=== PATIENT | male | born 1945 | race Caucasian/White ===

== ENCOUNTER 2018-05-30 08:08 | Inpatient (IN) ==
--- NOTE | 2018-05-30 08:46 | ED ---
HPI General Chief Complaint: Neck Pain/Injury Stated Complaint: Medical/Evac Time Seen by Provider: 05/30/18 08:33 Source: patient, RN notes reviewed and old records reviewed Mode of arrival: EMS Limitations: no limitations History of Present Illness HPI Narrative: 72-year-old male presents to the emergency department via EMS for evaluation of left low back pain that radiates down the left leg. Patient states the pain started on . He denies any traumatic injury. No fevers or chills. No loss of bowel or bladder control. No saddle anesthesias. Patient reports history of CVA, COPD, hypertension. He is currently on any anticoagulant. Patient states he has been ambulatory at home, but with pain. He does live alone. According to review of chart, he does have history of alcohol abuse. Patient denies any chest pain or shortness breath. No abdominal pain. No nausea, vomiting, diarrhea. He states that he has looked up his symptoms and he believes he has sciatica, but denies history of sciatica. Moderate severity. MD Complaint: back pain Onset (ago): day(s) (3) Duration: constant Similar Symptoms Previously: No Location: left lower back Severity: moderate Quality: sharp Radiation: left leg Severity scale (1-10): 10 Relieving factors: immobilization Exacerbating factors: walking Associated symptoms: denies other symptoms Treatments prior to arrival: acetaminophen Related Data Home Medications Medication Instructions Recorded Confirmed Unable to Obtain Home Meds 05/30/18 05/30/18 Allergies Allergy/AdvReac Type Severity Reaction Status Date / Time No Known Allergies Allergy Unknown Abdominal Uncoded 05/30/18 08:23 Pain Review of Systems Except as stated in HPI: all other systems reviewed are negative PMFSH Social History Social History Second Hand Smoke Exposure: No Smoking Status: Current every day smoker Tobacco Type: Cigarettes How Often Do You Have a Drink Containing Alcohol: 4 or more times a week Immunization History Tetanus Immunization: Unsure Hx Influenza Vaccine This Season: Unable to Assess Exam Narrative Exam Narrative: GENERAL: Well-nourished, well-developed elderly male patient, afebrile SKIN: Focused skin assessment warm/dry. HEAD: Normocephalic. Atraumatic EYES: No scleral icterus. No injection or drainage. NECK: Supple, trachea midline. No JVD or lymphadenopathy. CARDIOVASCULAR: Regular rate and rhythm without murmurs, gallops, or rubs. Bilateral pedal pulses are 2+ RESPIRATORY: Breath sounds equal bilaterally. No accessory muscle use. Lung sounds are clear to auscultation GASTROINTESTINAL: Abdomen soft, non-tender, nondistended. MUSCULOSKELETAL: No cyanosis, or edema. BACK: No obvious deformity. No CVA tenderness. No midline spinal tenderness. He has tenderness over the left posterior hip. No loss of range of motion of the left leg. No shortening or rotation. He moves all extremities fully. Bilateral lower extremity strength 5/5. Course Initial Documented Vital Signs Temperature 97.9 F 05/30/18 08:25 Pulse Rate 107 H 05/30/18 08:25 Respiratory Rate 18 05/30/18 08:25 Blood Pressure 148/76 H 05/30/18 08:25 Pulse Oximetry 98 05/30/18 08:25 Last Documented Vital Signs Temperature 97.9 F 05/30/18 08:25 Pulse Rate 107 H 05/30/18 08:25 Respiratory Rate 18 05/30/18 11:02 Blood Pressure 164/91 H 05/30/18 13:49 Pulse Oximetry 97 05/30/18 13:49 Medical Decision Making MDM Narrative Medical decision making narrative: 72-year-old male presents to the emergency department for evaluation of left hip pain that radiates down the left leg. Symptoms are consistent with sciatica. Patient is given [place] 5/325 mg p.o. for pain. He is given dexamethasone 8 mg IM. X-ray the lumbar spine and x-ray left hip with pelvis are ordered and pending. X-ray of the lumbar spine shows mild degenerative disc changes and facet degenerative changes as noted above, no evidence of acute injury. X-ray of the left hip with pelvis shows a normal left hip. Patient was attempted to ambulate, but he is unable to get out of the bed due to intense pain. IV access is established. CBC, CMP, PTT, PT/INR, UA are ordered and pending. CT of the lumbar spine and CT of the pelvis are ordered and pending. Patient is given Morphine 4 mg IV, Zofran 4 mg ODT. CBC shows leukocytosis 13.6. CMP shows no acute abnormal. PTT is 26.8. PT/ INR is 11.3/1.1. UA is pending. CT of the lumbar spine shows multilevel degenerative disc disease with mild stenosis L4-L5 and L5-S1, multilevel neural foraminal narrowing as above, maximal L5-S1 on the left. CT of the pelvis shows no evidence of acute pelvic process, no masses are identified. Patient is still unable to ambulate and states he does not feel comfortable going home. The patient does live alone. Hospitalist is paged for admission. Dr. Mayorga accepted admission. Differential Diagnosis Differential Diagnosis: Sciatica versus muscle strain versus muscle spasm versus herniated disc versus fracture Medical Records Medical records reviewed: Yes I reviewed the patient's medical records. Lab Data Result diagrams: 05/30/18 10:18 05/30/18 10:18 Lab Results 05/30/18 05/30/18 05/30/18 Range/Units 10:18 10:18 10:18 WBC 13.6 H (4.0-11.0) th/mm3 RBC 3.43 L (4.50-5.90) mil/mm3 Hgb 11.0 L (13.0-17.0) gm/dL Hct 33.0 L (39.0-51.0) % MCV 96.3 (80.0-100.0) fL MCH 32.1 (27.0-34.0) pg MCHC 33.3 (32.0-36.0) % RDW 15.3 (11.6-17.2) % Plt Count 334 (150-450) th/mm3 MPV 6.5 L (7.0-11.0) fL Neut % (Auto) 90.5 H (16.0-70.0) % Lymph % (Auto) 4.0 L (9.0-44.0) % [place] % (Auto) 4.3 (0.0-8.0) % Eos % (Auto) 0.5 (0.0-4.0) % Baso % (Auto) 0.7 (0.0-2.0) % Neut # (Auto) 12.3 H (1.8-7.7) th/mm3 Lymph # (Auto) 0.5 L (1.0-4.8) th/mm3 [place] # (Auto) 0.6 (0.0-0.9) th/mm3 Eos # (Auto) 0.1 (0.0-0.4) th/mm3 Baso # (Auto) 0.1 (0.0-0.2) th/mm3 WBC Differential . Differential Comment Auto diff final PT 11.3 (9.8-11.6) sec INR 1.1 Ratio APTT 26.8 (24.3-30.1) sec Sodium 136 (136-145) meq/L Potassium 3.9 (3.5-5.1) meq/L Chloride 102 (98-107) meq/L Carbon Dioxide 23.3 (21.0-32.0) meq/L Anion Gap 11 (5-15) meq/L BUN 7 (7-18) mg/dL Creatinine 0.63 (0.60-1.30) mg/dL Estimated GFR Greater than 89 (>89) mL/min Random Glucose 79 (74-106) mg/dL Calcium 8.2 L (8.5-10.1) mg/dL Total Bilirubin 0.5 (0.2-1.0) mg/dL AST 16 (15-37) U/L ALT 14 (12-78) U/L Alkaline Phosphatase 84 (45-117) U/L Total Protein 7.1 (6.4-8.2) g/dL Albumin 2.8 L (3.4-5.0) g/dL Imaging Data Radiologist's impression: Hip X-Ray 05/30/18 08:40 CONCLUSION: Normal left hip. Lumbar Spine X-Ray 05/30/18 08:40 CONCLUSION: Mild degenerative disc changes and facet degenerative changes as noted above. No evidence of acute injury. Lumbar Spine CT 05/30/18 10:03 CONCLUSION: Multilevel degenerative disc disease with mild stenosis at L4-L5 and L5-S1. Multilevel neural foraminal narrowing as above maximal at L5-S1 on the left Pelvis CT 05/30/18 10:06 CONCLUSION: No evidence of acute pelvic process. No masses are identified. Discharge Plan Discharge Disposition Patient Disposition: 30 Still Patient Discharge Details Diagnosis: Intractable low back pain Physicians Team ED Provider: Jey Cervantes ED Midlevel Provider: Erin Giron Primary Care Provider: [facility],Physician 's Rxs /Orders / Referrals /Forms Prescriptions: No Action Unable to Obtain Home Meds RF: 0 Status ED Status: With Doctor
--- NOTE | 2018-05-30 09:45 | XR ---
EXAM DATE: 05/30/2018 9:18 AM EDT AGE/SEX: 72 years / Male INDICATIONS: Low back pain, denies injury CLINICAL DATA: This is the patient's initial encounter. Patient reports that signs and symptoms have been present for 4 - 6 days and indicates a pain score of 6/10. MEDICAL/SURGICAL HISTORY: Arthritis. Stroke. Hypertension. Chronic obstructive pulmonary diseas e None. COMPARISON: No prior exams available for comparison. FINDINGS: The vertebral bodies are in normal alignment without evidence of compression deformity. Mild endplate degenerative changes are seen throughout the lumbar spine. Mild facet degenerative change seen withi n the lower lumbar spine. Bone density is normal for age. Soft tissues and straight significant athe rosclerosis. CONCLUSION: Mild degenerative disc changes and facet degenerative changes as noted above. No evidence of acute in jury. Electronically signed by: Gale Alex MD 05/30/2018 9:44 AM EDT
--- NOTE | 2018-05-30 09:46 | XR ---
EXAM DATE: 05/30/2018 9:16 AM EDT AGE/SEX: 72 years / Male INDICATIONS: Left hip pain, denies injury CLINICAL DATA: This is the patient's initial encounter. Patient reports that signs and symptoms have been present for 4 - 6 days and indicates a pain score of 9/10. MEDICAL/SURGICAL HISTORY: Arthritis. Stroke. Hypertension. Chronic obstructive pulmonary diseas e None. COMPARISON: No prior exams available for comparison. FINDINGS: Bony structures are intact and in normal alignment. Joints are intact without dislocation or signifi cant arthropathy. Osseous density is normal. Soft tissues demonstrate extensive atherosclerosis. No radiopaque foreign bodies seen. CONCLUSION: Normal left hip. Electronically signed by: Gale Alex MD 05/30/2018 9:45 AM EDT
[2018-05-30] MEDS ORDERED: Morphine Inj 4 MG/ML Vial IV.PUSH ONE ×2 (10:03→13:32)
[2018-05-30 10:47] LABS: Baso # (Auto) 0.1 th/mm3 (0.0-0.2); Baso % (Auto) 0.7 % (0.0-2.0); Eos # (Auto) 0.1 th/mm3 (0.0-0.4); Eos % (Auto) 0.5 % (0.0-4.0); Lymph # (Auto) 0.5 th/mm3 (1.0-4.8); Mean Corpuscular HGB Conc 33.3 % (32.0-36.0); Mean Corpuscular Hemoglobin 32.1 pg (27.0-34.0); Mean Corpuscular Volume 96.3 fL (80.0-100.0); Mean Platelet Volume 6.5 fL (7.0-11.0); Mono # (Auto) 0.6 th/mm3 (0.0-0.9); Mono % (Auto) 4.3 % (0.0-8.0); Neut # (Auto) 12.3 th/mm3 (1.8-7.7); Neut % (Auto) 90.5 % (16.0-70.0); Platelet Count 334 th/mm3 (150-450); Red Blood Count 3.43 mil/mm3 (4.50-5.90); Red Cell Distribution Width 15.3 % (11.6-17.2); White Blood Count 13.6 th/mm3 (4.0-11.0)
[2018-05-30 11:01] LABS: Activated Partial Thrombo Time 26.8 sec (24.3-30.1); INR 1.1 Ratio; Prothrombin Time 11.3 sec (9.8-11.6)
[2018-05-30 11:12] LABS: Alanine Aminotransferase 14 U/L (12-78); Albumin 2.8 g/dL (3.4-5.0); Anion Gap 11 meq/L (5-15); Aspartate Aminotransferase 16 U/L (15-37); Blood Urea Nitrogen 7 mg/dL (7-18); Calcium 8.2 mg/dL (8.5-10.1); Carbon Dioxide 23.3 meq/L (21.0-32.0); Chloride 102 meq/L (98-107); Glomerular Filtration Rate Greater Than 89 mL/min (>89); Glucose,Random 79 mg/dL (74-106); Potassium 3.9 meq/L (3.5-5.1); Sodium 136 meq/L (136-145)
[2018-05-30 11:14] LABS: Alkaline Phosphatase 84 U/L (45-117); Total Protein 7.1 g/dL (6.4-8.2)
--- NOTE | 2018-05-30 12:36 | CT ---
EXAM DATE: 05/30/2018 12:12 PM EDT AGE/SEX: 72 years / Male INDICATIONS: Left leg pain 4 days CLINICAL DATA: This is the patient's initial encounter. Patient reports that signs and symptoms have been present for 4 - 6 days and indicates a pain score of 10/10. MEDICAL/SURGICAL HISTORY: Hypertension. None. RADIATION DOSE: 30.48 CTDI (mGy) COMPARISON: No prior exams available for comparison. TECHNIQUE: Contiguous axial images were acquired with a multirow detector CT scanner without contras t. Multiplanar reconstructions in the sagittal and coronal plane were also performed. Using automate d exposure control and adjustment of the mA and/or kV according to patient size, radiation dose was k ept as low as reasonably achievable to obtain optimal diagnostic quality images. DICOM format image data is available electronically for review and comparison. FINDINGS: Sagittal images demonstrate normal vertebral body alignment and curvature. No fractures are identifie d. Axial images performed from T12-L1 through L5-S1. There is disc space narrowing and marginal osteo phyte formation at L4-L5. T12-L1: No significant abnormalities identified. L1-L2: There is mild diffuse annular bulge of the disc. The neural foramina are clear bilaterally. T here is no significant spinal canal stenosis. L2-L3: There is mild diffuse annular bulge of the disc. The neural foramina are clear bilaterally. T here is no significant spinal canal stenosis. L3-L4: There is broad-based annular bulge of disc asymmetric to the left. There is mild facet arthri tis bilaterally. There is no significant spinal canal stenosis. L4-L5: There is mild annular bulge of the disc. There is mild left sided neural foraminal narrowing. There is mild facet arthritis bilaterally. There is mild spinal canal stenosis. L5-S1: There is broad-based annular bulge of disc. There is moderate neural foraminal narrowing bila terally. There is no significant spinal canal stenosis. CONCLUSION: Multilevel degenerative disc disease with mild stenosis at L4-L5 and L5-S1. Multilevel neural foraminal narrowing as above maximal at L5-S1 on the left Electronically signed by: Radames Mojica MD 05/30/2018 12:34 PM EDT
--- NOTE | 2018-05-30 12:40 | CT ---
EXAM DATE: 05/30/2018 12:09 PM EDT AGE/SEX: 72 years / Male INDICATIONS: Left leg pain 4 days CLINICAL DATA: This is the patient's initial encounter. Patient reports that signs and symptoms have been present for 1 day and indicates a pain score of 10/10. MEDICAL/SURGICAL HISTORY: Hypertension. None. RADIATION DOSE: 9.84 CTDI (mGy) COMPARISON: No prior exams available for comparison. TECHNIQUE: Multiple contiguous axial images were obtained through the pelvis without contrast. Imag es were obtained using multiple row detector helical technique. . Using automated exposure control an d adjustment of the mA and/or kV according to patient size, radiation dose was kept as low as reasona keesha achievable to obtain optimal diagnostic quality images. DICOM format image data is available cristina ctronically for review and comparison. FINDINGS: Examination of the pelvis demonstrates no evidence of free fluid or pelvic mass. No abnormally enlarg ed inguinal or retroperitoneal lymph nodes are present. The bladder is unremarkable. Severe vascular calcification is present. The prostate gland is moderately enlarged impinging on the bladder base. Bi lateral fat-containing inguinal hernias are present There is diverticulosis without evidence of diver ticulitis. Bone windows demonstrate multilevel degenerative change. No focal areas of bone destructio n are identified. CONCLUSION: No evidence of acute pelvic process. No masses are identified. Electronically signed by: Radames Mojica MD 05/30/2018 12:38 PM EDT
[2018-05-30] MEDS ORDERED: Acetaminophen 325 MG Tablet PO PRN ×2 (13:49→13:52)
[2018-05-30] MEDS ORDERED: Bisacodyl 10 MG Supp RECTAL PRN (13:49)
[2018-05-30] MEDS ORDERED: Morphine Inj 4 MG/ML Vial IV.PUSH PRN ×3 (13:52→14:15)
[2018-05-30] MEDS ORDERED: Naloxone Inj 0.4 MG/ML Vial IV.PUSH PRN (13:52)
[2018-05-30] MEDS: Sod Chloride 0.9% Inj 1,000 ML IV.CONT SCH (13:59)
[2018-05-30] MEDS: Enoxaparin Inj 40 MG/0.4 ML Syringe SQ SCH (14:28)
--- NOTE | 2018-05-30 14:28 | P.HPIM ---
History of Present Illness Service: [facility] Primary Care Physician: [facility] Chief Complaint: DIFFICULTY AMBULATING History of Present Illness: Patient is a 72-year-old gentleman who normally goes Dr. Who presents to the emergency department with left lower back pain that radiates down his left leg. Patient states that this is been going on since last . He is today being Thursday. He denies any traumatic injury. Denies any fever chills denies any loss of bowel or bladder control. Denies any saddle anesthesias. Patient does have a history of CVAs, COPD, hypertension. Son Rebecca. States that at home he been ambulatory but with pain. He does live alone. Has a history of alcohol and tobacco abuse denies any chest pain or shortness of breath at this time denies any abdominal pain denies any nausea has moderate severity. Has suspect pain and some going on for at least 3 days in the left lower back to moderate 10 out of 10 for pain difficulty with walking worsened with walking only been trying acetaminophen at home - Diagnosis (1) History of CVA (cerebrovascular accident) (2) COPD (chronic obstructive pulmonary disease) (3) Hypertension Inpatient Certification: I certify that the inpatient services were ordered in accordance with Medicare regulations governing the order. This includes certification that hospital inpatient services are reasonable and necessary and in the case of services not specified as inpatient-only under 42 CFR 419.22(n), that they are appropriately provided as inpatient services in accordance to with the 2-midnight benchmark under 43 CFR 412.3(e) Estimated Total Length of Stay (Days): 3 Plans for Post Hospital Care: Not yet determined Review of Systems All other systems reviewed negative except as stated in HPI Constitutional: Reports weakness, Denies night sweats, Denies weight gain Eyes: Reports requires corrective lenses, Denies blind spots, Denies discharge, Denies pain Ears, Nose, Mouth, and Throat: Denies abnormal hearing, Denies nasal discharge, Denies nose pain Cardiovascular: Denies chest pain, Denies generalized swelling, Denies leg sores , Denies rapid, pounding, or irregular heartbeat, Denies shortness of breath with activity, Denies shortness of breath causing sudden awakening Respiratory: Denies change in phlegm color, Denies excessive phlegm production, Denies shortness of breath, Denies wheezing Gastrointestinal: Denies abdominal pain, Denies bright, red blood in stools, Denies constant urge to pass stool, Denies feeling full early, Denies pain with swallowing Genitourinary: Reports urinary frequency, Denies urinary urgency Skin/Breast: Reports change in skin color, Reports wounds Neurologic: Reports abnormal walking, Reports lack of coordination, Reports localized weakness, Reports radiating pain, Reports unsteadiness, Denies abnormal hearing Psychiatric: Denies abnormal sleep pattern, Denies seeing things others do not see, Denies tactile hallucinations, Denies thoughts of hurting/killing yourself Endocrine: Denies cold intolerance, Denies excessive sweating, Denies increased hunger, Denies increased thirst Hematologic/Lymphatic: Denies easy bleeding, Denies easy bruising Allergic/Immunologic: Denies GI upset with certain foods, Denies seasonal runny nose PMFSH - History History Provided By: Patient - Medical History Medical History: Medical History (Last Updated 05/30/18 @ 14:23 by Luc Mayorga DO) Alcohol abuse CVA (cerebral vascular accident) Hyperlipidemia Hypertension Tobacco abuse - Family History Family History: Family History (Last Updated 05/30/18 @ 14:23 by Luc Mayorga DO) Other Family history of hypertension - Tobacco History Second Hand Smoke Exposure: No Tobacco Use In Past 30 Days: Yes Smoking Status: Current every day smoker Tobacco Type: Cigarettes - Alcohol History How Often Do You Have a Drink Containing Alcohol: 4 or more times a week - Travel History History of Recent Travel: No Recent Travel in the [place] Within the Last 8 Weeks: No Recent Travel Out of the Country Within the Last 8 Weeks: No - Immunization History Tetanus Immunization: Unsure Hx Influenza Vaccine This Season: Unable to Assess Medications and Allergies Active Medications: Active Medications Acetaminophen (Tylenol) 650 mg PO Q4H PRN PRN Reason: Temp > 100.4 Acetaminophen (Tylenol) 650 mg PO Q6HR PRN PRN Reason: PAIN SCALE 1 TO 2 Al Hydroxide/Mg Hydroxide (Milk Of Magnesia Liq) 30 ml PO Q12H PRN PRN Reason: Mild Constipation Bisacodyl (Dulcolax Supp) 10 mg RECTAL DAILY PRN PRN Reason: SEVERE CONSITIPATION Enoxaparin Sodium (Lovenox Inj) 40 mg SQ Q24H MIGEL Sodium Chloride (Ns Inj) 1,000 mls @ 100 mls/hr IV.CONT .Q10H MIGEL Last Admin: 05/30/18 13:59 Dose: 100 mls/hr Lactulose (Lactulose Liq) 30 ml PO DAILY PRN PRN Reason: SEVERE CONSITIPATION Methocarbamol (Robaxin) 750 mg PO Q6HR MIGEL Morphine Sulfate (Morphine Inj) 4 mg IV.PUSH Q3H PRN PRN Reason: PAIN 6-10;IF UNABLE TO TAKE PO Morphine Sulfate (Morphine Inj) 4 mg IV.PUSH Q3H PRN PRN Reason: BREAKTHROUGH PAIN Morphine Sulfate (Morphine Inj) 2 mg IV.PUSH Q3H PRN PRN Reason: PAIN 3-5;IF UNABLE TO TAKE PO Naloxone HCl (Narcan Inj) 0.4 mg IV.PUSH UNSCH PRN PRN Reason: SEE LABEL COMMENTS Ondansetron HCl (Zofran Odt) 4 mg PO Q6H PRN PRN Reason: NAUSEA OR VOMITING Oxycodone/Acetaminophen (Percocet 10/325 Mg) 1 tab PO Q6H PRN PRN Reason: PAIN SCALE 6 TO 10 Oxycodone/Acetaminophen (Percocet 5/325 Mg) 1 tab PO Q6H PRN PRN Reason: PAIN SCALE 3 TO 5 Senna/Docusate Sodium (Angella-Colace) 1 tab PO BID MIGEL Sennosides (Senokot) 17.2 mg PO Q12H PRN PRN Reason: Moderate Constipation Temazepam (Restoril) 15 mg PO HS PRN PRN Reason: INSOMNIA Allergies Allergy/AdvReac Type Severity Reaction Status Date / Time No Known Allergies Allergy Unknown Abdominal Uncoded 05/30/18 08:23 Pain Home Medications Medication Instructions Recorded Confirmed Type Unable to Obtain Home Meds 05/30/18 05/30/18 History Exam Vital signs: Vital Signs 05/30/18 08:25 05/30/18 09:38 05/30/18 10:30 Temperature 97.9 F Pulse Rate 107 H Respiratory Rate 18 18 Blood Pressure 148/76 H 156/59 H Pulse Oximetry 98 05/30/18 11:02 05/30/18 12:53 05/30/18 13:49 Temperature Pulse Rate Respiratory Rate 18 Blood Pressure 132/58 L 164/91 H Pulse Oximetry 97 97 05/30/18 14:13 Temperature Pulse Rate Respiratory Rate 18 Blood Pressure Pulse Oximetry Intake & Output 05/29/18 05/30/18 05/30/18 18:59 06:59 18:59 Weight 63.503 kg Narrative: GENERAL: Awake alert and oriented 3 talkative and cooperative appears older than stated age SKIN: Warm and dry. HEAD: Atraumatic. Normocephalic. EYES: Pupils equal and round. No scleral icterus. No injection or drainage. ENT: No nasal bleeding or discharge. Mucous membranes pink and moist. NECK: Trachea midline. No JVD. Supple CARDIOVASCULAR: Regular rate and rhythm. S1-S2 no S3 or S4 RESPIRATORY: No accessory muscle use. Clear to auscultation. Breath sounds equal bilaterally. GASTROINTESTINAL: Abdomen soft, non-tender, nondistended. Hepatic and splenic margins not palpable. MUSCULOSKELETAL: Extremities without clubbing, cyanosis, or edema. No obvious deformities. Tenderness over left posterior hip and move the left leg no shortening or rotation -HAS some pain and gait UNsteadiness NEUROLOGICAL: Awake and alert. No obvious cranial nerve deficits. Motor grossly within normal limits. Five out of 5 muscle strength in the arms and legs. Normal speech. PSYCHIATRIC: Appropriate mood and affect; insight and judgment normal. Results - Labs CBC & Chem 7: 05/30/18 10:18 05/30/18 10:18 Labs: Short CBC 05/30/18 Range/Units 10:18 WBC 13.6 H (4.0-11.0) th/mm3 Hgb 11.0 L (13.0-17.0) gm/dL Hct 33.0 L (39.0-51.0) % Plt Count 334 (150-450) th/mm3 [facility] 05/30/18 10:18 Sodium 136 Potassium 3.9 Chloride 102 Carbon Dioxide 23.3 BUN 7 Creatinine 0.63 Calcium 8.2 L Liver Function 05/30/18 Range/Units 10:18 Total Bilirubin 0.5 (0.2-1.0) mg/dL AST 16 (15-37) U/L ALT 14 (12-78) U/L Alkaline Phosphatase 84 (45-117) U/L Albumin 2.8 L (3.4-5.0) g/dL - Imaging Impressions Hip X-Ray 05/30/18 08:40 CONCLUSION: Normal left hip. Lumbar Spine X-Ray 05/30/18 08:40 CONCLUSION: Mild degenerative disc changes and facet degenerative changes as noted above. No evidence of acute injury. Lumbar Spine CT 05/30/18 10:03 CONCLUSION: Multilevel degenerative disc disease with mild stenosis at L4-L5 and L5-S1. Multilevel neural foraminal narrowing as above maximal at L5-S1 on the left Pelvis CT 05/30/18 10:06 CONCLUSION: No evidence of acute pelvic process. No masses are identified. Caprini VTE Risk Assessment Caprini VTE Risk Assessment: Moderate/High Risk (score >= 2) Caprini Risk Assessment Model: Point Value = 1 Point Value = 2 Point Value = 3 Point Value = 5 Age 41-60 Minor surgery BMI > 25 kg/m2 Swollen legs Varicose veins or History of unexplained or recurrent spontaneous Oral contraceptives or hormone replacement Sepsis (< 1 month) Serious lung disease, including pneumonia (< 1 month) Abnormal pulmonary function Acute myocardial infarction Congestive heart failure (< 1 month) History of inflammatory bowel disease Medical patient at bed rest Age 61-74 Arthroscopic surgery Major open surgery (> 45 min) Laparoscopic surgery (> 45 min) Malignancy Confined to bed (> 72 hours) Immobilizing plaster cast Central venous access Age >= 75 History of VTE Family history of VTE Factor V Leiden Prothrombin [id number] Lupus anticoagulant Anticardiolipin antibodies Elevated serum homocysteine Heparin-induced thrombocytopenia Other congenital or acquired thrombophilia Stroke (< 1 month) Elective arthroplasty Hip, pelvis, or leg fracture Acute spinal cord injury (< 1 month) Prophylaxis Regimen: Total Risk Factor Score Risk Level Prophylaxis Regimen 0-1 Low Early ambulation 2 Moderate Order ONE of the following: *Sequential Compression Device (SCD) *Heparin 5000 units SQ BID 3-4 Higher Order ONE of the following medications: *Heparin 5000 units SQ TID *Enoxaparin/Lovenox 40 mg SQ daily (WT < 150 kg, CrCl > 30 mL/min) *Enoxaparin/Lovenox 30 mg SQ daily (WT < 150 kg, CrCl > 10-29 mL/min) *Enoxaparin/Lovenox 30 mg SQ BID (WT < 150 kg, CrCl > 30 mL/min) AND/OR *Sequential Compression Device (SCD) 5 or more Highest Order ONE of the following medications: *Heparin 5000 units SQ TID (Preferred with Epidurals) *Enoxaparin/Lovenox 40 mg SQ daily (WT < 150 kg, CrCl > 30 mL/min) *Enoxaparin/Lovenox 30 mg SQ daily (WT < 150 kg, CrCl > 10-29 mL/min) *Enoxaparin/Lovenox 30 mg SQ BID (WT < 150 kg, CrCl > 30 mL/min) AND *Sequential Compression Device (SCD) Assessment and Plan - Assessment (1) History of CVA (cerebrovascular accident) Code(s): Z86.73 - Personal history of transient ischemic attack (TIA), and cerebral infarction without residual deficits Status: Chronic (2) COPD (chronic obstructive pulmonary disease) Code(s): J44.9 - Chronic obstructive pulmonary disease, unspecified Status: Chronic (3) Hypertension Code(s): I10 - Essential (primary) hypertension Status: Chronic - Plan Acute left-sided back pain/sciatica -Continue on Robaxin -Continue on morphine and/or Percocet -Physical therapy and occupational therapy to eval and treat Hypertension resume home medications once we can get them CVA with some weakness generalized COPD resume home medications Glaucoma resume home medications BPH resume terazosin Consult case management Physical therapy and Occupational Therapy Robaxin Code Status: FULL CODE Discussed Condition With: RN AND PT AND ER PA Discharge Planning: PENDING IMPROVED MOBILITY OR WILL NEED SNF
[2018-05-30] MEDS: Folic Acid 1 MG Tablet PO SCH (15:27)
[2018-05-30] MEDS: predniSONE 20 MG Tablet PO SCH ×2 (15:27→21:25)
[2018-05-30] MEDS: Famotidine 20 MG Tablet PO SCH ×2 (15:28→21:25)
[2018-05-30] MEDS: Budesonide-Formoterol 160/4.5 MCG 6 GM Inhaler INH SCH ×2 (15:54→21:35)
[2018-05-30] MEDS: Primidone 50 MG Tablet PO SCH ×2 (15:54→21:26)
[2018-05-30] MEDS: oxyCODONE/Acetaminophen 10/325 Tablet PO PRN (17:38)
[2018-05-30] MEDS: Methocarbamol 500 MG Tablet PO SCH (17:38)
[2018-05-30 17:40] LABS: Bilirubin,Urine Negative (Negative); Clarity,Urine Clear (Clear); Color,Urine Yellow (Yellw/Straw); Glucose,Urine (UA) Negative (Negative); Leukocyte Esterase,Urine Negative (Negative); Mucus,Urine Few /lpf (Occasional); Nitrite,Urine Negative (Negative); Specific Gravity,Urine 1.011 (1.002-1.035)
[2018-05-30] MEDS ORDERED: Haloperidol Inj 5 MG/ML Ampul IV.PUSH PRN (20:19)
[2018-05-30] MEDS ORDERED: LORazepam 1 MG Tablet PO PRN (20:19)
[2018-05-30] MEDS: Senna/Docusate Sodium 8.6/50 MG Tablet PO SCH (21:25)
[2018-05-30] MEDS: Latanoprost 0.005% Opth Drops 2.5 ML Bottle EACH EYE SCH (21:26)
[2018-05-31] MEDS: Methocarbamol 500 MG Tablet PO SCH ×3 (01:49→11:43)
[2018-05-31] MEDS: Famotidine 20 MG Tablet PO SCH ×2 (08:34→21:18)
[2018-05-31] MEDS: Folic Acid 1 MG Tablet PO SCH (08:35)
[2018-05-31] MEDS: Senna/Docusate Sodium 8.6/50 MG Tablet PO SCH ×2 (08:35→21:18)
[2018-05-31] MEDS: predniSONE 20 MG Tablet PO SCH ×2 (08:35→21:18)
[2018-05-31] MEDS: Budesonide-Formoterol 160/4.5 MCG 6 GM Inhaler INH SCH ×2 (08:36→21:19)
[2018-05-31] MEDS: Primidone 50 MG Tablet PO SCH ×2 (08:41→21:18)
[2018-05-31] MEDS: oxyCODONE/Acetaminophen 10/325 Tablet PO PRN ×2 (10:44→21:18)
[2018-05-31 10:46] LABS: Baso % (Auto) 0.2 % (0.0-2.0); Hematocrit 32.3 % (39.0-51.0); Hemoglobin 10.9 gm/dL (13.0-17.0); Lymph # (Auto) 0.6 th/mm3 (1.0-4.8); Lymph % (Auto) 5.8 % (9.0-44.0); Mean Corpuscular HGB Conc 33.8 % (32.0-36.0); Mean Corpuscular Hemoglobin 32.6 pg (27.0-34.0); Mean Corpuscular Volume 96.5 fL (80.0-100.0); Mono # (Auto) 0.5 th/mm3 (0.0-0.9); Mono % (Auto) 5.4 % (0.0-8.0); Neut # (Auto) 8.5 th/mm3 (1.8-7.7); Neut % (Auto) 88.6 % (16.0-70.0); Platelet Count 317 th/mm3 (150-450); Red Blood Count 3.35 mil/mm3 (4.50-5.90); Red Cell Distribution Width 15.6 % (11.6-17.2); White Blood Count 9.6 th/mm3 (4.0-11.0)
[2018-05-31 10:53] LABS: Alanine Aminotransferase 15 U/L (12-78); Albumin 2.6 g/dL (3.4-5.0); Anion Gap 9 meq/L (5-15); Aspartate Aminotransferase 11 U/L (15-37); Blood Urea Nitrogen 13 mg/dL (7-18); Carbon Dioxide 25.7 meq/L (21.0-32.0); Chloride 98 meq/L (98-107); Glomerular Filtration Rate Greater Than 89 mL/min (>89); Glucose,Random 150 mg/dL (74-106); Magnesium 1.2 mg/dL (1.5-2.5); Phosphorus 2.8 mg/dL (2.5-4.9); Potassium 3.9 meq/L (3.5-5.1); Sodium 133 meq/L (136-145)
[2018-05-31 11:03] LABS: Alkaline Phosphatase 75 U/L (45-117); Total Protein 6.9 g/dL (6.4-8.2)
[2018-05-31] MEDS: Sod Chloride 0.9% Inj 1,000 ML IV.CONT SCH ×2 (11:08)
--- NOTE | 2018-05-31 12:25 | P.PNIM ---
Subjective Interval history: The patient said that his leg was feeling better today. He has better range of motion. He has not worked with physical therapy yet. He would rather go home than to rehab. Discussed with nursing. Physical Exam Vital signs: Vital Signs 05/30/18 12:53 05/30/18 13:49 05/30/18 14:13 Temperature Pulse Rate Respiratory Rate 18 Blood Pressure 132/58 L 164/91 H Pulse Oximetry 97 97 05/30/18 15:26 05/30/18 16:00 05/30/18 20:00 Temperature 97.2 F L 97.4 F L Pulse Rate 99 H 110 H 93 H Respiratory Rate 18 14 17 Blood Pressure 154/74 H 201/93 H 140/69 Pulse Oximetry 97 95 05/31/18 00:00 05/31/18 00:32 05/31/18 04:00 Temperature 98.5 F 97.5 F L Pulse Rate 83 83 Respiratory Rate 16 16 Blood Pressure 147/70 H 164/80 H Pulse Oximetry 95 95 95 05/31/18 08:00 Temperature 97.4 F L Pulse Rate 92 H Respiratory Rate 16 Blood Pressure 163/84 H Pulse Oximetry 98 Intake & Output 05/30/18 05/31/18 05/31/18 18:59 06:59 18:59 Intake Total 1750 / 1750 300 / 300 Output Total 500 / 500 650 / 650 Balance -500 / -500 1100 / 1100 300 / 300 Weight 63.503 kg 63.2 kg Intake: IV 1000 / 1000 NS Inj 1,000 ML @ 100 mls/hr IV 1000 / 1000 .CONT .Q10H [facility] [place] Rx#:[id number] Oral 750 / 750 300 / 300 Output: Urine 500 / 500 650 / 650 Other: Date of Last Bowel Movement 05/29/18 05/30/18 05/30/18 Narrative: GENERAL: No distress. SKIN: Warm and dry. HEAD: Atraumatic. Normocephalic. EYES: Pupils equal and round. No scleral icterus. No injection or drainage. ENT: No nasal bleeding or discharge. Mucous membranes pink and moist. NECK: Trachea midline. No JVD. Supple CARDIOVASCULAR: Regular rate and rhythm. S1-S2 no S3 or S4. RESPIRATORY: No accessory muscle use. Clear to auscultation. Breath sounds equal bilaterally. GASTROINTESTINAL: Abdomen soft, non-tender, nondistended. Hepatic and splenic margins not palpable. MUSCULOSKELETAL: Extremities without clubbing, cyanosis, or edema. No obvious deformities. Tenderness over left posterior hip. + SLR on left. NEUROLOGICAL: Awake and alert. No obvious cranial nerve deficits. Motor grossly within normal limits. Five out of 5 muscle strength in the arms and legs. Normal speech. PSYCHIATRIC: Appropriate mood and affect; insight and judgment normal. Results - Labs CBC & Chem 7: 05/31/18 09:07 05/31/18 09:07 Laboratory Results - last 24 hr 05/30/18 05/31/18 05/31/18 17:26 09:07 09:07 WBC 9.6 RBC 3.35 L Hgb 10.9 L Hct 32.3 L MCV 96.5 MCH 32.6 MCHC 33.8 RDW 15.6 Plt Count 317 MPV 7.0 Neut % (Auto) 88.6 H Lymph % (Auto) 5.8 L Nye % (Auto) 5.4 Eos % (Auto) 0.0 Baso % (Auto) 0.2 Neut # (Auto) 8.5 H Lymph # (Auto) 0.6 L Nye # (Auto) 0.5 Eos # (Auto) 0.0 Baso # (Auto) 0.0 WBC Differential . Differential Comment Auto diff final Sodium Potassium Chloride Carbon Dioxide Anion Gap BUN Creatinine Estimated GFR Random Glucose Calcium Phosphorus Magnesium Total Bilirubin AST ALT Alkaline Phosphatase Total Protein Albumin TSH Free T4 1.18 Urine Color Yellow Urine Clarity Clear Urine pH 6.0 Ur Specific [place] 1.011 Urine Protein Negative Urine Glucose (UA) Negative Urine Ketones 20 Urine Occult Blood Negative Urine Nitrate Negative Urine Bilirubin Negative Urine Urobilinogen Less than 2 Ur Leukocyte Esterase Negative Urine RBC Less than 1 Urine WBC 1 Urine Mucus Few H Micro UA Comment Culture not ind Urine Culture Comments Culture not ind 05/31/18 09:07 WBC RBC Hgb Hct MCV MCH MCHC RDW Plt Count MPV Neut % (Auto) Lymph % (Auto) Nye % (Auto) Eos % (Auto) Baso % (Auto) Neut # (Auto) Lymph # (Auto) Nye # (Auto) Eos # (Auto) Baso # (Auto) WBC Differential Differential Comment Sodium 133 L Potassium 3.9 Chloride 98 Carbon Dioxide 25.7 Anion Gap 9 BUN 13 Creatinine 0.81 Estimated GFR Greater than 89 Random Glucose 150 H Calcium 8.0 L Phosphorus 2.8 Magnesium 1.2 L Total Bilirubin 0.4 AST 11 L ALT 15 Alkaline Phosphatase 75 Total Protein 6.9 Albumin 2.6 L TSH 1.160 Free T4 Urine Color Urine Clarity Urine pH Ur Specific [place] Urine Protein Urine Glucose (UA) Urine Ketones Urine Occult Blood Urine Nitrate Urine Bilirubin Urine Urobilinogen Ur Leukocyte Esterase Urine RBC Urine WBC Urine Mucus Micro UA Comment Urine Culture Comments - Imaging Impressions Lumbar Spine CT 05/30/18 10:03 CONCLUSION: Multilevel degenerative disc disease with mild stenosis at L4-L5 and L5-S1. Multilevel neural foraminal narrowing as above maximal at L5-S1 on the left Pelvis CT 05/30/18 10:06 CONCLUSION: No evidence of acute pelvic process. No masses are identified. Assessment and Plan - Assessment (1) History of CVA (cerebrovascular accident) Code(s): Z86.73 - Personal history of transient ischemic attack (TIA), and cerebral infarction without residual deficits Status: Chronic (2) COPD (chronic obstructive pulmonary disease) Code(s): J44.9 - Chronic obstructive pulmonary disease, unspecified Status: Chronic (3) Hypertension Code(s): I10 - Essential (primary) hypertension Status: Chronic - Plan Acute left-sided back pain/sciatica Improving. -Continue on Robaxin. -continue prednisone. -Continue on morphine and/or Percocet with a bowel regimen. -Physical therapy and occupational therapy to eval and treat. -case management assistance appreciated. CVA With some weakness generalized. -continue medication regimen. -PT/OT. COPD Stable. -resume home medications. -smoking cessation. PPx: Lovenox
[2018-05-31] MEDS: Mag Sulf 1 gm/100 ml Premix 100 ML IV.SIG SCH ×2 (12:48→14:17)
[2018-05-31] MEDS: Enoxaparin Inj 40 MG/0.4 ML Syringe SQ SCH (14:17)
[2018-05-31 16:05] LABS: Hemoglobin A1c 4.6 % (4.3-6.0)
[2018-05-31] MEDS: Temazepam 15 MG Capsule PO PRN (21:18)
[2018-05-31] MEDS: Latanoprost 0.005% Opth Drops 2.5 ML Bottle EACH EYE SCH (21:19)
[2018-06-01] MEDS: Sod Chloride 0.9% Inj 1,000 ML IV.CONT SCH ×3 (06:10→17:13)
[2018-06-01 06:19] LABS: Hematocrit 30.1 % (39.0-51.0); Hemoglobin 10.1 gm/dL (13.0-17.0); Mean Corpuscular HGB Conc 33.6 % (32.0-36.0); Mean Corpuscular Hemoglobin 31.9 pg (27.0-34.0); Mean Corpuscular Volume 94.9 fL (80.0-100.0); Mean Platelet Volume 6.9 fL (7.0-11.0); Platelet Count 291 th/mm3 (150-450); Red Blood Count 3.17 mil/mm3 (4.50-5.90); Red Cell Distribution Width 15.6 % (11.6-17.2); White Blood Count 15.6 th/mm3 (4.0-11.0)
[2018-06-01 06:43] LABS: Anion Gap 8 meq/L (5-15); Blood Urea Nitrogen 14 mg/dL (7-18); Calcium 7.8 mg/dL (8.5-10.1); Carbon Dioxide 26.5 meq/L (21.0-32.0); Chloride 103 meq/L (98-107); Glomerular Filtration Rate Greater Than 89 mL/min (>89); Glucose,Random 115 mg/dL (74-106); Magnesium 1.7 mg/dL (1.5-2.5); Potassium 3.9 meq/L (3.5-5.1); Sodium 137 meq/L (136-145)
[2018-06-01] MEDS: Senna/Docusate Sodium 8.6/50 MG Tablet PO SCH (07:59)
[2018-06-01] MEDS: Folic Acid 1 MG Tablet PO SCH (07:59)
[2018-06-01] MEDS: Famotidine 20 MG Tablet PO SCH ×2 (07:59→20:07)
[2018-06-01] MEDS: predniSONE 20 MG Tablet PO SCH ×2 (07:59→20:07)
[2018-06-01] MEDS: Primidone 50 MG Tablet PO SCH ×2 (07:59→20:07)
[2018-06-01] MEDS: Budesonide-Formoterol 160/4.5 MCG 6 GM Inhaler INH SCH (08:00)
[2018-06-01] MEDS: oxyCODONE/Acetaminophen 10/325 Tablet PO PRN ×2 (15:09→21:17)
[2018-06-01] MEDS: Enoxaparin Inj 40 MG/0.4 ML Syringe SQ SCH (15:09)
--- NOTE | 2018-06-01 15:29 | P.PNIM ---
Subjective Interval history: The patient said he felt better but still weak. He would rather go home than to rehab. He said his pain was controlled. Physical Exam Vital signs: Vital Signs 05/31/18 16:00 05/31/18 20:50 06/01/18 00:00 Temperature 97.4 F L 97.2 F L 97.3 F L Pulse Rate 86 106 H 90 Respiratory Rate 16 19 18 Blood Pressure 178/82 H 174/81 H 164/82 H Pulse Oximetry 97 97 93 L 06/01/18 04:00 06/01/18 08:00 06/01/18 12:00 Temperature 98.0 F 97.4 F L 97.7 F Pulse Rate 81 81 93 H Respiratory Rate 18 18 22 Blood Pressure 169/83 H 181/88 H 187/79 H Pulse Oximetry 97 98 Intake & Output 05/31/18 06/01/18 06/01/18 18:59 06:59 18:59 Intake Total 1300 / 1300 1280 / 1280 Output Total 600 / 600 1375 / 1375 600 / 600 Balance 700 / 700 -95 / -95 -600 / -600 Weight 64.4 kg Intake: IV 100 / 100 560 / 560 NS Inj 1,000 ML @ 100 mls/hr IV 560 / 560 .CONT .Q10H [facility] Rx#:[id number] Magnesium Sulfate 1 gm/D5W 100 100 / 100 ml Premix 100 ML @ 100 mls/hr IV.SIG Q1H [facility] Rx#:[id number] Oral 1200 / 1200 720 / 720 Output: Urine 600 / 600 1375 / 1375 600 / 600 Other: # Voids 3 Date of Last Bowel Movement 05/30/18 05/28/18 05/28/18 # Bowel Movements 0 Narrative: GENERAL: No distress. SKIN: Warm and dry. HEAD: Atraumatic. Normocephalic. EYES: Pupils equal and round. No scleral icterus. No injection or drainage. ENT: No nasal bleeding or discharge. Mucous membranes pink and moist. NECK: Trachea midline. No JVD. Supple CARDIOVASCULAR: Regular rate and rhythm. S1-S2 no S3 or S4. RESPIRATORY: No accessory muscle use. Clear to auscultation. Breath sounds equal bilaterally. GASTROINTESTINAL: Abdomen soft, non-tender, nondistended. Hepatic and splenic margins not palpable. MUSCULOSKELETAL: Extremities without clubbing, cyanosis, or edema. No obvious deformities. Tenderness over left posterior hip. + SLR on left. NEUROLOGICAL: Awake and alert. No obvious cranial nerve deficits. Motor grossly within normal limits. Five out of 5 muscle strength in the arms and legs. Normal speech. PSYCHIATRIC: Appropriate mood and affect; insight and judgment normal. Results - Labs CBC & Chem 7: 06/01/18 05:17 06/01/18 05:15 Laboratory Results - last 24 hr 05/31/18 06/01/18 06/01/18 09:07 05:15 05:17 WBC 15.6 H D RBC 3.17 L Hgb 10.1 L Hct 30.1 L MCV 94.9 MCH 31.9 MCHC 33.6 RDW 15.6 Plt Count 291 MPV 6.9 L Sodium 137 Potassium 3.9 Chloride 103 Carbon Dioxide 26.5 Anion Gap 8 BUN 14 Creatinine 0.75 Estimated GFR Greater than 89 Random Glucose 115 H Hemoglobin A1c 4.6 Calcium 7.8 L Magnesium 1.7 Assessment and Plan - Assessment (1) History of CVA (cerebrovascular accident) Code(s): Z86.73 - Personal history of transient ischemic attack (TIA), and cerebral infarction without residual deficits Status: Chronic (2) COPD (chronic obstructive pulmonary disease) Code(s): J44.9 - Chronic obstructive pulmonary disease, unspecified Status: Chronic (3) Hypertension Code(s): I10 - Essential (primary) hypertension Status: Chronic - Plan Acute left-sided back pain/sciatica Improving. -Flexeril as needed. -continue prednisone. -Continue on morphine and/or Percocet with a bowel regimen. -Physical therapy and occupational therapy to eval and treat. Rehab recommended but pt opts for home when ready. -case management assistance appreciated. CVA With some weakness generalized. -continue medication regimen. -PT/OT. COPD Stable. -resume home medications. -smoking cessation. PPx: Lovenox
[2018-06-01] MEDS ORDERED: Mag Sulf 1 gm/100 ml Premix 100 ML IV.SIG ONE (15:30)
[2018-06-01] MEDS: Temazepam 15 MG Capsule PO PRN (20:07)
[2018-06-02] MEDS: Latanoprost 0.005% Opth Drops 2.5 ML Bottle EACH EYE SCH ×2 (02:47→21:14)
[2018-06-02] MEDS: Senna/Docusate Sodium 8.6/50 MG Tablet PO SCH ×3 (02:47→21:13)
[2018-06-02] MEDS: Budesonide-Formoterol 160/4.5 MCG 6 GM Inhaler INH SCH ×3 (02:47→21:14)
[2018-06-02] MEDS: oxyCODONE/Acetaminophen 10/325 Tablet PO PRN ×2 (11:37→21:19)
[2018-06-02] MEDS: predniSONE 20 MG Tablet PO SCH (11:43)
[2018-06-02] MEDS: Primidone 50 MG Tablet PO SCH ×2 (11:44→21:13)
[2018-06-02] MEDS: Famotidine 20 MG Tablet PO SCH ×2 (11:44→21:13)
[2018-06-02] MEDS: Folic Acid 1 MG Tablet PO SCH (11:44)
--- NOTE | 2018-06-02 14:42 | P.PNIM ---
Subjective Interval history: The patient said he had a lot of pain last night. He said his pain is better now. He still feels generally weak. He would like to go home but he thinks that he may need rehab. Discussed with nursing. Physical Exam Vital signs: Vital Signs 06/01/18 16:00 06/01/18 20:40 06/02/18 00:00 Temperature 97.1 F L 97.8 F Pulse Rate 85 102 H Respiratory Rate 20 18 16 Blood Pressure 155/80 H 183/85 H Pulse Oximetry 97 98 06/02/18 00:40 06/02/18 04:45 06/02/18 08:00 Temperature 97.5 F L 97.2 F L Pulse Rate 84 110 H Respiratory Rate 18 24 Blood Pressure 171/86 H 143/72 H 180/76 H Pulse Oximetry 95 97 06/02/18 12:00 Temperature 97.3 F L Pulse Rate 90 Respiratory Rate 20 Blood Pressure 155/70 H Pulse Oximetry 97 Intake & Output 06/01/18 06/02/18 06/02/18 18:59 06:59 18:59 Intake Total 720 / 720 Output Total 1480 / 1480 900 / 900 Balance -1480 / -1480 -180 / -180 Weight 64.5 kg Intake: Oral 720 / 720 Output: Urine 1480 / 1480 900 / 900 Other: # Voids 2 Date of Last Bowel Movement 05/28/18 06/01/18 06/01/18 # Bowel Movements 0 Narrative: GENERAL: No distress. SKIN: Warm and dry. HEAD: Atraumatic. Normocephalic. EYES: Pupils equal and round. No scleral icterus. No injection or drainage. ENT: No nasal bleeding or discharge. Mucous membranes pink and moist. NECK: Trachea midline. No JVD. Supple CARDIOVASCULAR: Regular rate and rhythm. S1-S2 no S3 or S4. RESPIRATORY: No accessory muscle use. Clear to auscultation. Breath sounds equal bilaterally. GASTROINTESTINAL: Abdomen soft, non-tender, nondistended. Hepatic and splenic margins not palpable. MUSCULOSKELETAL: Extremities without clubbing, cyanosis, or edema. No obvious deformities. Tenderness over left posterior hip. + SLR on left. NEUROLOGICAL: Awake and alert. No obvious cranial nerve deficits. Motor grossly within normal limits. Five out of 5 muscle strength in the arms and legs. Normal speech. PSYCHIATRIC: Appropriate mood and affect; insight and judgment normal. Results - Labs CBC & Chem 7: 06/01/18 05:17 06/01/18 05:15 Assessment and Plan - Assessment (1) History of CVA (cerebrovascular accident) Code(s): Z86.73 - Personal history of transient ischemic attack (TIA), and cerebral infarction without residual deficits Status: Chronic (2) COPD (chronic obstructive pulmonary disease) Code(s): J44.9 - Chronic obstructive pulmonary disease, unspecified Status: Chronic (3) Hypertension Code(s): I10 - Essential (primary) hypertension Status: Chronic - Plan Acute left-sided back pain/sciatica Improving. -Flexeril as needed. -wean prednisone. -Continue on morphine and/or Percocet with a bowel regimen. -Physical therapy and occupational therapy to eval and treat. Rehab recommended. Pt may be agreeable to SNF. -case management assistance appreciated. CVA With some weakness generalized. -continue medication regimen. -PT/OT. HTN The pt has not been on his home regimen. -resume diltiazem. Continue terazosin. -add amlodipine if needed. -wean off prednisone. COPD Stable. -resume home medications. -smoking cessation. PPx: Lovenox
[2018-06-02] MEDS: dilTIAZem CD 120 MG Capsule PO SCH (15:43)
[2018-06-02] MEDS: Enoxaparin Inj 40 MG/0.4 ML Syringe SQ SCH (15:43)
[2018-06-02] MEDS ORDERED: Aluminum/Magnesium/Simethacone Susp 30 ML UDC PO PRN (18:47)
[2018-06-02] MEDS: Temazepam 15 MG Capsule PO PRN (21:21)
[2018-06-02] MEDS: Sod Chloride 0.9% Inj 1,000 ML IV.CONT SCH (22:13)
[2018-06-03] MEDS: Sod Chloride 0.9% Inj 1,000 ML IV.CONT SCH (03:32)
[2018-06-03 05:52] LABS: Anion Gap 5 meq/L (5-15); Blood Urea Nitrogen 14 mg/dL (7-18); Calcium 8.2 mg/dL (8.5-10.1); Carbon Dioxide 31.1 meq/L (21.0-32.0); Chloride 99 meq/L (98-107); Glomerular Filtration Rate Greater Than 89 mL/min (>89); Glucose,Random 80 mg/dL (74-106); Magnesium 1.5 mg/dL (1.5-2.5); Potassium 3.9 meq/L (3.5-5.1); Sodium 135 meq/L (136-145)
[2018-06-03 05:54] LABS: Hematocrit 32.4 % (39.0-51.0); Hemoglobin 10.9 gm/dL (13.0-17.0); Mean Corpuscular HGB Conc 33.7 % (32.0-36.0); Mean Corpuscular Hemoglobin 32.3 pg (27.0-34.0); Mean Corpuscular Volume 95.8 fL (80.0-100.0); Mean Platelet Volume 6.9 fL (7.0-11.0); Platelet Count 317 th/mm3 (150-450); Red Blood Count 3.38 mil/mm3 (4.50-5.90); Red Cell Distribution Width 15.5 % (11.6-17.2); White Blood Count 12.1 th/mm3 (4.0-11.0)
[2018-06-03 06:17] LABS: Vitamin B12 419 pg/mL (193-986)
[2018-06-03] MEDS ORDERED: Simethicone 80 MG Chew Tablet PO PRN (08:17)
[2018-06-03] MEDS: Budesonide-Formoterol 160/4.5 MCG 6 GM Inhaler INH SCH ×2 (09:30→21:21)
[2018-06-03] MEDS ORDERED: Morphine Inj 4 MG/ML Vial IV.PUSH PRN (10:29)
[2018-06-03] MEDS ORDERED: Morphine Inj 4 MG/ML Vial IV.PUSH ONE (10:45)
[2018-06-03] MEDS: dilTIAZem CD 120 MG Capsule PO SCH (11:02)
[2018-06-03] MEDS: Famotidine 20 MG Tablet PO SCH ×2 (11:02→21:21)
[2018-06-03] MEDS: Primidone 50 MG Tablet PO SCH ×2 (11:02→21:21)
[2018-06-03] MEDS: Folic Acid 1 MG Tablet PO SCH (11:02)
[2018-06-03] MEDS: Senna/Docusate Sodium 8.6/50 MG Tablet PO SCH ×2 (11:02→21:21)
[2018-06-03] MEDS: predniSONE 20 MG Tablet PO SCH (11:03)
[2018-06-03] MEDS: Mag Sulf 1 gm/100 ml Premix 100 ML IV.SIG SCH ×2 (11:16→12:34)
[2018-06-03 15:03] LABS: Albumin 2.5 g/dL (3.4-5.0); Total Protein 7.1 g/dL (6.4-8.2)
[2018-06-03] MEDS: Enoxaparin Inj 40 MG/0.4 ML Syringe SQ SCH (15:19)
--- NOTE | 2018-06-03 16:02 | P.PNIM ---
Subjective Interval history: The patient was complaining of considerable abdominal pain. He said he was not passing any gas. He was concerned that his pancreatitis came back. He was tolerating a diet. He says the pain did get better with medication. Discussed with nursing. Physical Exam Vital signs: Vital Signs 06/02/18 16:00 06/02/18 20:00 06/03/18 00:00 Temperature 97.1 F L 98.3 F 97.5 F L Pulse Rate 98 H 95 H 83 Respiratory Rate 20 18 18 Blood Pressure 176/81 H 149/83 H 165/81 H Pulse Oximetry 96 97 96 06/03/18 04:00 06/03/18 04:33 06/03/18 08:00 Temperature 97.9 F 97.7 F Pulse Rate 97 H 90 69 Respiratory Rate 18 17 18 Blood Pressure 168/77 H 168/80 H Pulse Oximetry 95 97 96 06/03/18 11:47 06/03/18 12:00 Temperature 98.1 F Pulse Rate 80 Respiratory Rate 18 17 Blood Pressure 176/79 H Pulse Oximetry 98 Intake & Output 06/02/18 06/03/18 06/03/18 18:59 06:59 18:59 Intake Total 100 / 100 Output Total 700 / 700 1100 / 1100 250 / 250 Balance -700 / -700 -1100 / -1100 -150 / -150 Weight 64.5 kg Intake: IV 100 / 100 Magnesium Sulfate 1 gm/D5W 100 100 / 100 ml Premix 100 ML @ 100 mls/hr IV.SIG Q1H MIGEL Rx#:[id number] Output: Urine 700 / 700 1100 / 1100 250 / 250 Other: Date of Last Bowel Movement 06/01/18 06/01/18 06/01/18 Narrative: GENERAL: No distress. SKIN: Warm and dry. HEAD: Atraumatic. Normocephalic. EYES: Pupils equal and round. No scleral icterus. No injection or drainage. ENT: No nasal bleeding or discharge. Mucous membranes pink and moist. NECK: Trachea midline. No JVD. Supple CARDIOVASCULAR: Regular rate and rhythm. S1-S2 no S3 or S4. RESPIRATORY: No accessory muscle use. Clear to auscultation. Breath sounds equal bilaterally. GASTROINTESTINAL: Abdomen soft, mildly tender in the epigastric area, nondistended. Hepatic and splenic margins not palpable. MUSCULOSKELETAL: Extremities without clubbing, cyanosis, or edema. No obvious deformities. Tenderness over left posterior hip. + SLR on left. NEUROLOGICAL: Awake and alert. No obvious cranial nerve deficits. Motor grossly within normal limits. Five out of 5 muscle strength in the arms and legs. Normal speech. Results - Labs CBC & Chem 7: 06/03/18 04:50 06/03/18 04:50 Laboratory Results - last 24 hr 06/03/18 06/03/18 06/03/18 04:50 04:50 13:18 WBC 12.1 H RBC 3.38 L Hgb 10.9 L Hct 32.4 L MCV 95.8 MCH 32.3 MCHC 33.7 RDW 15.5 Plt Count 317 MPV 6.9 L Sodium 135 L Potassium 3.9 Chloride 99 Carbon Dioxide 31.1 Anion Gap 5 BUN 14 Creatinine 0.71 Estimated GFR Greater than 89 Random Glucose 80 Calcium 8.2 L Magnesium 1.5 Total Bilirubin 0.4 Direct Bilirubin 0.2 Indirect Bilirubin 0.2 AST 53 H ALT 53 Alkaline Phosphatase 76 Total Protein 7.1 Albumin 2.5 L Lipase 120 Vitamin B12 419 Assessment and Plan - Assessment (1) History of CVA (cerebrovascular accident) Code(s): Z86.73 - Personal history of transient ischemic attack (TIA), and cerebral infarction without residual deficits Status: Chronic (2) COPD (chronic obstructive pulmonary disease) Code(s): J44.9 - Chronic obstructive pulmonary disease, unspecified Status: Chronic (3) Hypertension Code(s): I10 - Essential (primary) hypertension Status: Chronic - Plan Acute left-sided back pain/sciatica Improving. -Flexeril as needed. -wean prednisone. -Continue on morphine and/or Percocet with a bowel regimen. -Physical therapy and occupational therapy. -case management assistance appreciated. Will need [facility] at discharge. Abdominal pain LFTs and lipase unremarkable. Improved with morphine. - check a KUB. - add Miralax. - continue Pepcid. - standing Maalox. - ADAT. CVA With some weakness generalized. -continue medication regimen. -PT/OT. HTN The pt has not been on his home regimen. -resume diltiazem. Continue terazosin. -add lisinopril 10 mg daily. -wean off prednisone. COPD Stable. -resume home medications. -smoking cessation. PPx: Lovenox Discharge Planning: D/c with [facility] when abdominal pain is improved
--- NOTE | 2018-06-03 16:22 | XR ---
EXAM DATE: 06/03/2018 4:05 PM EDT AGE/SEX: 72 years / Male INDICATIONS: Obstruction. CLINICAL DATA: This is the patient's initial encounter. Patient reports that signs and symptoms have been present for 3 days and indicates a pain score of 10/10. MEDICAL/SURGICAL HISTORY: None. None. COMPARISON: No prior exams available for comparison. FINDINGS: The abdominal bowel gas pattern is normal. Gas and stool seen throughout a normal caliber colon reac gilda the level of the rectal vault. No dilated loops of bowel. No abnormal masses, calcifications, or organomegaly is seen. The osseous structures are unremarkable. Masslike consolidation within the ri ght lung base. CONCLUSION: Unremarkable bowel gas pattern. Masslike consolidation involving the right lung base. Consider CT of the thorax. Electronically signed by: Oleksandr Delgadillo MD 06/03/2018 4:20 PM EDT
[2018-06-03] MEDS: Polyethylene Glycol 3350 17 GM Packet PO SCH (18:30)
[2018-06-03] MEDS: Lisinopril 10 MG Tablet PO SCH (18:30)
[2018-06-03] MEDS: Temazepam 15 MG Capsule PO PRN (21:22)
[2018-06-03] MEDS: Latanoprost 0.005% Opth Drops 2.5 ML Bottle EACH EYE SCH (21:22)
[2018-06-03] MEDS: oxyCODONE/Acetaminophen 10/325 Tablet PO PRN (21:25)
--- NOTE | 2018-06-04 08:42 | P.PNIM ---
Subjective Interval history: The pt said he still hasn't passed any gas in two days. He still had abdominal pain. He knows he has a lung mass and has plans on getting a biopsy as an outpatient. He says he would like to go to a rehab facility instead of home. Physical Exam Vital signs: Vital Signs 06/03/18 11:47 06/03/18 12:00 06/03/18 16:00 Temperature 98.1 F 97.2 F L Pulse Rate 80 109 H Respiratory Rate 18 17 18 Blood Pressure 176/79 H 123/63 Pulse Oximetry 98 98 06/03/18 19:31 06/03/18 20:00 06/04/18 00:02 Temperature 98.3 F 98.2 F Pulse Rate 92 H 80 Respiratory Rate 17 18 17 Blood Pressure 103/70 137/65 Pulse Oximetry 95 94 L 06/04/18 04:15 Temperature 98.6 F Pulse Rate 77 Respiratory Rate 18 Blood Pressure 139/69 Pulse Oximetry 97 Intake & Output 06/03/18 06/04/18 06/04/18 18:59 06:59 18:59 Intake Total 720 / 720 760 / 760 Output Total 250 / 250 1275 / 1275 Balance 470 / 470 -515 / -515 Weight 64.5 kg Intake: IV 100 / 100 Magnesium Sulfate 1 gm/D5W 100 100 / 100 ml Premix 100 ML @ 100 mls/hr IV.SIG Q1H MIGEL Rx#:[id number] Oral 620 / 620 760 / 760 Output: Urine 250 / 250 1275 / 1275 Other: # Voids 3 Date of Last Bowel Movement 06/01/18 06/01/18 # Bowel Movements 0 0 Narrative: GENERAL: No distress. SKIN: Warm and dry. HEAD: Atraumatic. Normocephalic. EYES: Pupils equal and round. No scleral icterus. No injection or drainage. ENT: No nasal bleeding or discharge. Mucous membranes pink and moist. NECK: Trachea midline. No JVD. Supple CARDIOVASCULAR: Regular rate and rhythm. S1-S2 no S3 or S4. RESPIRATORY: No accessory muscle use. Clear to auscultation. Breath sounds equal bilaterally. GASTROINTESTINAL: Abdomen soft, mildly tender in the epigastric area, nondistended. Hepatic and splenic margins not palpable. Decreased bowel sounds. MUSCULOSKELETAL: Extremities without clubbing, cyanosis, or edema. No obvious deformities. Tenderness over left posterior hip. + SLR on left. NEUROLOGICAL: Awake and alert. No obvious cranial nerve deficits. Motor grossly within normal limits. Five out of 5 muscle strength in the arms and legs. Normal speech. Results - Labs CBC & Chem 7: 06/03/18 04:50 06/03/18 04:50 Laboratory Results - last 24 hr 06/03/18 13:18 Total Bilirubin 0.4 Direct Bilirubin 0.2 Indirect Bilirubin 0.2 AST 53 H ALT 53 Alkaline Phosphatase 76 Total Protein 7.1 Albumin 2.5 L Lipase 120 - Imaging Impressions Abdomen X-Ray 06/03/18 00:00 CONCLUSION: Unremarkable bowel gas pattern. Masslike consolidation involving the right lung base. Consider CT of the thorax. Assessment and Plan - Assessment (1) History of CVA (cerebrovascular accident) Code(s): Z86.73 - Personal history of transient ischemic attack (TIA), and cerebral infarction without residual deficits Status: Chronic (2) COPD (chronic obstructive pulmonary disease) Code(s): J44.9 - Chronic obstructive pulmonary disease, unspecified Status: Chronic (3) Hypertension Code(s): I10 - Essential (primary) hypertension Status: Chronic - Plan Acute left-sided back pain/sciatica Improving. -Flexeril as needed. -wean prednisone. -Continue on morphine and/or Percocet with a bowel regimen. -Physical therapy and occupational therapy. -case management assistance appreciated. Will need [facility] at discharge. Pt prefers SNF. Abdominal pain Pt claims he is not passing gas. LFTs and lipase unremarkable. Improved with morphine. KUB without acute abnormality. - check a CT abdomen. - added Miralax. - continue Pepcid. - standing Maalox. - ADAT. Lung mass Noted on KUB. Pt states he is aware of it and is working it up as an outpt. - outpt follow-up. CVA With some weakness generalized. -continue medication regimen. -PT/OT. May need SNF. HTN The pt has not been on his home regimen. -resume diltiazem. Continue terazosin. -add lisinopril 10 mg daily. Improved. -wean off prednisone. COPD Stable. -resume home medications. -smoking cessation. PPx: Lovenox Discharge Planning: D/c when abdominal pain is improved. CT pending. HHC vs SNF
[2018-06-04] MEDS ORDERED: Diatrizoate Meglum/Diatrizoate Sod Liq 9 ML UDC PO ONE (08:46)
[2018-06-04] MEDS: Senna/Docusate Sodium 8.6/50 MG Tablet PO SCH ×2 (10:14→20:55)
[2018-06-04] MEDS: dilTIAZem CD 120 MG Capsule PO SCH (10:14)
[2018-06-04] MEDS: Primidone 50 MG Tablet PO SCH ×2 (10:15→20:52)
[2018-06-04] MEDS: Folic Acid 1 MG Tablet PO SCH (10:15)
[2018-06-04] MEDS: Famotidine 20 MG Tablet PO SCH ×2 (10:15→20:52)
[2018-06-04] MEDS: Lisinopril 10 MG Tablet PO SCH (10:15)
[2018-06-04] MEDS: predniSONE 20 MG Tablet PO SCH (10:15)
[2018-06-04] MEDS: Budesonide-Formoterol 160/4.5 MCG 6 GM Inhaler INH SCH ×2 (10:17→20:54)
[2018-06-04] MEDS: Latanoprost 0.005% Opth Drops 2.5 ML Bottle EACH EYE SCH ×2 (10:17→20:54)
[2018-06-04] MEDS ORDERED: Metoprolol Tartrate 25 MG Tablet PO SCH (10:30)
[2018-06-04] MEDS ORDERED: Chlorhexidine Gluconate 2% 1 Pack (2 Cloths) TOPICAL SCH (10:30)
[2018-06-04] MEDS: oxyCODONE/Acetaminophen 10/325 Tablet PO PRN ×2 (10:37→20:52)
[2018-06-04] MEDS ORDERED: Sodium Chlor 0.9% Inj 500 ML IV.SIG SCH (11:00)
[2018-06-04] MEDS: Polyethylene Glycol 3350 17 GM Packet PO SCH (11:59)
[2018-06-04] MEDS: Enoxaparin Inj 40 MG/0.4 ML Syringe SQ SCH (14:19)
--- NOTE | 2018-06-04 17:11 | CT ---
EXAM DATE: 06/04/2018 4:27 PM EDT AGE/SEX: 72 years / Male INDICATIONS: Abdominal pain, unable to pass gas. CLINICAL DATA: This is the patient's initial encounter. Patient reports that signs and symptoms have been present for 2 days and indicates a pain score of 5/10. MEDICAL/SURGICAL HISTORY: Cerebrovascular disease. Hypertension. Chronic obstructive pulmonar y disease. None. RADIATION DOSE: 13.06 CTDI (mGy) COMPARISON: [facility] [place], CT ABDOMEN & PELVIS W CONTRAST, 03/30/2016. . TECHNIQUE: Multiple contiguous axial images were obtained through the abdomen. Images were obtained using multiple row detector helical technique. Using automated exposure control and adjustment of the mA and/or kV according to patient size, radiation dose was kept as low as reasonably achievable to o btain optimal diagnostic quality images. DICOM format image data is available electronically for rev iew and comparison. FINDINGS: Abdomen CT: The liver, spleen, pancreas, kidneys, adrenals are unremarkable. There is no evidence for any appreci able pathological adenopathy, free fluid, or bowel obstruction. Approximate 4 cm right lower lobe ma ss is present highly suspicious for malignancy. This was not present on the prior study from 2015. Ch ronic vascular calcifications are seen involving the aorta and multiple visceral arteries to a signif icant degree. Pelvic CT: There is no evidence for mass, abscess formation, or any significant adenopathy within the pelvis. T here are scattered diverticuli within the colon mainly the sigmoid colon without signs of diverticuli tis for technique. The prostate gland measures2.7 x 4.5 cm in AP and transverse diameters inhomogeneo us in appearance and nonspecific. 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 Electronically signed by: Sendy Lam MD 06/04/2018 5:10 PM EDT
[2018-06-04] MEDS: Temazepam 15 MG Capsule PO PRN (20:52)
[2018-06-05] MEDS: Folic Acid 1 MG Tablet PO SCH (10:25)
[2018-06-05] MEDS: predniSONE 20 MG Tablet PO SCH (10:25)
[2018-06-05] MEDS: dilTIAZem CD 120 MG Capsule PO SCH (10:25)
[2018-06-05] MEDS: Senna/Docusate Sodium 8.6/50 MG Tablet PO SCH ×2 (10:25→20:15)
[2018-06-05] MEDS: Famotidine 20 MG Tablet PO SCH ×2 (10:25→20:16)
[2018-06-05] MEDS: Primidone 50 MG Tablet PO SCH ×2 (10:25→20:16)
[2018-06-05] MEDS: oxyCODONE/Acetaminophen 10/325 Tablet PO PRN ×2 (10:26→17:26)
[2018-06-05] MEDS: Lisinopril 10 MG Tablet PO SCH (10:26)
--- NOTE | 2018-06-05 12:48 | P.PNIM ---
Subjective Interval history: Patient is a 72-year-old gentleman who normally goes Dr. Who presents to the emergency department with left lower back pain that radiates down his left leg. Patient states that this is been going on since last . He is today being Thursday. He denies any traumatic injury. Denies any fever chills denies any loss of bowel or bladder control. Denies any saddle anesthesias. Patient does have a history of CVAs, COPD, hypertension. Son Rebecca. States that at home he been ambulatory but with pain. He does live alone. Has a history of alcohol and tobacco abuse denies any chest pain or shortness of breath at this time denies any abdominal pain denies any nausea has moderate severity. Has suspect pain and some going on for at least 3 days in the left lower back to moderate 10 out of 10 for pain difficulty with walking worsened with walking only been trying acetaminophen at home 7-16 The patient said that his leg was feeling better today. He has better range of motion. He has not worked with physical therapy yet. He would rather go home than to rehab. Discussed with nursing. 7-17 The patient said he felt better but still weak. He would rather go home than to rehab. He said his pain was controlled. 7-18 The patient said he had a lot of pain last night. He said his pain is better now. He still feels generally weak. He would like to go home but he thinks that he may need rehab. Discussed with nursing. 7-19 The patient was complaining of considerable abdominal pain. He said he was not passing any gas. He was concerned that his pancreatitis came back. He was tolerating a diet. He says the pain did get better with medication. Discussed with nursing. 7-20 The pt said he still hasn't passed any gas in two days. He still had abdominal pain. He knows he has a lung mass and has plans on getting a biopsy as an outpatient. He says he would like to go to a rehab facility instead of home. 7-21 STILL HAS NOT HAD A GOOD BM YET WANTS TO GO TO SNF- [facility] PROBABLY NOT ABLE TO GO ANYWHERE UNTIL THURSDAY [facility] RN AND PT AND CM Physical Exam Vital signs: Vital Signs 06/04/18 16:00 06/04/18 20:00 06/05/18 00:00 Temperature 97.1 F L 97.8 F 97.7 F Pulse Rate 98 H 95 H 85 Respiratory Rate 18 Blood Pressure 142/65 H 143/70 H 134/60 Pulse Oximetry 98 95 97 06/05/18 03:00 06/05/18 08:00 Temperature 97.3 F L 98.8 F Pulse Rate 78 114 H Respiratory Rate 18 18 Blood Pressure 165/69 H 133/73 Pulse Oximetry 97 97 Intake & Output 06/04/18 06/05/18 06/05/18 18:59 06:59 18:59 Intake Total 480 / 480 Output Total 1250 / 1250 Balance -770 / -770 Weight 64.5 kg Intake: Oral 480 / 480 Output: Urine 1250 / 1250 Other: # Voids 3 Date of Last Bowel Movement 06/01/18 06/04/18 # Bowel Movements 0 Narrative: GENERAL: No distress. SKIN: Warm and dry. HEAD: Atraumatic. Normocephalic. EYES: Pupils equal and round. No scleral icterus. No injection or drainage. ENT: No nasal bleeding or discharge. Mucous membranes pink and moist. NECK: Trachea midline. No JVD. Supple CARDIOVASCULAR: Regular rate and rhythm. S1-S2 no S3 or S4. RESPIRATORY: No accessory muscle use. Clear to auscultation. Breath sounds equal bilaterally. GASTROINTESTINAL: Abdomen soft, mildly tender in the epigastric area, nondistended. Hepatic and splenic margins not palpable. Decreased bowel sounds. MUSCULOSKELETAL: Extremities without clubbing, cyanosis, or edema. No obvious deformities. Tenderness over left posterior hip. + SLR on left. NEUROLOGICAL: Awake and alert. No obvious cranial nerve deficits. Motor grossly within normal limits. Five out of 5 muscle strength in the arms and legs. Normal speech. Results - Labs CBC & Chem 7: 06/03/18 04:50 06/03/18 04:50 - Imaging Impressions Abdomen/Pelvis CT 06/04/18 00:00 CONCLUSION: Right lower lobe mass almost certainly malignant not present on the study from 2015. Assessment and Plan - Assessment (1) History of CVA (cerebrovascular accident) Code(s): Z86.73 - Personal history of transient ischemic attack (TIA), and cerebral infarction without residual deficits Status: Chronic (2) COPD (chronic obstructive pulmonary disease) Code(s): J44.9 - Chronic obstructive pulmonary disease, unspecified Status: Chronic (3) Hypertension Code(s): I10 - Essential (primary) hypertension Status: Chronic - Plan Acute left-sided back pain/sciatica Improving. -Flexeril as needed. -wean prednisone. -Continue on morphine and/or Percocet with a bowel regimen. -Physical therapy and occupational therapy. -case management assistance appreciated. Will need [facility] at discharge. Pt prefers SNF. Abdominal pain Pt claims he is not passing gas. LFTs and lipase unremarkable. Improved with morphine. KUB without acute abnormality. - check a CT abdomen. - added Miralax. - continue Pepcid. - standing Maalox. - ADAT. ADD LACTULOSE Lung mass Noted on KUB. Pt states he is aware of it and is working it up as an outpt. - outpt follow-up. CVA With some weakness generalized. -continue medication regimen. -PT/OT. May need SNF. HTN The pt has not been on his home regimen. -resume diltiazem. Continue terazosin. -add lisinopril 10 mg daily. Improved. -wean off prednisone. COPD Stable. -resume home medications. -smoking cessation. PPx: Lovenox Code Status: FULL CODE Discussed Condition With: RN AND PT AND CM Discharge Planning: PENDING IMPROVED MOBILITY OR WILL NEED SNF
[2018-06-05] MEDS ORDERED: Magnesium Citrate Liq 300 ML Bottle PO ONE (12:49)
[2018-06-05] MEDS ORDERED: Methocarbamol 500 MG Tablet PO SCH (14:00)
[2018-06-05] MEDS: Budesonide-Formoterol 160/4.5 MCG 6 GM Inhaler INH SCH ×2 (15:04→20:15)
[2018-06-05] MEDS: Polyethylene Glycol 3350 17 GM Packet PO SCH (15:06)
[2018-06-05] MEDS: Enoxaparin Inj 40 MG/0.4 ML Syringe SQ SCH (15:15)
[2018-06-05] MEDS: Baclofen 10 MG Tablet PO SCH ×2 (17:27→22:35)
[2018-06-05] MEDS: Latanoprost 0.005% Opth Drops 2.5 ML Bottle EACH EYE SCH (20:20)
[2018-06-05] MEDS: Temazepam 15 MG Capsule PO PRN (21:43)
[2018-06-06] MEDS: predniSONE 20 MG Tablet PO SCH (09:07)
[2018-06-06] MEDS: Famotidine 20 MG Tablet PO SCH ×2 (09:07→20:47)
[2018-06-06] MEDS: Senna/Docusate Sodium 8.6/50 MG Tablet PO SCH ×2 (09:07→20:48)
[2018-06-06] MEDS: Primidone 50 MG Tablet PO SCH ×2 (09:08→20:47)
[2018-06-06] MEDS: dilTIAZem CD 120 MG Capsule PO SCH (09:08)
[2018-06-06] MEDS: oxyCODONE/Acetaminophen 10/325 Tablet PO PRN ×2 (09:08→20:47)
[2018-06-06] MEDS: Lisinopril 10 MG Tablet PO SCH (09:09)
[2018-06-06] MEDS: Folic Acid 1 MG Tablet PO SCH (09:09)
[2018-06-06] MEDS: Baclofen 10 MG Tablet PO SCH ×2 (09:10→15:59)
[2018-06-06] MEDS: Polyethylene Glycol 3350 17 GM Packet PO SCH (09:10)
[2018-06-06] MEDS: Budesonide-Formoterol 160/4.5 MCG 6 GM Inhaler INH SCH ×2 (09:10→20:48)
--- NOTE | 2018-06-06 12:07 | P.PNIM ---
Subjective Interval history: Patient is a 72-year-old gentleman who normally goes Dr. Who presents to the emergency department with left lower back pain that radiates down his left leg. Patient states that this is been going on since last . He is today being Thursday. He denies any traumatic injury. Denies any fever chills denies any loss of bowel or bladder control. Denies any saddle anesthesias. Patient does have a history of CVAs, COPD, hypertension. Son Rebecca. States that at home he been ambulatory but with pain. He does live alone. Has a history of alcohol and tobacco abuse denies any chest pain or shortness of breath at this time denies any abdominal pain denies any nausea has moderate severity. Has suspect pain and some going on for at least 3 days in the left lower back to moderate 10 out of 10 for pain difficulty with walking worsened with walking only been trying acetaminophen at home 7-16 The patient said that his leg was feeling better today. He has better range of motion. He has not worked with physical therapy yet. He would rather go home than to rehab. Discussed with nursing. 7-17 The patient said he felt better but still weak. He would rather go home than to rehab. He said his pain was controlled. 7-18 The patient said he had a lot of pain last night. He said his pain is better now. He still feels generally weak. He would like to go home but he thinks that he may need rehab. Discussed with nursing. 7-19 The patient was complaining of considerable abdominal pain. He said he was not passing any gas. He was concerned that his pancreatitis came back. He was tolerating a diet. He says the pain did get better with medication. Discussed with nursing. 7-20 The pt said he still hasn't passed any gas in two days. He still had abdominal pain. He knows he has a lung mass and has plans on getting a biopsy as an outpatient. He says he would like to go to a rehab facility instead of home. 7-21 STILL HAS NOT HAD A GOOD BM YET WANTS TO GO TO SNF- [facility] PROBABLY NOT ABLE TO GO ANYWHERE UNTIL THURSDAY [facility] RN AND PT AND CM 7 FINALLY HAD BMS YESTERDAY [facility] RN AND PT AWAIT SNF APPROVAL FROM [facility]- NOT FROM [facility] AM LABS CONTINUE PT AND OT Physical Exam Vital signs: Vital Signs 06/05/18 16:00 06/05/18 20:00 06/06/18 00:00 Temperature 98.4 F 97.7 F 97.7 F Pulse Rate 109 H 94 H 91 H Respiratory Rate 16 20 18 Blood Pressure 145/67 H 176/80 H 144/71 H Pulse Oximetry 98 94 L 06/06/18 04:00 06/06/18 08:00 Temperature 97.8 F 98.2 F Pulse Rate 94 H 90 Respiratory Rate 20 21 Blood Pressure 141/65 H 164/121 H Pulse Oximetry 95 96 Intake & Output 06/05/18 06/06/18 06/06/18 18:59 06:59 18:59 Intake Total 960 / 960 240 / 240 Output Total 350 / 350 200 / 200 Balance 960 / 960 -350 / -350 40 / 40 Weight 64 kg Intake: Oral 960 / 960 240 / 240 Output: Urine 350 / 350 200 / 200 Other: # Voids 5 Date of Last Bowel Movement 06/05/18 06/05/18 06/06/18 # Bowel Movements 2 Narrative: GENERAL: No distress. SKIN: Warm and dry. HEAD: Atraumatic. Normocephalic. EYES: Pupils equal and round. No scleral icterus. No injection or drainage. ENT: No nasal bleeding or discharge. Mucous membranes pink and moist. NECK: Trachea midline. No JVD. Supple CARDIOVASCULAR: Regular rate and rhythm. S1-S2 no S3 or S4. RESPIRATORY: No accessory muscle use. Clear to auscultation. Breath sounds equal bilaterally. GASTROINTESTINAL: Abdomen soft, mildly tender in the epigastric area, nondistended. Hepatic and splenic margins not palpable. Decreased bowel sounds. MUSCULOSKELETAL: Extremities without clubbing, cyanosis, or edema. No obvious deformities. Tenderness over left posterior hip. + SLR on left. NEUROLOGICAL: Awake and alert. No obvious cranial nerve deficits. Motor grossly within normal limits. 4 out of 5 muscle strength in the arms and legs. Normal speech. Results - Labs CBC & Chem 7: 06/03/18 04:50 06/03/18 04:50 Assessment and Plan - Assessment (1) History of CVA (cerebrovascular accident) Code(s): Z86.73 - Personal history of transient ischemic attack (TIA), and cerebral infarction without residual deficits Status: Chronic (2) COPD (chronic obstructive pulmonary disease) Code(s): J44.9 - Chronic obstructive pulmonary disease, unspecified Status: Chronic (3) Hypertension Code(s): I10 - Essential (primary) hypertension Status: Chronic - Plan Acute left-sided back pain/sciatica Improving. -Flexeril as needed. -wean prednisone. -Continue on morphine and/or Percocet with a bowel regimen. -Physical therapy and occupational therapy. -case management assistance appreciated. Will need [facility]HC at discharge. Pt prefers SNF. Abdominal pain Pt claims he is not passing gas. LFTs and lipase unremarkable. Improved with morphine. KUB without acute abnormality. - check a CT abdomen. - added Miralax. - continue Pepcid. - standing Maalox. - ADAT. ADD LACTULOSE HAD BMS Lung mass Noted on KUB. Pt states he is aware of it and is working it up as an outpt. - outpt follow-up. CVA With some weakness generalized. -continue medication regimen. -PT/OT. May need SNF. HTN The pt has not been on his home regimen. -resume diltiazem. Continue terazosin. -add lisinopril 10 mg daily. Improved. -wean off prednisone. COPD Stable. -resume home medications. -smoking cessation. PPx: Lovenox Code Status: FULL CODE Discussed Condition With: RN AND CM AND PT Discharge Planning: PENDING IMPROVED MOBILITY OR WILL NEED SNF
[2018-06-06] MEDS: Enoxaparin Inj 40 MG/0.4 ML Syringe SQ SCH (15:58)
[2018-06-06] MEDS: Temazepam 15 MG Capsule PO PRN (20:48)
[2018-06-06] MEDS: Latanoprost 0.005% Opth Drops 2.5 ML Bottle EACH EYE SCH (20:49)
[2018-06-07] MEDS: Baclofen 10 MG Tablet PO SCH ×3 (01:15→17:03)
[2018-06-07 05:47] LABS: Baso % (Auto) 0.3 % (0.0-2.0); Eos # (Auto) 0.1 th/mm3 (0.0-0.4); Eos % (Auto) 0.6 % (0.0-4.0); Hematocrit 32.4 % (39.0-51.0); Hemoglobin 10.9 gm/dL (13.0-17.0); Lymph # (Auto) 0.8 th/mm3 (1.0-4.8); Lymph % (Auto) 8.4 % (9.0-44.0); Mean Corpuscular HGB Conc 33.5 % (32.0-36.0); Mean Corpuscular Hemoglobin 31.7 pg (27.0-34.0); Mean Corpuscular Volume 94.6 fL (80.0-100.0); Mean Platelet Volume 6.8 fL (7.0-11.0); Mono # (Auto) 0.9 th/mm3 (0.0-0.9); Mono % (Auto) 9.5 % (0.0-8.0); Neut # (Auto) 7.7 th/mm3 (1.8-7.7); Neut % (Auto) 81.2 % (16.0-70.0); Platelet Count 355 th/mm3 (150-450); Red Blood Count 3.43 mil/mm3 (4.50-5.90); Red Cell Distribution Width 15.2 % (11.6-17.2); White Blood Count 9.4 th/mm3 (4.0-11.0)
[2018-06-07 06:11] LABS: Albumin 2.3 g/dL (3.4-5.0); Anion Gap 6 meq/L (5-15); Aspartate Aminotransferase 20 U/L (15-37); Blood Urea Nitrogen 15 mg/dL (7-18); Calcium 8.3 mg/dL (8.5-10.1); Carbon Dioxide 30.3 meq/L (21.0-32.0); Chloride 97 meq/L (98-107); Glomerular Filtration Rate Greater Than 89 mL/min (>89); Glucose,Random 72 mg/dL (74-106); Magnesium 1.4 mg/dL (1.5-2.5); Potassium 3.1 meq/L (3.5-5.1); Sodium 133 meq/L (136-145)
[2018-06-07 06:15] LABS: Alanine Aminotransferase 54 U/L (12-78); Alkaline Phosphatase 71 U/L (45-117); Phosphorus 2.5 mg/dL (2.5-4.9); Total Protein 6.2 g/dL (6.4-8.2)
[2018-06-07] MEDS: Lisinopril 10 MG Tablet PO SCH (09:33)
[2018-06-07] MEDS: dilTIAZem CD 120 MG Capsule PO SCH (09:33)
[2018-06-07] MEDS: Folic Acid 1 MG Tablet PO SCH (09:33)
[2018-06-07] MEDS: Primidone 50 MG Tablet PO SCH ×2 (09:33→21:00)
[2018-06-07] MEDS: Famotidine 20 MG Tablet PO SCH ×2 (09:33→20:56)
[2018-06-07] MEDS: predniSONE 20 MG Tablet PO SCH (09:34)
[2018-06-07] MEDS: Polyethylene Glycol 3350 17 GM Packet PO SCH (11:41)
[2018-06-07] MEDS: Senna/Docusate Sodium 8.6/50 MG Tablet PO SCH ×2 (11:41→21:02)
[2018-06-07] MEDS: Budesonide-Formoterol 160/4.5 MCG 6 GM Inhaler INH SCH ×2 (11:41→21:01)
--- NOTE | 2018-06-07 12:52 | P.PNIM ---
Subjective Interval history: Patient is a 72-year-old gentleman who normally goes Dr. Who presents to the emergency department with left lower back pain that radiates down his left leg. Patient states that this is been going on since last . He is today being Thursday. He denies any traumatic injury. Denies any fever chills denies any loss of bowel or bladder control. Denies any saddle anesthesias. Patient does have a history of CVAs, COPD, hypertension. Son Rebecca. States that at home he been ambulatory but with pain. He does live alone. Has a history of alcohol and tobacco abuse denies any chest pain or shortness of breath at this time denies any abdominal pain denies any nausea has moderate severity. Has suspect pain and some going on for at least 3 days in the left lower back to moderate 10 out of 10 for pain difficulty with walking worsened with walking only been trying acetaminophen at home 7-16 The patient said that his leg was feeling better today. He has better range of motion. He has not worked with physical therapy yet. He would rather go home than to rehab. Discussed with nursing. 7-17 The patient said he felt better but still weak. He would rather go home than to rehab. He said his pain was controlled. 7-18 The patient said he had a lot of pain last night. He said his pain is better now. He still feels generally weak. He would like to go home but he thinks that he may need rehab. Discussed with nursing. 7-19 The patient was complaining of considerable abdominal pain. He said he was not passing any gas. He was concerned that his pancreatitis came back. He was tolerating a diet. He says the pain did get better with medication. Discussed with nursing. 7-20 The pt said he still hasn't passed any gas in two days. He still had abdominal pain. He knows he has a lung mass and has plans on getting a biopsy as an outpatient. He says he would like to go to a rehab facility instead of home. 7-21 STILL HAS NOT HAD A GOOD BM YET WANTS TO GO TO SNF- [facility] AP[facility] PROBABLY NOT ABLE TO GO ANYWHERE UNTIL THURSDAY [facility] PT AND CM 7 FINALLY HAD BMS YESTERDAY [facility] AWAIT SNF APPROVAL FROM [facility]- NOT FROM [facility] AM LABS CONTINUE PT AND OT 7 wants to go to [facility]WAIT [employer] APPROV[facility] RN [facility] PT AND CM CONTINUE PT AND OT Physical Exam Vital signs: Vital Signs 06/06/18 16:00 06/06/18 20:00 06/07/18 00:00 Temperature 98.5 F 97.5 F L 97.0 F L Pulse Rate 98 H 92 H 95 H Respiratory Rate 22 20 20 Blood Pressure 156/74 H 161/67 H 154/72 H Pulse Oximetry 96 96 97 06/07/18 04:00 Temperature 97.8 F Pulse Rate 91 H Respiratory Rate 18 Blood Pressure 164/72 H Pulse Oximetry 97 Intake & Output 06/06/18 06/07/18 06/07/18 18:59 06:59 18:59 Intake Total 240 / 240 240 / 240 Output Total 200 / 200 800 / 800 200 / 200 Balance 40 / 40 -800 / -800 40 / 40 Intake: Oral 240 / 240 240 / 240 Output: Urine 200 / 200 800 / 800 200 / 200 Other: Date of Last Bowel Movement 06/06/18 06/06/18 06/06/18 Narrative: GENERAL: No distress. SKIN: Warm and dry. HEAD: Atraumatic. Normocephalic. EYES: Pupils equal and round. No scleral icterus. No injection or drainage. ENT: No nasal bleeding or discharge. Mucous membranes pink and moist. NECK: Trachea midline. No JVD. Supple CARDIOVASCULAR: Regular rate and rhythm. S1-S2 no S3 or S4. RESPIRATORY: No accessory muscle use. Clear to auscultation. Breath sounds equal bilaterally. GASTROINTESTINAL: Abdomen soft, mildly tender in the epigastric area, nondistended. Hepatic and splenic margins not palpable. Decreased bowel sounds. MUSCULOSKELETAL: Extremities without clubbing, cyanosis, or edema. No obvious deformities. Tenderness over left posterior hip. + SLR on left. NEUROLOGICAL: Awake and alert. No obvious cranial nerve deficits. Motor grossly within normal limits. 4 out of 5 muscle strength in the arms and legs. Normal speech. Results - Labs CBC & Chem 7: 06/07/18 04:44 06/07/18 04:44 Laboratory Results - last 24 hr 06/07/18 06/07/18 04:44 04:44 WBC 9.4 RBC 3.43 L Hgb 10.9 L Hct 32.4 L MCV 94.6 MCH 31.7 MCHC 33.5 RDW 15.2 Plt Count 355 MPV 6.8 L Neut % (Auto) 81.2 H Lymph % (Auto) 8.4 L [place] % (Auto) 9.5 H Eos % (Auto) 0.6 Baso % (Auto) 0.3 Neut # (Auto) 7.7 Lymph # (Auto) 0.8 L [place] # (Auto) 0.9 Eos # (Auto) 0.1 Baso # (Auto) 0.0 WBC Differential . Differential Comment Auto diff final Sodium 133 L Potassium 3.1 L Chloride 97 L Carbon Dioxide 30.3 Anion Gap 6 BUN 15 Creatinine 0.61 Estimated GFR Greater than 89 Random Glucose 72 L Calcium 8.3 L Phosphorus 2.5 Magnesium 1.4 L Total Bilirubin 0.3 AST 20 ALT 54 Alkaline Phosphatase 71 Total Protein 6.2 L D Albumin 2.3 L Assessment and Plan - Assessment (1) History of CVA (cerebrovascular accident) Code(s): Z86.73 - Personal history of transient ischemic attack (TIA), and cerebral infarction without residual deficits Status: Chronic (2) COPD (chronic obstructive pulmonary disease) Code(s): J44.9 - Chronic obstructive pulmonary disease, unspecified Status: Chronic (3) Hypertension Code(s): I10 - Essential (primary) hypertension Status: Chronic - Plan Acute left-sided back pain/sciatica Improving. -Flexeril as needed. -wean prednisone. -Continue on morphine and/or Percocet with a bowel regimen. -Physical therapy and occupational therapy. -case management assistance appreciated. Will need HHC at discharge. Pt prefers SNF. Abdominal pain Pt claims he is not passing gas. LFTs and lipase unremarkable. Improved with morphine. KUB without acute abnormality. - check a CT abdomen. - added Miralax. - continue Pepcid. - standing Maalox. - ADAT. ADD LACTULOSE HAD BMS Lung mass Noted on KUB. Pt states he is aware of it and is working it up as an outpt. - outpt follow-up. CVA With some weakness generalized. -continue medication regimen. -PT/OT. May need SNF. HTN The pt has not been on his home regimen. -resume diltiazem. Continue terazosin. -add lisinopril 10 mg daily. Improved. -wean off prednisone. COPD Stable. -resume home medications. -smoking cessation. HYPOKALEMIA WILL REPLACE HYPOMAGNESIA WILL REPLACE AM LABS PPx: Lovenox Code Status: FULL CODE Discussed Condition With: RN AND PT AND CM Discharge Planning: PENDING IMPROVED MOBILITY OR WILL NEED SNF
[2018-06-07] MEDS: Mag Sulf 1 gm/100 ml Premix 100 ML IV.SIG SCH ×2 (14:33→16:34)
[2018-06-07] MEDS: Enoxaparin Inj 40 MG/0.4 ML Syringe SQ SCH (14:36)
[2018-06-07] MEDS ORDERED: Potassium Chloride 25 MEQ Effervescent Tablet PO ONE (15:00)
--- NOTE | 2018-06-07 16:34 | P.DS ---
Date of admission: 05/30/18 14:40 Primary care physician: [facility] Attending physician on discharge: Luc Mayorga Anticipated date of discharge: 06/07/18 Brief History from admission: Patient is a 72-year-old gentleman who normally goes Who presents to the emergency department with left lower back pain that radiates down his left leg. Patient states that this is been going on since last . He is today being Thursday. He denies any traumatic injury. Denies any fever chills denies any loss of bowel or bladder control. Denies any saddle anesthesias. Patient does have a history of CVAs, COPD, hypertension. Son Plavix. States that at home he been ambulatory but with pain. He does live alone. Has a history of alcohol and tobacco abuse denies any chest pain or shortness of breath at this time denies any abdominal pain denies any nausea has moderate severity. Has suspect pain and some going on for at least 3 days in the left lower back to moderate 10 out of 10 for pain difficulty with walking worsened with walking only been trying acetaminophen at home DS: Diagnosis - Discharge Diagnosis (1) History of CVA (cerebrovascular accident) Status: Chronic (2) COPD (chronic obstructive pulmonary disease) Status: Chronic (3) Hypertension Status: Chronic DS: Medications - Discharge Medications Prescriptions: baclofen 10 mg PO Q8H #9 tab lorazepam 1 mg PO Q4H PRN #18 tab PRN Reason: ANXIETY oxycodone-acetaminophen 1 tab PO Q6H PRN #12 tab PRN Reason: Pain Scale 6 To 10 temazepam 15 mg PO HS PRN #30 cap PRN Reason: Insomnia DS: Summary Hospital Course: Patient is a 72-year-old gentleman who normally goes Who presents to the emergency department with left lower back pain that radiates down his left leg. Patient states that this is been going on since last . He is today being Thursday. He denies any traumatic injury. Denies any fever chills denies any loss of bowel or bladder control. Denies any saddle anesthesias. Patient does have a history of CVAs, COPD, hypertension. Son Plavix. States that at home he been ambulatory but with pain. He does live alone. Has a history of alcohol and tobacco abuse denies any chest pain or shortness of breath at this time denies any abdominal pain denies any nausea has moderate severity. Has suspect pain and some going on for at least 3 days in the left lower back to moderate 10 out of 10 for pain difficulty with walking worsened with walking only been trying acetaminophen at home 7-16 The patient said that his leg was feeling better today. He has better range of motion. He has not worked with physical therapy yet. He would rather go home than to rehab. Discussed with nursing. 7-17 The patient said he felt better but still weak. He would rather go home than to rehab. He said his pain was controlled. 718 The patient said he had a lot of pain last night. He said his pain is better now. He still feels generally weak. He would like to go home but he thinks that he may need rehab. Discussed with nursing. 7 The patient was complaining of considerable abdominal pain. He said he was not passing any gas. He was concerned that his pancreatitis came back. He was tolerating a diet. He says the pain did get better with medication. Discussed with nursing. 7 The pt said he still hasn't passed any gas in two days. He still had abdominal pain. He knows he has a lung mass and has plans on getting a biopsy as an outpatient. He says he would like to go to a rehab facility instead of home. 06-05 STILL HAS NOT HAD A GOOD BM YET WANTS TO GO TO SNF- [facility] PROBABLY NOT ABLE TO GO ANYWHERE UNTIL THURSDAY [facility] PT AND CM 06-06 FINALLY HAD BMS YESTERDAY [facility] RN [facility] PT AWAIT SNF APPROVAL FROM [facility]- NOT FROM [facility] AM LABS CONTINUE PT AND OT 06-07 wants to go to SNF AWAIT [employer] AP[facility] RN AND PT AND CM CONTINUE PT AND OT PATIENT HAS BEEN ACCEPTED BY [facility] FOR SNF- WILL GO TO SNF TODAY checked in [facility] HAS HAD NO RX IN THE SYSTEM BUT [facility] TO SNF SEE DC [facility] RX FOR TEMAZEPAM 15MG PO QHS #30 OXYCODONE-ACETAMINOPHEN 10-325 1 PO Q6H PRN PAIN #12 LORAZEPAM 1MG PO Q4HR PRN ANXIETY#18 BACLOFEN 10MG PO Q8H #9 - Time Spent with Patient Total time spent providing and/or coordinating discharge services: Greater than 30 minutes - Quality: VTE Deep Vein Thrombosis/Pulmonary Embolism Present on Admission: No Exam Vital signs: Vital Signs 06/06/18 20:00 06/07/18 00:00 06/07/18 04:00 Temperature 97.5 F L 97.0 F L 97.8 F Pulse Rate 92 H 95 H 91 H Respiratory Rate 20 20 18 Blood Pressure 161/67 H 154/72 H 164/72 H Pulse Oximetry 96 97 97 06/07/18 08:00 06/07/18 12:00 Temperature 98.5 F 98.1 F Pulse Rate 104 H 67 Respiratory Rate 16 16 Blood Pressure 161/81 H 156/71 H Pulse Oximetry 97 97 Intake & Output 06/06/18 06/07/18 06/07/18 18:59 06:59 18:59 Intake Total 240 / 240 240 / 240 Output Total 200 / 200 800 / 800 200 / 200 Balance 40 / 40 -800 / -800 40 / 40 Intake: Oral 240 / 240 240 / 240 Output: Urine 200 / 200 800 / 800 200 / 200 Other: Date of Last Bowel Movement 06/06/18 06/06/18 06/06/18 Narrative: GENERAL: No distress. SKIN: Warm and dry. HEAD: Atraumatic. Normocephalic. EYES: Pupils equal and round. No scleral icterus. No injection or drainage. ENT: No nasal bleeding or discharge. Mucous membranes pink and moist. NECK: Trachea midline. No JVD. Supple CARDIOVASCULAR: Regular rate and rhythm. S1-S2 no S3 or S4. RESPIRATORY: No accessory muscle use. Clear to auscultation. Breath sounds equal bilaterally. GASTROINTESTINAL: Abdomen soft, mildly tender in the epigastric area, nondistended. Hepatic and splenic margins not palpable. Decreased bowel sounds. MUSCULOSKELETAL: Extremities without clubbing, cyanosis, or edema. No obvious deformities. Tenderness over left posterior hip. + SLR on left. NEUROLOGICAL: Awake and alert. No obvious cranial nerve deficits. Motor grossly within normal limits. 4 out of 5 muscle strength in the arms and legs. Normal speech. Results Procedures completed during hospitalization: NONE Completed studies during hospitalization: Laboratory Results WBC 9.4 th/mm3 (4.0-11.0) 06/07/18 04:44 RBC 3.43 mil/mm3 (4.50-5.90) L 06/07/18 04:44 Hgb 10.9 gm/dL (13.0-17.0) L 06/07/18 04:44 Hct 32.4 % (39.0-51.0) L 06/07/18 04:44 MCV 94.6 fL (80.0-100.0) 06/07/18 04:44 MCH 31.7 pg (27.0-34.0) 06/07/18 04:44 MCHC 33.5 % (32.0-36.0) 06/07/18 04:44 RDW 15.2 % (11.6-17.2) 06/07/18 04:44 Plt Count 355 th/mm3 (150-450) 06/07/18 04:44 MPV 6.8 fL (7.0-11.0) L 06/07/18 04:44 Neut % (Auto) 81.2 % (16.0-70.0) H 06/07/18 04:44 Lymph % (Auto) 8.4 % (9.0-44.0) L 06/07/18 04:44 [place] % (Auto) 9.5 % (0.0-8.0) H 06/07/18 04:44 Eos % (Auto) 0.6 % (0.0-4.0) 06/07/18 04:44 Baso % (Auto) 0.3 % (0.0-2.0) 06/07/18 04:44 Neut # (Auto) 7.7 th/mm3 (1.8-7.7) 06/07/18 04:44 Lymph # (Auto) 0.8 th/mm3 (1.0-4.8) L 06/07/18 04:44 [place] # (Auto) 0.9 th/mm3 (0.0-0.9) 06/07/18 04:44 Eos # (Auto) 0.1 th/mm3 (0.0-0.4) 06/07/18 04:44 Baso # (Auto) 0.0 th/mm3 (0.0-0.2) 06/07/18 04:44 WBC Differential . 06/07/18 04:44 Differential Comment Auto diff final 06/07/18 04:44 PT 11.3 sec (9.8-11.6) 05/30/18 10:18 INR 1.1 Ratio 05/30/18 10:18 APTT 26.8 sec (24.3-30.1) 05/30/18 10:18 Sodium 133 meq/L (136-145) L 06/07/18 04:44 Potassium 3.1 meq/L (3.5-5.1) L 06/07/18 04:44 Chloride 97 meq/L (98-107) L 06/07/18 04:44 Carbon Dioxide 30.3 meq/L (21.0-32.0) 06/07/18 04:44 Anion Gap 6 meq/L (5-15) 06/07/18 04:44 BUN 15 mg/dL (7-18) 06/07/18 04:44 Creatinine 0.61 mg/dL (0.60-1.30) 06/07/18 04:44 Estimated GFR Greater than 89 mL/min (>89) 06/07/18 04:44 Random Glucose 72 mg/dL (74-106) L 06/07/18 04:44 Hemoglobin A1c 4.6 % (4.3-6.0) 05/31/18 09:07 Calcium 8.3 mg/dL (8.5-10.1) L 06/07/18 04:44 Phosphorus 2.5 mg/dL (2.5-4.9) 06/07/18 04:44 Magnesium 1.4 mg/dL (1.5-2.5) L 06/07/18 04:44 Total Bilirubin 0.3 mg/dL (0.2-1.0) 06/07/18 04:44 Direct Bilirubin 0.2 mg/dL (0.0-0.2) 06/03/18 13:18 Indirect Bilirubin 0.2 mg/dL (0.0-0.8) 06/03/18 13:18 AST 20 U/L (15-37) 06/07/18 04:44 ALT 54 U/L (12-78) 06/07/18 04:44 Alkaline Phosphatase 71 U/L (45-117) 06/07/18 04:44 Total Protein 6.2 g/dL (6.4-8.2) L D 06/07/18 04:44 Albumin 2.3 g/dL (3.4-5.0) L 06/07/18 04:44 Lipase 120 U/L (73-393) 06/03/18 13:18 Vitamin B12 419 pg/mL (193-986) 06/03/18 04:50 TSH 1.160 uIU/mL (0.358-3.740) 05/31/18 09:07 Free T4 1.18 ng/dL (0.76-1.46) 05/31/18 09:07 Urine Color Yellow (Yellw/Straw) 05/30/18 17:26 Urine Clarity Clear (Clear) 05/30/18 17:26 Urine pH 6.0 (5.0-8.5) 05/30/18 17:26 Ur Specific [place] 1.011 (1.002-1.035) 05/30/18 17:26 Urine Protein Negative mg/dL (Neg-Trace) 05/30/18 17:26 Urine Glucose (UA) Negative mg/dL (Negative) 05/30/18 17:26 Urine Ketones 20 mg/dL (Negative) 05/30/18 17:26 Urine Occult Blood Negative (Negative) 05/30/18 17:26 Urine Nitrate Negative (Negative) 05/30/18 17:26 Urine Bilirubin Negative (Negative) 05/30/18 17:26 Urine Urobilinogen Less than 2 mg/dL (Less than 2) 05/30/18 17:26 Ur Leukocyte Esterase Negative (Negative) 05/30/18 17:26 Urine RBC Less than 1 /hpf (0-3) 05/30/18 17:26 Urine WBC 1 /hpf (0-5) 05/30/18 17:26 Urine Mucus Few /lpf (Occasional) H 05/30/18 17:26 Micro UA Comment Culture not ind 05/30/18 17:26 Urine Culture Comments Culture not ind 05/30/18 17:26 Impressions Hip X-Ray 05/30/18 08:40 CONCLUSION: Normal left hip. Lumbar Spine X-Ray 05/30/18 08:40 CONCLUSION: Mild degenerative disc changes and facet degenerative changes as noted above. No evidence of acute injury. Lumbar Spine CT 05/30/18 10:03 CONCLUSION: Multilevel degenerative disc disease with mild stenosis at L4-L5 and L5-S1. Multilevel neural foraminal narrowing as above maximal at L5-S1 on the left Pelvis CT 05/30/18 10:06 CONCLUSION: No evidence of acute pelvic process. No masses are identified. Abdomen X-Ray 06/03/18 00:00 CONCLUSION: Unremarkable bowel gas pattern. Masslike consolidation involving the right lung base. Consider CT of the thorax. Abdomen/Pelvis CT 06/04/18 00:00 CONCLUSION: Right lower lobe mass almost certainly malignant not present on the study from 2015. Labs on day of discharge: Labs from last 24 hours 06/07/18 06/07/18 04:44 04:44 WBC 9.4 RBC 3.43 L Hgb 10.9 L Hct 32.4 L MCV 94.6 MCH 31.7 MCHC 33.5 RDW 15.2 Plt Count 355 MPV 6.8 L Neut % (Auto) 81.2 H Lymph % (Auto) 8.4 L [place] % (Auto) 9.5 H Eos % (Auto) 0.6 Baso % (Auto) 0.3 Neut # (Auto) 7.7 Lymph # (Auto) 0.8 L [place] # (Auto) 0.9 Eos # (Auto) 0.1 Baso # (Auto) 0.0 WBC Differential . Differential Comment Auto diff final Sodium 133 L Potassium 3.1 L Chloride 97 L Carbon Dioxide 30.3 Anion Gap 6 BUN 15 Creatinine 0.61 Estimated GFR Greater than 89 Random Glucose 72 L Calcium 8.3 L Phosphorus 2.5 Magnesium 1.4 L Total Bilirubin 0.3 AST 20 ALT 54 Alkaline Phosphatase 71 Total Protein 6.2 L D Albumin 2.3 L - Impressions ITS Impressions Hip X-Ray 05/30/18 08:40 CONCLUSION: Normal left hip. Lumbar Spine X-Ray 05/30/18 08:40 CONCLUSION: Mild degenerative disc changes and facet degenerative changes as noted above. No evidence of acute injury. Lumbar Spine CT 05/30/18 10:03 CONCLUSION: Multilevel degenerative disc disease with mild stenosis at L4-L5 and L5-S1. Multilevel neural foraminal narrowing as above maximal at L5-S1 on the left Pelvis CT 05/30/18 10:06 CONCLUSION: No evidence of acute pelvic process. No masses are identified. Abdomen X-Ray 06/03/18 00:00 CONCLUSION: Unremarkable bowel gas pattern. Masslike consolidation involving the right lung base. Consider CT of the thorax. Abdomen/Pelvis CT 06/04/18 00:00 CONCLUSION: Right lower lobe mass almost certainly malignant not present on the study from 2016. Discharge Plan - Discharge Disposition Patient Disposition: 03 Discharge to SNF - Discharge Condition Condition: Good - Discharge Order Discharge Orders: Discharge Order (Routine); Ordered 06/07/18 Ordered By: Luc Mayorga - Discharge Details Anticipated Discharge Date: 06/07/18 Discharge Comment: DC TO SNF - Physicians Team Primary Care Provider: [facility]ician 's Attending Provider: Luc Mayorga
[2018-06-07] MEDS: Temazepam 15 MG Capsule PO PRN (20:56)
[2018-06-07] MEDS: oxyCODONE/Acetaminophen 10/325 Tablet PO PRN (20:57)
[2018-06-07] MEDS: Latanoprost 0.005% Opth Drops 2.5 ML Bottle EACH EYE SCH (21:01)
[2018-06-08] MEDS: Baclofen 10 MG Tablet PO SCH ×2 (01:51→09:12)
[2018-06-08] MEDS: Temazepam 15 MG Capsule PO PRN (01:54)
[2018-06-08 06:21] LABS: Albumin 2.2 g/dL (3.4-5.0); Anion Gap 9 meq/L (5-15); Aspartate Aminotransferase 33 U/L (15-37); Blood Urea Nitrogen 14 mg/dL (7-18); Calcium 8.3 mg/dL (8.5-10.1); Chloride 99 meq/L (98-107); Glomerular Filtration Rate Greater Than 89 mL/min (>89); Glucose,Random 77 mg/dL (74-106); Magnesium 1.8 mg/dL (1.5-2.5); Potassium 3.6 meq/L (3.5-5.1); Sodium 135 meq/L (136-145)
[2018-06-08 06:22] LABS: Alanine Aminotransferase 74 U/L (12-78); Phosphorus 2.6 mg/dL (2.5-4.9)
[2018-06-08 06:24] LABS: Alkaline Phosphatase 77 U/L (45-117); Total Protein 6.4 g/dL (6.4-8.2)
[2018-06-08] MEDS: Folic Acid 1 MG Tablet PO SCH (09:11)
[2018-06-08] MEDS: predniSONE 20 MG Tablet PO SCH (09:12)
[2018-06-08] MEDS: Lisinopril 10 MG Tablet PO SCH (09:12)
[2018-06-08] MEDS: Famotidine 20 MG Tablet PO SCH (09:12)
[2018-06-08] MEDS: Primidone 50 MG Tablet PO SCH (09:13)
[2018-06-08] MEDS: dilTIAZem CD 120 MG Capsule PO SCH (09:13)
[2018-06-08] MEDS: Polyethylene Glycol 3350 17 GM Packet PO SCH (09:13)
[2018-06-08] MEDS: Senna/Docusate Sodium 8.6/50 MG Tablet PO SCH (09:16)
[2018-06-08] MEDS: Budesonide-Formoterol 160/4.5 MCG 6 GM Inhaler INH SCH (09:21)
--- NOTE | 2018-06-08 10:17 | P.PNIM ---
Subjective Interval history: Patient is a 72-year-old gentleman who normally goes Dr. Who presents to the emergency department with left lower back pain that radiates down his left leg. Patient states that this is been going on since last . He is today being Thursday. He denies any traumatic injury. Denies any fever chills denies any loss of bowel or bladder control. Denies any saddle anesthesias. Patient does have a history of CVAs, COPD, hypertension. Son Rebecca. States that at home he been ambulatory but with pain. He does live alone. Has a history of alcohol and tobacco abuse denies any chest pain or shortness of breath at this time denies any abdominal pain denies any nausea has moderate severity. Has suspect pain and some going on for at least 3 days in the left lower back to moderate 10 out of 10 for pain difficulty with walking worsened with walking only been trying acetaminophen at home 7-16 The patient said that his leg was feeling better today. He has better range of motion. He has not worked with physical therapy yet. He would rather go home than to rehab. Discussed with nursing. 7-17 The patient said he felt better but still weak. He would rather go home than to rehab. He said his pain was controlled. 7-18 The patient said he had a lot of pain last night. He said his pain is better now. He still feels generally weak. He would like to go home but he thinks that he may need rehab. Discussed with nursing. 7-19 The patient was complaining of considerable abdominal pain. He said he was not passing any gas. He was concerned that his pancreatitis came back. He was tolerating a diet. He says the pain did get better with medication. Discussed with nursing. 7-20 The pt said he still hasn't passed any gas in two days. He still had abdominal pain. He knows he has a lung mass and has plans on getting a biopsy as an outpatient. He says he would like to go to a rehab facility instead of home. 7-21 STILL HAS NOT HAD A GOOD BM YET WANTS TO GO TO SNF- AWAIT OR AND [employer] APPROVAL PROBABLY NOT ABLE TO GO ANYWHERE UNTIL THURSDAY [facility] RN AND PT AND CM 7 FINALLY HAD BMS YESTERDAY [facility] PT AWAIT SNF APPROVAL FROM [employer]- NOT FROM OR AM LABS CONTINUE PT AND OT 7 wants to go to SNF AWAIT [employer] APPROVAL [facility] RN AND PT AND CM CONTINUE PT AND OT PATIENT HAS NOT BEEN ACCEPTED BY [employer] FOR SNF- WILL GO TO SNF TODAY HOPEFULLY checked in [facility] HAS HAD NO RX IN THE SYSTEM BUT [facility] TO SNF SEE DC PAPERWORK 06-08 WANTS TO GO TO SNF TODAY DC TO SNF PAPERWORK DONE AWAIT [employer] APPROVAL SHOULD HAVE GONE YESTERDAY BUT [employer] DID NOT APPROVE DC TO SNF TODAY Physical Exam Vital signs: Vital Signs 06/07/18 12:00 06/07/18 16:15 06/07/18 20:35 Temperature 98.1 F 98.2 F 97.5 F L Pulse Rate 67 97 H 73 Respiratory Rate 16 18 Blood Pressure 156/71 H 144/73 H 155/73 H Pulse Oximetry 97 97 96 06/07/18 23:51 06/08/18 03:55 06/08/18 08:00 Temperature 97.9 F 97.7 F 97.6 F Pulse Rate 67 81 90 Respiratory Rate 18 Blood Pressure 175/79 H 160/74 H 150/71 H Pulse Oximetry 93 L 92 L 92 L Intake & Output 06/07/18 06/08/18 06/08/18 18:59 06:59 18:59 Intake Total 240 / 240 360 / 360 Output Total 700 / 700 450 / 450 150 / 150 Balance -460 / -460 -90 / -90 -150 / -150 Weight 64 kg Intake: Oral 240 / 240 360 / 360 Output: Urine 700 / 700 450 / 450 150 / 150 Other: Date of Last Bowel Movement 06/06/18 06/07/18 # Bowel Movements 0 Narrative: GENERAL: No distress. SKIN: Warm and dry. HEAD: Atraumatic. Normocephalic. EYES: Pupils equal and round. No scleral icterus. No injection or drainage. ENT: No nasal bleeding or discharge. Mucous membranes pink and moist. NECK: Trachea midline. No JVD. Supple CARDIOVASCULAR: Regular rate and rhythm. S1-S2 no S3 or S4. RESPIRATORY: No accessory muscle use. Clear to auscultation. Breath sounds equal bilaterally. GASTROINTESTINAL: Abdomen soft, mildly tender in the epigastric area, nondistended. Hepatic and splenic margins not palpable. Decreased bowel sounds. MUSCULOSKELETAL: Extremities without clubbing, cyanosis, or edema. No obvious deformities. Tenderness over left posterior hip. + SLR on left. NEUROLOGICAL: Awake and alert. No obvious cranial nerve deficits. Motor grossly within normal limits. 4 out of 5 muscle strength in the arms and legs. Normal speech. Results - Labs CBC & Chem 7: 06/07/18 04:44 06/08/18 04:42 Laboratory Results - last 24 hr 06/08/18 04:42 Sodium 135 L Potassium 3.6 Chloride 99 Carbon Dioxide 27.0 Anion Gap 9 BUN 14 Creatinine 0.60 Estimated GFR Greater than 89 Random Glucose 77 Calcium 8.3 L Phosphorus 2.6 Magnesium 1.8 Total Bilirubin 0.2 AST 33 ALT 74 Alkaline Phosphatase 77 Total Protein 6.4 Albumin 2.2 L - Procedures NONE Assessment and Plan - Assessment (1) History of CVA (cerebrovascular accident) Code(s): Z86.73 - Personal history of transient ischemic attack (TIA), and cerebral infarction without residual deficits Status: Chronic (2) COPD (chronic obstructive pulmonary disease) Code(s): J44.9 - Chronic obstructive pulmonary disease, unspecified Status: Chronic (3) Hypertension Code(s): I10 - Essential (primary) hypertension Status: Chronic - Plan Acute left-sided back pain/sciatica Improving. -Flexeril as needed. -wean prednisone. -Continue on morphine and/or Percocet with a bowel regimen. -Physical therapy and occupational therapy. -case management assistance appreciated. Will need HHC at discharge. Pt prefers SNF. Abdominal pain Pt claims he is not passing gas. LFTs and lipase unremarkable. Improved with morphine. KUB without acute abnormality. - check a CT abdomen. - added Miralax. - continue Pepcid. - standing Maalox. - ADAT. ADD LACTULOSE HAD BMS Lung mass Noted on KUB. Pt states he is aware of it and is working it up as an outpt. - outpt follow-up. CVA With some weakness generalized. -continue medication regimen. -PT/OT. May need SNF. HTN The pt has not been on his home regimen. -resume diltiazem. Continue terazosin. -add lisinopril 10 mg daily. Improved. -wean off prednisone. COPD Stable. -resume home medications. -smoking cessation. HYPOKALEMIA WILL REPLACE HYPOMAGNESIA WILL REPLACE PPx: Lovenox DC TO SNF TODAY ONCE [employer] APPROVES Code Status: FULL CODE Discussed Condition With: RN AND PT AND CM Discharge Planning: DECREASED MOBILITY WILL NEED SNF
--- NOTE | 2018-06-08 10:38 | P.DCO ---
- Physical Therapy Order: Evaluate and treat, Improve ambulation, Strength and gait training - Occupational Therapy Order: Evaluate and treat, Improve ADL, Gross motor coordination, Fine motor coordination - Home Health Nursing Order: Medical education, Signs/symptoms of disease process, Medication education-adverse effect, Nursing assessment with vital signs - Home Health Aide Order: To assist in: Bathing and personal care, journeyman pipe fitter and meal prep - Paramedic Rn Order: To evaluate: Living conditions/environment, Support services Order: To provide: Community services - Case Management Consult Yes - Certification I have seen patient Jey Hough on 06/08/18. My clinical findings support the need for the requested home health care services because: Limited mobility due to disease progression, Patient has SOB, Deconditioned with increased weakness, Medication compliance is questionable, Limited ability to care for self, High risk of falls I certify that my clinical findings support that this patient is homebound because: Impaired cognitive ability/safety, Hx COPD - exertion dyspnea/weakness, Unsteady gait/balance, Unsafe to leave home unassisted
--- NOTE | 2018-06-22 14:11 | P.DS ---
Date of admission: 05/30/18 14:40 Primary care physician: [facility] Attending physician on discharge: Luc Mayorga Anticipated date of discharge: 06/07/18 Brief History from admission: Patient is a 72-year-old gentleman who normally goes Dr. Who presents to the emergency department with left lower back pain that radiates down his left leg. Patient states that this is been going on since last . He is today being Thursday. He denies any traumatic injury. Denies any fever chills denies any loss of bowel or bladder control. Denies any saddle anesthesias. Patient does have a history of CVAs, COPD, hypertension. Son Rebecca. States that at home he been ambulatory but with pain. He does live alone. Has a history of alcohol and tobacco abuse denies any chest pain or shortness of breath at this time denies any abdominal pain denies any nausea has moderate severity. Has suspect pain and some going on for at least 3 days in the left lower back to moderate 10 out of 10 for pain difficulty with walking worsened with walking only been trying acetaminophen at home DS: Diagnosis - Discharge Diagnosis (1) Intractable low back pain Status: Acute (2) History of CVA (cerebrovascular accident) Status: Chronic (3) COPD (chronic obstructive pulmonary disease) Status: Chronic (4) Hypertension Status: Chronic DS: Medications - Discharge Medications Prescriptions: aspirin 81 mg PO DAILY #30 tab baclofen 10 mg PO BID #90 tab bisacodyl [Bisac-Evac] 10 mg MN DAILY PRN #15 ea PRN Reason: Severe Consitipation budesonide-formoterol [Symbicort] 2 puff INHALATION BID #1 ea clopidogrel [Plavix] 75 mg PO DAILY #30 tab diltiazem HCl [Cardizem] 120 mg PO DAILY #30 tab diphenhydramine HCl 25 mg PO Q4H PRN #100 cap PRN Reason: Itching famotidine 20 mg PO BID #60 tab folic acid 1 mg PO DAILY #30 tab ipratropium-albuterol 1 amp NEB Q4HR NEB PRN #120 amp PRN Reason: Shortness Of Breath/Wheezing lactulose 30 ml PO DAILY PRN #900 ml PRN Reason: Severe Consitipation latanoprost [Xalatan] 1 drop EACH EYE HS #10 ml lisinopril 10 mg PO DAILY #30 tab lorazepam 1 mg PO Q4H PRN #18 tab PRN Reason: ANXIETY multivitamin with folic acid [Thera] 1 tab PO DAILY #30 tab nicotine 1 patch TRANSDERMAL DAILY #30 ea oxycodone-acetaminophen 1 tab PO Q6H PRN #12 tab PRN Reason: Pain Scale 6 To 10 polyethylene glycol 3350 17 gm PO DAILY #1 bottle prednisone 20 mg PO DAILY #30 tab primidone [Mysoline] 50 mg PO BID #60 tab sennosides-docusate sodium [Senna Plus] 2 tab PO BID #120 tab simethicone 80 mg PO Q8H PRN #30 tab PRN Reason: Dyspepsia temazepam 15 mg PO HS PRN #30 cap PRN Reason: Insomnia terazosin 1 mg PO HS #30 cap DS: Summary Hospital Course: Patient is a 72-year-old gentleman who normally goes Dr. Who presents to the emergency department with left lower back pain that radiates down his left leg. Patient states that this is been going on since last . He is today being Thursday. He denies any traumatic injury. Denies any fever chills denies any loss of bowel or bladder control. Denies any saddle anesthesias. Patient does have a history of CVAs, COPD, hypertension. Son Rebecca. States that at home he been ambulatory but with pain. He does live alone. Has a history of alcohol and tobacco abuse denies any chest pain or shortness of breath at this time denies any abdominal pain denies any nausea has moderate severity. Has suspect pain and some going on for at least 3 days in the left lower back to moderate 10 out of 10 for pain difficulty with walking worsened with walking only been trying acetaminophen at home 7-16 The patient said that his leg was feeling better today. He has better range of motion. He has not worked with physical therapy yet. He would rather go home than to rehab. Discussed with nursing. 7-17 The patient said he felt better but still weak. He would rather go home than to rehab. He said his pain was controlled. 7-18 The patient said he had a lot of pain last night. He said his pain is better now. He still feels generally weak. He would like to go home but he thinks that he may need rehab. Discussed with nursing. 7-19 The patient was complaining of considerable abdominal pain. He said he was not passing any gas. He was concerned that his pancreatitis came back. He was tolerating a diet. He says the pain did get better with medication. Discussed with nursing. 06-04 The pt said he still hasn't passed any gas in two days. He still had abdominal pain. He knows he has a lung mass and has plans on getting a biopsy as an outpatient. He says he would like to go to a rehab facility instead of home. 06-05 STILL HAS NOT HAD A GOOD BM YET WANTS TO GO TO SNF- [facility] PROBABLY NOT ABLE TO GO ANYWHERE UNTIL THURSDAY DW RN AND PT AND CM 06-06 FINALLY HAD BMS YESTERDAY DW RN AND PT AWAIT SNF APPROVAL FROM [facility]- NOT FROM [facility] AM LABS CONTINUE PT AND OT 06-07 wants to go to SNF AWAIT [employer] [facility] DW RN AND PT AND CM CONTINUE PT AND OT PATIENT HAS BEEN ACCEPTED BY [facility] FOR SNF- WILL GO TO SNF TODAY checked in [facility] HAS HAD NO RX IN THE SYSTEM BUT PATIENT MAINLY GOES TO THE [facility] WILL GIVE RX FOR PAIN AT DC TO SNF SEE DC [facility] RX FOR TEMAZEPAM 15MG PO QHS #30 OXYCODONE-ACETAMINOPHEN 10-325 1 PO Q6H PRN PAIN #12 LORAZEPAM 1MG PO Q4HR PRN ANXIETY#18 BACLOFEN 10MG PO Q8H #9 - Time Spent with Patient Total time spent providing and/or coordinating discharge services: Greater than 30 minutes - Quality: VTE Deep Vein Thrombosis/Pulmonary Embolism Present on Admission: No Exam Narrative: see progress note from this day Results Procedures completed during hospitalization: NONE - Impressions ITS Impressions Hip X-Ray 05/30/18 08:40 CONCLUSION: Normal left hip. Lumbar Spine X-Ray 05/30/18 08:40 CONCLUSION: Mild degenerative disc changes and facet degenerative changes as noted above. No evidence of acute injury. Lumbar Spine CT 05/30/18 10:03 CONCLUSION: Multilevel degenerative disc disease with mild stenosis at L4-L5 and L5-S1. Multilevel neural foraminal narrowing as above maximal at L5-S1 on the left Pelvis CT 05/30/18 10:06 CONCLUSION: No evidence of acute pelvic process. No masses are identified. Abdomen X-Ray 06/03/18 00:00 CONCLUSION: Unremarkable bowel gas pattern. Masslike consolidation involving the right lung base. Consider CT of the thorax. Abdomen/Pelvis CT 06/04/18 00:00 CONCLUSION: Right lower lobe mass almost certainly malignant not present on the study from 2015. Discharge Plan - Discharge Disposition Patient Disposition: W/Home Health Service - Discharge Condition Condition: Fair - Discharge Order Discharge Orders: Discharge Order (Routine); Ordered 06/07/18 Ordered By: Luc Mayorga - Discharge Details Anticipated Discharge Date: 06/07/18 Discharge Comment: DC TO HOME WITH [facility] TODAY - Physicians Team Primary Care Provider: [facility] Attending Provider: Luc Mayorga
== END 2018-06-08 13:00 | disposition home health service (06) ==
LOC: NEDA 08:08 → NEPD 08:08 → NEDA 17:31 → N06 17:33
PROVIDERS: ADMIT Hospitalist; ATTEND Hospitalist

== ENCOUNTER 2018-06-12 11:39 | Inpatient (IN) ==
[2018-06-12] MEDS ORDERED: HYDROmorphone PF Inj 2 MG/ML Vial IV.PUSH ONE (12:19)
[2018-06-12] MEDS ORDERED: Naloxone Inj 0.4 MG/ML Vial IV.PUSH PRN (12:19)
[2018-06-12] MEDS ORDERED: Sod Chloride 0.9% Inj 1,000 ML IV.CONT SCH (12:30)
--- NOTE | 2018-06-12 12:39 | ED ---
HPI General Chief complaint: Extremity Problem,Nontraumatic Stated complaint: Left Leg/Bp Time Seen by Provider: 06/12/18 12:01 History of Present Illness HPI narrative: This is a 72-year-old male with a history of CVA, COPD, chronic back pain, hypertension, presents today with complaints of severe left leg pain and hypotension. Patient states she has been checking his blood pressure since he has been discharged on Thursday of this week. He states that it has been fluctuating. He reports that today he had an episode where he passed out and fell back into his chair. He states that when he checked the blood pressure his systolic blood pressure was 80. He also reports his heart rate is been fluctuating between 90 and 130. He denies any chest pain, chest pressure. He does report palpitations. The patient states he is too weak having too much pain to ambulate. The patient stated they are trying to get him to rehab however he reports his insurance company denied. There are no other complaints at time of examination. Related Data Home Medications Medication Instructions Recorded Confirmed albuterol sulfate 06/01/18 06/01/18 cholecalciferol (vitamin D3) 1,000 unit PO DAILY 06/01/18 06/12/18 [Vitamin D3] phytosterol-vit D3-fish oil 400 mg PO DAILY 06/01/18 06/12/18 [Cholesterol Relief] phytosterol-vit D3-fish oil 400 mg PO DAILY 06/01/18 06/12/18 [Cholesterol Relief] saw-vit E-sod [id number] 06/01/18 [Prostate Health] thiamine HCl (vitamin B1) [Vitamin 100 mg PO BID 06/12/18 06/12/18 B-1] Previous Rx's Medication Instructions Recorded aspirin 81 mg PO DAILY #30 tab 06/07/18 bisacodyl [Bisac-Evac] 10 mg [place] DAILY PRN #15 ea 06/07/18 clopidogrel [Plavix] 75 mg PO DAILY #30 tab 06/07/18 diphenhydramine HCl 25 mg PO Q4H PRN #100 cap 06/07/18 famotidine 20 mg PO BID #60 tab 06/07/18 folic acid 1 mg PO DAILY #30 tab 06/07/18 ipratropium-albuterol 1 amp NEB Q4HR NEB PRN #120 amp 06/07/18 lactulose 30 ml PO DAILY PRN #900 ml 06/07/18 latanoprost [Xalatan] 1 drop EACH EYE HS #10 ml 06/07/18 lisinopril 10 mg PO DAILY #30 tab 06/07/18 lorazepam 1 mg PO Q4H PRN #18 tab 06/07/18 multivitamin with folic acid 1 tab PO DAILY #30 tab 06/07/18 [Thera] nicotine 1 patch TRANSDERMAL DAILY #30 ea 06/07/18 oxycodone-acetaminophen 1 tab PO Q6H PRN #12 tab 06/07/18 polyethylene glycol 3350 17 gm PO DAILY #1 bottle 06/07/18 prednisone 20 mg PO DAILY #30 tab 06/07/18 primidone [Mysoline] 50 mg PO BID #60 tab 06/07/18 sennosides-docusate sodium [Senna 2 tab PO BID #120 tab 06/07/18 Plus] simethicone 80 mg PO Q8H PRN #30 tab 06/07/18 temazepam 15 mg PO HS PRN #30 cap 06/07/18 terazosin 1 mg PO HS #30 cap 06/07/18 baclofen 10 mg PO BID #90 tab 06/08/18 budesonide-formoterol [Symbicort] 2 puff INHALATION BID #1 ea 06/08/18 diltiazem HCl [Cardizem] 120 mg PO DAILY #30 tab 06/08/18 Allergies Allergy/AdvReac Type Severity Reaction Status Date / Time No Known Allergies Allergy Verified 06/12/18 12:18 Review of Systems Constitutional Denies chills and Denies fever(s) Eyes Denies blurry vision and Denies diplopia ENT Denies vertigo, Reports dizziness and Denies headache(s) Cardiovascular Denies chest pain, Denies diaphoresis, Reports rapid heart rate, Reports lightheadedness and Reports palpitations Respiratory Denies chest congestion and Reports cough (Chronic) Gastrointestinal Denies nausea and Denies vomiting Genitourinary Reports system reviewed and no additional complaints, except as docu Musculoskeletal Reports limited range of motion, Reports muscle weakness (Generalized), Denies neck pain and Reports other (Left leg pain. Patient reports from the upper posterior down towards his knee. Not reproducible.) Integumentary/Breasts Reports system reviewed and no additional complaints, except as docu Neurologic Reports dizziness, Reports syncope, Denies headache(s) and Reports other (Pain down the back of his left leg. Patient also has a history of CVA.) [facility] Social History Social History Substance History: No History of Abuse Second Hand Smoke Exposure: Yes Smoking Status: Heavy tobacco smoker Tobacco Type: Cigarettes How Often Do You Have a Drink Containing Alcohol: 4 or more times a week Hx Recent Travel: No Recent Travel in [facility] within the Last 8 Weeks: No Recent Out of Country Travel within the Last 8 Weeks: No Immunization History Tetanus Immunization: Unsure Hx Influenza Vaccine This Season: Yes Exam Narrative Exam Narrative: GENERAL: Well-developed well-nourished male in no acute respiratory distress. SKIN: Focused skin assessment warm/dry. No tenting appreciated. HEAD: Atraumatic. Normocephalic. EYES: No scleral icterus. No injection or drainage. ENT: No nasal bleeding or discharge. Mucous membranes pink and and slightly dry. NECK: Trachea midline. No JVD. CARDIOVASCULAR: Tachycardic with a rate in the 110s to 130s. It appears irregular. No obvious murmurs appreciated. RESPIRATORY: No accessory muscle use. Clear to auscultation. Breath sounds equal bilaterally. GASTROINTESTINAL: Abdomen soft, non-tender, nondistended. Hepatic and splenic margins not palpable. MUSCULOSKELETAL: No obvious deformities. No clubbing. No cyanosis. No edema. No calf tenderness bilaterally. The patient had subjective pain down the back of his left leg. There is no reproducibility. Patient states it feels deep and towards the bone. NEUROLOGICAL: Awake and alert. No obvious cranial nerve deficits. Motor grossly within normal limits. Patient does appear to be frail and weak. Normal speech. Course Initial Documented Vital Signs Temperature 98.5 F 06/12/18 11:42 Pulse Rate 105 H 06/12/18 11:42 Respiratory Rate 16 06/12/18 11:42 Blood Pressure 150/67 H 06/12/18 11:42 Pulse Oximetry 98 06/12/18 11:42 Last Documented Vital Signs Temperature 97.8 F 06/14/18 04:00 Pulse Rate 87 06/14/18 04:00 Respiratory Rate 19 06/14/18 04:00 Blood Pressure 152/70 H 06/14/18 04:00 Pulse Oximetry 99 06/14/18 04:00 Medical Decision Making MDM Narrative Medical decision making narrative: This is a 72-year-old male with a history of chronic back pain, previous CVA, COPD, resents today with complaints of severe left-sided lower extremity pain. Patient also reports a syncopal episode this morning. He states his blood pressure was in the 80s systolic. The patient was noted to be in A. fib with RVR when he arrived here. We have started him on IV fluids. He is also been given pain medication. We have started him also on Lopressor. The patient's cardiac enzymes are pending at this time. The patient was signed out to Dr. Merry Akhtar, physician replaced me at change of shift. Disposition was per her. Differential Diagnosis Differential Diagnosis: Cardiac syncope versus dehydration versus metabolic derangement versus sciatica Lab Data Result diagrams: 06/13/18 15:48 06/13/18 06:30 Lab Results 06/12/18 06/12/18 06/12/18 Range/Units 12:38 12:38 12:38 WBC 19.1 H (4.0-11.0) th/mm3 RBC 3.47 L (4.50-5.90) mil/mm3 Hgb 11.1 L (13.0-17.0) gm/dL Hct 33.0 L (39.0-51.0) % MCV 95.0 (80.0-100.0) fL MCH 31.9 (27.0-34.0) pg MCHC 33.6 (32.0-36.0) % RDW 15.1 (11.6-17.2) % Plt Count 478 H D (150-450) th/mm3 MPV 7.3 (7.0-11.0) fL Neut % (Auto) 86.4 H (16.0-70.0) % Lymph % (Auto) 6.7 L (9.0-44.0) % [place] % (Auto) 5.8 (0.0-8.0) % Eos % (Auto) 0.7 (0.0-4.0) % Baso % (Auto) 0.4 (0.0-2.0) % Neut # (Auto) 16.5 H (1.8-7.7) th/mm3 Lymph # (Auto) 1.3 (1.0-4.8) th/mm3 [place] # (Auto) 1.1 H (0.0-0.9) th/mm3 Eos # (Auto) 0.1 (0.0-0.4) th/mm3 Baso # (Auto) 0.1 (0.0-0.2) th/mm3 WBC Differential . Differential Comment Auto diff final Sodium 131 L (136-145) meq/L Potassium 4.8 (3.5-5.1) meq/L Chloride 97 L (98-107) meq/L Carbon Dioxide 26.9 (21.0-32.0) meq/L Anion Gap 7 (5-15) meq/L BUN 14 (7-18) mg/dL Creatinine 0.89 (0.60-1.30) mg/dL Estimated GFR 85 L (>89) mL/min Random Glucose 76 (74-106) mg/dL Lactic Acid (0.4-2.0) mmol/L Calcium 8.4 L (8.5-10.1) mg/dL Magnesium 1.5 (1.5-2.5) mg/dL Total Bilirubin 0.5 (0.2-1.0) mg/dL AST 37 (15-37) U/L ALT 67 (12-78) U/L Alkaline Phosphatase 96 (45-117) U/L Total Creatine Kinase 92 (39-308) U/L Troponin I Less than 0.02 L (0.02-0.05) ng/mL B-Natriuretic Peptide (0-100) pg/mL Total Protein 7.3 D (6.4-8.2) g/dL Albumin 2.6 L (3.4-5.0) g/dL Procalcitonin (0.00-0.08) ng/mL Urine Color (Yellw/Straw) Urine Clarity (Clear) Urine pH (5.0-8.5) Ur Specific [place] (1.002-1.035) Urine Protein (Neg-Trace) mg/dL Urine Glucose (UA) (Negative) mg/dL Urine Ketones (Negative) mg/dL Urine Occult Blood (Negative) Urine Nitrate (Negative) Urine Bilirubin (Negative) Urine Urobilinogen (Less than 2) mg/dL Ur Leukocyte Esterase (Negative) Urine RBC (0-3) /hpf Urine WBC (0-5) /hpf Hyaline Casts (0-3) /lpf Urine Mucus (Occasional) /lpf Micro UA Comment Urine Culture Comments 06/12/18 06/12/18 06/13/18 Range/Units 14:24 16:45 06:30 WBC 14.8 H (4.0-11.0) th/mm3 RBC 2.56 L (4.50-5.90) mil/mm3 Hgb 8.1 L D (13.0-17.0) gm/dL Hct 24.2 L (39.0-51.0) % MCV 94.4 (80.0-100.0) fL MCH 31.5 (27.0-34.0) pg MCHC 33.3 (32.0-36.0) % RDW 14.8 (11.6-17.2) % Plt Count 374 (150-450) th/mm3 MPV 7.0 (7.0-11.0) fL Neut % (Auto) 83.8 H (16.0-70.0) % Lymph % (Auto) 7.8 L (9.0-44.0) % [place] % (Auto) 6.5 (0.0-8.0) % Eos % (Auto) 1.3 (0.0-4.0) % Baso % (Auto) 0.6 (0.0-2.0) % Neut # (Auto) 12.4 H (1.8-7.7) th/mm3 Lymph # (Auto) 1.1 (1.0-4.8) th/mm3 [place] # (Auto) 1.0 H (0.0-0.9) th/mm3 Eos # (Auto) 0.2 (0.0-0.4) th/mm3 Baso # (Auto) 0.1 (0.0-0.2) th/mm3 WBC Differential . Differential Comment Auto diff final Sodium (136-145) meq/L Potassium (3.5-5.1) meq/L Chloride (98-107) meq/L Carbon Dioxide (21.0-32.0) meq/L Anion Gap (5-15) meq/L BUN (7-18) mg/dL Creatinine (0.60-1.30) mg/dL Estimated GFR (>89) mL/min Random Glucose (74-106) mg/dL Lactic Acid 0.9 (0.4-2.0) mmol/L Calcium (8.5-10.1) mg/dL Magnesium (1.5-2.5) mg/dL Total Bilirubin (0.2-1.0) mg/dL AST (15-37) U/L ALT (12-78) U/L Alkaline Phosphatase (45-117) U/L Total Creatine Kinase (39-308) U/L Troponin I (0.02-0.05) ng/mL B-Natriuretic Peptide (0-100) pg/mL Total Protein (6.4-8.2) g/dL Albumin (3.4-5.0) g/dL Procalcitonin (0.00-0.08) ng/mL Urine Color Yellow (Yellw/Straw) Urine Clarity Clear (Clear) Urine pH 6.0 (5.0-8.5) Ur Specific [place] 1.014 (1.002-1.035) Urine Protein Negative (Neg-Trace) mg/dL Urine Glucose (UA) Negative (Negative) mg/dL Urine Ketones Negative (Negative) mg/dL Urine Occult Blood Negative (Negative) Urine Nitrate Negative (Negative) Urine Bilirubin Negative (Negative) Urine Urobilinogen Less than 2 (Less than 2) mg/dL Ur Leukocyte Esterase Negative (Negative) Urine RBC Less than 1 (0-3) /hpf Urine WBC Less than 1 (0-5) /hpf Hyaline Casts 1 (0-3) /lpf Urine Mucus Few H (Occasional) /lpf Micro UA Comment Culture not ind Urine Culture Comments Culture not ind 06/13/18 06/13/18 06/13/18 Range/Units 06:30 06:30 06:30 WBC (4.0-11.0) th/mm3 RBC (4.50-5.90) mil/mm3 Hgb (13.0-17.0) gm/dL Hct (39.0-51.0) % MCV (80.0-100.0) fL MCH (27.0-34.0) pg MCHC (32.0-36.0) % RDW (11.6-17.2) % Plt Count (150-450) th/mm3 MPV (7.0-11.0) fL Neut % (Auto) (16.0-70.0) % Lymph % (Auto) (9.0-44.0) % [place] % (Auto) (0.0-8.0) % Eos % (Auto) (0.0-4.0) % Baso % (Auto) (0.0-2.0) % Neut # (Auto) (1.8-7.7) th/mm3 Lymph # (Auto) (1.0-4.8) th/mm3 [place] # (Auto) (0.0-0.9) th/mm3 Eos # (Auto) (0.0-0.4) th/mm3 Baso # (Auto) (0.0-0.2) th/mm3 WBC Differential Differential Comment Sodium 136 (136-145) meq/L Potassium 3.5 D (3.5-5.1) meq/L Chloride 103 (98-107) meq/L Carbon Dioxide 23.7 (21.0-32.0) meq/L Anion Gap 9 (5-15) meq/L BUN 28 H (7-18) mg/dL Creatinine 0.66 (0.60-1.30) mg/dL Estimated GFR Greater than 89 (>89) mL/min Random Glucose 78 (74-106) mg/dL Lactic Acid (0.4-2.0) mmol/L Calcium 7.8 L (8.5-10.1) mg/dL Magnesium (1.5-2.5) mg/dL Total Bilirubin (0.2-1.0) mg/dL AST (15-37) U/L ALT (12-78) U/L Alkaline Phosphatase (45-117) U/L Total Creatine Kinase (39-308) U/L Troponin I (0.02-0.05) ng/mL B-Natriuretic Peptide 138 H (0-100) pg/mL Total Protein (6.4-8.2) g/dL Albumin (3.4-5.0) g/dL Procalcitonin 0.47 H (0.00-0.08) ng/mL Urine Color (Yellw/Straw) Urine Clarity (Clear) Urine pH (5.0-8.5) Ur Specific [place] (1.002-1.035) Urine Protein (Neg-Trace) mg/dL Urine Glucose (UA) (Negative) mg/dL Urine Ketones (Negative) mg/dL Urine Occult Blood (Negative) Urine Nitrate (Negative) Urine Bilirubin (Negative) Urine Urobilinogen (Less than 2) mg/dL Ur Leukocyte Esterase (Negative) Urine RBC (0-3) /hpf Urine WBC (0-5) /hpf Hyaline Casts (0-3) /lpf Urine Mucus (Occasional) /lpf Micro UA Comment Urine Culture Comments 06/13/18 Range/Units 15:48 WBC 14.4 H (4.0-11.0) th/mm3 RBC 2.31 L (4.50-5.90) mil/mm3 Hgb 7.5 L (13.0-17.0) gm/dL Hct 22.1 L (39.0-51.0) % MCV 95.5 (80.0-100.0) fL MCH 32.3 (27.0-34.0) pg MCHC 33.8 (32.0-36.0) % RDW 14.6 (11.6-17.2) % Plt Count 361 (150-450) th/mm3 MPV 7.0 (7.0-11.0) fL Neut % (Auto) (16.0-70.0) % Lymph % (Auto) (9.0-44.0) % [place] % (Auto) (0.0-8.0) % Eos % (Auto) (0.0-4.0) % Baso % (Auto) (0.0-2.0) % Neut # (Auto) (1.8-7.7) th/mm3 Lymph # (Auto) (1.0-4.8) th/mm3 [place] # (Auto) (0.0-0.9) th/mm3 Eos # (Auto) (0.0-0.4) th/mm3 Baso # (Auto) (0.0-0.2) th/mm3 WBC Differential Differential Comment Sodium (136-145) meq/L Potassium (3.5-5.1) meq/L Chloride (98-107) meq/L Carbon Dioxide (21.0-32.0) meq/L Anion Gap (5-15) meq/L BUN (7-18) mg/dL Creatinine (0.60-1.30) mg/dL Estimated GFR (>89) mL/min Random Glucose (74-106) mg/dL Lactic Acid (0.4-2.0) mmol/L Calcium (8.5-10.1) mg/dL Magnesium (1.5-2.5) mg/dL Total Bilirubin (0.2-1.0) mg/dL AST (15-37) U/L ALT (12-78) U/L Alkaline Phosphatase (45-117) U/L Total Creatine Kinase (39-308) U/L Troponin I (0.02-0.05) ng/mL B-Natriuretic Peptide (0-100) pg/mL Total Protein (6.4-8.2) g/dL Albumin (3.4-5.0) g/dL Procalcitonin (0.00-0.08) ng/mL Urine Color (Yellw/Straw) Urine Clarity (Clear) Urine pH (5.0-8.5) Ur Specific [place] (1.002-1.035) Urine Protein (Neg-Trace) mg/dL Urine Glucose (UA) (Negative) mg/dL Urine Ketones (Negative) mg/dL Urine Occult Blood (Negative) Urine Nitrate (Negative) Urine Bilirubin (Negative) Urine Urobilinogen (Less than 2) mg/dL Ur Leukocyte Esterase (Negative) Urine RBC (0-3) /hpf Urine WBC (0-5) /hpf Hyaline Casts (0-3) /lpf Urine Mucus (Occasional) /lpf Micro UA Comment Urine Culture Comments Imaging Data Radiologist's impression: Chest CTA 06/12/18 00:00 CONCLUSION: Right lower lobe mass almost certainly malignant. There is no evidence of PE for technique. Chest X-Ray 06/12/18 12:59 CONCLUSION: Right lung base opacity possibly pneumonia versus mass and a follow-up is suggested with repeat chest x-ray after appropriate clinical therapy. Head CT 06/13/18 00:00 CONCLUSION: Atrophy, otherwise negative for an acute process. Luc Lundberg MD FACR . Venous Doppler Study 06/13/18 00:00 CONCLUSION: 1. The study is negative for bilateral lower extremity deep venous thrombosis. Discharge Plan Discharge Disposition Patient Disposition: 30 Still Patient Discharge Details Diagnosis: Atrial fibrillation with rapid ventricular response, Intractable low back pain , Syncope, History of CVA (cerebrovascular accident), COPD (chronic obstructive pulmonary disease) Physicians Team ED Provider: Merry Akhtar Primary Care Provider: [facility],Physician 's Attending Provider: Nithya Silva Other Providers: Samantha Mckeon Discharge Interventions Interventions: ED Discharge Assessment Last Done: 06/12/18 16:13 Vital Signs Last Done: 06/12/18 16:13 Status ED Status: Left Department Discharge Information Discharge Date/Time: 06/12/18 16:15
[2018-06-12] MEDS ORDERED: Metoprolol Inj 5 MG/5 ML Vial IV.PUSH ONE (12:42)
[2018-06-12 12:53] LABS: Baso # (Auto) 0.1 th/mm3 (0.0-0.2); Baso % (Auto) 0.4 % (0.0-2.0); Eos # (Auto) 0.1 th/mm3 (0.0-0.4); Eos % (Auto) 0.7 % (0.0-4.0); Hemoglobin 11.1 gm/dL (13.0-17.0); Lymph # (Auto) 1.3 th/mm3 (1.0-4.8); Lymph % (Auto) 6.7 % (9.0-44.0); Mean Corpuscular HGB Conc 33.6 % (32.0-36.0); Mean Corpuscular Hemoglobin 31.9 pg (27.0-34.0); Mean Platelet Volume 7.3 fL (7.0-11.0); Mono # (Auto) 1.1 th/mm3 (0.0-0.9); Mono % (Auto) 5.8 % (0.0-8.0); Neut # (Auto) 16.5 th/mm3 (1.8-7.7); Neut % (Auto) 86.4 % (16.0-70.0); Platelet Count 478 th/mm3 (150-450); Red Blood Count 3.47 mil/mm3 (4.50-5.90); Red Cell Distribution Width 15.1 % (11.6-17.2); White Blood Count 19.1 th/mm3 (4.0-11.0)
[2018-06-12 13:24] LABS: Alanine Aminotransferase 67 U/L (12-78); Albumin 2.6 g/dL (3.4-5.0); Anion Gap 7 meq/L (5-15); Aspartate Aminotransferase 37 U/L (15-37); Blood Urea Nitrogen 14 mg/dL (7-18); Calcium 8.4 mg/dL (8.5-10.1); Carbon Dioxide 26.9 meq/L (21.0-32.0); Chloride 97 meq/L (98-107); Glomerular Filtration Rate 85 mL/min (>89); Glucose,Random 76 mg/dL (74-106); Sodium 131 meq/L (136-145)
[2018-06-12 13:25] LABS: Potassium 4.8 meq/L (3.5-5.1)
--- NOTE | 2018-06-12 13:30 | XR ---
EXAM DATE: 06/12/2018 1:24 PM EDT AGE/SEX: 72 years / Male INDICATIONS: Cough. CLINICAL DATA: This is the patient's initial encounter. Patient reports that signs and symptoms have been present for 3 days and indicates a pain score of 0/10. MEDICAL/SURGICAL HISTORY: . Cerebrovascular disease. Hypertension. Chronic obstructive pulmonar y disease. None. COMPARISON: No prior exams available for comparison. FINDINGS: Approximate 6 cm right lung base opacity is present may represent consolidation and/or mass. Heart an d mediastinum are unremarkable for technique. CONCLUSION: Right lung base opacity possibly pneumonia versus mass and a follow-up is suggested with repeat chest x-ray after appropriate clinical therapy. Electronically signed by: Sendy Lam MD 06/12/2018 1:29 PM EDT
[2018-06-12 13:45] LABS: Alkaline Phosphatase 96 U/L (45-117); Total Protein 7.3 g/dL (6.4-8.2)
[2018-06-12] MEDS ORDERED: Piperacil/Tazo 4.5 GM Premix 4.5 GM/100 ML BAG IV.SIG STA (13:49)
[2018-06-12] MEDS ORDERED: Sod Chloride 0.9% Inj 1,000 ML IV.SIG ONE (13:49)
[2018-06-12 13:52] LABS: Creatine Kinase 92 U/L (39-308)
--- NOTE | 2018-06-12 16:23 | P.HP ---
History of Present Illness Primary Care Physician: Physician 's [facility] History of Present Illness: 72-year-old W male being admitted for syncope. Patient was in his usual state of health until sometime yesterday when he began experiencing lightheadedness. Says he was ambulating in his home and was only a few steps away from a chair but felt himself pass out and he landed forward into his chair, not striking any hard surfaces. Says he only passed out for a few seconds. This morning the patient felt lightheaded even upon resting, says he took a blood pressure measurement and says the systolic number was in the 80s , says he had a home care nurse accessible to him at the time and she advised him to refrain from taking his blood pressure medications. Denies having any nausea or chest pain. Says he is feeling more short of breath than usual and is unable to ascertain if his cough is any worse than usual. Denies any fevers or chills. Reports feeling substantially weaker than he did the last time he was discharged may be a week ago. Still has right leg pain periodically. Patient denies having any cardiac disease. Most recently the patient was discharged from the hospital about 1 wk ago for substantial right lower leg pain that impaired his ability to walk. He eventually regained enough strength to go home with home care. He had chest x- ray done at that time which showed a suspicious findings suggestive of a mass versus pneumonia. A CT abdomen pelvis that was done shows at least a 4 cm mass highly suspicious for malignancy. In the emergency department the patient had an EKG done which on my independent review looks like it is sinus rhythm with very diminished P waves at best. Blood pressure seems to be very stable. Patient undergone another chest x-ray which I eventually reviewed which shows the same masslike appearing lesion on the right lung field, per radiology seems to be unchanged since his last CXR. Pt states he has knowledge of a mass on his left lung from 2 months ago and has not gotten into see pulmonology yet. Inpatient Certification: I certify that the inpatient services were ordered in accordance with Medicare regulations governing the order. This includes certification that hospital inpatient services are reasonable and necessary and in the case of services not specified as inpatient-only under 42 CFR 419.22(n), that they are appropriately provided as inpatient services in accordance to with the 2-midnight benchmark under 43 CFR 412.3(e) Estimated Total Length of Stay (Days): 2 Plans for Post Hospital Care: Home Review of Systems All other systems reviewed negative except as stated in HPI PMFSH - History History Provided By: Patient - Medical History Medical History: Medical History (Last Reviewed 06/12/18 @ 12:18 by Kerri Mike RN) Alcohol abuse COPD (chronic obstructive pulmonary disease) CVA (cerebral vascular accident) Hyperlipidemia Hypertension Knee arthropathy Tachycardia Tobacco abuse - Family History Family History: Family History (Last Updated 06/12/18 @ 16:18 by Hoem Betts MD) Father Esophageal cancer Other Family history of hypertension - Tobacco History Second Hand Smoke Exposure: Yes Tobacco Use In Past 30 Days: Yes Smoking Status: Heavy tobacco smoker Tobacco Type: Cigarettes - Alcohol History How Often Do You Have a Drink Containing Alcohol: 4 or more times a week - Substance Use History Substance History: No History of Abuse - Travel History History of Recent Travel: No Recent Travel in the [place] Within the Last 8 Weeks: No Recent Travel Out of the Country Within the Last 8 Weeks: No - Immunization History Tetanus Immunization: Unsure Hx Influenza Vaccine This Season: Yes Medications and Allergies Active Medications: Active Medications Sodium Chloride (Ns Inj) 1,000 mls @ 125 mls/hr IV.CONT .Q8H MIGEL Stop: 06/12/18 20:29 Last Admin: 06/12/18 12:48 Dose: 125 mls/hr Naloxone HCl (Narcan Inj) 0.4 mg IV.PUSH PRN PRN PRN Reason: SEE LABEL COMMENTS Allergies Allergy/AdvReac Type Severity Reaction Status Date / Time No Known Allergies Allergy Verified 06/12/18 12:18 Home Medications Medication Instructions Recorded Confirmed Type albuterol sulfate 06/01/18 06/01/18 History cholecalciferol (vitamin D3) 1,000 unit PO DAILY 06/01/18 06/12/18 History [Vitamin D3] phytosterol-vit D3-fish oil 400 mg PO DAILY 06/01/18 06/12/18 History [Cholesterol Relief] phytosterol-vit D3-fish oil 400 mg PO DAILY 06/01/18 06/12/18 History [Cholesterol Relief] saw-vit E-sod [id number] 06/01/18 History [Prostate Health] thiamine HCl (vitamin B1) [Vitamin 100 mg PO BID 06/12/18 06/12/18 History B-1] Exam Vital signs: Vital Signs 06/12/18 11:42 06/12/18 11:53 06/12/18 13:10 Temperature 98.5 F Pulse Rate 105 H 114 H Respiratory Rate 16 18 Blood Pressure 150/67 H 164/92 H Pulse Oximetry 98 94 L 95 06/12/18 13:19 06/12/18 14:26 Temperature Pulse Rate 101 H Respiratory Rate 18 20 Blood Pressure 164/73 H Pulse Oximetry 98 Intake & Output 06/11/18 06/12/18 06/12/18 18:59 06:59 18:59 Weight 62.142 kg Narrative: VS: afebrile GENERAL: Lying in bed, awake, alert, no acute distress SKIN: Warm and dry. EYES: Pupils equal and round. No scleral icterus. No injection or drainage. ENT: No nasal bleeding or discharge. Mucous membranes pink and moist. CARDIOVASCULAR: Regular rate and rhythm. no murmurs RESPIRATORY: No accessory muscle use. Clear to auscultation. Breath sounds equal bilaterally. GASTROINTESTINAL: Abdomen soft, non-tender, nondistended. Extremities: No clubbing, cyanosis, or edema. No obvious deformities. MUSCULOSKELETAL: grossly intact ROM with 5/5 strength in upper and lower extremities proximally; adequate muscle bulk and tone for age and habitus NEUROLOGICAL: Awake and alert. No obvious cranial nerve deficits. No facial droop nor slurred speech noted. Intact patellar +2 reflexes bilaterally, negative straight leg active raising bilaterally PSYCHIATRIC: Appropriate mood and affect; insight and judgment normal. Results - Labs CBC & Chem 7: 06/12/18 12:38 06/12/18 12:38 Labs: Laboratory Results - last 24 hr 06/12/18 06/12/18 06/12/18 12:38 12:38 14:24 WBC 19.1 H RBC 3.47 L Hgb 11.1 L Hct 33.0 L MCV 95.0 MCH 31.9 MCHC 33.6 RDW 15.1 Plt Count 478 H D MPV 7.3 Neut % (Auto) 86.4 H Lymph % (Auto) 6.7 L [place] % (Auto) 5.8 Eos % (Auto) 0.7 Baso % (Auto) 0.4 Neut # (Auto) 16.5 H Lymph # (Auto) 1.3 [place] # (Auto) 1.1 H Eos # (Auto) 0.1 Baso # (Auto) 0.1 WBC Differential . Differential Comment Auto diff final Sodium 131 L Potassium 4.8 Chloride 97 L Carbon Dioxide 26.9 Anion Gap 7 BUN 14 Creatinine 0.89 Estimated GFR 85 L Random Glucose 76 Lactic Acid 0.9 Calcium 8.4 L Total Bilirubin 0.5 AST 37 ALT 67 Alkaline Phosphatase 96 Total Creatine Kinase 92 Troponin I Less than 0.02 L Total Protein 7.3 D Albumin 2.6 L - Imaging Impressions Chest X-Ray 06/12/18 12:59 CONCLUSION: Right lung base opacity possibly pneumonia versus mass and a follow-up is suggested with repeat chest x-ray after appropriate clinical therapy. Caprini VTE Risk Assessment Caprini VTE Risk Assessment: Moderate/High Risk (score >= 2) Caprini Risk Assessment Model: Point Value = 1 Point Value = 2 Point Value = 3 Point Value = 5 Age 41-60 Minor surgery BMI > 25 kg/m2 Swollen legs Varicose veins or History of unexplained or recurrent spontaneous Oral contraceptives or hormone replacement Sepsis (< 1 month) Serious lung disease, including pneumonia (< 1 month) Abnormal pulmonary function Acute myocardial infarction Congestive heart failure (< 1 month) History of inflammatory bowel disease Medical patient at bed rest Age 61-74 Arthroscopic surgery Major open surgery (> 45 min) Laparoscopic surgery (> 45 min) Malignancy Confined to bed (> 72 hours) Immobilizing plaster cast Central venous access Age >= 75 History of VTE Family history of VTE Factor V Leiden Prothrombin [id number] Lupus anticoagulant Anticardiolipin antibodies Elevated serum homocysteine Heparin-induced thrombocytopenia Other congenital or acquired thrombophilia Stroke (< 1 month) Elective arthroplasty Hip, pelvis, or leg fracture Acute spinal cord injury (< 1 month) Prophylaxis Regimen: Total Risk Factor Score Risk Level Prophylaxis Regimen 0-1 Low Early ambulation 2 Moderate Order ONE of the following: *Sequential Compression Device (SCD) *Heparin 5000 units SQ BID 3-4 Higher Order ONE of the following medications: *Heparin 5000 units SQ TID *Enoxaparin/Lovenox 40 mg SQ daily (WT < 150 kg, CrCl > 30 mL/min) *Enoxaparin/Lovenox 30 mg SQ daily (WT < 150 kg, CrCl > 10-29 mL/min) *Enoxaparin/Lovenox 30 mg SQ BID (WT < 150 kg, CrCl > 30 mL/min) AND/OR *Sequential Compression Device (SCD) 5 or more Highest Order ONE of the following medications: *Heparin 5000 units SQ TID (Preferred with Epidurals) *Enoxaparin/Lovenox 40 mg SQ daily (WT < 150 kg, CrCl > 30 mL/min) *Enoxaparin/Lovenox 30 mg SQ daily (WT < 150 kg, CrCl > 10-29 mL/min) *Enoxaparin/Lovenox 30 mg SQ BID (WT < 150 kg, CrCl > 30 mL/min) AND *Sequential Compression Device (SCD) Assessment and Plan - Plan 72-year-old white male being admitted for syncope. Syncope -No clear etiology at this time, lab work does not demonstrate dehydration or his physical exam. Possible intermittent tachyarrhythmia -EKG unremarkable, remain on telemetry at this time. May need a Holter monitor or loop recorder upon discharge SOB -mass vs possible PE? -mod wells score of 2.5, ordering CTA which will also help elucidate possible mass Right lung mass (per pt hx and imaging) -Suspicious for malignancy based on upon abdomen pelvis CT done during last hospitalization, obtaining chest CT with contrast, will consult pulmonology. -Clinically the patient does not have pneumonia (neg exam, no fever) but rather just chronic bronchitis. LA wnl. -Will consult pulmonology for lung mass. I will discontinue antibiotics for now and resume home inhalers. hx of CVA - hold home Plavix (last taken on 06/10 per pt) - start Lipitor - ASA once no procedures are warranted per pulmonology leukocytosis - possibly stress induced, monitor, if worsens or fever spikes then start abx. BCs drawn in ER. copd (stable) - continue home inhalers Right leg pain -Suspect sciatica - PT lovenox
[2018-06-12] MEDS ORDERED: Enoxaparin Inj 40 MG/0.4 ML Syringe SQ ONE (17:00)
[2018-06-12 17:40] LABS: Bilirubin,Urine Negative (Negative); Clarity,Urine Clear (Clear); Color,Urine Yellow (Yellw/Straw); Glucose,Urine (UA) Negative (Negative); Hyaline Casts,Urine 1 /lpf (0-3); Leukocyte Esterase,Urine Negative (Negative); Mucus,Urine Few /lpf (Occasional); Nitrite,Urine Negative (Negative); Specific Gravity,Urine 1.014 (1.002-1.035)
--- NOTE | 2018-06-12 18:32 | CT ---
EXAM DATE: 06/12/2018 6:21 PM EDT AGE/SEX: 72 years / Male INDICATIONS: Shortness of breath; possible pulmonary embolus. CLINICAL DATA: This is the patient's initial encounter. Patient reports that signs and symptoms have been present for 1 day and indicates a pain score of 0/10. MEDICAL/SURGICAL HISTORY: Chronic obstructive pulmonary disease. Hypertension. Cerebrovascular di sease. ETOH abuse, tachycardia None. RADIATION DOSE: 10.20 CTDI (mGy) COMPARISON: [facility], CHEST 1V SINGLE AP, 06/12/2018. . TECHNIQUE: Volumetric scanning was performed using a multi-row detector CT scanner during bolus infu lenard of 71 ml Omnipaque 350 (iohexol) nonionic water-soluble contrast as a single exam dose. The giancarlo a was post processed with a variety of visualization algorithms including full volume maximum intensi ty projection and sliding thin slab reformation. Using automated exposure control and adjustment of the mA and/or kV according to patient size, radiation dose was kept as low as reasonably achievable t o obtain optimal diagnostic quality images. DICOM format image data is available electronically for review and comparison. FINDINGS: Approximate 4.5 cm mass is present in right lower lobe laterally in a background of significant COPD almost certainly malignant. Scattered areas of parenchymal scarring are seen in the lungs bilaterally . Hiatal hernia is seen. There is no evidence of PE for technique. Chronic vascular atherosclerotic calcifications are seen involving the aorta. Coronary artery calcifications are seen typically seen w ith coronary artery disease and clinical correlation and evaluation is suggested. There is no pleural effusion or any significant pathological adenopathy. CONCLUSION: Right lower lobe mass almost certainly malignant. There is no evidence of PE for technique. Electronically signed by: Sendy Lam MD 06/12/2018 6:30 PM EDT
[2018-06-12] MEDS: Budesonide-Formoterol 160/4.5 MCG 6 GM Inhaler INH SCH (20:01)
[2018-06-12] MEDS: Famotidine 20 MG Tablet PO SCH (20:01)
[2018-06-12] MEDS: Latanoprost 0.005% Opth Drops 2.5 ML Bottle EACH EYE SCH (20:01)
[2018-06-12] MEDS: Primidone 50 MG Tablet PO SCH (20:02)
[2018-06-12] MEDS ORDERED: Haloperidol Inj 5 MG/ML Ampul IV.PUSH PRN (20:59)
[2018-06-12] MEDS: oxyCODONE/Acetaminophen 10/325 Tablet PO PRN (21:28)
[2018-06-13] MEDS: LORazepam 1 MG Tablet PO PRN (00:19)
[2018-06-13] MEDS: oxyCODONE/Acetaminophen 10/325 Tablet PO PRN (04:58)
[2018-06-13 07:11] LABS: Baso # (Auto) 0.1 th/mm3 (0.0-0.2); Baso % (Auto) 0.6 % (0.0-2.0); Eos # (Auto) 0.2 th/mm3 (0.0-0.4); Eos % (Auto) 1.3 % (0.0-4.0); Hematocrit 24.2 % (39.0-51.0); Hemoglobin 8.1 gm/dL (13.0-17.0); Lymph # (Auto) 1.1 th/mm3 (1.0-4.8); Lymph % (Auto) 7.8 % (9.0-44.0); Mean Corpuscular HGB Conc 33.3 % (32.0-36.0); Mean Corpuscular Hemoglobin 31.5 pg (27.0-34.0); Mean Corpuscular Volume 94.4 fL (80.0-100.0); Mono % (Auto) 6.5 % (0.0-8.0); Neut # (Auto) 12.4 th/mm3 (1.8-7.7); Neut % (Auto) 83.8 % (16.0-70.0); Platelet Count 374 th/mm3 (150-450); Red Blood Count 2.56 mil/mm3 (4.50-5.90); Red Cell Distribution Width 14.8 % (11.6-17.2); White Blood Count 14.8 th/mm3 (4.0-11.0)
[2018-06-13 07:48] LABS: Anion Gap 9 meq/L (5-15); Blood Urea Nitrogen 28 mg/dL (7-18); Calcium 7.8 mg/dL (8.5-10.1); Carbon Dioxide 23.7 meq/L (21.0-32.0); Chloride 103 meq/L (98-107); Glomerular Filtration Rate Greater Than 89 mL/min (>89); Glucose,Random 78 mg/dL (74-106); Potassium 3.5 meq/L (3.5-5.1); Sodium 136 meq/L (136-145)
[2018-06-13] MEDS: predniSONE 20 MG Tablet PO SCH (08:55)
[2018-06-13] MEDS: Primidone 50 MG Tablet PO SCH ×2 (08:55→20:49)
[2018-06-13] MEDS: Famotidine 20 MG Tablet PO SCH ×2 (08:55→20:49)
[2018-06-13] MEDS: Folic Acid 1 MG Tablet PO SCH (08:56)
[2018-06-13] MEDS: Budesonide-Formoterol 160/4.5 MCG 6 GM Inhaler INH SCH ×2 (08:56→21:41)
[2018-06-13] MEDS ORDERED: Enoxaparin Inj 40 MG/0.4 ML Syringe SQ SCH (09:00)
--- NOTE | 2018-06-13 09:28 | P.PNIM ---
Subjective Interval history: Pt seen and examined for f/u syncope and lung mass. He reports he is feeling "awful." Complains of pain down entire left leg especially his knee. Reports it goes from his foot to his buttock. He has been treated for sciatica recently. Pain is constant, even at rest. The patient denies any CP, SOB, abdominal pain, or paresthesias. He is aware of large hilar mass and understands the need for biopsy. However, he has questions regarding cost of biopsy as inpatient vs. outpatient and would like to speak to someone about this. Physical Exam Vital signs: Vital Signs 06/12/18 11:42 06/12/18 11:53 06/12/18 13:10 Temperature 98.5 F Pulse Rate 105 H 114 H Respiratory Rate 16 18 Blood Pressure 150/67 H 164/92 H Pulse Oximetry 98 94 L 95 06/12/18 13:19 06/12/18 14:26 06/12/18 16:00 Temperature 98.3 F Pulse Rate 101 H 94 H Respiratory Rate 18 20 20 Blood Pressure 164/73 H 122/69 Pulse Oximetry 98 99 06/12/18 16:13 06/12/18 20:00 06/13/18 00:00 Temperature 97.9 F 98.3 F Pulse Rate 96 H 106 H 93 H Respiratory Rate 20 20 20 Blood Pressure 124/76 128/72 131/70 Pulse Oximetry 95 98 96 06/13/18 04:00 Temperature 98.6 F Pulse Rate 99 H Respiratory Rate 20 Blood Pressure 150/69 H Pulse Oximetry 98 Intake & Output 06/12/18 06/13/18 06/13/18 18:59 06:59 18:59 Intake Total 120 / 120 Output Total 800 / 800 Balance -680 / -680 Weight 62.142 kg 61.2 kg Intake: Oral 120 / 120 Output: Urine 800 / 800 Other: # Bowel Movements 0 Narrative: GENERAL: WN, WD male resting in bed in NAD. SKIN: Warm and dry. HEENT: AT/NC. Pupils equal and round. MMM. NECK: Supple no tender LAD or JVD. HEART: RRR no m/r/g. LUNGS: CTAB without wheezes or crackles. ABDOMEN: +BS, soft, NT, ND. EXTREMITIES: No LE edema. 2+ pedal pulses. Calves supple; no posterior calf tenderness, erythema, or edema. There are no obvious bony irregularities of either knee. He is mildly TTP in L popliteal fossa. BACK: Negative straight leg testing. NEURO: Awake and alert. PSYCH: Unusual affect. Results - Labs CBC & Chem 7: 06/13/18 15:48 06/13/18 06:30 Laboratory Results - last 24 hr 06/12/18 06/12/18 06/12/18 12:38 12:38 12:38 WBC 19.1 H RBC 3.47 L Hgb 11.1 L Hct 33.0 L MCV 95.0 MCH 31.9 MCHC 33.6 RDW 15.1 Plt Count 478 H D MPV 7.3 Neut % (Auto) 86.4 H Lymph % (Auto) 6.7 L [place] % (Auto) 5.8 Eos % (Auto) 0.7 Baso % (Auto) 0.4 Neut # (Auto) 16.5 H Lymph # (Auto) 1.3 [place] # (Auto) 1.1 H Eos # (Auto) 0.1 Baso # (Auto) 0.1 WBC Differential . Differential Comment Auto diff final Sodium 131 L Potassium 4.8 Chloride 97 L Carbon Dioxide 26.9 Anion Gap 7 BUN 14 Creatinine 0.89 Estimated GFR 85 L Random Glucose 76 Lactic Acid Calcium 8.4 L Magnesium 1.5 Total Bilirubin 0.5 AST 37 ALT 67 Alkaline Phosphatase 96 Total Creatine Kinase 92 Troponin I Less than 0.02 L Total Protein 7.3 D Albumin 2.6 L Urine Color Urine Clarity Urine pH Ur Specific [place] Urine Protein Urine Glucose (UA) Urine Ketones Urine Occult Blood Urine Nitrate Urine Bilirubin Urine Urobilinogen Ur Leukocyte Esterase Urine RBC Urine WBC Hyaline Casts Urine Mucus Micro UA Comment Urine Culture Comments 06/12/18 06/12/18 06/13/18 14:24 16:45 06:30 WBC 14.8 H RBC 2.56 L Hgb 8.1 L D Hct 24.2 L MCV 94.4 MCH 31.5 MCHC 33.3 RDW 14.8 Plt Count 374 MPV 7.0 Neut % (Auto) 83.8 H Lymph % (Auto) 7.8 L [place] % (Auto) 6.5 Eos % (Auto) 1.3 Baso % (Auto) 0.6 Neut # (Auto) 12.4 H Lymph # (Auto) 1.1 [place] # (Auto) 1.0 H Eos # (Auto) 0.2 Baso # (Auto) 0.1 WBC Differential . Differential Comment Auto diff final Sodium Potassium Chloride Carbon Dioxide Anion Gap BUN Creatinine Estimated GFR Random Glucose Lactic Acid 0.9 Calcium Magnesium Total Bilirubin AST ALT Alkaline Phosphatase Total Creatine Kinase Troponin I Total Protein Albumin Urine Color Yellow Urine Clarity Clear Urine pH 6.0 Ur Specific [place] 1.014 Urine Protein Negative Urine Glucose (UA) Negative Urine Ketones Negative Urine Occult Blood Negative Urine Nitrate Negative Urine Bilirubin Negative Urine Urobilinogen Less than 2 Ur Leukocyte Esterase Negative Urine RBC Less than 1 Urine WBC Less than 1 Hyaline Casts 1 Urine Mucus Few H Micro UA Comment Culture not ind Urine Culture Comments Culture not ind 06/13/18 06:30 WBC RBC Hgb Hct MCV MCH MCHC RDW Plt Count MPV Neut % (Auto) Lymph % (Auto) [place] % (Auto) Eos % (Auto) Baso % (Auto) Neut # (Auto) Lymph # (Auto) [place] # (Auto) Eos # (Auto) Baso # (Auto) WBC Differential Differential Comment Sodium 136 Potassium 3.5 D Chloride 103 Carbon Dioxide 23.7 Anion Gap 9 BUN 28 H Creatinine 0.66 Estimated GFR Greater than 89 Random Glucose 78 Lactic Acid Calcium 7.8 L Magnesium Total Bilirubin AST ALT Alkaline Phosphatase Total Creatine Kinase Troponin I Total Protein Albumin Urine Color Urine Clarity Urine pH Ur Specific [place] Urine Protein Urine Glucose (UA) Urine Ketones Urine Occult Blood Urine Nitrate Urine Bilirubin Urine Urobilinogen Ur Leukocyte Esterase Urine RBC Urine WBC Hyaline Casts Urine Mucus Micro UA Comment Urine Culture Comments - Imaging Impressions Chest CTA 06/12/18 00:00 CONCLUSION: Right lower lobe mass almost certainly malignant. There is no evidence of PE for technique. Chest X-Ray 06/12/18 12:59 CONCLUSION: Right lung base opacity possibly pneumonia versus mass and a follow-up is suggested with repeat chest x-ray after appropriate clinical therapy. Assessment and Plan - Assessment (1) Syncope Code(s): R55 - Syncope and collapse Status: Acute (2) Mass of lower lobe of right lung Code(s): R91.8 - Other nonspecific abnormal finding of lung field Status: Acute (3) Bronchitis Code(s): J40 - Bronchitis, not specified as acute or chronic Status: Acute - Plan 72 YOWM with history of COPD, CVA, HLD, HTN, and tobacco abuse admitted 06/12 for syncope and shortness of breath. 1. RLL lung mass - Known prior to admission but hasn't been further worked up - CTA demonstrates a 4.5 cm mass in R lower lobe laterally, almost certainly malignancy - Pulm consulted for further eval - CT-guided biopsy ordered, hold Lovenox 2. Shortness of breath - Likely secondary to a combination of mass and mild COPD exacerbation - Supplemental O2 - Bronchodilators 3. COPD exacerbation - Pt with increased shortness of breath - CTA with mass as described above as well as significant COPD findings and scattered areas of parenchymal scarring - White count elevated to 18 on admission - Prednisone - Bronchodilators - Supplemental O2 - Continue home Symbicort 4. Syncope - Pt with syncopal episode while ambulating - Preceded by some prodromal symptoms - CTA negative for PE - Check 2D echo - Check orthostatics - Telemetry - Will also check CT brain given large lung mass and patient's unusual affect on exam and recent syncope to rule-out a brain mass 5. HTN - Continue Lisinopril and Terazosin 6. HLD - Continue home statin 7. Sciatica - Pt complaining of LLE pain from foot to buttock - Imaging done last hospitalization - PT - Ofirmev PRN - Doppler U/S negative for DVT Consult director of casework services to discuss insurance questions DVT prophylaxis: hold Lovenox for possible procedure tomorrow
[2018-06-13] MEDS: Lisinopril 10 MG Tablet PO SCH (11:36)
--- NOTE | 2018-06-13 12:11 | MB ---
cc: Samantha Mckeon MD DATE: 06/13/2018 HISTORY OF PRESENT ILLNESS: The patient is a 72-year-old male with a past medical history of COPD, hypertension, hyperlipidemia, tobacco abuse, who was admitted under hospitalist service yesterday for syncope. He had a chest x-ray on arrival, which showed a right lung base opacity, possibly pneumonia versus mass. Subsequently, he underwent CT angiogram of the chest which showed no evidence of pulmonary embolism; however, it showed a 4.5 cm right lower lobe lung mass, in addition to chronic obstructive pulmonary disease changes. His laboratory data is significant for a leukocytosis with a WBC of 19.1, which trended down to 14.8 today and hyponatremia with sodium level of 131 on arrival. Pulmonary Medicine was consulted regarding abnormal CT findings. The patient reports shortness of breath. However, when seen, he was on room air oxygen. He denies any constitutional symptoms. In addition, he denies any GI symptoms. He was recently discharged from the hospital after he was admitted for right lower extremity pain and inability to walk. During previous admission, he had a CT abdomen and pelvis, which also showed a 4 cm mass suspicious for malignancy. He remains active smoker where he smokes half a pack of cigarettes per day and has been a smoker for 55 years. In addition, he reports decreased p.o. intake; however, he denies any hemoptysis or significant weight loss. The patient denies any use of home oxygen; however, he uses Symbicort nebulizers and albuterol. PAST MEDICAL HISTORY: Significant for COPD, CVA, hyperlipidemia, hypertension. FAMILY HISTORY: Father had esophageal cancer. Brother with nephritis. Hypertension runs in the family. SOCIAL HISTORY: Active smoker where he smokes half a pack of cigarettes per day for about 55 years. Active drinker as well. ALLERGIES: NO KNOWN DRUG ALLERGIES. CURRENT MEDICATIONS: Include: 1. DuoNeb. 2. Symbicort. 3. Lipitor. 4. Pepcid. 5. Lovenox. 6. Folic acid. 7. Lisinopril. 8. Ativan p.r.n. 9. Prednisone. 10. Thiamine. REVIEW OF SYSTEMS: As per HPI. Rest of review of systems is unremarkable. PHYSICAL EXAMINATION: GENERAL: A 72-year-old male lying in bed in no acute respiratory distress. VITAL SIGNS: Temperature 98.8, pulse of 99, respiratory rate of 18, blood pressure 140/57, saturation 98% on room air. HEENT: Atraumatic, normocephalic. Pupils are equal, round, reactive to light and accommodation. Extraocular muscles intact. Conjunctivae pink. Nonicteric sclerae. Oral mucosa within normal. NECK: Supple. No JVD, adenopathy or thyromegaly. Trachea in the midline. CARDIOVASCULAR: Regular rate and rhythm. Normal S1, S2. No murmurs, rubs or gallops noted. PULMONARY: Bilateral equal air entry. No rales or wheezing. ABDOMEN: Soft, nontender. No distention. Positive bowel sounds. EXTREMITIES: No cyanosis, clubbing or edema. NEUROLOGIC: No focal sensory deficit. LABORATORY DATA: Sodium 136, potassium 3.5, chloride 103, CO2 23, BUN 28, creatinine 0.66, glucose 78. Lactic acid 0.9. Troponin less than 0.02. WBC 14.8, hemoglobin 8.1, hematocrit 24, platelet count 374. IMPRESSION: 1. Right lower lobe lung mass, 4.5 cm, highly suspicious for malignancy. Need to rule out bronchogenic carcinoma. 2. Chronic obstructive pulmonary disease. 3. History of hypertension. 4. History of cerebrovascular accident. 5. Leukocytosis, trending down. 6. Active tobacco use. 7. Status post syncope on arrival. 8. History of hyperlipidemia. RECOMMENDATIONS: 1. Oxygen p.r.n. to maintain sats above 92%. 2. Continue with current bronchodilators. The patient is on DuoNeb, Symbicort 160/4.5 two puffs b.i.d. Continue with prednisone [address] scan of the chest reviewed, discussed with the patient. We will proceed with a CT-guided biopsy of the right lung mass to rule out bronchogenic carcinoma. 4. Monitor CBC and for signs of infection, which include fever and WBC. I will obtain a sputum culture with Gram stain. 5. Hold Lovenox for a CT-guided biopsy. 6. We will obtain Doppler ultrasound of lower extremity. 7. Further recommendations will be based on hospital course. Thank you for this consultation and allowing us to participate in this patient's care. MD LAZARA Tam/SOLITARIO , 11:32 AM , 11:43 AM
[2018-06-13] MEDS: Dextrose 5%/NaCl 0.9% Inj 1,000 ML IV.CONT SCH (15:08)
[2018-06-13 16:05] LABS: Hematocrit 22.1 % (39.0-51.0); Hemoglobin 7.5 gm/dL (13.0-17.0); Mean Corpuscular HGB Conc 33.8 % (32.0-36.0); Mean Corpuscular Hemoglobin 32.3 pg (27.0-34.0); Mean Corpuscular Volume 95.5 fL (80.0-100.0); Platelet Count 361 th/mm3 (150-450); Red Blood Count 2.31 mil/mm3 (4.50-5.90); Red Cell Distribution Width 14.6 % (11.6-17.2); White Blood Count 14.4 th/mm3 (4.0-11.0)
--- NOTE | 2018-06-13 17:46 | US ---
EXAM DATE: 06/13/2018 5:43 PM EDT AGE/SEX: 72 years / Male INDICATIONS: Bilateral leg pain. CLINICAL DATA: This is the patient's initial encounter. Patient reports that signs and symptoms have been present for 1 week and indicates a pain score of 5/10. MEDICAL/SURGICAL HISTORY: Chronic obstructive pulmonary disease. Alcohol abuse. Hyperlipidemia. Hypertension. Tachycardia. Tobacco use. Arthroscopy. COMPARISON: No prior exams available for comparison. TECHNIQUE: Venous ultrasound of both lower extremities was performed from the inguinal ligament to t he proximal calf. Real-time, color Doppler and spectral tracing, compression and augmentation techni ques were used. FINDINGS: Right Leg: Normal compression of the deep venous system from the inguinal region to the proximal praveen f. No echogenic clot is seen. Normal response of the venous system to augmentation and respiration. Left Leg: Normal compression of the deep venous system from the inguinal region to the proximal calf . No echogenic clot is seen. Normal response of the venous system to augmentation and respiration. Other: None. CONCLUSION: 1. The study is negative for bilateral lower extremity deep venous thrombosis. Electronically signed by: Sendy Lam MD 06/13/2018 5:45 PM EDT
--- NOTE | 2018-06-13 18:29 | CT ---
EXAM DATE: 06/13/2018 6:27 PM EDT AGE/SEX: 72 years / Male INDICATIONS: Syncope. CLINICAL DATA: This is the patient's initial encounter. Patient reports that signs and symptoms have been present for 1 day and indicates a pain score of 0/10. MEDICAL/SURGICAL HISTORY: Cardiovascular disease. Hypertension. Chronic obstructive pulmonary dis ease. CVA None. RADIATION DOSE: 35.13 CTDI (mGy) COMPARISON: [facility] [place] 03/05/2016. . TECHNIQUE: CT of the head without contrast. Using automated exposure control and adjustment of the mA and/or kV according to patient size, radiation dose was kept as low as reasonably achievable to ob tain optimal diagnostic quality images. DICOM format image data is available electronically for revi ew and comparison. FINDINGS: There is central and cortical atrophy with dilatation of ventricular and sulcal spaces. There is no parenchymal hemorrhage, acute infarction or mass lesion identified. There are no extra-axial fluid c ollections appreciated. Periventricular white matter changes are noted. The posterior fossa is unrem arkable with midline fourth ventricle. The portion of the orbits and paranasal sinuses visualized are unremarkable. CONCLUSION: Atrophy, otherwise negative for an acute process. Luc Lundberg MD FACR . Electronically signed by: Luc Lundberg MD 06/13/2018 6:28 PM EDT
[2018-06-13] MEDS: Temazepam 15 MG Capsule PO PRN (20:53)
[2018-06-13] MEDS: Latanoprost 0.005% Opth Drops 2.5 ML Bottle EACH EYE SCH (21:41)
[2018-06-14] MEDS: Dextrose 5%/NaCl 0.9% Inj 1,000 ML IV.CONT SCH ×2 (02:39→21:33)
[2018-06-14] MEDS: LORazepam 1 MG Tablet PO PRN (02:43)
--- NOTE | 2018-06-14 08:31 | P.PNIM ---
Subjective Interval history: Pt seen and examined. AFVSS. No acute events overnight. Pt's main concern continues to be pain in his left leg. He states the Ofirmev helps. We discussed his CT findings from last admission showing degenerative disc disease with some foraminal narrowing at the level of L5-S1 which is likely contributing to his symptoms. Advised that we need to pursue PT for this prior to any possible more invasive measures. He reports he should have gone to rehab the last admission and hopes to be discharged to some form of inpatient rehab or SNF after this hospitalization. From a breathing standpoint he reports he is stable other than occasional dry cough. Denies CP, abdominal pain, N/V. Physical Exam Vital signs: Vital Signs 06/13/18 12:00 06/13/18 16:00 06/13/18 20:00 Temperature 97.8 F 98.8 F 98.7 F Pulse Rate 105 H 92 H 102 H Respiratory Rate 18 18 18 Blood Pressure 128/73 139/72 131/60 Pulse Oximetry 100 100 99 06/13/18 20:45 06/14/18 00:00 06/14/18 04:00 Temperature 97.9 F 97.8 F Pulse Rate 112 H 101 H 87 Respiratory Rate 18 19 Blood Pressure 119/63 152/70 H Pulse Oximetry 100 99 Intake & Output 06/13/18 06/14/18 06/14/18 18:59 06:59 18:59 Intake Total 580 / 580 1340 / 1340 Output Total 425 / 425 375 / 375 Balance 155 / 155 965 / 965 Weight 62 kg Intake: IV 100 / 100 1100 / 1100 D5W/Normal Saline Inj 1,000 ML 1000 / 1000 @ 75 mls/hr IV.CONT .[id number] MIGEL Rx#:[id number] Ofirmev Inj 1,000 mg In 100 ml 100 / 100 100 / 100 @ 400 mls/hr IV.SIG Q6H PRN Rx# :[id number] Oral 480 / 480 240 / 240 Output: Urine 425 / 425 375 / 375 Narrative: GENERAL: WN, WD male resting in bed in NAD. SKIN: Warm and dry. HEENT: AT/NC. Pupils equal and round. MMM. NECK: Supple no tender LAD or JVD. HEART: RRR no m/r/g. LUNGS: CTAB without wheezes or crackles. ABDOMEN: +BS, soft, NT, ND. EXTREMITIES: No LE edema. 2+ pedal pulses. Calves supple; no posterior calf tenderness, erythema, or edema. There are no obvious bony irregularities of either knee. He is mildly TTP in L popliteal fossa. BACK: Negative straight leg testing. NEURO: Awake and alert. PSYCH: Unusual affect. Results - Labs CBC & Chem 7: 06/14/18 08:08 06/14/18 08:08 Laboratory Results - last 24 hr 06/13/18 06/13/18 06/13/18 06:30 06:30 15:48 WBC 14.4 H RBC 2.31 L Hgb 7.5 L Hct 22.1 L MCV 95.5 MCH 32.3 MCHC 33.8 RDW 14.6 Plt Count 361 MPV 7.0 B-Natriuretic Peptide 138 H Procalcitonin 0.47 H Microbiology 06/12/18 14:25 Blood - Peripheral Aerobic Blood Culture - Preliminary No growth in 1 day 06/12/18 14:25 Blood - Peripheral Anaerobic Blood Culture - Preliminary No growth in 1 day 06/12/18 14:30 Blood - Peripheral Aerobic Blood Culture - Preliminary No growth in 1 day 06/12/18 14:30 Blood - Peripheral Anaerobic Blood Culture - Preliminary No growth in 1 day - Imaging Impressions Head CT 06/13/18 00:00 CONCLUSION: Atrophy, otherwise negative for an acute process. Luc Lundberg MD FACR . Venous Doppler Study 06/13/18 00:00 CONCLUSION: 1. The study is negative for bilateral lower extremity deep venous thrombosis. Assessment and Plan - Assessment (1) Syncope Code(s): R55 - Syncope and collapse Status: Acute (2) Mass of lower lobe of right lung Code(s): R91.8 - Other nonspecific abnormal finding of lung field Status: Acute (3) Bronchitis Code(s): J40 - Bronchitis, not specified as acute or chronic Status: Acute - Plan 72 YOWM with history of COPD, CVA, HLD, HTN, and tobacco abuse admitted 06/12 for syncope and shortness of breath. 1. RLL lung mass - Known prior to admission but hasn't been further worked up - CTA demonstrates a 4.5 cm mass in R lower lobe laterally, almost certainly malignancy - Pulm consulted for further eval - Uncomplicated CT-guided core biopsy done today, will await results - Consult oncology 2. Shortness of breath - Likely secondary to a combination of mass and mild COPD exacerbation - Supplemental O2 - Bronchodilators 3. COPD exacerbation, mild - Pt with increased shortness of breath - CTA with mass as described above as well as significant COPD findings and scattered areas of parenchymal scarring - White count elevated to 18 on admission, trending down - Prednisone - Bronchodilators - Supplemental O2 PRN (patient has remained on room air with excellent saturations) - Continue home Symbicort 4. Syncope - Pt with syncopal episode while ambulating - Preceded by some prodromal symptoms - CTA negative for PE - 2D echo ordered - CT head with no acute process or masses - Check orthostatics - Telemetry 5. Anemia - Hb 11.1 on admission and declining quickly - Pt remains hemodynamically stable - Check Hemoccult - Iron studies and ferritin - LDH, haptoglobin, retic count - Monitor H&H - Transfuse if Hb <7.0 6. HTN - Continue Lisinopril and Terazosin 7. HLD - Continue home statin 8. Sciatica - Pt complaining of LLE pain from foot to buttock - Imaging done last hospitalization (L-spine CT showing multilevel DDD with mild stenosis at L4-L5 and L5-S1 as well as multilevel neural foraminal narrowing maximal at L5-S1 on the left); at that time he was treated with a course of prednisone and muscle relaxers - PT - Ofirmev PRN - Doppler U/S negative for DVT DVT prophylaxis: Can resume Lovenox tomorrow since procedure was done today Discussed Condition With: The patient Discharge Planning: Pending further recommendation based on biopsy and specialists (1) Syncope Qualifiers: Syncope type: unspecified Qualified Code(s): R55 - Syncope and collapse
[2018-06-14] MEDS: Budesonide-Formoterol 160/4.5 MCG 6 GM Inhaler INH SCH ×2 (08:57→21:28)
[2018-06-14] MEDS: Primidone 50 MG Tablet PO SCH ×2 (08:58→21:25)
[2018-06-14] MEDS: Famotidine 20 MG Tablet PO SCH (08:59)
[2018-06-14] MEDS: predniSONE 20 MG Tablet PO SCH (09:03)
[2018-06-14] MEDS: Folic Acid 1 MG Tablet PO SCH (09:03)
[2018-06-14] MEDS: Lisinopril 10 MG Tablet PO SCH (09:03)
[2018-06-14 09:46] LABS: Hematocrit 21.1 % (39.0-51.0); Mean Corpuscular HGB Conc 33.4 % (32.0-36.0); Mean Corpuscular Hemoglobin 31.8 pg (27.0-34.0); Mean Corpuscular Volume 95.4 fL (80.0-100.0); Mean Platelet Volume 6.8 fL (7.0-11.0); Platelet Count 351 th/mm3 (150-450); Red Blood Count 2.21 mil/mm3 (4.50-5.90); White Blood Count 12.6 th/mm3 (4.0-11.0)
[2018-06-14 09:54] LABS: Reticulocyte Percent 1.5 % (0.4-3.0)
[2018-06-14 10:10] LABS: Anion Gap 8 meq/L (5-15); Blood Urea Nitrogen 14 mg/dL (7-18); Calcium 7.9 mg/dL (8.5-10.1); Carbon Dioxide 23.2 meq/L (21.0-32.0); Chloride 110 meq/L (98-107); Glomerular Filtration Rate Greater Than 89 mL/min (>89); Glucose,Random 95 mg/dL (74-106); Sodium 141 meq/L (136-145)
[2018-06-14 10:12] LABS: % Iron Saturation 7.4 % (20-50)
[2018-06-14 10:18] LABS: Potassium 2.9 meq/L (3.5-5.1)
--- NOTE | 2018-06-14 12:03 | ECG ---
Date Performed: 06/12/2018 Time Performed: 12:38:12 PTAGE: 72 years EKG: Sinus tachycardia with PACs PREVIOUS TRACING : 03/05/2016 11.35 DOCTOR: Jimenez Castillo Interpretating Date/Time 06/14/2018 12:01:56
[2018-06-14] MEDS ORDERED: Lidocaine 1%/Epinephrine 1:100,000 Inj 20 ML Vial ONE (13:30)
[2018-06-14] MEDS ORDERED: fentaNYL Citrate Inj 250 MCG/5 ML Ampul ONE (13:42)
--- NOTE | 2018-06-14 14:34 | P.RAD ---
Post CT Procedure Prog Note - Pre Procedure Diagnosis (1) Mass of lower lobe of right lung - Post Procedure Diagnosis (1) Mass of lower lobe of right lung - Procedure Information Supervising Radiologist: Manuel Singh MD Anesthesia: Local, Conscious Sedation - Plan of Activity Patient to Unit: Nursing Unit Patient condition: Fair See PACS Report for procedural detail/treatment. Biopsy CT right Lung Specimen: Core Biopsy
--- NOTE | 2018-06-14 15:00 | XR ---
EXAM DATE: 06/14/2018 2:49 PM EDT AGE/SEX: 72 years / Male INDICATIONS: Post right lung biopsy. CLINICAL DATA: This is the patient's initial encounter. Patient reports that signs and symptoms have been present for 1 day and indicates a pain score of 0/10. MEDICAL/SURGICAL HISTORY: Hypertension. . Right lung biopsy. [place] [facility] [place]. . FINDINGS: Right lung remains well expanded without evidence of pneumothorax following biopsy. Emphysematous changes and interstitial disease is again noted. Large mass remains evident in the right lower lobe. CONCLUSION: No evidence of pneumothorax status post right lung biopsy. Electronically signed by: Manuel Singh MD 06/14/2018 2:59 PM EDT
--- NOTE | 2018-06-14 16:57 | CT ---
EXAM DATE: 06/14/2018 2:46 PM EDT AGE/SEX: 72 years / Male INDICATIONS: Mass. CLINICAL DATA: This is the patient's initial encounter. Patient reports that signs and symptoms have been present for 1 day and indicates a pain score of 0/10. MEDICAL/SURGICAL HISTORY: Chronic obstructive pulmonary disease. Stroke. Hypertension. None. COMPARISON: [facility] – [place], CTA PULMONARY W CONTRAST W 3D, 06/12/2018. . BIOPSY SITE: Right lung MEDICATION(S): 2mg midazolam (Versed) IV 100mcg fentanyl (Sublimaze) IV DEVICE(S): 20 gauge BARD biopsy needle Three core specimen(s) sent to the laboratory for pathologic evaluation. . . PROCEDURE: CT guided Right lung biopsy Conscious sedation with continuous EKG and oximetry monitoring. EKG and oximetry remained stable throughout the procedure. Prior to the procedure informed consent was obtained. Any appropriate prior imaging studies were rev iewed. Using automated exposure control and adjustment of the mA and/or kV according to patient size , radiation dose was kept as low as reasonably achievable to obtain optimal diagnostic quality images . DICOM format image data is available electronically for review and comparison. The site was prepped in a sterile fashion. Full sterile technique was used, including cap, mask, peng rile gloves and gown and a large sterile sheet. Hand hygiene and 2% chlorhexidine and/or betadine/al cohol prep was utilized per protocol for cutaneous antisepsis. The skin and subcutaneous tissues wer e infiltrated with local anesthetic solution. With CT guidance the previously identified target was localized. Biopsy was performed using the presc ribed needle as above. Adequate hemostasis was obtained with compression at the puncture site. Follow-up CT scan reveals no pneumothorax. Conscious sedation was performed with the prescribed dosages and duration as above in the presence of an independent trained radiology nurse to assist in the monitoring of the patient. EKG and oximetry remained stable throughout the procedure. The patient tolerated the procedure well and there were no complications. The patient was sent to Radiology Outpatient Unit in stable condition. FINDINGS: CONCLUSION: Uncomplicated CT guided biopsy of right lower lobe pulmonary mass. Electronically signed by: Manuel Singh MD 06/14/2018 4:56 PM EDT
[2018-06-14 19:59] LABS: Hematocrit 21.7 % (39.0-51.0); Hemoglobin 7.1 gm/dL (13.0-17.0)
--- NOTE | 2018-06-14 20:00 | P.PN ---
Subjective Interval history: alert no sob at rest needle lung biopsy done Physical Exam Vital signs: Vital Signs 06/13/18 20:00 06/13/18 20:45 06/14/18 00:00 Temperature 98.7 F 97.9 F Pulse Rate 102 H 112 H 101 H Respiratory Rate 18 18 Blood Pressure 131/60 119/63 Pulse Oximetry 99 100 06/14/18 04:00 06/14/18 08:00 06/14/18 12:00 Temperature 97.8 F 98.6 F 98.8 F Pulse Rate 87 97 H 54 L Respiratory Rate 19 18 18 Blood Pressure 152/70 H 147/74 H 113/64 Pulse Oximetry 99 97 98 06/14/18 14:50 06/14/18 15:05 06/14/18 15:35 Temperature 97.7 F Pulse Rate 97 H 93 H 85 Respiratory Rate 18 18 18 Blood Pressure 123/69 117/62 124/64 Pulse Oximetry 97 95 97 06/14/18 16:00 Temperature 98.5 F Pulse Rate 90 Respiratory Rate 18 Blood Pressure 141/62 H Pulse Oximetry 98 Intake & Output 06/14/18 06/14/18 06/15/18 06:59 18:59 06:59 Intake Total 1440 / 1440 100 / 100 Output Total 375 / 375 Balance 1065 / 1065 100 / 100 Weight 62 kg Intake: IV 1200 / 1200 100 / 100 D5W/Normal Saline Inj 1,000 ML 1000 / 1000 @ 75 mls/hr IV.CONT .[id number] MIGEL Rx#:[id number] Ofirmev Inj 1,000 mg In 100 ml 200 / 200 100 / 100 @ 400 mls/hr IV.SIG Q6H PRN Rx# :[id number] Oral 240 / 240 0 / 0 Output: Urine 375 / 375 Other: # Voids 1,400 # Bowel Movements 1 Narrative: GENERAL: WN, WD male resting in bed in NAD. SKIN: Warm and dry. HEENT: AT/NC. Pupils equal and round. MMM. NECK: Supple no tender LAD or JVD. HEART: RRR no m/r/g. LUNGS: CTAB without wheezes or crackles. ABDOMEN: +BS, soft, NT, ND. EXTREMITIES: No LE edema. 2+ pedal pulses. Calves supple; no posterior calf tenderness, erythema, or edema. There are no obvious bony irregularities of either knee. He is mildly TTP in L popliteal fossa. BACK: Negative straight leg testing. NEURO: Awake and alert. PSYCH: Unusual affect. Results - Labs CBC & Chem 7: 06/14/18 08:08 06/14/18 08:08 Laboratory Results - last 24 hr 06/13/18 06/14/18 06/14/18 06:30 08:08 08:08 WBC 12.6 H RBC 2.21 L Hgb 7.0 L Hct 21.1 L MCV 95.4 MCH 31.8 MCHC 33.4 RDW 15.0 Plt Count 351 MPV 6.8 L Retic Count Absolute Retic Haptoglobin Sodium 141 Potassium 2.9 L* Chloride 110 H Carbon Dioxide 23.2 Anion Gap 8 BUN 14 Creatinine 0.56 L Estimated GFR Greater than 89 Random Glucose 95 Calcium 7.9 L Iron TIBC % Saturation Ferritin Lactate Dehydrogenase Procalcitonin 0.47 H 06/14/18 06/14/18 08:08 08:08 WBC RBC Hgb Hct MCV MCH MCHC RDW Plt Count MPV Retic Count 1.5 Absolute Retic 32.7 Haptoglobin 296 H Sodium Potassium Chloride Carbon Dioxide Anion Gap BUN Creatinine Estimated GFR Random Glucose Calcium Iron 18 L TIBC 244 L % Saturation 7.4 L Ferritin 68 Lactate Dehydrogenase 134 Procalcitonin Microbiology 06/13/18 18:55 Sputum - Expectorated Sputum Gram Stain - Final 06/13/18 18:55 Sputum - Expectorated Sputum Sputum Culture - Preliminary Heavy growth normal respiratory ramona at 24 hours 06/12/18 14:25 Blood - Peripheral Aerobic Blood Culture - Preliminary No growth in 2 days 06/12/18 14:25 Blood - Peripheral Anaerobic Blood Culture - Preliminary No growth in 2 days 06/12/18 14:30 Blood - Peripheral Aerobic Blood Culture - Preliminary No growth in 2 days 06/12/18 14:30 Blood - Peripheral Anaerobic Blood Culture - Preliminary No growth in 2 days - Imaging Impressions Lung Biopsy CT 06/14/18 00:00 CONCLUSION: Uncomplicated CT guided biopsy of right lower lobe pulmonary mass. Chest X-Ray 06/14/18 14:31 CONCLUSION: No evidence of pneumothorax status post right lung biopsy. Assessment and Plan - Plan lung mass rll post biopsy copd syncope htn hld plan check path bronchodilator therapy increase activity
[2018-06-14 20:30] LABS: Magnesium 1.6 mg/dL (1.5-2.5); Potassium 3.8 meq/L (3.5-5.1)
--- NOTE | 2018-06-14 21:11 | ECHRPT ---
Indication: SHORTNESS OF BREATH CONCLUSIONS The left ventricular systolic function is normal with an estimated ejection fraction in the range of 60-65%. Normal left ventricular size and wall thickness. .No regional wall motion abnormalities are present . There is trace tricuspid valve regurgitation. The estimated pulmonary arterial pressure is 35 mmHg. BP: / HR: Rhythm: Sinus MEASUREMENTS (Male / Female) Normal Values Technical Quality:Poor 2D ECHO LV Diastolic Diameter PLAX 4.1 cm 4.2 - 5.9 / 3.9 - 5.3 cm LV Systolic Diameter PLAX 2.8 cm IVS Diastolic Thickness 1.2 cm 0.6 - 1.0 / 0.6 - 0.9 cm LVPW Diastolic Thickness 1.2 cm 0.6 - 1.0 / 0.6 - 0.9 cm LV Relative Wall Thickness 0.6 RV Internal Dim ED PLAX 2.3 cm LVOT Diameter 2.0 cm LA Systolic Diameter LX 3.3 cm 3.0 - 4.0 / 2.7 - 3.8 cm LV Ejection Fraction MOD 4C 72.1 % LV Ejection Fraction 4C AL 72.9 % M-MODE Aortic Root Diameter MM 2.6 cm AV Cusp Separation MM 1.7 cm DOPPLER AV Peak Velocity 133.0 cm/s AV Peak Gradient 7.1 mmHg LVOT Peak Velocity 114.0 cm/s LVOT Peak Gradient 5.2 mmHg AV Area Cont Eq pk 2.7 cm MV Area PHT 4.2 cm Mitral E Point Velocity 76.5 cm/s Mitral A Point Velocity 71.6 cm/s Mitral E to A Ratio 1.1 LV E' Lateral Velocity 9.0 cm/s Mitral E to LV E' Lateral Ratio 8.5 LV E' Septal Velocity 8.0 cm/s Mitral E to LV E' Septal Ratio 9.6 TR Peak Velocity 250.0 cm/s TR Peak Gradient 25.0 mmHg Right Atrial Pressure 10.0 mmHg Pulmonary Artery Systolic Pressu 35.0 mmHg Right Ventricular Systolic Press 35.0 mmHg PV Peak Velocity 99.1 cm/s PV Peak Gradient 3.9 mmHg FINDINGS LEFT VENTRICLE The left ventricular systolic function is normal with an estimated ejection fraction in the range of 60-65%. Normal left ventricular size. No regional wall motion abnormalities are present. RIGHT VENTRICLE Normal right ventricular size and systolic function. LEFT ATRIUM The left atrial size is normal. RIGHT ATRIUM The right atrial size is normal. ATRIAL SEPTUM Normal atrial septal thickness without atrial level shunting by limited color doppler interrogation. AORTA The aortic root and proximal ascending aorta are normal in size on limited imaging. MITRAL VALVE Structurally normal mitral valve. No mitral valve stenosis or regurgitation. AORTIC VALVE Trileaflet aortic valve. No aortic valve stenosis or regurgitation. TRICUSPID VALVE Structurally normal tricuspid valve. There is trace tricuspid valve regurgitation. The estimated pulmonary arterial pressure is 35 mmHg. PULMONARY VALVE No pulmonary valve regurgitation or stenosis. VESSELS The inferior vena cava is normal in size. PERICARDIUM No pericardial effusion. Ramos Arellano MD (Electronically Signed) Final Date:14 June 2018 21:10
[2018-06-14] MEDS: Temazepam 15 MG Capsule PO PRN (21:25)
[2018-06-14] MEDS: Latanoprost 0.005% Opth Drops 2.5 ML Bottle EACH EYE SCH (21:28)
--- NOTE | 2018-06-15 06:30 | MB ---
cc: Frances Looney MD DATE: 06/14/2018 CHIEF COMPLAINT: Lung mass. HISTORY OF PRESENT ILLNESS: Mr. Hough is a 72-year-old gentleman with history of COPD, CVA, hyperlipidemia, hypertension, tobacco abuse, alcohol abuse, who was admitted to the hospital on 06/12/2018 with dizziness and lightheadedness that resulted in syncope. He had previously been admitted for right lower extremity pain and chest x-ray showed a lung mass suspicious for malignancy. On 06/04/2018, CTA showed a 4.5 cm mass present in the right lower lobe laterally in a background of significant COPD and almost certainly malignant. Scattered areas of parenchymal scarring are seen in the lungs bilaterally. Hiatal hernia is seen. Doppler study of the lower extremity is negative for DVT. Head CT with atrophy and negative for acute process. He is status post CT-guided biopsy with pathology results pending. Pulmonary team is following for bronchodilator therapy. LABORATORY DATA: CBC with white blood cell count 12.6, hemoglobin 7, platelet count of 351,000. Haptoglobin is elevated at 296. Reticulocyte count is normal. Chemistry studies with iron level of 18, total iron binding capacity 244%, sat is 7.4 and ferritin of 68. Total bilirubin from admission is 0.5. Baseline hemoglobin seems to be approximately 10, hemoglobin currently 7.1. PAST MEDICAL HISTORY: COPD, CVA, hyperlipidemia, hypertension, osteoarthritis, tobacco abuse, alcohol abuse. FAMILY HISTORY: Father with a history of esophageal cancer. SOCIAL HISTORY: Tobacco abuse, alcohol use, poor social support system. REVIEW OF SYSTEMS: As above in the HPI. All other review of systems is negative. MEDICATIONS: 1. Albuterol. 2. Atorvastatin. 3. Symbicort. 4. Lovenox. 5. Pepcid. 6. Folic acid. 7. Lisinopril. 8. Terazosin. PHYSICAL EXAMINATION: GENERAL: Chronically ill-appearing man, in no distress, resting comfortably in bed. HEENT: Head is normocephalic, atraumatic. Eyes: PERRLA. EOMI. NECK: Supple with no palpable lymphadenopathy. ABDOMEN: Soft, nontender, nondistended. Bowel sounds present. EXTREMITIES: No edema. NEUROLOGIC: Grossly nonfocal. PSYCHIATRIC: Appropriate mood and affect. ASSESSMENT AND PLAN: 1. Lung mass suspicious for malignancy, status post biopsy with results pending. 2. Anemia, baseline hemoglobin approximately 10 with current hemoglobin 7. No evidence for hemolysis. We will check peripheral blood smear, vitamin B12, folate, iron profile with low iron and low total iron binding capacity, seeming to be suggestive of a mixed anemia of chronic disease and iron deficiency anemia. We will also check stool for occult blood. 4. Leukocytosis. White blood cell count 12.6 with a neutrophilia. This is something that has returned to normal, possibly secondary to an acute phase reactant. We will continue to monitor the patient. Hematology and oncology service will continue to follow. MD KIRK Barth/rosana/ashley , 04:00 AM , 04:09 AM ELVA
[2018-06-15] MEDS: predniSONE 20 MG Tablet PO SCH (08:55)
[2018-06-15] MEDS: Primidone 50 MG Tablet PO SCH ×2 (08:55→21:28)
[2018-06-15] MEDS: Lisinopril 10 MG Tablet PO SCH (08:55)
[2018-06-15] MEDS: Folic Acid 1 MG Tablet PO SCH (08:56)
[2018-06-15] MEDS: Budesonide-Formoterol 160/4.5 MCG 6 GM Inhaler INH SCH ×2 (08:57→21:32)
--- NOTE | 2018-06-15 09:15 | P.PN ---
Subjective Interval history: ALERT UP IN CHAIR NO SOB Physical Exam Vital signs: Vital Signs 06/14/18 12:00 06/14/18 14:50 06/14/18 15:05 Temperature 98.8 F 97.7 F Pulse Rate 107 H 97 H 93 H Respiratory Rate 18 18 18 Blood Pressure 113/64 123/69 117/62 Pulse Oximetry 98 97 95 06/14/18 15:35 06/14/18 16:00 06/14/18 20:00 Temperature 98.5 F 99 F Pulse Rate 85 101 H 95 H Respiratory Rate 18 18 19 Blood Pressure 124/64 141/62 H 147/69 H Pulse Oximetry 97 98 100 06/15/18 00:00 06/15/18 03:33 06/15/18 04:00 Temperature 98.2 F 98.3 F Pulse Rate 87 87 91 H Respiratory Rate 17 18 Blood Pressure 162/72 H 142/75 H Pulse Oximetry 95 95 Intake & Output 06/14/18 06/15/18 06/15/18 18:59 06:59 18:59 Intake Total 200 / 200 240 / 240 Output Total 450 / 450 Balance 200 / 200 -210 / -210 Weight 61.7 kg Intake: IV 200 / 200 Ofirmev Inj 1,000 mg In 100 ml 200 / 200 @ 400 mls/hr IV.SIG Q6H PRN Rx# :[id number] Oral 0 / 0 240 / 240 Output: Urine 450 / 450 Other: # Voids 1,400 # Bowel Movements 1 Narrative: GENERAL: WN, WD male resting in bed in [facility]. SKIN: Warm and dry. HEENT: AT/NC. Pupils equal and round. MMM. NECK: Supple no tender LAD or JVD. HEART: RRR no m/r/g. LUNGS: CTAB without wheezes or crackles. ABDOMEN: +BS, soft, NT, ND. EXTREMITIES: No LE edema. 2+ pedal pulses. Calves supple; no posterior calf tenderness, erythema, or edema. There are no obvious bony irregularities of either knee. He is mildly TTP in L popliteal fossa. BACK: Negative straight leg testing. NEURO: Awake and alert. PSYCH: Unusual affect. Results - Labs CBC & Chem 7: 06/14/18 18:35 06/14/18 18:35 Laboratory Results - last 24 hr 06/14/18 06/14/18 06/14/18 08:08 08:08 08:08 WBC 12.6 H RBC 2.21 L Hgb 7.0 L Hct 21.1 L MCV 95.4 MCH 31.8 MCHC 33.4 RDW 15.0 Plt Count 351 MPV 6.8 L Retic Count 1.5 Absolute Retic 32.7 Haptoglobin Sodium 141 Potassium 2.9 L* Chloride 110 H Carbon Dioxide 23.2 Anion Gap 8 BUN 14 Creatinine 0.56 L Estimated GFR Greater than 89 Random Glucose 95 Calcium 7.9 L Magnesium Iron TIBC % Saturation Ferritin Lactate Dehydrogenase 06/14/18 06/14/18 06/14/18 08:08 18:35 18:35 WBC RBC Hgb 7.1 L Hct 21.7 L MCV MCH MCHC RDW Plt Count MPV Retic Count Absolute Retic Haptoglobin 296 H Sodium Potassium 3.8 D Chloride Carbon Dioxide Anion Gap BUN Creatinine Estimated GFR Random Glucose Calcium Magnesium 1.6 Iron 18 L TIBC 244 L % Saturation 7.4 L Ferritin 68 Lactate Dehydrogenase 134 Microbiology 06/13/18 18:55 Sputum - Expectorated Sputum Gram Stain - Final 06/13/18 18:55 Sputum - Expectorated Sputum Sputum Culture - Preliminary Heavy growth normal respiratory ramona at 24 hours 06/12/18 14:25 Blood - Peripheral Aerobic Blood Culture - Preliminary No growth in 2 days 06/12/18 14:25 Blood - Peripheral Anaerobic Blood Culture - Preliminary No growth in 2 days 06/12/18 14:30 Blood - Peripheral Aerobic Blood Culture - Preliminary No growth in 2 days 06/12/18 14:30 Blood - Peripheral Anaerobic Blood Culture - Preliminary No growth in 2 days - Imaging Impressions Lung Biopsy CT 06/14/18 00:00 CONCLUSION: Uncomplicated CT guided biopsy of right lower lobe pulmonary mass. Chest X-Ray 06/14/18 14:31 CONCLUSION: No evidence of pneumothorax status post right lung biopsy. Assessment and Plan - Plan lung mass rll post biopsy copd syncope htn hld plan check PATHOLOGY bronchodilator therapy increase activity PFT
[2018-06-15] MEDS: Famotidine 20 MG Tablet PO SCH ×2 (09:19→21:30)
[2018-06-15 09:22] LABS: Anion Gap 8 meq/L (5-15); Blood Urea Nitrogen 11 mg/dL (7-18); Calcium 8.1 mg/dL (8.5-10.1); Carbon Dioxide 22.8 meq/L (21.0-32.0); Chloride 108 meq/L (98-107); Glomerular Filtration Rate Greater Than 89 mL/min (>89); Glucose,Random 68 mg/dL (74-106); Sodium 139 meq/L (136-145)
[2018-06-15 09:34] LABS: Potassium 4.3 meq/L (3.5-5.1)
[2018-06-15 11:12] LABS: Hematocrit 21.7 % (39.0-51.0); Hemoglobin 7.2 gm/dL (13.0-17.0); Mean Corpuscular HGB Conc 33.2 % (32.0-36.0); Mean Corpuscular Hemoglobin 31.8 pg (27.0-34.0); Mean Corpuscular Volume 95.8 fL (80.0-100.0); Mean Platelet Volume 6.6 fL (7.0-11.0); Platelet Count 383 th/mm3 (150-450); Red Blood Count 2.26 mil/mm3 (4.50-5.90); Red Cell Distribution Width 14.9 % (11.6-17.2)
[2018-06-15] MEDS ORDERED: Loperamide 2 MG Capsule PO PRN (12:37)
--- NOTE | 2018-06-15 16:00 | P.PN ---
Subjective Interval history: Patient remains short of breath and weak. He underwent lung biopsy on his right lower lobe lung mass and is awaiting biopsy results. No new complaints. Physical Exam Vital signs: Vital Signs 06/14/18 16:00 06/14/18 20:00 06/15/18 00:00 Temperature 98.5 F 99 F 98.2 F Pulse Rate 101 H 95 H 87 Respiratory Rate 18 19 17 Blood Pressure 141/62 H 147/69 H 162/72 H Pulse Oximetry 98 100 95 06/15/18 03:33 06/15/18 04:00 06/15/18 08:00 Temperature 98.3 F 97.2 F L Pulse Rate 87 91 H 94 H Respiratory Rate 18 17 Blood Pressure 142/75 H 160/89 H Pulse Oximetry 95 99 06/15/18 12:00 Temperature 97.1 F L Pulse Rate 100 H Respiratory Rate 17 Blood Pressure 131/68 Pulse Oximetry 100 Intake & Output 06/14/18 06/15/18 06/15/18 18:59 06:59 18:59 Intake Total 200 / 200 240 / 240 100 / 100 Output Total 450 / 450 Balance 200 / 200 -210 / -210 100 / 100 Weight 61.7 kg Intake: IV 200 / 200 100 / 100 Ofirmev Inj 1,000 mg In 100 ml 200 / 200 100 / 100 @ 400 mls/hr IV.SIG Q6H PRN Rx# :[id number] Oral 0 / 0 240 / 240 Output: Urine 450 / 450 Other: # Voids 1,400 # Bowel Movements 1 Narrative: GENERAL: AAOx3, nasal cannula oxygen, weak appearing SKIN: Warm and dry. No rashes HEAD: Atruamtic, normocephalic. EYES: No scleral icterus. No injection or drainage. ENT: Moist mucous membranes, patent nares, no erythema of oropharynx. NECK: Supple, trachea midline. No JVD or lymphadenopathy. Normal thyroid. CARDIOVASCULAR: Regular rate and rhythm. No murmurs, gallops, or rubs. RESPIRATORY: Atelectasis in right base. No accessory muscle use. GASTROINTESTINAL: Abdomen soft, non-tender, nondistended, normal active bowel sounds MUSCULOSKELETAL: No cyanosis, or edema. NEURO: CN II-XII grossly intact, no focal deficits, no slurring of speech Results - Labs CBC & Chem 7: 06/15/18 11:00 06/15/18 06:30 Laboratory Results - last 24 hr 06/14/18 06/14/18 06/15/18 18:35 18:35 06:30 WBC RBC Hgb 7.1 L Hct 21.7 L MCV MCH MCHC RDW Plt Count MPV Sodium 139 Potassium 3.8 D 4.3 Chloride 108 H Carbon Dioxide 22.8 Anion Gap 8 BUN 11 Creatinine 0.67 Estimated GFR Greater than 89 Random Glucose 68 L Calcium 8.1 L Magnesium 1.6 06/15/18 11:00 WBC 17.0 H RBC 2.26 L Hgb 7.2 L Hct 21.7 L MCV 95.8 MCH 31.8 MCHC 33.2 RDW 14.9 Plt Count 383 MPV 6.6 L Sodium Potassium Chloride Carbon Dioxide Anion Gap BUN Creatinine Estimated GFR Random Glucose Calcium Magnesium Microbiology 06/12/18 14:25 Blood - Peripheral Aerobic Blood Culture - Preliminary No growth in 3 days 06/12/18 14:25 Blood - Peripheral Anaerobic Blood Culture - Preliminary No growth in 3 days 06/12/18 14:30 Blood - Peripheral Aerobic Blood Culture - Preliminary No growth in 3 days 06/12/18 14:30 Blood - Peripheral Anaerobic Blood Culture - Preliminary No growth in 3 days 06/13/18 18:55 Sputum - Expectorated Sputum Gram Stain - Final 06/13/18 18:55 Sputum - Expectorated Sputum Sputum Culture - Final Heavy growth normal respiratory ramona - Imaging Impressions Lung Biopsy CT 06/14/18 00:00 CONCLUSION: Uncomplicated CT guided biopsy of right lower lobe pulmonary mass. Assessment and Plan - Assessment (1) Syncope Code(s): R55 - Syncope and collapse Status: Acute (2) Mass of lower lobe of right lung Code(s): R91.8 - Other nonspecific abnormal finding of lung field Status: Acute (3) Bronchitis Code(s): J40 - Bronchitis, not specified as acute or chronic Status: Acute - Plan 72 YOWM with history of COPD, CVA, HLD, HTN, and tobacco abuse admitted 06/12 for syncope and shortness of breath. RLL lung mass Known prior to admission but hasn't been further worked up CTA demonstrates a 4.5 cm mass in R lower lobe laterally, almost certainly malignancy Biopsy performed, pathology pending Appreciate pulmonology consult Appreciate oncology consult Dyspnea, COPD exacerbation COPD exacerbation aggravated by presence of right lower lobe mass Continue supplemental oxygen and DuoNeb's Follow leukocytosis trend Consider steroid effect Syncopal episode Occurred at home while ambulating CTA negative for PE, CT head showed no stroke 2D echo completed Telemetry shows sinus rhythm with frequent PACs HTN Continue Lisinopril and Terazosin Sciatica Pt complaining of LLE pain from foot to buttock Imaging done last hospitalization (L-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
[2018-06-15] MEDS: Latanoprost 0.005% Opth Drops 2.5 ML Bottle EACH EYE SCH (21:32)
[2018-06-15] MEDS: Temazepam 15 MG Capsule PO PRN (21:37)
[2018-06-16] MEDS: LORazepam 1 MG Tablet PO PRN (03:37)
[2018-06-16] MEDS: Primidone 50 MG Tablet PO SCH ×2 (09:00→21:03)
[2018-06-16] MEDS: Lisinopril 10 MG Tablet PO SCH (09:00)
[2018-06-16] MEDS ORDERED: Sodium Chlor 0.9% Inj 250 ML IV.SIG SCH (09:00)
[2018-06-16] MEDS: predniSONE 20 MG Tablet PO SCH (09:00)
[2018-06-16] MEDS: Famotidine 20 MG Tablet PO SCH ×3 (09:01→21:03)
[2018-06-16] MEDS: Folic Acid 1 MG Tablet PO SCH (09:01)
[2018-06-16] MEDS: Budesonide-Formoterol 160/4.5 MCG 6 GM Inhaler INH SCH ×2 (09:02→21:04)
[2018-06-16 09:46] LABS: Hemoglobin 7.1 gm/dL (13.0-17.0); Mean Corpuscular HGB Conc 34.1 % (32.0-36.0); Mean Corpuscular Hemoglobin 32.4 pg (27.0-34.0); Mean Corpuscular Volume 95.1 fL (80.0-100.0); Mean Platelet Volume 6.7 fL (7.0-11.0); Platelet Count 364 th/mm3 (150-450); Red Blood Count 2.19 mil/mm3 (4.50-5.90); Red Cell Distribution Width 14.8 % (11.6-17.2); White Blood Count 12.7 th/mm3 (4.0-11.0)
[2018-06-16 09:56] LABS: Hematocrit 20.8 % (39.0-51.0)
--- NOTE | 2018-06-16 10:02 | P.PN ---
Subjective Interval history: Admit patient today while he was returning from the bathroom. His heart rate was up to 170, dyspneic, off of oxygen. We had a discussion about his hemoglobin which is down to 7.2. I have already ordered blood transfusions and he is accepting of this. Physical Exam Vital signs: Vital Signs 06/15/18 12:00 06/15/18 16:00 06/15/18 20:00 Temperature 97.1 F L 96.6 F L 98.3 F Pulse Rate 113 H 101 H 92 H Respiratory Rate 17 18 16 Blood Pressure 131/68 146/74 H 142/71 H Pulse Oximetry 100 100 100 06/16/18 00:00 06/16/18 04:00 06/16/18 06:44 Temperature 97.7 F 98.1 F Pulse Rate 92 H 103 H Respiratory Rate 18 18 Blood Pressure 148/56 H 166/78 H 135/76 Pulse Oximetry 98 100 Intake & Output 06/15/18 06/16/18 06/16/18 18:59 06:59 18:59 Intake Total 720 / 720 480 / 480 Output Total 450 / 450 Balance 720 / 720 30 / 30 Weight 62.2 kg Intake: IV 200 / 200 Ofirmev Inj 1,000 mg In 100 ml 200 / 200 @ 400 mls/hr IV.SIG Q6H PRN Rx# :[id number] Oral 520 / 520 480 / 480 Output: Urine 450 / 450 Other: # Voids 5 2 # Bowel Movements 0 Narrative: GENERAL: AAOx3, off of oxygen today, weak appearing, dyspnea and tachycardia on exertion SKIN: Warm and dry. No rashes HEAD: Atruamtic, normocephalic. EYES: No scleral icterus. No injection or drainage. ENT: Moist mucous membranes, patent nares, no erythema of oropharynx. NECK: Supple, trachea midline. No JVD or lymphadenopathy. Normal thyroid. CARDIOVASCULAR: Tachycardia with frequent PVCs and PACs. No murmurs, gallops, or rubs. RESPIRATORY: Atelectasis in right base. No accessory muscle use. GASTROINTESTINAL: Abdomen soft, non-tender, nondistended, normal active bowel sounds MUSCULOSKELETAL: No cyanosis, or edema. NEURO: CN II-XII grossly intact, no focal deficits, no slurring of speech Results - Labs CBC & Chem 7: 06/16/18 09:00 06/15/18 06:30 Laboratory Results - last 24 hr 06/15/18 06/16/18 11:00 09:00 WBC 17.0 H 12.7 H RBC 2.26 L 2.19 L Hgb 7.2 L 7.1 L Hct 21.7 L 20.8 L* MCV 95.8 95.1 MCH 31.8 32.4 MCHC 33.2 34.1 RDW 14.9 14.8 Plt Count 383 364 MPV 6.6 L 6.7 L Microbiology 06/12/18 14:25 Blood - Peripheral Aerobic Blood Culture - Preliminary No growth in 3 days 06/12/18 14:25 Blood - Peripheral Anaerobic Blood Culture - Preliminary No growth in 3 days 06/12/18 14:30 Blood - Peripheral Aerobic Blood Culture - Preliminary No growth in 3 days 06/12/18 14:30 Blood - Peripheral Anaerobic Blood Culture - Preliminary No growth in 3 days 06/13/18 18:55 Sputum - Expectorated Sputum Gram Stain - Final 06/13/18 18:55 Sputum - Expectorated Sputum Sputum Culture - Final Heavy growth normal respiratory ramona Assessment and Plan - Assessment (1) Syncope Code(s): R55 - Syncope and collapse Status: Acute (2) Mass of lower lobe of right lung Code(s): R91.8 - Other nonspecific abnormal finding of lung field Status: Acute (3) Bronchitis Code(s): J40 - Bronchitis, not specified as acute or chronic Status: Acute - Plan 72 YOWM with history of COPD, CVA, HLD, HTN, and tobacco abuse admitted 06/12 for syncope and shortness of breath. RLL lung mass Known prior to admission but hasn't been further worked up CTA demonstrates a 4.5 cm mass in R lower lobe laterally, almost certainly malignancy Biopsy performed, pathology pending Appreciate pulmonology consult Appreciate oncology consult Anemia Hemoglobin remains in lower 7's Patient is symptomatic with simple activities, lungs are mostly clear Type and cross and transfuse 2 units of packed red blood cells Dyspnea, COPD exacerbation COPD exacerbation aggravated by presence of right lower lobe mass Continue supplemental oxygen and DuoNeb's Transfusing 2 units of packed red blood cells today Follow leukocytosis trend Consider steroid effect Syncopal episode Occurred at home while ambulating CTA negative for PE, CT head showed no stroke Telemetry shows sinus rhythm with frequent PACs 2D echocardiogram shows normal left ventricular function, ejection fraction 60- 65% HTN Continue Lisinopril and Terazosin Sciatica Pt complaining of LLE pain from foot to buttock Imaging done last hospitalization (L-spine 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
[2018-06-16 10:17] LABS: Anion Gap 8 meq/L (5-15); Blood Urea Nitrogen 9 mg/dL (7-18); Calcium 8.2 mg/dL (8.5-10.1); Chloride 103 meq/L (98-107); Glomerular Filtration Rate Greater Than 89 mL/min (>89); Glucose,Random 75 mg/dL (74-106); Potassium 3.3 meq/L (3.5-5.1); Sodium 137 meq/L (136-145)
--- NOTE | 2018-06-16 20:05 | P.PN ---
Subjective Interval history: alert NAD receiving packed RBC Physical Exam Vital signs: Vital Signs 06/16/18 00:00 06/16/18 04:00 06/16/18 06:44 Temperature 97.7 F 98.1 F Pulse Rate 92 H 103 H Respiratory Rate 18 18 Blood Pressure 148/56 H 166/78 H 135/76 Pulse Oximetry 98 100 06/16/18 08:00 06/16/18 12:00 06/16/18 14:35 Temperature 97.8 F 97.6 F 97.6 F Pulse Rate 118 H 114 H 56 L Respiratory Rate 18 18 17 Blood Pressure 161/80 H 124/55 L 123/67 Pulse Oximetry 97 99 100 06/16/18 14:54 06/16/18 16:00 06/16/18 18:23 Temperature 97.5 F L 97.3 F L 97.6 F Pulse Rate 57 L 96 H 82 Respiratory Rate 17 18 17 Blood Pressure 136/49 L 137/75 164/78 H Pulse Oximetry 99 100 06/16/18 18:27 06/16/18 18:39 Temperature 98.0 F 97.8 F Pulse Rate 85 85 Respiratory Rate 17 18 Blood Pressure 164/78 H 160/86 H Pulse Oximetry 100 100 Intake & Output 06/16/18 06/16/18 06/17/18 06:59 18:59 06:59 Intake Total 480 / 480 885 / 885 Output Total 450 / 450 500 / 500 Balance 30 / 30 385 / 385 Weight 62.2 kg Intake: Oral 480 / 480 785 / 785 Oral Supplement 100 / 100 Intake (Blood Product) Amt 0 / 0 Rbc As-3 Leukoreduced Unit 0 / 0 [id number] Rbc As-3 Leukoreduced Unit 0 / 0 [id number] Output: Urine 450 / 450 500 / 500 Other: # Voids 2 3 # Incontinent Voids 0 # Urine Diapers 0 Narrative: GENERAL: AAOx3, off of oxygen today, weak appearing, dyspnea and tachycardia on exertion SKIN: Warm and dry. No rashes HEAD: Atruamtic, normocephalic. EYES: No scleral icterus. No injection or drainage. ENT: Moist mucous membranes, patent nares, no erythema of oropharynx. NECK: Supple, trachea midline. No JVD or lymphadenopathy. Normal thyroid. CARDIOVASCULAR: Tachycardia with frequent PVCs and PACs. No murmurs, gallops, or rubs. RESPIRATORY: Atelectasis in right base. No accessory muscle use. GASTROINTESTINAL: Abdomen soft, non-tender, nondistended, normal active bowel sounds MUSCULOSKELETAL: No cyanosis, or edema. NEURO: CN II-XII grossly intact, no focal deficits, no slurring of speech Results - Labs CBC & Chem 7: 06/16/18 09:00 06/16/18 09:00 Laboratory Results - last 24 hr 06/16/18 06/16/18 06/16/18 09:00 09:00 12:00 WBC 12.7 H RBC 2.19 L Hgb 7.1 L Hct 20.8 L* MCV 95.1 MCH 32.4 MCHC 34.1 RDW 14.8 Plt Count 364 MPV 6.7 L Sodium 137 Potassium 3.3 L D Chloride 103 Carbon Dioxide 26.0 Anion Gap 8 BUN 9 Creatinine 0.59 L Estimated GFR Greater than 89 Random Glucose 75 Calcium 8.2 L Blood Type A Positive Antibody Screen Negative MTS Gel Crossmatch See Detail Microbiology 06/12/18 14:25 Blood - Peripheral Aerobic Blood Culture - Preliminary No growth in 4 days 06/12/18 14:25 Blood - Peripheral Anaerobic Blood Culture - Preliminary No growth in 4 days 06/12/18 14:30 Blood - Peripheral Aerobic Blood Culture - Preliminary No growth in 4 days 06/12/18 14:30 Blood - Peripheral Anaerobic Blood Culture - Preliminary No growth in 4 days Assessment and Plan - Plan lung mass rll post biopsy copd syncope htn hld plan check PATHOLOGY bronchodilator therapy increase activity PFT
[2018-06-16] MEDS: Latanoprost 0.005% Opth Drops 2.5 ML Bottle EACH EYE SCH (21:04)
[2018-06-16] MEDS: Temazepam 15 MG Capsule PO PRN (21:12)
[2018-06-17] MEDS: LORazepam 1 MG Tablet PO PRN ×2 (02:56→22:09)
--- NOTE | 2018-06-17 09:09 | P.PN ---
Subjective Interval history: ALERT NO SOB Physical Exam Vital signs: Vital Signs 06/16/18 12:00 06/16/18 14:35 06/16/18 14:54 Temperature 97.6 F 97.6 F 97.5 F L Pulse Rate 114 H 56 L 57 L Respiratory Rate 18 17 17 Blood Pressure 124/55 L 123/67 136/49 L Pulse Oximetry 99 100 06/16/18 16:00 06/16/18 18:23 06/16/18 18:27 Temperature 97.3 F L 97.6 F 98.0 F Pulse Rate 96 H 82 85 Respiratory Rate 18 17 17 Blood Pressure 137/75 164/78 H 164/78 H Pulse Oximetry 99 100 100 06/16/18 18:39 06/16/18 20:00 06/16/18 22:09 Temperature 97.8 F 98.2 F 97.4 F L Pulse Rate 85 97 H 81 Respiratory Rate 18 18 18 Blood Pressure 160/86 H 157/74 H 165/81 H Pulse Oximetry 100 98 97 06/17/18 00:00 06/17/18 03:05 06/17/18 04:00 Temperature 97.5 F L Pulse Rate 96 H 91 H 81 Respiratory Rate 20 Blood Pressure 152/77 H Pulse Oximetry 98 06/17/18 08:00 Temperature 98.0 F Pulse Rate 96 H Respiratory Rate 18 Blood Pressure 163/70 H Pulse Oximetry 98 Intake & Output 06/16/18 06/17/18 06/17/18 18:59 06:59 18:59 Intake Total 885 / 885 0 / 0 Output Total 500 / 500 Balance 385 / 385 0 / 0 Intake: Oral 785 / 785 Oral Supplement 100 / 100 Intake (Blood Product) Amt 0 / 0 0 / 0 Rbc As-3 Leukoreduced Unit 0 / 0 [id number] Rbc As-3 Leukoreduced Unit 0 / 0 0 / 0 [id number] Output: Urine 500 / 500 Other: # Voids 3 # Incontinent Voids 0 # Urine Diapers 0 Narrative: GENERAL: AAOx3, off of oxygen today, weak appearing, dyspnea and tachycardia on exertion SKIN: Warm and dry. No rashes HEAD: Atruamtic, normocephalic. EYES: No scleral icterus. No injection or drainage. ENT: Moist mucous membranes, patent nares, no erythema of oropharynx. NECK: Supple, trachea midline. No JVD or lymphadenopathy. Normal thyroid. CARDIOVASCULAR: Tachycardia with frequent PVCs and PACs. No murmurs, gallops, or rubs. RESPIRATORY: Atelectasis in right base. No accessory muscle use. GASTROINTESTINAL: Abdomen soft, non-tender, nondistended, normal active bowel sounds MUSCULOSKELETAL: No cyanosis, or edema. NEURO: CN II-XII grossly intact, no focal deficits, no slurring of speech Results - Labs CBC & Chem 7: 06/16/18 09:00 06/16/18 09:00 Laboratory Results - last 24 hr 06/16/18 06/16/18 06/16/18 09:00 09:00 12:00 WBC 12.7 H RBC 2.19 L Hgb 7.1 L Hct 20.8 L* MCV 95.1 MCH 32.4 MCHC 34.1 RDW 14.8 Plt Count 364 MPV 6.7 L Sodium 137 Potassium 3.3 L D Chloride 103 Carbon Dioxide 26.0 Anion Gap 8 BUN 9 Creatinine 0.59 L Estimated GFR Greater than 89 Random Glucose 75 Calcium 8.2 L Blood Type A Positive Antibody Screen Negative MTS Gel Crossmatch See Detail Microbiology 06/12/18 14:25 Blood - Peripheral Aerobic Blood Culture - Preliminary No growth in 4 days 06/12/18 14:25 Blood - Peripheral Anaerobic Blood Culture - Preliminary No growth in 4 days 06/12/18 14:30 Blood - Peripheral Aerobic Blood Culture - Preliminary No growth in 4 days 06/12/18 14:30 Blood - Peripheral Anaerobic Blood Culture - Preliminary No growth in 4 days Assessment and Plan - Plan lung mass rll post biopsy copd syncope htn hld plan check PATHOLOGY bronchodilator therapy increase activity
[2018-06-17] MEDS: Budesonide-Formoterol 160/4.5 MCG 6 GM Inhaler INH SCH ×2 (09:51→20:36)
[2018-06-17] MEDS: Lisinopril 10 MG Tablet PO SCH (09:52)
[2018-06-17] MEDS: predniSONE 20 MG Tablet PO SCH (09:52)
[2018-06-17] MEDS: Famotidine 20 MG Tablet PO SCH ×2 (09:52→20:37)
[2018-06-17] MEDS: Folic Acid 1 MG Tablet PO SCH (09:52)
[2018-06-17] MEDS: Primidone 50 MG Tablet PO SCH (09:52)
--- NOTE | 2018-06-17 14:54 | P.PNONC ---
Subjective Interval history: Afebrile. Patient reports that he has had "a rough couple days, and is still not feeling the greatest." He denies any shortness of breath. Objective Vital Signs/Intake & Output: Vital Signs 06/16/18 14:35 06/16/18 14:54 06/16/18 16:00 Temperature 97.6 F 97.5 F L 97.3 F L Pulse Rate 56 L 57 L 96 H Respiratory Rate 17 17 18 Blood Pressure 123/67 136/49 L 137/75 Pulse Oximetry 100 99 06/16/18 18:23 06/16/18 18:27 06/16/18 18:39 Temperature 97.6 F 98.0 F 97.8 F Pulse Rate 82 85 85 Respiratory Rate 17 17 18 Blood Pressure 164/78 H 164/78 H 160/86 H Pulse Oximetry 100 100 100 06/16/18 20:00 06/16/18 22:09 06/17/18 00:00 Temperature 98.2 F 97.4 F L Pulse Rate 97 H 81 96 H Respiratory Rate 18 18 Blood Pressure 157/74 H 165/81 H Pulse Oximetry 98 97 06/17/18 03:05 06/17/18 04:00 06/17/18 08:00 Temperature 97.5 F L 98.0 F Pulse Rate 91 H 81 96 H Respiratory Rate 20 18 Blood Pressure 152/77 H 163/70 H Pulse Oximetry 98 98 06/17/18 11:54 Temperature 97.2 F L Pulse Rate 78 Respiratory Rate 18 Blood Pressure 155/75 H Pulse Oximetry 98 Intake & Output 06/16/18 06/17/18 06/17/18 18:59 06:59 18:59 Intake Total 885 / 885 0 / 0 Output Total 500 / 500 Balance 385 / 385 0 / 0 Intake: Oral 785 / 785 Oral Supplement 100 / 100 Intake (Blood Product) Amt 0 / 0 0 / 0 Rbc As-3 Leukoreduced Unit 0 / 0 [id number] Rbc As-3 Leukoreduced Unit 0 / 0 0 / 0 [id number] Output: Urine 500 / 500 Other: # Voids 3 # Incontinent Voids 0 # Urine Diapers 0 Result Diagrams: 06/18/18 05:29 06/18/18 05:29 Laboratory Results: Laboratory Results - last 24 hr 06/16/18 12:00 Blood Type A Positive Antibody Screen Negative MTS Gel Crossmatch See Detail Culture Results: Microbiology 06/12/18 14:25 Aerobic Blood Culture - Final Blood - Peripheral No growth in 5 days Anaerobic Blood Culture - Final No growth in 5 days 06/12/18 14:30 Aerobic Blood Culture - Final Blood - Peripheral No growth in 5 days Anaerobic Blood Culture - Final No growth in 5 days 06/13/18 18:55 Gram Stain - Final Sputum - Expectorated Sputum Sputum Culture - Final Heavy growth normal respiratory ramona Medications: Active Medications Generic Name Dose Route Start Last Admin Trade Name Freq PRN Reason Stop Dose Admin Hydrocodone Bitart/Acetaminophen 1 tab 06/15/18 18:29 06/17/18 09:54 Lebo 5/325 PO 1 tab Q4H PRN Administration PAIN SCALE 6 TO 10 Atorvastatin Calcium 40 mg 06/12/18 21:00 06/16/18 21:03 Lipitor PO 40 mg HS MIGEL Administration Budesonide/Formoterol Fumarate 2 puff 06/12/18 21:00 06/17/18 09:51 Symbicort 160/4.5 Mcg Inh INH 2 puff BID MIGEL Administration Enoxaparin Sodium 40 mg 06/13/18 09:00 06/13/18 08:56 Lovenox Inj SQ 40 mg DAILY MIGEL Administration Famotidine 20 mg 06/12/18 21:00 06/17/18 09:52 Pepcid PO 20 mg BID MIGEL Administration Folic Acid 1 mg 06/13/18 09:00 06/17/18 09:52 Folic Acid PO 1 mg DAILY MIGEL Administration Latanoprost 1 drop 06/12/18 21:00 06/16/18 21:04 Xalatan 0.005% Opth Drops EACH EYE 1 drop HS MIGEL Administration Lisinopril 10 mg 06/13/18 09:00 06/17/18 09:52 Prinivil PO 10 mg DAILY MIGEL Administration Lorazepam 1 mg 06/12/18 20:59 06/17/18 02:56 Ativan PO 1 mg Q4H PRN Administration ANXIETY AND/OR AGITATION Nicotine 1 patch 06/13/18 12:45 06/17/18 09:50 Habitrol 14 Mg Patch.24 Hr T-DERMAL 1 patch DAILY MIGEL Administration Patch Removal 1 each 06/13/18 21:00 06/16/18 21:05 Remove Old Patch T-DERMAL 1 each HS MIGEL Administration Prednisone 20 mg 06/13/18 09:00 06/17/18 09:52 Deltasone PO 20 mg DAILY MIGEL Administration Primidone 50 mg 06/12/18 21:00 06/17/18 09:52 Mysoline PO 50 mg BID MIGEL Administration Temazepam 15 mg 06/12/18 16:40 06/16/18 21:12 Restoril PO 15 mg HS PRN Administration Insomnia Terazosin HCl 1 mg 06/12/18 21:00 06/16/18 21:03 Hytrin PO 1 mg HS MIGEL Administration Thiamine HCl 100 mg 06/12/18 21:00 06/17/18 09:52 Vitamin B1 PO 100 mg BID MIGEL Administration Objective Remarks: GENERAL: Well-nourished, well-developed male patient. In no acute distress. SKIN: Warm and dry. HEAD: Normocephalic. EYES: No scleral icterus. No injection or drainage. NECK: Supple, trachea midline. CARDIOVASCULAR: Regular rate and rhythm without murmurs. RESPIRATORY: Posterior breath sounds distant, equal bilaterally. No accessory muscle use. GASTROINTESTINAL: Abdomen soft, non-tender, nondistended. EXTREMITIES: No cyanosis, or edema. MUSCULOSKELETAL: Adequate muscle tone. NEUROLOGICAL: No obvious focal deficit. Awake, alert, and oriented x3. PSYCHIATRIC: Appropriate mood and affect; insight and judgment normal. Assessment/Plan - Plan Mr. Hough is a 72-year-old gentleman with history of COPD, CVA, hyperlipidemia , hypertension, tobacco abuse, alcohol abuse, who was admitted to the hospital on 06/12/2018 with dizziness and lightheadedness that resulted in syncope. On , CTA showed a 4.5 cm mass present in the right lower lobe laterally in a background of significant COPD and almost certainly malignant. He is status post core biopsy of the right lung on 06/14/2018. Plan: 1. Anemia. Status post 2 units of PRBCs transfused on 06/16/2018. Hemoglobin 7.1 today. 2. Hemoccult pending. 3. Iron studies showed an iron of 18, TIBC 244, iron saturation 7.4%. We will check a B12 and folate level. 4. Dr. Looney will be discussing the patient's pathology results with him this evening. 5. We will continue to monitor CBC. 6. Continue supportive care. - Attending Statement The exam, history, and the medical decision-making described in the above note were completed with the assistance of the mid-level provider. I reviewed and agree with the findings presented. I attest that I had a [id number] encounter with the patient on the same day, and personally performed and documented my assessment and findings in the medical record. 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 In the outpatient setting he will need PET CT scan, pulmonary function testing and close follow up in oncology clinic.
[2018-06-17] MEDS ORDERED: MethylPREDNISolone Sod Succinate Inj 125 MG/2 ML Vial IV.PUSH ONE (15:00)
--- NOTE | 2018-06-17 15:39 | ECG ---
Date Performed: 06/16/2018 Time Performed: 13:32:58 PTAGE: 72 years EKG: ATRIAL FIBRILLATION WITH RAPID VENTRICULAR RESPONSE When compared to previous tracing, atri al fibrillation is new. ABNORMAL RHYTHM ECG PREVIOUS TRACING : 06/12/2018 12.38 DOCTOR: Harlan Grande Interpretating Date/Time 06/17/2018 15:38:52
--- NOTE | 2018-06-17 16:46 | P.PN ---
Subjective Interval history: Patient received 2 units of packed red blood cells yesterday, today he states he feels no better, still tired and fatigued. He says that he was exposed to possible mold in his home which has a leaky roof. He asks that this might be causing his 3-4 month pattern of increasing fatigue, I reminded him that it could also be a lung mass that were working up. Physical Exam Vital signs: Vital Signs 06/16/18 18:23 06/16/18 18:27 06/16/18 18:39 Temperature 97.6 F 98.0 F 97.8 F Pulse Rate 82 85 85 Respiratory Rate 17 17 18 Blood Pressure 164/78 H 164/78 H 160/86 H Pulse Oximetry 100 100 100 06/16/18 20:00 06/16/18 22:09 06/17/18 00:00 Temperature 98.2 F 97.4 F L Pulse Rate 97 H 81 96 H Respiratory Rate 18 18 Blood Pressure 157/74 H 165/81 H Pulse Oximetry 98 97 06/17/18 03:05 06/17/18 04:00 06/17/18 08:00 Temperature 97.5 F L 98.0 F Pulse Rate 91 H 81 94 H Respiratory Rate 20 18 Blood Pressure 152/77 H 163/70 H Pulse Oximetry 98 98 06/17/18 11:54 06/17/18 12:00 06/17/18 16:00 Temperature 97.2 F L 97.7 F Pulse Rate 78 112 H 91 H Respiratory Rate 18 18 Blood Pressure 155/75 H 152/70 H Pulse Oximetry 98 99 Intake & Output 06/16/18 06/17/18 06/17/18 18:59 06:59 18:59 Intake Total 885 / 885 0 / 0 783 / 783 Output Total 500 / 500 Balance 385 / 385 0 / 0 783 / 783 Intake: Oral 785 / 785 780 / 780 Oral Supplement 100 / 100 3 / 3 Intake (Blood Product) Amt 0 / 0 0 / 0 Rbc As-3 Leukoreduced Unit 0 / 0 [id number] Rbc As-3 Leukoreduced Unit 0 / 0 0 / 0 [id number] Output: Urine 500 / 500 Other: # Voids 3 # Incontinent Voids 0 # Urine Diapers 0 Narrative: GENERAL: AAOx3, weak, fatigued, off oxygen SKIN: Warm and dry. No rashes HEAD: Atruamtic, normocephalic. EYES: No scleral icterus. No injection or drainage. ENT: Moist mucous membranes, patent nares, no erythema of oropharynx. NECK: Supple, trachea midline. No JVD or lymphadenopathy. Normal thyroid. CARDIOVASCULAR: Regular rate and rhythm. No murmurs, gallops, or rubs. RESPIRATORY: Congestive sounds in bilateral bases. No crackles or wheezes. No accessory muscle use. GASTROINTESTINAL: Abdomen soft, non-tender, nondistended, normal active bowel sounds MUSCULOSKELETAL: No cyanosis, or edema. NEURO: CN II-XII grossly intact, no focal deficits, no slurring of speech Results - Labs CBC & Chem 7: 06/16/18 09:00 06/16/18 09:00 Laboratory Results - last 24 hr 06/16/18 12:00 Blood Type A Positive Antibody Screen Negative MTS Gel Crossmatch See Detail Microbiology 06/12/18 14:25 Blood - Peripheral Aerobic Blood Culture - Final No growth in 5 days 06/12/18 14:25 Blood - Peripheral Anaerobic Blood Culture - Final No growth in 5 days 06/12/18 14:30 Blood - Peripheral Aerobic Blood Culture - Final No growth in 5 days 06/12/18 14:30 Blood - Peripheral Anaerobic Blood Culture - Final No growth in 5 days Assessment and Plan - Assessment (1) Syncope Code(s): R55 - Syncope and collapse Status: Acute (2) Mass of lower lobe of right lung Code(s): R91.8 - Other nonspecific abnormal finding of lung field Status: Acute (3) Bronchitis Code(s): J40 - Bronchitis, not specified as acute or chronic Status: Acute - Plan 72 YOWM with history of COPD, CVA, HLD, HTN, and tobacco abuse admitted 06/12 for syncope and shortness of breath. 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 Appreciate pulmonology consult Appreciate oncology consult Anemia CBC ordered today, results still pending s/p transfusion of 2 units of packed red blood cells Dyspnea, COPD exacerbation COPD exacerbation aggravated by presence of right lower lobe mass Continue supplemental oxygen and DuoNeb's Single dose of Solu-Medrol given today Follow leukocytosis trend Consider steroid effect Syncopal episode Occurred at home while ambulating CTA negative for PE, CT head showed no stroke Telemetry shows sinus rhythm with frequent PACs 2D echocardiogram shows normal left ventricular function, ejection fraction 60- 65% HTN Continue Lisinopril and Terazosin Sciatica Pt complaining of LLE pain from foot to buttock Multilevel neural foraminal narrowing Continue PT DVT Prophylaxis Lovenox (1) Syncope Qualifiers: Syncope type: unspecified Qualified Code(s): R55 - Syncope and collapse
[2018-06-17 18:27] LABS: Hematocrit 29.6 % (39.0-51.0); Hemoglobin 10.2 gm/dL (13.0-17.0); Mean Corpuscular HGB Conc 34.5 % (32.0-36.0); Mean Corpuscular Volume 92.6 fL (80.0-100.0); Mean Platelet Volume 7.1 fL (7.0-11.0); Platelet Count 391 th/mm3 (150-450); Red Cell Distribution Width 14.5 % (11.6-17.2)
[2018-06-17] MEDS: Latanoprost 0.005% Opth Drops 2.5 ML Bottle EACH EYE SCH (20:37)
[2018-06-17] MEDS: Temazepam 15 MG Capsule PO PRN (20:40)
[2018-06-18] MEDS: Primidone 50 MG Tablet PO SCH ×4 (00:36→20:02)
[2018-06-18] MEDS: dilTIAZem CD 120 MG Capsule PO SCH ×2 (06:50→08:32)
[2018-06-18 07:12] LABS: Baso % (Auto) 0.1 % (0.0-2.0); Hematocrit 21.8 % (39.0-51.0); Hemoglobin 7.5 gm/dL (13.0-17.0); Lymph # (Auto) 0.8 th/mm3 (1.0-4.8); Lymph % (Auto) 5.2 % (9.0-44.0); Mean Corpuscular HGB Conc 34.4 % (32.0-36.0); Mean Corpuscular Hemoglobin 31.5 pg (27.0-34.0); Mean Corpuscular Volume 91.7 fL (80.0-100.0); Mean Platelet Volume 7.3 fL (7.0-11.0); Mono # (Auto) 0.8 th/mm3 (0.0-0.9); Mono % (Auto) 5.6 % (0.0-8.0); Neut # (Auto) 13.2 th/mm3 (1.8-7.7); Neut % (Auto) 89.1 % (16.0-70.0); Platelet Count 331 th/mm3 (150-450); Red Blood Count 2.37 mil/mm3 (4.50-5.90); Red Cell Distribution Width 14.1 % (11.6-17.2); White Blood Count 14.8 th/mm3 (4.0-11.0)
[2018-06-18 07:40] LABS: Anion Gap 9 meq/L (5-15); Aspartate Aminotransferase 15 U/L (15-37); Blood Urea Nitrogen 29 mg/dL (7-18); Calcium 7.6 mg/dL (8.5-10.1); Carbon Dioxide 25.5 meq/L (21.0-32.0); Chloride 102 meq/L (98-107); Glomerular Filtration Rate Greater Than 89 mL/min (>89); Glucose,Random 110 mg/dL (74-106); Potassium 4.1 meq/L (3.5-5.1); Sodium 136 meq/L (136-145)
[2018-06-18 08:13] LABS: Alanine Aminotransferase 33 U/L (12-78); Alkaline Phosphatase 54 U/L (45-117); Total Protein 5.5 g/dL (6.4-8.2); Vitamin B12 471 pg/mL (193-986)
[2018-06-18] MEDS: predniSONE 20 MG Tablet PO SCH (08:32)
[2018-06-18] MEDS: Folic Acid 1 MG Tablet PO SCH (08:32)
[2018-06-18] MEDS: Famotidine 20 MG Tablet PO SCH ×2 (08:32→20:35)
[2018-06-18] MEDS: Budesonide-Formoterol 160/4.5 MCG 6 GM Inhaler INH SCH ×2 (08:45→20:35)
--- NOTE | 2018-06-18 11:56 | P.PNIM ---
Subjective Interval history: 72-year-old W male being admitted for syncope. Patient was in his usual state of health until sometime yesterday when he began experiencing lightheadedness. Says he was ambulating in his home and was only a few steps away from a chair but felt himself pass out and he landed forward into his chair, not striking any hard surfaces. Says he only passed out for a few seconds. This morning the patient felt lightheaded even upon resting, says he took a blood pressure measurement and says the systolic number was in the 80s , says he had a home care nurse accessible to him at the time and she advised him to refrain from taking his blood pressure medications. Denies having any nausea or chest pain. Says he is feeling more short of breath than usual and is unable to ascertain if his cough is any worse than usual. Denies any fevers or chills. Reports feeling substantially weaker than he did the last time he was discharged may be a week ago. Still has right leg pain periodically. Patient denies having any cardiac disease. Most recently the patient was discharged from the hospital about 1 wk ago for substantial right lower leg pain that impaired his ability to walk. He eventually regained enough strength to go home with home care. He had chest x- ray done at that time which showed a suspicious findings suggestive of a mass versus pneumonia. A CT abdomen pelvis that was done shows at least a 4 cm mass highly suspicious for malignancy. In the emergency department the patient had an EKG done which on my independent review looks like it is sinus rhythm with very diminished P waves at best. Blood pressure seems to be very stable. Patient undergone another chest x-ray which I eventually reviewed which shows the same masslike appearing lesion on the right lung field, per radiology seems to be unchanged since his last CXR. Pt states he has knowledge of a mass on his left lung from 2 months ago and has not gotten into see pulmonology yet. 06-13 Pt seen and examined for f/u syncope and lung mass. He reports he is feeling "awful." Complains of pain down entire left leg especially his knee. Reports it goes from his foot to his buttock. He has been treated for sciatica recently. Pain is constant, even at rest. The patient denies any CP, SOB, abdominal pain, or paresthesias. He is aware of large hilar mass and understands the need for biopsy. However, he has questions regarding cost of biopsy as inpatient vs. outpatient and would like to speak to someone about this. 7-30 Pt seen and examined. AFVSS. No acute events overnight. Pt's main concern continues to be pain in his left leg. He states the Ofirmev helps. We discussed his CT findings from last admission showing degenerative disc disease with some foraminal narrowing at the level of L5-S1 which is likely contributing to his symptoms. Advised that we need to pursue PT for this prior to any possible more invasive measures. He reports he should have gone to rehab the last admission and hopes to be discharged to some form of inpatient rehab or SNF after this hospitalization. From a breathing standpoint he reports he is stable other than occasional dry cough. Denies CP, abdominal pain, N/V. 731 Patient remains short of breath and weak. He underwent lung biopsy on his right lower lobe lung mass and is awaiting biopsy results. No new complaints. 8-1 Admit patient today while he was returning from the bathroom. His heart rate was up to 170, dyspneic, off of oxygen. We had a discussion about his hemoglobin which is down to 7.2. I have already ordered blood transfusions and he is accepting of this. 8-2 Patient received 2 units of packed red blood cells yesterday, today he states he feels no better, still tired and fatigued. He says that he was exposed to possible mold in his home which has a leaky roof. He asks that this might be causing his 3-4 month pattern of increasing fatigue, I reminded him that it could also be a lung mass that were working up. 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 PATIENT WILL NEED OUTPT PET SCAN WILL NEED REHAB IF CAN GET IT AUTHORIZED PT AND OT TO EVAL AND TREAT THEY BOTH SUGGEST SNF Physical Exam Vital signs: Vital Signs 06/17/18 11:54 06/17/18 12:00 06/17/18 16:00 Temperature 97.2 F L 97.7 F Pulse Rate 78 112 H 91 H Respiratory Rate 18 18 Blood Pressure 155/75 H 152/70 H Pulse Oximetry 98 99 06/17/18 20:19 06/17/18 22:09 06/18/18 00:00 Temperature 97.0 F L Pulse Rate 86 108 H Respiratory Rate 16 18 Blood Pressure 132/71 Pulse Oximetry 98 06/18/18 00:34 06/18/18 04:00 06/18/18 04:01 Temperature 97.0 F L 97.9 F Pulse Rate 96 H 105 H 93 H Respiratory Rate 16 17 Blood Pressure 130/92 H 127/79 Pulse Oximetry 96 96 06/18/18 08:00 Temperature 98.3 F Pulse Rate 140 H Respiratory Rate 22 Blood Pressure 145/76 H Pulse Oximetry 94 L Intake & Output 06/17/18 06/18/18 06/18/18 18:59 06:59 18:59 Intake Total 783 / 783 480 / 480 Output Total 450 / 450 Balance 783 / 783 30 30 Weight 59 kg Intake: Oral 780 / 780 480 / 480 Oral Supplement Output: Urine 450 / 450 Other: Date of Last Bowel Movement 06/17/18 06/17/18 # Bowel Movements 1 Narrative: GENERAL: AAOx3, weak, fatigued, off oxygen SKIN: Warm and dry. No rashes HEAD: Atruamtic, normocephalic. EYES: No scleral icterus. No injection or drainage. ENT: Moist mucous membranes, patent nares, no erythema of oropharynx. NECK: Supple, trachea midline. No JVD or lymphadenopathy. Normal thyroid. CARDIOVASCULAR: Regular rate and rhythm. No murmurs, gallops, or rubs. RESPIRATORY: Congestive sounds in bilateral bases. No crackles or wheezes. No accessory muscle use. GASTROINTESTINAL: Abdomen soft, non-tender, nondistended, normal active bowel sounds MUSCULOSKELETAL: No cyanosis, or edema. NEURO: CN II-XII grossly intact, no focal deficits, no slurring of speech Results - Labs CBC & Chem 7: 06/18/18 05:29 06/18/18 05:29 Laboratory Results - last 24 hr 06/17/18 06/18/18 06/18/18 17:55 05:29 05:29 WBC 17.0 H 14.8 H RBC 3.20 L 2.37 L Hgb 10.2 L D 7.5 L D Hct 29.6 L 21.8 L MCV 92.6 91.7 MCH 32.0 31.5 MCHC 34.5 34.4 RDW 14.5 14.1 Plt Count 391 331 MPV 7.1 7.3 Neut % (Auto) 89.1 H Lymph % (Auto) 5.2 L Darke % (Auto) 5.6 Eos % (Auto) 0.0 Baso % (Auto) 0.1 Neut # (Auto) 13.2 H Lymph # (Auto) 0.8 L Darke # (Auto) 0.8 Eos # (Auto) 0.0 Baso # (Auto) 0.0 WBC Differential . Differential Comment Auto diff final Sodium 136 Potassium 4.1 D Chloride 102 Carbon Dioxide 25.5 Anion Gap 9 BUN 29 H Creatinine 0.67 Estimated GFR Greater than 89 Random Glucose 110 H Calcium 7.6 L Total Bilirubin 0.2 AST 15 ALT 33 Alkaline Phosphatase 54 Total Protein 5.5 L D Albumin 2.0 L Vitamin B12 471 Microbiology 06/12/18 14:25 Blood - Peripheral Aerobic Blood Culture - Final No growth in 5 days 06/12/18 14:25 Blood - Peripheral Anaerobic Blood Culture - Final No growth in 5 days 06/12/18 14:30 Blood - Peripheral Aerobic Blood Culture - Final No growth in 5 days 06/12/18 14:30 Blood - Peripheral Anaerobic Blood Culture - Final No growth in 5 days - Imaging Chest CTA 06/12/18 00:00 CONCLUSION: Right lower lobe mass almost certainly malignant. There is no evidence of PE for technique. Chest X-Ray 06/12/18 12:59 CONCLUSION: Right lung base opacity possibly pneumonia versus mass and a follow-up is suggested with repeat chest x-ray after appropriate clinical therapy. Head CT 06/13/18 00:00 CONCLUSION: Atrophy, otherwise negative for an acute process. Luc Lundberg MD FACR . Venous Doppler Study 06/13/18 00:00 CONCLUSION: 1. The study is negative for bilateral lower extremity deep venous thrombosis. Lung Biopsy CT 06/14/18 00:00 CONCLUSION: Uncomplicated CT guided biopsy of right lower lobe pulmonary mass. Chest X-Ray 06/14/18 14:31 CONCLUSION: No evidence of pneumothorax status post right lung biopsy. - Procedures Jey Hough CT biopsy lung RT Signed EXAM DATE: 06/14/2018 2:46 PM EDT AGE/SEX: 72 years / Male INDICATIONS: Mass. CLINICAL DATA: This is the patient's initial encounter. Patient reports that signs and symptoms have been present for 1 day and indicates a pain score of 0/ 10. MEDICAL/SURGICAL HISTORY: Chronic obstructive pulmonary disease. Stroke. Hypertension. None. COMPARISON: [facility] – [place], CTA PULMONARY W CONTRAST W 3D, 06/12/2018. . BIOPSY SITE: Right lung MEDICATION(S): 2mg midazolam (Versed) IV 100mcg fentanyl (Sublimaze) IV DEVICE(S): 20 gauge BARD biopsy needle Three core specimen(s) sent to the laboratory for pathologic evaluation. . . PROCEDURE: CT guided Right lung biopsy Conscious sedation with continuous EKG and oximetry monitoring. EKG and oximetry remained stable throughout the procedure. Prior to the procedure informed consent was obtained. Any appropriate prior imaging studies were reviewed. Using automated exposure control and adjustment of the mA and/or kV according to patient size, radiation dose was kept as low as reasonably achievable to obtain optimal diagnostic quality images. DICOM format image data is available electronically for review and comparison. The site was prepped in a sterile fashion. Full sterile technique was used, including cap, mask, sterile gloves and gown and a large sterile sheet. Hand hygiene and 2% chlorhexidine and/or betadine/alcohol prep was utilized per protocol for cutaneous antisepsis. The skin and subcutaneous tissues were infiltrated with local anesthetic solution. With CT guidance the previously identified target was localized. Biopsy was performed using the prescribed needle as above. Adequate hemostasis was obtained with compression at the puncture site. Follow-up CT scan reveals no pneumothorax. Conscious sedation was performed with the prescribed dosages and duration as above in the presence of an independent trained radiology nurse to assist in the monitoring of the patient. EKG and oximetry remained stable throughout the procedure. The patient tolerated the procedure well and there were no complications. The patient was sent to Radiology Outpatient Unit in stable condition. FINDINGS: CONCLUSION: Uncomplicated CT guided biopsy of right lower lobe pulmonary mass. Assessment and Plan - Assessment (1) Syncope Code(s): R55 - Syncope and collapse Status: Acute (2) Mass of lower lobe of right lung Code(s): R91.8 - Other nonspecific abnormal finding of lung field Status: Acute (3) Bronchitis Code(s): J40 - Bronchitis, not specified as acute or chronic Status: Acute - Plan 72 YO WM with history of COPD, CVA, HLD, HTN, and tobacco abuse admitted 06/12 for syncope and shortness of breath. 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 PER PATHOLOGY Appreciate pulmonology consult Appreciate oncology consult Anemia CBC ordered today, s/p transfusion of 2 units of packed red blood cells Dyspnea, COPD exacerbation COPD exacerbation aggravated by presence of right lower lobe mass Continue supplemental oxygen and DuoNeb's Single dose of Solu-Medrol given today Follow leukocytosis trend Consider steroid effect Syncopal episode Occurred at home while ambulating CTA negative for PE, CT head showed no stroke Telemetry shows sinus rhythm with frequent PACs 2D echocardiogram shows normal left ventricular function, ejection fraction 60- 65% HTN Continue Lisinopril and Terazosin Sciatica Pt complaining of LLE pain from foot to buttock Multilevel neural foraminal narrowing Continue PT GENERALIZED WEAKNESS NEEDS SNF FOR AGGRESSIVE PT AND OT DVT Prophylaxis Lovenox Code Status: FULL CODE Discussed Condition With: RN AND PT AND CM Discharge Planning: PENDING CLEARANCE OF ONCOLOGY AND SNF ACCEPTANCE (1) Syncope Qualifiers: Syncope type: unspecified Qualified Code(s): R55 - Syncope and collapse
[2018-06-18] MEDS ORDERED: dilTIAZem 30 MG Tablet PO PRN (12:30)
[2018-06-18] MEDS ORDERED: Acetaminophen 325 MG Tablet PO PRN (13:30)
[2018-06-18] MEDS ORDERED: Sodium Chlor 0.9% Inj 250 ML IV.SIG SCH (14:00)
--- NOTE | 2018-06-18 17:28 | P.CONGI ---
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 Approximately 24 hours ago patient noted bright red blood with wiping and then bright red bleeding in the colon patient received 2 units of packed RBCs yesterday and current hemoglobin remained 7.5. Patient also noted watery brown stools of diarrhea for the past 2 weeks but is unaware if there was any blood noted patient's currently receiving transfusion and still appears to be weakened and pale. WBC count 14.8 unspecified leukocytosis, bilirubin and LFTs normal range patient does have a history of tobacco and alcohol use patient states colonoscopy approximately 2 years ago in which he thinks he had diverticulosis and polyps. Patient states EGD many years ago unknown results. No family history of colon cancer but states father at the age of 67 with esophageal cancer. Patient denies any nausea or vomiting but does note some dyspepsia after eating 1 month. Has not been taking any PPIs and no relieving factors. Aggregating factors could be related to diet or timing of his meals. Discussions of potential procedures to evaluate further patient's diarrhea and bright red rectal bleeding as well as his dyspepsia has been offered. He preferred to reevaluate in 24 hours after his transfusion. Gastroenterology was called to evaluate GI symptoms as well as patient's bright red rectal bleeding and to follow his plan of care. We appreciate the consult. <Tanya Hernandez - Last Filed: 06/18/18 17:43> Review of Systems All other systems reviewed negative except as stated in HPI <Tanya Hernandez - Last Filed: 06/18/18 17:43> PMFSH - History History Provided By: Patient - Medical History Medical History: Medical History (Last Reviewed 06/18/18 @ 10:04 by Delisa Leon) COPD (chronic obstructive pulmonary disease) Alcohol abuse CVA (cerebral vascular accident) Hyperlipidemia Hypertension Knee arthropathy Tachycardia Tobacco abuse - Family History Family History: Family History (Last Reviewed 06/17/18 @ 14:08 by Mireille Banda) Father Esophageal cancer Other Family history of hypertension - Tobacco History Second Hand Smoke Exposure: Yes Tobacco Use In Past 30 Days: Yes Smoking Status: Heavy tobacco smoker Tobacco Type: Cigarettes - Alcohol History How Often Do You Have a Drink Containing Alcohol: 4 or more times a week - Substance Use History Substance History: No History of Abuse - Travel History History of Recent Travel: No Recent Travel in the [place] Within the Last 8 Weeks: No Recent Travel Out of the Country Within the Last 8 Weeks: No - Immunization History Tetanus Immunization: Unsure Hx Influenza Vaccine This Season: Yes <Tanya Hernandez - Last Filed: 06/18/18 17:43> - Medical History Medical History: Medical History (Last Reviewed 06/18/18 @ 10:04 by Delisa Leon) COPD (chronic obstructive pulmonary disease) Alcohol abuse CVA (cerebral vascular accident) Hyperlipidemia Hypertension Knee arthropathy Tachycardia Tobacco abuse - Family History Family History: Family History (Last Reviewed 06/17/18 @ 14:08 by Mireille Banda) Father Esophageal cancer Other Family history of hypertension <Norbert Morin - Last Filed: 06/19/18 15:46> Medications and Allergies Active Medications: Active Medications Acetaminophen (Tylenol) 650 mg PO Q4H PRN PRN Reason: SEE LABEL COMMENTS Last Admin: 06/18/18 14:22 Dose: 650 mg Hydrocodone Bitart/Acetaminophen ([place] 5/325) 1 tab PO Q4H PRN PRN Reason: PAIN SCALE 6 TO 10 Last Admin: 06/18/18 16:32 Dose: 1 tab Albuterol (Duoneb Neb (Prn)) 1 ampul NEB Q4HR NEB PRN PRN Reason: Shortness Of Breath/Wheezing Atorvastatin Calcium (Lipitor) 40 mg PO HS [facility] Last Admin: 06/17/18 20:37 Dose: 40 mg Budesonide/Formoterol Fumarate (Symbicort 160/4.5 Mcg Inh) 2 puff INH BID [facility] Last Admin: 06/18/18 08:45 Dose: 2 puff Diltiazem HCl (Cardizem) 30 mg PO QID PRN PRN Reason: TACHYCARDIA >120 Diltiazem HCl (Cardizem Cd 24hr) 240 mg PO DAILY [facility] Enoxaparin Sodium (Lovenox Inj) 40 mg SQ DAILY [facility] Last Admin: 06/13/18 08:56 Dose: 40 mg Famotidine (Pepcid) 20 mg PO BID [facility] Last Admin: 06/18/18 08:32 Dose: 20 mg Flumazenil (Romazecon Inj) 0.2 mg IV.PUSH Q1M PRN PRN Reason: OVERSEDATION Folic Acid (Folic Acid) 1 mg PO DAILY [facility] Last Admin: 06/18/18 08:32 Dose: 1 mg Haloperidol Lactate (Haldol Inj) 1 mg IV.PUSH Q15M PRN PRN Reason: for severe agitation Sodium Chloride (Ns Inj) 250 mls @ 15 mls/hr IV.SIG ONCE [facility] Stop: 06/19/18 06:39 Last Admin: 06/18/18 14:24 Dose: 15 mls/hr Latanoprost (Xalatan 0.005% Opth Drops) 1 drop EACH EYE [facility] Last Admin: 06/17/18 20:37 Dose: 1 drop Loperamide HCl (Imodium) 2 mg PO Q4H PRN PRN Reason: DIARRHEA Lorazepam (Ativan) 1 mg PO Q4H PRN PRN Reason: ANXIETY AND/OR AGITATION Last Admin: 06/17/18 22:09 Dose: 1 mg Naloxone HCl (Narcan Inj) 0.4 mg IV.PUSH PRN PRN PRN Reason: SEE LABEL COMMENTS Nicotine (Habitrol 14 Mg Patch.24 Hr) 1 patch T-DERMAL DAILY [facility] Last Admin: 06/18/18 08:34 Dose: 1 patch Ondansetron HCl (Zofran Odt) 4 mg PO Q6H PRN PRN Reason: NAUSEA OR VOMITING Patch Removal (Remove Old Patch) 1 each T-DERMAL HS [facility] Last Admin: 06/17/18 20:39 Dose: 1 each Prednisone (Deltasone) 20 mg PO DAILY [facility] Last Admin: 06/18/18 08:32 Dose: 20 mg Primidone (Mysoline) 50 mg PO BID [facility] Last Admin: 06/18/18 08:39 Dose: Not Given Temazepam (Restoril) 15 mg PO HS PRN PRN Reason: Insomnia Last Admin: 06/17/18 20:40 Dose: 15 mg Terazosin HCl (Hytrin) 1 mg PO HS [facility] Last Admin: 06/17/18 20:38 Dose: 1 mg Thiamine HCl (Vitamin B1) 100 mg PO BID [facility] Last Admin: 06/18/18 08:32 Dose: 100 mg <Tanya Hernandez - Last Filed: 06/18/18 17:43> Active Medications: Active Medications Acetaminophen (Tylenol) 650 mg PO Q4H PRN PRN Reason: SEE LABEL COMMENTS Last Admin: 06/18/18 14:22 Dose: 650 mg Hydrocodone Bitart/Acetaminophen ([place] 5/325) 1 tab PO Q4H PRN PRN Reason: PAIN SCALE 6 TO 10 Last Admin: 06/19/18 08:24 Dose: 1 tab Albuterol (Duoneb Neb (Prn)) 1 ampul NEB Q4HR NEB PRN PRN Reason: Shortness Of Breath/Wheezing Atorvastatin Calcium (Lipitor) 40 mg PO [facility] Last Admin: 06/18/18 20:35 Dose: 40 mg Budesonide/Formoterol Fumarate (Symbicort 160/4.5 Mcg Inh) 2 puff INH BID [facility] Last Admin: 06/19/18 08:30 Dose: 2 puff Diltiazem HCl (Cardizem) 30 mg PO QID PRN PRN Reason: TACHYCARDIA >120 Diltiazem HCl (Cardizem Cd 24hr) 240 mg PO DAILY [facility] Last Admin: 06/19/18 08:24 Dose: 240 mg Enoxaparin Sodium (Lovenox Inj) 40 mg SQ DAILY [facility] Last Admin: 06/13/18 08:56 Dose: 40 mg Famotidine (Pepcid) 20 mg PO BID [facility] Last Admin: 06/19/18 08:24 Dose: 20 mg Flumazenil (Romazecon Inj) 0.2 mg IV.PUSH Q1M PRN PRN Reason: OVERSEDATION Folic Acid (Folic Acid) 1 mg PO DAILY [facility] Last Admin: 06/19/18 08:24 Dose: 1 mg Haloperidol Lactate (Haldol Inj) 1 mg IV.PUSH Q15M PRN PRN Reason: for severe agitation Magnesium Sulfate/Dextrose (Magnesium Sulfate 1 Gm/D5w 100 Ml Premix) 100 mls @ 100 mls/hr IV.SIG Q1H [facility] Stop: 06/19/18 15:59 Latanoprost (Xalatan 0.005% Opth Drops) 1 drop EACH EYE [facility] Last Admin: 06/18/18 20:35 Dose: 1 drop Loperamide HCl (Imodium) 2 mg PO Q4H PRN PRN Reason: DIARRHEA Lorazepam (Ativan) 1 mg PO Q4H PRN PRN Reason: ANXIETY AND/OR AGITATION Last Admin: 06/18/18 23:06 Dose: 1 mg Naloxone HCl (Narcan Inj) 0.4 mg IV.PUSH PRN PRN PRN Reason: SEE LABEL COMMENTS Nicotine (Habitrol 14 Mg Patch.24 Hr) 1 patch T-DERMAL DAILY [facility] Last Admin: 06/19/18 08:25 Dose: 1 patch Ondansetron HCl (Zofran Odt) 4 mg PO Q6H PRN PRN Reason: NAUSEA OR VOMITING Pantoprazole Sodium (Protonix) 40 mg PO DAILY [facility] Last Admin: 06/19/18 08:24 Dose: 40 mg Patch Removal (Remove Old Patch) 1 each T-DERMAL HS [facility] Last Admin: 06/18/18 20:38 Dose: 1 each Prednisone (Deltasone) 20 mg PO DAILY [facility] Last Admin: 06/19/18 08:24 Dose: 20 mg Primidone (Mysoline) 50 mg PO BID [facility] Last Admin: 06/18/18 20:02 Dose: Not Given Temazepam (Restoril) 15 mg PO HS PRN PRN Reason: Insomnia Last Admin: 06/18/18 21:45 Dose: 15 mg Terazosin HCl (Hytrin) 1 mg PO HS [facility] Last Admin: 06/18/18 20:35 Dose: 1 mg Thiamine HCl (Vitamin B1) 100 mg PO BID [facility] Last Admin: 06/19/18 08:24 Dose: 100 mg <Norbert Morin - Last Filed: 06/19/18 15:46> Allergies Allergy/AdvReac Type Severity Reaction Status Date / Time No Known Allergies Allergy Verified 06/12/18 12:18 Home Medications Medication Instructions Recorded Confirmed Type albuterol sulfate 06/01/18 06/01/18 History cholecalciferol (vitamin D3) 1,000 unit PO DAILY 06/01/18 06/12/18 History [Vitamin D3] phytosterol-vit D3-fish oil 400 mg PO DAILY 06/01/18 06/12/18 History [Cholesterol Relief] phytosterol-vit D3-fish oil 400 mg PO DAILY 06/01/18 06/12/18 History [Cholesterol Relief] saw-vit E-sod [id number] 07/17/18 History [Prostate Health] thiamine HCl (vitamin B1) [Vitamin 100 mg PO BID 06/12/18 06/12/18 History B-1] Exam Vital signs: Vital Signs 06/17/18 20:19 06/17/18 22:09 06/18/18 00:00 Temperature 97.0 F L Pulse Rate 86 108 H Respiratory Rate 16 18 Blood Pressure 132/71 Pulse Oximetry 98 06/18/18 00:34 06/18/18 04:00 06/18/18 04:01 Temperature 97.0 F L 97.9 F Pulse Rate 96 H 105 H 93 H Respiratory Rate 16 17 Blood Pressure 130/92 H 127/79 Pulse Oximetry 96 96 06/18/18 08:00 06/18/18 12:00 06/18/18 14:48 Temperature 98.3 F 97.2 F L 97.6 F Pulse Rate 140 H 144 H 143 H Respiratory Rate 22 20 20 Blood Pressure 145/76 H 129/67 128/65 Pulse Oximetry 94 L 91 L 100 06/18/18 15:05 06/18/18 16:00 Temperature 98.7 F Pulse Rate 115 H 104 H Respiratory Rate 20 18 Blood Pressure 104/68 135/83 Pulse Oximetry 99 97 Intake & Output 06/17/18 06/18/18 06/18/18 18:59 06:59 18:59 Intake Total 783 / 783 480 / 480 1080 / 1080 Output Total 450 / 450 Balance 783 / 783 30 / 30 1080 / 1080 Weight 59 kg Intake: Oral 780 / 780 480 / 480 1080 / 1080 Oral Supplement 3 / 3 Intake (Blood Product) Amt 0 / 0 Rbc As-3 Leukoreduced Unit 0 / 0 [id number] Output: Urine 450 / 450 Other: # Voids 5 Date of Last Bowel Movement 06/17/18 06/17/18 06/18/18 # Bowel Movements 1 2 - Constitutional mild distress, chronically ill appearing - Routine HEENT Exam Head: Present: normocephalic, atraumatic ENT: Present: mucous membranes dry - Routine Neck Exam Present: supple - Routine Respiratory Exam Present: accessory muscle use (Mild), decreased breath sounds (Especially in the bases bilateral but no audible rhonchi or wheezing) - Routine Cardiovascular Exam Present: S1, S2 - Routine Abdominal Exam Present: soft (Round, bowel sounds active, no abdominal pain to light palpation) - Routine Extremities Exam Present: pulses intact (Some petechiae purpura noted on his upper extremities) - Routine Skin Exam Present: pallor, ecchymosis - Routine Neurological Exam Present: alert (Awake answering simple questions appropriately) <Tanya Hernandez - Last Filed: 06/18/18 17:43> Vital signs: Vital Signs 06/18/18 16:00 06/18/18 18:23 06/18/18 18:24 Temperature Pulse Rate 104 H 109 H 109 H Respiratory Rate 18 18 18 Blood Pressure 135/83 142/78 H 142/78 H Pulse Oximetry 97 98 98 06/18/18 20:00 06/18/18 21:47 06/18/18 22:14 Temperature 97.1 F L Pulse Rate 95 H 97 H Respiratory Rate 17 16 Blood Pressure 154/88 H Pulse Oximetry 99 06/18/18 23:08 06/19/18 00:00 06/19/18 04:00 Temperature 97.4 F L Pulse Rate 100 H 101 H 89 Respiratory Rate 18 Blood Pressure 139/80 Pulse Oximetry 96 06/19/18 04:46 06/19/18 08:00 06/19/18 12:00 Temperature 97.5 F L 97.9 F 97.8 F Pulse Rate 98 H 110 H 98 H Respiratory Rate 17 18 18 Blood Pressure 131/82 159/99 H 129/63 Pulse Oximetry 99 99 98 Intake & Output 06/18/18 06/19/18 06/19/18 18:59 06:59 18:59 Intake Total 1095 / 1095 960 / 960 Output Total 2350 / 2350 Balance 1095 / 1095 -1390 / -1390 Weight 58.8 kg Intake: Oral 1080 / 1080 960 / 960 Intake (Blood Product) Amt 0 / 0 Rbc As-3 Leukoreduced Unit 0 / 0 0 / 0 [id number] Rbc As-3 Leukoreduced Unit [id number] Output: Urine 2350 / 2350 Other: # Voids 5 Date of Last Bowel Movement 06/18/18 06/18/18 # Bowel Movements 2 <Norbert Morin - Last Filed: 06/19/18 15:46> Results - Labs CBC & Chem 7: 06/18/18 05:29 06/18/18 05:29 Labs: Laboratory Results - last 24 hr 06/17/18 06/18/18 06/18/18 17:55 05:29 05:29 WBC 17.0 H 14.8 H RBC 3.20 L 2.37 L Hgb 10.2 L D 7.5 L D Hct 29.6 L 21.8 L MCV 92.6 91.7 MCH 32.0 31.5 MCHC 34.5 34.4 RDW 14.5 14.1 Plt Count 391 331 MPV 7.1 7.3 Neut % (Auto) 89.1 H Lymph % (Auto) 5.2 L [place] % (Auto) 5.6 Eos % (Auto) 0.0 Baso % (Auto) 0.1 Neut # (Auto) 13.2 H Lymph # (Auto) 0.8 L [place] # (Auto) 0.8 Eos # (Auto) 0.0 Baso # (Auto) 0.0 WBC Differential . Differential Comment Auto diff final Sodium 136 Potassium 4.1 D Chloride 102 Carbon Dioxide 25.5 Anion Gap 9 BUN 29 H Creatinine 0.67 Estimated GFR Greater than 89 Random Glucose 110 H Calcium 7.6 L Total Bilirubin 0.2 AST 15 ALT 33 Alkaline Phosphatase 54 Total Protein 5.5 L D Albumin 2.0 L Vitamin B12 471 MTS Gel Crossmatch 06/18/18 13:30 WBC RBC Hgb Hct MCV MCH MCHC RDW Plt Count MPV Neut % (Auto) Lymph % (Auto) [place] % (Auto) Eos % (Auto) Baso % (Auto) Neut # (Auto) Lymph # (Auto) [place] # (Auto) Eos # (Auto) Baso # (Auto) WBC Differential Differential Comment Sodium Potassium Chloride Carbon Dioxide Anion Gap BUN Creatinine Estimated GFR Random Glucose Calcium Total Bilirubin AST ALT Alkaline Phosphatase Total Protein Albumin Vitamin B12 MTS Gel Crossmatch See Detail <Tanya Hernandez - Last Filed: 06/18/18 17:43> - Labs CBC & Chem 7: 06/19/18 08:02 06/19/18 08:02 Labs: Laboratory Results - last 24 hr 06/18/18 06/19/18 06/19/18 13:30 08:02 08:02 WBC 16.3 H RBC 3.85 L Hgb 11.5 L D Hct 34.4 L MCV 89.4 MCH 29.9 MCHC 33.5 RDW 16.3 Plt Count 370 MPV 6.8 L Neut % (Auto) 82.2 H Lymph % (Auto) 10.0 [place] % (Auto) 7.0 Eos % (Auto) 0.7 Baso % (Auto) 0.1 Neut # (Auto) 13.4 H Lymph # (Auto) 1.6 [place] # (Auto) 1.1 H Eos # (Auto) 0.1 Baso # (Auto) 0.0 WBC Differential . Differential Comment Auto diff final Sodium 137 Potassium 3.4 L Chloride 101 Carbon Dioxide 27.1 Anion Gap 9 BUN 22 H Creatinine 0.77 Estimated GFR Greater than 89 Random Glucose 70 L Calcium 8.2 L Phosphorus 2.5 Magnesium 1.4 L Total Bilirubin 0.6 AST 26 ALT 51 Alkaline Phosphatase 63 Total Protein 6.1 L D Albumin 2.4 L MTS Gel Crossmatch See Detail - Imaging Impressions Abdomen/Pelvis CT 06/19/18 00:00 CONCLUSION: 1. No acute findings on abdomen and pelvic CT. No evidence for metastatic disease. Colonic diverticulosis without diverticulitis. 2. Mass in right lower lobe, previously biopsied. Head MRI 06/19/18 00:00 CONCLUSION: 1. Age-related white matter changes. No evidence of metastatic disease. No evidence of acute abnormality. <Norbert Morin - Last Filed: 06/19/18 15:46> Assessment and Plan (1) Symptomatic anemia Status: Acute Code(s): D64.9 - Anemia, unspecified (2) Bright red rectal bleeding Status: Acute Code(s): K62.5 - Hemorrhage of anus and rectum (3) Dyspepsia Status: Acute Code(s): R10.13 - Epigastric pain (4) Diarrhea, unspecified Status: Acute Code(s): R19.7 - Diarrhea, unspecified - Plan 72-year-old male admitted to the hospital on 06/12/2018 with syncopal and dizzy episodes to the point that he was near syncope. Patient is also had symptomatic anemia with hemoglobins transitioning between 10.2 and 7.5 over the past few days patient received 2 units of packed RBCs yesterday and is currently receiving transfusion today WBC count 14.8 unspecified bilirubin and LFTs normal Bright red rectal bleeding seen over the past 24 hours and his continued with red blood in the toilet. Current hemoglobin today 7.5 symptomatic receiving transfusion Watery brown diarrhea onset approximately 2 weeks ago unspecified but could be related to medications patient's receiving versus infectious versus inflammatory. Patient has a new 4.5 cm right lower lobe mass seen on CTA being followed by hematology and oncology for plan of care Dyspepsia especially after eating 1 month onset with worsening symptoms. Unknown aggravating factors except for the fact that it is after food consumption and patient states decreased appetite and not eating late at night. Aggregating factors could be related to patient's alcohol and tobacco use patient's currently not been on any meds. Family history of father esophageal cancer at the age of 67. Patient had EGD many years ago, unknown results and timing. Patient states colonoscopy approximately 2 years ago with polyps and diverticulosis. Plan Diet as tolerated per attending encourage patient to take p.o. fluids Consider EGD and colonoscopy, possible Thursday or Thursday. Currently patient wants to wait and reevaluate tomorrow and see how he is feeling post his blood transfusion he did state that he could not tolerate GoLYTELY and would refuse colonoscopy if he had to drink it. We discussed other options that could be available for him and he said he would think about it Monitor labs with special attention to hemoglobin and transfuse as needed PPI Anti-medics Monitor bright red rectal bleeding in any diarrhea. Will check for C. difficile Further recommendations to follow supportive care Patient was seen per myself and Dr. Morin, note was written on his behalf <Tanya Hernandez - Last Filed: 06/18/18 17:43> (1) Symptomatic anemia Status: Acute Code(s): D64.9 - Anemia, unspecified (2) Bright red rectal bleeding Status: Acute Code(s): K62.5 - Hemorrhage of anus and rectum (3) Dyspepsia Status: Acute Code(s): R10.13 - Epigastric pain (4) Diarrhea, unspecified Status: Acute Code(s): R19.7 - Diarrhea, unspecified - Plan Seen and examined with [employer], no bleeding. Good response to transfusion. Waiting to go for CT abdomen/pelvis. Still not agreeable to gi burrell. Wants to wait on CT results first. - Attending Attestation The exam, history, and the medical decision-making described in the above note were completed with the assistance of the mid-level provider. I reviewed and agree with the findings presented. I attest that I had a [id number] encounter with the patient on the same day, and personally performed and documented my assessment and findings in the medical record. <Norbert Morin - Last Filed: 06/19/18 15:46>
--- NOTE | 2018-06-18 18:04 | P.PNONC ---
Subjective Interval history: Resting comfortably in bed in no distress Reports tarry black bowel movements Objective Vital Signs/Intake & Output: Vital Signs 06/17/18 20:19 06/17/18 22:09 06/18/18 00:00 Temperature 97.0 F L Pulse Rate 86 108 H Respiratory Rate 16 18 Blood Pressure 132/71 Pulse Oximetry 98 06/18/18 00:34 06/18/18 04:00 06/18/18 04:01 Temperature 97.0 F L 97.9 F Pulse Rate 96 H 105 H 93 H Respiratory Rate 16 17 Blood Pressure 130/92 H 127/79 Pulse Oximetry 96 96 06/18/18 08:00 06/18/18 12:00 06/18/18 14:48 Temperature 98.3 F 97.2 F L 97.6 F Pulse Rate 140 H 144 H 143 H Respiratory Rate 22 20 20 Blood Pressure 145/76 H 129/67 128/65 Pulse Oximetry 94 L 91 L 100 06/18/18 15:05 06/18/18 16:00 Temperature 98.7 F Pulse Rate 115 H 104 H Respiratory Rate 20 18 Blood Pressure 104/68 135/83 Pulse Oximetry 99 97 Intake & Output 06/17/18 06/18/18 06/18/18 18:59 06:59 18:59 Intake Total 783 / 783 480 / 480 1080 / 1080 Output Total 450 / 450 Balance 783 / 783 30 / 30 1080 / 1080 Weight 59 kg Intake: Oral 780 / 780 480 / 480 1080 / 1080 Oral Supplement 3 / 3 Intake (Blood Product) Amt 0 / 0 Rbc As-3 Leukoreduced Unit 0 / 0 [id number] Output: Urine 450 / 450 Other: # Voids 5 Date of Last Bowel Movement 06/17/18 06/17/18 06/18/18 # Bowel Movements 1 2 Result Diagrams: 06/18/18 05:29 06/18/18 05:29 Laboratory Results: Laboratory Results - last 24 hr 06/17/18 06/18/18 06/18/18 17:55 05:29 05:29 WBC 17.0 H 14.8 H RBC 3.20 L 2.37 L Hgb 10.2 L D 7.5 L D Hct 29.6 L 21.8 L MCV 92.6 91.7 MCH 32.0 31.5 MCHC 34.5 34.4 RDW 14.5 14.1 Plt Count 391 331 MPV 7.1 7.3 Neut % (Auto) 89.1 H Lymph % (Auto) 5.2 L [place] % (Auto) 5.6 Eos % (Auto) 0.0 Baso % (Auto) 0.1 Neut # (Auto) 13.2 H Lymph # (Auto) 0.8 L [place] # (Auto) 0.8 Eos # (Auto) 0.0 Baso # (Auto) 0.0 WBC Differential . Differential Comment Auto diff final Sodium 136 Potassium 4.1 D Chloride 102 Carbon Dioxide 25.5 Anion Gap 9 BUN 29 H Creatinine 0.67 Estimated GFR Greater than 89 Random Glucose 110 H Calcium 7.6 L Total Bilirubin 0.2 AST 15 ALT 33 Alkaline Phosphatase 54 Total Protein 5.5 L D Albumin 2.0 L Vitamin B12 471 MTS Gel Crossmatch 06/18/18 13:30 WBC RBC Hgb Hct MCV MCH MCHC RDW Plt Count MPV Neut % (Auto) Lymph % (Auto) [place] % (Auto) Eos % (Auto) Baso % (Auto) Neut # (Auto) Lymph # (Auto) [place] # (Auto) Eos # (Auto) Baso # (Auto) WBC Differential Differential Comment Sodium Potassium Chloride Carbon Dioxide Anion Gap BUN Creatinine Estimated GFR Random Glucose Calcium Total Bilirubin AST ALT Alkaline Phosphatase Total Protein Albumin Vitamin B12 MTS Gel Crossmatch See Detail Culture Results: Microbiology 06/12/18 14:25 Aerobic Blood Culture - Final Blood - Peripheral No growth in 5 days Anaerobic Blood Culture - Final No growth in 5 days 06/12/18 14:30 Aerobic Blood Culture - Final Blood - Peripheral No growth in 5 days Anaerobic Blood Culture - Final No growth in 5 days Medications: Active Medications Generic Name Dose Route Start Last Admin Trade Name Freq PRN Reason Stop Dose Admin Acetaminophen 650 mg 06/18/18 13:30 06/18/18 14:22 Tylenol PO 650 mg Q4H PRN Administration SEE LABEL COMMENTS Hydrocodone Bitart/Acetaminophen 1 tab 06/15/18 18:29 06/18/18 16:32 [place] 5/325 PO 1 tab Q4H PRN Administration PAIN SCALE 6 TO 10 Atorvastatin Calcium 40 mg 06/12/18 21:00 06/17/18 20:37 Lipitor PO 40 mg HS MIGEL Administration Budesonide/Formoterol Fumarate 2 puff 06/12/18 21:00 06/18/18 08:45 Symbicort 160/4.5 Mcg Inh INH 2 puff BID MIGEL Administration Enoxaparin Sodium 40 mg 06/13/18 09:00 06/13/18 08:56 Lovenox Inj SQ 40 mg DAILY MIGEL Administration Famotidine 20 mg 06/12/18 21:00 06/18/18 08:32 Pepcid PO 20 mg BID MIGEL Administration Folic Acid 1 mg 06/13/18 09:00 06/18/18 08:32 Folic Acid PO 1 mg DAILY MIGEL Administration Sodium Chloride 250 mls @ 15 mls/hr 06/18/18 14:00 06/18/18 14:24 Ns Inj IV.SIG 06/19/18 06:39 15 mls/hr ONCE MIGEL Administration Latanoprost 1 drop 06/12/18 21:00 06/17/18 20:37 Xalatan 0.005% Opth Drops EACH EYE 1 drop HS MIGEL Administration Lorazepam 1 mg 06/12/18 20:59 06/17/18 22:09 Ativan PO 1 mg Q4H PRN Administration ANXIETY AND/OR AGITATION Nicotine 1 patch 06/13/18 12:45 06/18/18 08:34 Habitrol 14 Mg Patch.24 Hr T-DERMAL 1 patch DAILY MIGEL Administration Patch Removal 1 each 06/13/18 21:00 06/17/18 20:39 Remove Old Patch T-DERMAL 1 each HS MIGEL Administration Prednisone 20 mg 06/13/18 09:00 06/18/18 08:32 Deltasone PO 20 mg DAILY MIGEL Administration Primidone 50 mg 06/12/18 21:00 06/18/18 08:39 Mysoline PO Not Given BID MIGEL Temazepam 15 mg 06/12/18 16:40 06/17/18 20:40 Restoril PO 15 mg HS PRN Administration Insomnia Terazosin HCl 1 mg 06/12/18 21:00 06/17/18 20:38 Hytrin PO 1 mg HS MIGEL Administration Thiamine HCl 100 mg 06/12/18 21:00 06/18/18 08:32 Vitamin B1 PO 100 mg BID MIGEL Administration Objective Remarks: GENERAL: Well-nourished, well-developed patient. SKIN: Warm and dry. HEAD: Normocephalic. EYES: No scleral icterus. No injection or drainage. NECK: Supple, trachea midline. No JVD or lymphadenopathy. LYMPHATIC: No adenopathy. CARDIOVASCULAR: Regular rate and rhythm without murmurs. RESPIRATORY: Breath sounds equal bilaterally. No accessory muscle use. GASTROINTESTINAL: Abdomen soft, non-tender, nondistended. EXTREMITIES: No cyanosis, or edema. MUSCULOSKELETAL: Adequate muscle tone. NEUROLOGICAL: No obvious focal deficit. Awake, alert, and oriented x3. PSYCHIATRIC: Appropriate mood and affect; insight and judgment normal. Assessment/Plan - Plan 1. SCC of the right lung: patient will need to have PET CT scan performed in the outpatient setting. Will obtain MRI brain and CT abdomen/pelvis during his hospital stay 2. GIB: melena s/p transfusion of PRBC. GI team consulted and will plan for scope. Inpatient hematology/oncology service will continue to follow
[2018-06-18] MEDS ORDERED: Diatrizoate Meglum/Diatrizoate Sod Liq 9 ML UDC PO ONE (20:00)
[2018-06-18] MEDS: Latanoprost 0.005% Opth Drops 2.5 ML Bottle EACH EYE SCH (20:35)
--- NOTE | 2018-06-18 21:20 | P.PNPL ---
Subjective Interval history: 72 YOWM with COPD, lung mass Bx Sq cell ca lung Has GIB Receiving PRBC Physical Exam Vital signs: Vital Signs 06/17/18 22:09 06/18/18 00:00 06/18/18 00:34 Temperature 97.0 F L Pulse Rate 108 H 96 H Respiratory Rate 18 16 Blood Pressure 130/92 H Pulse Oximetry 96 06/18/18 04:00 06/18/18 04:01 06/18/18 08:00 Temperature 97.9 F 98.3 F Pulse Rate 105 H 93 H 140 H Respiratory Rate 17 22 Blood Pressure 127/79 145/76 H Pulse Oximetry 96 94 L 06/18/18 12:00 06/18/18 14:48 06/18/18 15:05 Temperature 97.2 F L 97.6 F 98.7 F Pulse Rate 144 H 143 H 115 H Respiratory Rate 20 20 20 Blood Pressure 129/67 128/65 104/68 Pulse Oximetry 91 L 100 99 06/18/18 16:00 06/18/18 18:23 06/18/18 18:24 Temperature Pulse Rate 104 H 109 H 109 H Respiratory Rate 18 18 18 Blood Pressure 135/83 142/78 H 142/78 H Pulse Oximetry 97 98 98 Intake & Output 06/18/18 06/18/18 06/19/18 06:59 18:59 06:59 Intake Total 480 / 480 1095 / 1095 Output Total 450 / 450 Balance 30 / 30 1095 / 1095 Weight 59 kg Intake: Oral 480 / 480 1080 / 1080 Intake (Blood Product) Amt Rbc As-3 Leukoreduced Unit 0 / 0 [id number] Rbc As-3 Leukoreduced Unit [id number] Output: Urine 450 / 450 Other: # Voids 5 Date of Last Bowel Movement 06/17/18 06/18/18 # Bowel Movements 1 2 GENERAL: Elderly WM, weak, NAD SKIN: Warm and dry. HEAD: Normocephalic. EYES: No scleral icterus. No injection or drainage. NECK: Supple, trachea midline. No JVD or lymphadenopathy. CARDIOVASCULAR: Regular rate and rhythm without murmurs, gallops, or rubs. RESPIRATORY: Breath sounds equal bilaterally. No accessory muscle use. GASTROINTESTINAL: Abdomen soft, non-tender, nondistended. MUSCULOSKELETAL: No cyanosis, or edema. BACK: Nontender without obvious deformity. No CVA tenderness. Assessment and Plan - Plan IMPRESSION: Sq cell ca lung COPD GIB Anemia PLAN: Aerosol nebs PRBC monitor H/H
[2018-06-18] MEDS: Temazepam 15 MG Capsule PO PRN (21:45)
[2018-06-18] MEDS: LORazepam 1 MG Tablet PO PRN (23:06)
[2018-06-19] MEDS ORDERED: Gadobutrol PF 7.5 MMOL/7.5 ML Vial (for RAD) IV.SIG ONE (07:39)
--- NOTE | 2018-06-19 08:07 | MR ---
EXAM DATE: 06/19/2018 7:43 AM EDT AGE/SEX: 72 years / Male INDICATIONS: . Lung mass. Evaluate for metastatic disease. CLINICAL DATA: This is the patient's initial encounter. Patient reports that signs and symptoms have been present for 4 - 6 days and indicates a pain score of 2/10. MEDICAL/SURGICAL HISTORY: Cerebrovascular disease. Chronic obstructive pulmonary disease. Hyp ercholesterolemia. Hypertension. Osteoarthritis. . Cataracts. Lung biopsy. COMPARISON: Noncontrast head CT dated June 13, 2018. TECHNIQUE: Multiplanar, multisequence examination of the brain was performed without and with 6cc ml Gadavist (gadobutrol) contrast as a single exam dose. FINDINGS: Cerebrum: The ventricles are normal for age. No evidence of midline shift, mass lesion, hemorrhage or acute infarction. No extraaxial fluid collections are seen. The pituitary gland and suprasellar cistern are normal in configuration. White Matter: Periventricular white matter hyperintensity.. Posterior Fossa: The cerebellum and brainstem are intact. The 4th ventricle is midline. The cerebel lopontine angle is unremarkable. The cerebellar tonsils are normal in position. Diffusion Imaging: No focal areas of restricted diffusion are seen. No evidence of acute infarction . Extracranial: The visualized portions of the orbits and paranasal sinuses are unremarkable. Post Contrast: No abnormal areas of parenchymal or dural enhancement. No evidence of blood-brain ba rrier breakdown. CONCLUSION: 1. Age-related white matter changes. No evidence of metastatic disease. No evidence of acute abnorma lity. Electronically signed by: Gale Alex MD 06/19/2018 8:06 AM EDT
[2018-06-19] MEDS: Folic Acid 1 MG Tablet PO SCH (08:24)
[2018-06-19] MEDS: Famotidine 20 MG Tablet PO SCH ×2 (08:24→20:03)
[2018-06-19] MEDS: predniSONE 20 MG Tablet PO SCH (08:24)
[2018-06-19] MEDS: dilTIAZem CD 240 MG Capsule PO SCH (08:24)
[2018-06-19] MEDS: Primidone 50 MG Tablet PO SCH ×2 (08:25→20:06)
[2018-06-19] MEDS: Budesonide-Formoterol 160/4.5 MCG 6 GM Inhaler INH SCH ×2 (08:30→20:06)
[2018-06-19] MEDS ORDERED: Diatrizoate Meglum/Diatrizoate Sod Liq 9 ML UDC PO ONE (08:30)
[2018-06-19 09:42] LABS: Baso % (Auto) 0.1 % (0.0-2.0); Eos # (Auto) 0.1 th/mm3 (0.0-0.4); Eos % (Auto) 0.7 % (0.0-4.0); Hematocrit 34.4 % (39.0-51.0); Hemoglobin 11.5 gm/dL (13.0-17.0); Lymph # (Auto) 1.6 th/mm3 (1.0-4.8); Mean Corpuscular HGB Conc 33.5 % (32.0-36.0); Mean Corpuscular Hemoglobin 29.9 pg (27.0-34.0); Mean Corpuscular Volume 89.4 fL (80.0-100.0); Mean Platelet Volume 6.8 fL (7.0-11.0); Mono # (Auto) 1.1 th/mm3 (0.0-0.9); Neut # (Auto) 13.4 th/mm3 (1.8-7.7); Neut % (Auto) 82.2 % (16.0-70.0); Platelet Count 370 th/mm3 (150-450); Red Blood Count 3.85 mil/mm3 (4.50-5.90); Red Cell Distribution Width 16.3 % (11.6-17.2); White Blood Count 16.3 th/mm3 (4.0-11.0)
[2018-06-19 10:10] LABS: Albumin 2.4 g/dL (3.4-5.0); Anion Gap 9 meq/L (5-15); Aspartate Aminotransferase 26 U/L (15-37); Blood Urea Nitrogen 22 mg/dL (7-18); Calcium 8.2 mg/dL (8.5-10.1); Carbon Dioxide 27.1 meq/L (21.0-32.0); Chloride 101 meq/L (98-107); Glomerular Filtration Rate Greater Than 89 mL/min (>89); Glucose,Random 70 mg/dL (74-106); Magnesium 1.4 mg/dL (1.5-2.5); Potassium 3.4 meq/L (3.5-5.1); Sodium 137 meq/L (136-145)
[2018-06-19 10:11] LABS: Alanine Aminotransferase 51 U/L (12-78); Phosphorus 2.5 mg/dL (2.5-4.9)
[2018-06-19 10:12] LABS: Alkaline Phosphatase 63 U/L (45-117); Total Protein 6.1 g/dL (6.4-8.2)
--- NOTE | 2018-06-19 12:51 | P.PNPL ---
Subjective Interval history: 72 YOWM with COPD, lung mass Bx Sq cell ca lung Has GIB No BM today Physical Exam Vital signs: Vital Signs 06/18/18 14:48 06/18/18 15:05 06/18/18 16:00 Temperature 97.6 F 98.7 F Pulse Rate 143 H 115 H 104 H Respiratory Rate 20 20 18 Blood Pressure 128/65 104/68 135/83 Pulse Oximetry 100 99 97 06/18/18 18:23 06/18/18 18:24 06/18/18 20:00 Temperature Pulse Rate 109 H 109 H 95 H Respiratory Rate 18 18 Blood Pressure 142/78 H 142/78 H Pulse Oximetry 98 98 06/18/18 21:47 06/18/18 22:14 06/18/18 23:08 Temperature 97.1 F L 97.4 F L Pulse Rate 97 H 100 H Respiratory Rate 17 16 18 Blood Pressure 154/88 H 139/80 Pulse Oximetry 99 96 06/19/18 00:00 06/19/18 04:00 06/19/18 04:46 Temperature 97.5 F L Pulse Rate 101 H 89 98 H Respiratory Rate 17 Blood Pressure 131/82 Pulse Oximetry 99 06/19/18 08:00 06/19/18 12:00 Temperature 97.9 F 97.8 F Pulse Rate 110 H 98 H Respiratory Rate 18 18 Blood Pressure 159/99 H 129/63 Pulse Oximetry 99 98 Intake & Output 06/18/18 06/19/18 06/19/18 18:59 06:59 18:59 Intake Total 1095 / 1095 960 / 960 Output Total 2350 / 2350 Balance 1095 / 1095 -1390 / -1390 Weight 58.8 kg Intake: Oral 1080 / 1080 960 / 960 Intake (Blood Product) Amt 0 / 0 Rbc As-3 Leukoreduced Unit 0 / 0 0 / 0 [id number] Rbc As-3 Leukoreduced Unit [id number] Output: Urine 2350 / 2350 Other: # Voids 5 Date of Last Bowel Movement 06/18/18 06/18/18 # Bowel Movements 2 GENERAL: Elderly WM, weak, NAD SKIN: Warm and dry. HEAD: Normocephalic. EYES: No scleral icterus. No injection or drainage. NECK: Supple, trachea midline. No JVD or lymphadenopathy. CARDIOVASCULAR: Regular rate and rhythm without murmurs, gallops, or rubs. RESPIRATORY: Breath sounds equal bilaterally. No accessory muscle use. GASTROINTESTINAL: Abdomen soft, non-tender, nondistended. MUSCULOSKELETAL: No cyanosis, or edema. BACK: Nontender without obvious deformity. No CVA tenderness. Assessment and Plan - Plan IMPRESSION: Sq cell ca lung COPD GIB Anemia PLAN: Aerosol nebs monitor H/H Diltiazem 30 mg qid SQ lovenox.
[2018-06-19] MEDS ORDERED: Potassium Bicarbonate 25 MEQ Effervescent Tablet PO ONE (13:32)
--- NOTE | 2018-06-19 13:34 | P.PNIM ---
Subjective Interval history: 72-year-old W male being admitted for syncope. Patient was in his usual state of health until sometime yesterday when he began experiencing lightheadedness. Says he was ambulating in his home and was only a few steps away from a chair but felt himself pass out and he landed forward into his chair, not striking any hard surfaces. Says he only passed out for a few seconds. This morning the patient felt lightheaded even upon resting, says he took a blood pressure measurement and says the systolic number was in the 80s , says he had a home care nurse accessible to him at the time and she advised him to refrain from taking his blood pressure medications. Denies having any nausea or chest pain. Says he is feeling more short of breath than usual and is unable to ascertain if his cough is any worse than usual. Denies any fevers or chills. Reports feeling substantially weaker than he did the last time he was discharged may be a week ago. Still has right leg pain periodically. Patient denies having any cardiac disease. Most recently the patient was discharged from the hospital about 1 wk ago for substantial right lower leg pain that impaired his ability to walk. He eventually regained enough strength to go home with home care. He had chest x- ray done at that time which showed a suspicious findings suggestive of a mass versus pneumonia. A CT abdomen pelvis that was done shows at least a 4 cm mass highly suspicious for malignancy. In the emergency department the patient had an EKG done which on my independent review looks like it is sinus rhythm with very diminished P waves at best. Blood pressure seems to be very stable. Patient undergone another chest x-ray which I eventually reviewed which shows the same masslike appearing lesion on the right lung field, per radiology seems to be unchanged since his last CXR. Pt states he has knowledge of a mass on his left lung from 2 months ago and has not gotten into see pulmonology yet. 06-13 Pt seen and examined for f/u syncope and lung mass. He reports he is feeling "awful." Complains of pain down entire left leg especially his knee. Reports it goes from his foot to his buttock. He has been treated for sciatica recently. Pain is constant, even at rest. The patient denies any CP, SOB, abdominal pain, or paresthesias. He is aware of large hilar mass and understands the need for biopsy. However, he has questions regarding cost of biopsy as inpatient vs. outpatient and would like to speak to someone about this. 7-30 Pt seen and examined. AFVSS. No acute events overnight. Pt's main concern continues to be pain in his left leg. He states the Ofirmev helps. We discussed his CT findings from last admission showing degenerative disc disease with some foraminal narrowing at the level of L5-S1 which is likely contributing to his symptoms. Advised that we need to pursue PT for this prior to any possible more invasive measures. He reports he should have gone to rehab the last admission and hopes to be discharged to some form of inpatient rehab or SNF after this hospitalization. From a breathing standpoint he reports he is stable other than occasional dry cough. Denies CP, abdominal pain, N/V. 731 Patient remains short of breath and weak. He underwent lung biopsy on his right lower lobe lung mass and is awaiting biopsy results. No new complaints. 8-1 Admit patient today while he was returning from the bathroom. His heart rate was up to 170, dyspneic, off of oxygen. We had a discussion about his hemoglobin which is down to 7.2. I have already ordered blood transfusions and he is accepting of this. 8-2 Patient received 2 units of packed red blood cells yesterday, today he states he feels no better, still tired and fatigued. He says that he was exposed to possible mold in his home which has a leaky roof. He asks that this might be causing his 3-4 month pattern of increasing fatigue, I reminded him that it could also be a lung mass that were working up. 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 PATIENT WILL NEED OUTPT PET SCAN WILL NEED REHAB IF CAN GET IT AUTHORIZED 8-4 having cat scans of abdomen and HAD MRI OF HEAD-(HEAD IS STABLE) SEEN BY GI AM LABS DW RN AND PT AND CM REPLACE MAG REPLACE POTASSIUM Physical Exam Vital signs: Vital Signs 06/18/18 14:48 06/18/18 15:05 06/18/18 16:00 Temperature 97.6 F 98.7 F Pulse Rate 143 H 115 H 104 H Respiratory Rate 20 20 18 Blood Pressure 128/65 104/68 135/83 Pulse Oximetry 100 99 97 08/03/18 18:23 06/18/18 18:24 06/18/18 20:00 Temperature Pulse Rate 109 H 109 H 95 H Respiratory Rate 18 18 Blood Pressure 142/78 H 142/78 H Pulse Oximetry 98 98 06/18/18 21:47 06/18/18 22:14 06/18/18 23:08 Temperature 97.1 F L 97.4 F L Pulse Rate 97 H 100 H Respiratory Rate 17 16 18 Blood Pressure 154/88 H 139/80 Pulse Oximetry 99 96 06/19/18 00:00 06/19/18 04:00 06/19/18 04:46 Temperature 97.5 F L Pulse Rate 101 H 89 98 H Respiratory Rate 17 Blood Pressure 131/82 Pulse Oximetry 99 06/19/18 08:00 06/19/18 12:00 Temperature 97.9 F 97.8 F Pulse Rate 110 H 98 H Respiratory Rate 18 18 Blood Pressure 159/99 H 129/63 Pulse Oximetry 99 98 Intake & Output 06/18/18 06/19/18 06/19/18 18:59 06:59 18:59 Intake Total 1095 / 1095 960 / 960 Output Total 2350 / 2350 Balance 1095 / 1095 -1390 / -1390 Weight 58.8 kg Intake: Oral 1080 / 1080 960 / 960 Intake (Blood Product) Amt 0 / 0 Rbc As-3 Leukoreduced Unit 0 / 0 0 / 0 [id number] Rbc As-3 Leukoreduced Unit [id number] Output: Urine 2350 / 2350 Other: # Voids 5 Date of Last Bowel Movement 06/18/18 06/18/18 # Bowel Movements 2 Narrative: GENERAL: AAOx3, weak, fatigued, off oxygen SKIN: Warm and dry. No rashes HEAD: Atruamtic, normocephalic. EYES: No scleral icterus. No injection or drainage. ENT: Moist mucous membranes, patent nares, no erythema of oropharynx. NECK: Supple, trachea midline. No JVD or lymphadenopathy. Normal thyroid. CARDIOVASCULAR: Regular rate and rhythm. No murmurs, gallops, or rubs. RESPIRATORY: Congestive sounds in bilateral bases. No crackles or wheezes. No accessory muscle use. GASTROINTESTINAL: Abdomen soft, non-tender, nondistended, normal active bowel sounds MUSCULOSKELETAL: No cyanosis, or edema. NEURO: CN II-XII grossly intact, no focal deficits, no slurring of speech Results - Labs CBC & Chem 7: 06/19/18 08:02 06/19/18 08:02 Laboratory Results - last 24 hr 06/18/18 06/19/18 06/19/18 13:30 08:02 08:02 WBC 16.3 H RBC 3.85 L Hgb 11.5 L D Hct 34.4 L MCV 89.4 MCH 29.9 MCHC 33.5 RDW 16.3 Plt Count 370 MPV 6.8 L Neut % (Auto) 82.2 H Lymph % (Auto) 10.0 [place] % (Auto) 7.0 Eos % (Auto) 0.7 Baso % (Auto) 0.1 Neut # (Auto) 13.4 H Lymph # (Auto) 1.6 [place] # (Auto) 1.1 H Eos # (Auto) 0.1 Baso # (Auto) 0.0 WBC Differential . Differential Comment Auto diff final Sodium 137 Potassium 3.4 L Chloride 101 Carbon Dioxide 27.1 Anion Gap 9 BUN 22 H Creatinine 0.77 Estimated GFR Greater than 89 Random Glucose 70 L Calcium 8.2 L Phosphorus 2.5 Magnesium 1.4 L Total Bilirubin 0.6 AST 26 ALT 51 Alkaline Phosphatase 63 Total Protein 6.1 L D Albumin 2.4 L MTS Gel Crossmatch See Detail - Imaging Impressions Head MRI 06/19/18 00:00 CONCLUSION: 1. Age-related white matter changes. No evidence of metastatic disease. No evidence of acute abnormality. - Procedures Jey Hough CT biopsy lung RT Signed EXAM DATE: 06/14/2018 2:46 PM EDT AGE/SEX: 72 years / Male INDICATIONS: Mass. CLINICAL DATA: This is the patient's initial encounter. Patient reports that signs and symptoms have been present for 1 day and indicates a pain score of 0/ 10. MEDICAL/SURGICAL HISTORY: Chronic obstructive pulmonary disease. Stroke. Hypertension. None. COMPARISON: [facility] [place], CTA PULMONARY W CONTRAST W 3D, 06/12/2018. . BIOPSY SITE: Right lung MEDICATION(S): 2mg midazolam (Versed) IV 100mcg fentanyl (Sublimaze) IV DEVICE(S): 20 gauge BARD biopsy needle Three core specimen(s) sent to the laboratory for pathologic evaluation. . . PROCEDURE: CT guided Right lung biopsy Conscious sedation with continuous EKG and oximetry monitoring. EKG and oximetry remained stable throughout the procedure. Prior to the procedure informed consent was obtained. Any appropriate prior imaging studies were reviewed. Using automated exposure control and adjustment of the mA and/or kV according to patient size, radiation dose was kept as low as reasonably achievable to obtain optimal diagnostic quality images. DICOM format image data is available electronically for review and comparison. The site was prepped in a sterile fashion. Full sterile technique was used, including cap, mask, sterile gloves and gown and a large sterile sheet. Hand hygiene and 2% chlorhexidine and/or betadine/alcohol prep was utilized per protocol for cutaneous antisepsis. The skin and subcutaneous tissues were infiltrated with local anesthetic solution. With CT guidance the previously identified target was localized. Biopsy was performed using the prescribed needle as above. Adequate hemostasis was obtained with compression at the puncture site. Follow-up CT scan reveals no pneumothorax. Conscious sedation was performed with the prescribed dosages and duration as above in the presence of an independent trained radiology nurse to assist in the monitoring of the patient. EKG and oximetry remained stable throughout the procedure. The patient tolerated the procedure well and there were no complications. The patient was sent to Radiology Outpatient Unit in stable condition. FINDINGS: CONCLUSION: Uncomplicated CT guided biopsy of right lower lobe pulmonary mass. Assessment and Plan - Assessment (1) Syncope Code(s): R55 - Syncope and collapse Status: Acute (2) Mass of lower lobe of right lung Code(s): R91.8 - Other nonspecific abnormal finding of lung field Status: Acute (3) Bronchitis Code(s): J40 - Bronchitis, not specified as acute or chronic Status: Acute - Plan 72 YO WM with history of COPD, CVA, HLD, HTN, and tobacco abuse admitted 06/12 for syncope and shortness of breath. 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 PER PATHOLOGY Appreciate pulmonology consult Appreciate oncology consult Anemia CBC ordered today, s/p transfusion of 2 units of packed red blood cells Dyspnea, COPD exacerbation COPD exacerbation aggravated by presence of right lower lobe mass Continue supplemental oxygen and DuoNeb's Single dose of Solu-Medrol given today Follow leukocytosis trend Consider steroid effect Syncopal episode Occurred at home while ambulating CTA negative for PE, CT head showed no stroke Telemetry shows sinus rhythm with frequent PACs 2D echocardiogram shows normal left ventricular function, ejection fraction 60- 65% HTN Continue Lisinopril and Terazosin Sciatica Pt complaining of LLE pain from foot to buttock Multilevel neural foraminal narrowing Continue PT HYPOMAGNESIUM WE WILL REPLACE HYPOKALEMIA WE WILL REPLACE GENERALIZED WEAKNESS NEEDS SNF FOR AGGRESSIVE PT AND OT DVT Prophylaxis Lovenox AM LABS Code Status: FULL CODE Discussed Condition With: RN AND PT Discharge Planning: PENDING CLEARANCE OF ONCOLOGY AND SNF ACCEPTANCE (1) Syncope Qualifiers: Syncope type: unspecified Qualified Code(s): R55 - Syncope and collapse
--- NOTE | 2018-06-19 14:24 | P.PNGI ---
Subjective Interval history: Patient is sitting up in the chair but states he still feels very weak No nausea no vomiting no obvious blood noted Denies any abdominal pain, no bowel movement today Hemoglobin now 11.5, WBC count 16.3 Patient also been treated for squamous cell lung mass <Tanya Hernandez - Last Filed: 06/19/18 14:39> Physical Exam Vital signs: Vital Signs 06/18/18 14:48 06/18/18 15:05 06/18/18 16:00 Temperature 97.6 F 98.7 F Pulse Rate 143 H 115 H 104 H Respiratory Rate 20 20 18 Blood Pressure 128/65 104/68 135/83 Pulse Oximetry 100 99 97 06/18/18 18:23 06/18/18 18:24 06/18/18 20:00 Temperature Pulse Rate 109 H 109 H 95 H Respiratory Rate 18 18 Blood Pressure 142/78 H 142/78 H Pulse Oximetry 98 98 06/18/18 21:47 06/18/18 22:14 06/18/18 23:08 Temperature 97.1 F L 97.4 F L Pulse Rate 97 H 100 H Respiratory Rate 17 16 18 Blood Pressure 154/88 H 139/80 Pulse Oximetry 99 96 06/19/18 00:00 06/19/18 04:00 06/19/18 04:46 Temperature 97.5 F L Pulse Rate 101 H 89 98 H Respiratory Rate 17 Blood Pressure 131/82 Pulse Oximetry 99 06/19/18 08:00 06/19/18 12:00 Temperature 97.9 F 97.8 F Pulse Rate 110 H 98 H Respiratory Rate 18 18 Blood Pressure 159/99 H 129/63 Pulse Oximetry 99 98 Intake & Output 06/18/18 06/19/18 06/19/18 18:59 06:59 18:59 Intake Total 1095 / 1095 960 / 960 Output Total 2350 / 2350 Balance 1095 / 1095 -1390 / -1390 Weight 58.8 kg Intake: Oral 1080 / 1080 960 / 960 Intake (Blood Product) Amt 0 / 0 Rbc As-3 Leukoreduced Unit 0 / 0 0 / 0 [id number] Rbc As-3 Leukoreduced Unit [id number] Output: Urine 2350 / 2350 Other: # Voids 5 Date of Last Bowel Movement 06/18/18 06/18/18 # Bowel Movements 2 - Constitutional mild distress, chronically ill appearing (Week) - Routine HEENT Exam Head: Present: normocephalic ENT: Present: mucous membranes dry - Routine Neck Exam Present: supple (Pale) - Routine Respiratory Exam Present: accessory muscle use (Mild distant breath sounds but no audible wheezing or rhonchi) - Routine Cardiovascular Exam Present: S1, S2 - Routine Abdominal Exam Present: soft, normoactive bowel sounds (Soft bowel sounds round nontender) - Routine Skin Exam Present: intact, dry, pallor - Routine Neurological Exam Present: alert (Answer simple questions) <DavidTanya M - Last Filed: 06/19/18 14:39> Vital signs: Vital Signs 06/18/18 18:23 06/18/18 18:24 06/18/18 20:00 Temperature Pulse Rate 109 H 109 H 95 H Respiratory Rate 18 18 Blood Pressure 142/78 H 142/78 H Pulse Oximetry 98 98 06/18/18 21:47 06/18/18 22:14 06/18/18 23:08 Temperature 97.1 F L 97.4 F L Pulse Rate 97 H 100 H Respiratory Rate 17 16 18 Blood Pressure 154/88 H 139/80 Pulse Oximetry 99 96 06/19/18 00:00 06/19/18 04:00 06/19/18 04:46 Temperature 97.5 F L Pulse Rate 101 H 89 98 H Respiratory Rate 17 Blood Pressure 131/82 Pulse Oximetry 99 06/19/18 08:00 06/19/18 12:00 Temperature 97.9 F 97.8 F Pulse Rate 110 H 98 H Respiratory Rate 18 18 Blood Pressure 159/99 H 129/63 Pulse Oximetry 99 98 Intake & Output 06/18/18 06/19/18 06/19/18 18:59 06:59 18:59 Intake Total 1095 / 1095 960 / 960 Output Total 2350 / 2350 Balance 1095 / 1095 -1390 / -1390 Weight 58.8 kg Intake: Oral 1080 / 1080 960 / 960 Intake (Blood Product) Amt 0 / 0 Rbc As-3 Leukoreduced Unit 0 / 0 0 / 0 [id number] Rbc As-3 Leukoreduced Unit [id number] Output: Urine 2350 / 2350 Other: # Voids 5 Date of Last Bowel Movement 06/18/18 06/18/18 06/18/18 # Bowel Movements 2 <Norbert Morin - Last Filed: 06/19/18 16:17> Results - Labs CBC & Chem 7: 06/19/18 08:02 06/19/18 08:02 Laboratory Results - last 24 hr 06/18/18 06/19/18 06/19/18 13:30 08:02 08:02 WBC 16.3 H RBC 3.85 L Hgb 11.5 L D Hct 34.4 L MCV 89.4 MCH 29.9 MCHC 33.5 RDW 16.3 Plt Count 370 MPV 6.8 L Neut % (Auto) 82.2 H Lymph % (Auto) 10.0 Stearns % (Auto) 7.0 Eos % (Auto) 0.7 Baso % (Auto) 0.1 Neut # (Auto) 13.4 H Lymph # (Auto) 1.6 Stearns # (Auto) 1.1 H Eos # (Auto) 0.1 Baso # (Auto) 0.0 WBC Differential . Differential Comment Auto diff final Sodium 137 Potassium 3.4 L Chloride 101 Carbon Dioxide 27.1 Anion Gap 9 BUN 22 H Creatinine 0.77 Estimated GFR Greater than 89 Random Glucose 70 L Calcium 8.2 L Phosphorus 2.5 Magnesium 1.4 L Total Bilirubin 0.6 AST 26 ALT 51 Alkaline Phosphatase 63 Total Protein 6.1 L D Albumin 2.4 L MTS Gel Crossmatch See Detail - Imaging Impressions Head MRI 06/19/18 00:00 CONCLUSION: 1. Age-related white matter changes. No evidence of metastatic disease. No evidence of acute abnormality. - Procedures Jey Hough CT biopsy lung RT Signed EXAM DATE: 06/14/2018 2:46 PM EDT AGE/SEX: 72 years / Male INDICATIONS: Mass. CLINICAL DATA: This is the patient's initial encounter. Patient reports that signs and symptoms have been present for 1 day and indicates a pain score of 0/ 10. MEDICAL/SURGICAL HISTORY: Chronic obstructive pulmonary disease. Stroke. Hypertension. None. [place] [facility] [place] W 3D[place]/2018. . BIOPSY SITE: Right lung MEDICATION(S): 2mg midazolam (Versed) IV 100mcg fentanyl (Sublimaze) IV DEVICE(S): 20 gauge BARD biopsy needle Three core specimen(s) sent to the laboratory for pathologic evaluation. . . PROCEDURE: CT guided Right lung biopsy Conscious sedation with continuous EKG and oximetry monitoring. EKG and oximetry remained stable throughout the procedure. Prior to the procedure informed consent was obtained. Any appropriate prior imaging studies were reviewed. Using automated exposure control and adjustment of the mA and/or kV according to patient size, radiation dose was kept as low as reasonably achievable to obtain optimal diagnostic quality images. DICOM format image data is available electronically for review and comparison. The site was prepped in a sterile fashion. Full sterile technique was used, including cap, mask, sterile gloves and gown and a large sterile sheet. Hand hygiene and 2% chlorhexidine and/or betadine/alcohol prep was utilized per protocol for cutaneous antisepsis. The skin and subcutaneous tissues were infiltrated with local anesthetic solution. With CT guidance the previously identified target was localized. Biopsy was performed using the prescribed needle as above. Adequate hemostasis was obtained with compression at the puncture site. Follow-up CT scan reveals no pneumothorax. Conscious sedation was performed with the prescribed dosages and duration as above in the presence of an independent trained radiology nurse to assist in the monitoring of the patient. EKG and oximetry remained stable throughout the procedure. The patient tolerated the procedure well and there were no complications. The patient was sent to Radiology Outpatient Unit in stable condition. FINDINGS: CONCLUSION: Uncomplicated CT guided biopsy of right lower lobe pulmonary mass. <Tanya Hernandez M - Last Filed: 06/19/18 14:39> - Labs CBC & Chem 7: 06/19/18 08:02 06/19/18 08:02 Laboratory Results - last 24 hr 06/18/18 06/19/18 06/19/18 13:30 08:02 08:02 WBC 16.3 H RBC 3.85 L Hgb 11.5 L D Hct 34.4 L MCV 89.4 MCH 29.9 MCHC 33.5 RDW 16.3 Plt Count 370 MPV 6.8 L Neut % (Auto) 82.2 H Lymph % (Auto) 10.0 Stearns % (Auto) 7.0 Eos % (Auto) 0.7 Baso % (Auto) 0.1 Neut # (Auto) 13.4 H Lymph # (Auto) 1.6 Stearns # (Auto) 1.1 H Eos # (Auto) 0.1 Baso # (Auto) 0.0 WBC Differential . Differential Comment Auto diff final Sodium 137 Potassium 3.4 L Chloride 101 Carbon Dioxide 27.1 Anion Gap 9 BUN 22 H Creatinine 0.77 Estimated GFR Greater than 89 Random Glucose 70 L Calcium 8.2 L Phosphorus 2.5 Magnesium 1.4 L Total Bilirubin 0.6 AST 26 ALT 51 Alkaline Phosphatase 63 Total Protein 6.1 L D Albumin 2.4 L MTS Gel Crossmatch See Detail - Imaging Impressions Abdomen/Pelvis CT 06/19/18 00:00 CONCLUSION: 1. No acute findings on abdomen and pelvic CT. No evidence for metastatic disease. Colonic diverticulosis without diverticulitis. 2. Mass in right lower lobe, previously biopsied. Head MRI 06/19/18 00:00 CONCLUSION: 1. Age-related white matter changes. No evidence of metastatic disease. No evidence of acute abnormality. <Norbert Morin - Last Filed: 06/19/18 16:17> Assessment and Plan (1) Symptomatic anemia Status: Acute Code(s): D64.9 - Anemia, unspecified (2) Bright red rectal bleeding Status: Acute Code(s): K62.5 - Hemorrhage of anus and rectum (3) Dyspepsia Status: Acute Code(s): R10.13 - Epigastric pain (4) Diarrhea, unspecified Status: Acute Code(s): R19.7 - Diarrhea, unspecified - Plan 72-year-old male admitted to the hospital on 06/12/2018 with syncopal and dizzy episodes to the point that he was near syncope. Patient is also had symptomatic anemia with hemoglobins transitioning between 10.2 and 7.5 over the past few days patient received 2 units of packed RBCs yesterday and is currently receiving transfusion today WBC count 14.8 unspecified bilirubin and LFTs normal Bright red rectal bleeding seen over the past 24 hours and his continued with red blood in the toilet. Current hemoglobin today 7.5 symptomatic receiving transfusion Watery brown diarrhea onset approximately 2 weeks ago unspecified but could be related to medications patient's receiving versus infectious versus inflammatory. Patient has a new 4.5 cm right lower lobe mass seen on CTA being followed by hematology and oncology for plan of care Dyspepsia especially after eating 1 month onset with worsening symptoms. Unknown aggravating factors except for the fact that it is after food consumption and patient states decreased appetite and not eating late at night. Aggregating factors could be related to patient's alcohol and tobacco use patient's currently not been on any meds. Family history of father esophageal cancer at the age of 67. Patient had EGD many years ago, unknown results and timing. Patient states colonoscopy approximately 2 years ago with polyps and diverticulosis. 06/19/2018 patient is sitting up in the chair. Still complains of being weak and feeling washed out but no nausea vomiting or abdominal pain. Positive Hemoccult in stool patient is post transfusion with hemoglobin now 11.5. Patient also being seen per pulmonary medicine for right lower lobe mass, squamous cell. MRI of the head done today which showed no metastasis. No bowel movement noted today, no obvious bleeding. Plan for EGD/colonoscopy if patient agrees. CT of the abdomen today pending. Plan Diet as tolerated Monitor labs with special attention to hemoglobin and transfuse as needed PPI Anti-medics C. difficile stool pending but no stool today Supportive care further recommendations to follow Patient was seen per myself and Dr. Morin, note was written on his behalf <Tanya Hernandez - Last Filed: 06/19/18 14:39> (1) Symptomatic anemia Status: Acute Code(s): D64.9 - Anemia, unspecified (2) Bright red rectal bleeding Status: Acute Code(s): K62.5 - Hemorrhage of anus and rectum (3) Dyspepsia Status: Acute Code(s): R10.13 - Epigastric pain (4) Diarrhea, unspecified Status: Acute Code(s): R19.7 - Diarrhea, unspecified - Plan Seen and examined with SANDER [employer]ODEN PENCILS, no bleeding. Await CT. Not agreeable to egd/ colonoscopy yet - Attending Attestation The exam, history, and the medical decision-making described in the above note were completed with the assistance of the mid-level provider. I reviewed and agree with the findings presented. I attest that I had a [id number] encounter with the patient on the same day, and personally performed and documented my assessment and findings in the medical record. <Norbert Morin - Last Filed: 06/19/18 16:17>
--- NOTE | 2018-06-19 15:42 | CT ---
EXAM DATE: 06/19/2018 3:26 PM EDT AGE/SEX: 72 years / Male INDICATIONS: Lung cancer. Evaluate for metastatic disease. CLINICAL DATA: This is the patient's initial encounter. Patient reports that signs and symptoms have been present for 1 day and indicates a pain score of 0/10. MEDICAL/SURGICAL HISTORY: Carcinoma, lung. Cerebrovascular disease. Chronic obstructive pulmo nary disease. None. ORAL CONTRAST: Prescribed oral contrast ingested. RADIATION DOSE: 9.79 CTDI (mGy) COMPARISON: [facility] – [place], [place] ABDOMEN & PELVIS W/O CONTRAST, 06/04/2018. . TECHNIQUE: Multiple contiguous axial images were obtained through the abdomen and pelvis following b olus infusion of 90 ml Omnipaque 350 (iohexol) nonionic water-soluble contrast as a single exam dos e. Prescribed oral contrast ingested. Using automated exposure control and adjustment of the mA and/ or kV according to patient size, radiation dose was kept as low as reasonably achievable to obtain op timal diagnostic quality images. DICOM format image data is available electronically for review and comparison. FINDINGS: There is a 4.5 cm mass in the right lower lobe with early cavitation. There is emphysema at the lung bases. Mild fatty liver. Spleen, adrenals, kidneys and pancreas unremarkable. No calcified gallstones or hector iary ductal dilatation. No free fluid or free air. No bowel obstruction. There is colonic diverticulosis without diverticulit is. CONCLUSION: 1. No acute findings on abdomen and pelvic CT. No evidence for metastatic disease. Colonic diverticu losis without diverticulitis. 2. Mass in right lower lobe, previously biopsied. Electronically signed by: Will Larios MD 06/19/2018 3:40 PM EDT
[2018-06-19] MEDS: Mag Sulf 1 gm/100 ml Premix 100 ML IV.SIG SCH ×2 (18:44→20:02)
[2018-06-19] MEDS: Latanoprost 0.005% Opth Drops 2.5 ML Bottle EACH EYE SCH (20:06)
[2018-06-19] MEDS: Temazepam 15 MG Capsule PO PRN (21:32)
[2018-06-19] MEDS: LORazepam 1 MG Tablet PO PRN (23:05)
[2018-06-20] MEDS: Primidone 50 MG Tablet PO SCH ×2 (09:13→20:45)
[2018-06-20] MEDS: Famotidine 20 MG Tablet PO SCH ×2 (09:25→20:43)
[2018-06-20] MEDS: dilTIAZem CD 240 MG Capsule PO SCH (09:25)
[2018-06-20] MEDS: predniSONE 20 MG Tablet PO SCH (09:25)
[2018-06-20] MEDS: Folic Acid 1 MG Tablet PO SCH (09:25)
[2018-06-20] MEDS: Budesonide-Formoterol 160/4.5 MCG 6 GM Inhaler INH SCH ×2 (09:27→20:43)
[2018-06-20 09:59] LABS: Baso % (Auto) 0.2 % (0.0-2.0); Eos # (Auto) 0.1 th/mm3 (0.0-0.4); Eos % (Auto) 0.9 % (0.0-4.0); Hematocrit 33.7 % (39.0-51.0); Hemoglobin 11.4 gm/dL (13.0-17.0); Lymph # (Auto) 1.4 th/mm3 (1.0-4.8); Lymph % (Auto) 8.9 % (9.0-44.0); Mean Corpuscular HGB Conc 33.8 % (32.0-36.0); Mean Corpuscular Hemoglobin 30.4 pg (27.0-34.0); Mean Platelet Volume 6.6 fL (7.0-11.0); Mono % (Auto) 6.5 % (0.0-8.0); Neut # (Auto) 12.8 th/mm3 (1.8-7.7); Neut % (Auto) 83.5 % (16.0-70.0); Platelet Count 393 th/mm3 (150-450); Red Blood Count 3.75 mil/mm3 (4.50-5.90); Red Cell Distribution Width 16.2 % (11.6-17.2); White Blood Count 15.3 th/mm3 (4.0-11.0)
[2018-06-20 10:23] LABS: Albumin 2.5 g/dL (3.4-5.0); Anion Gap 11 meq/L (5-15); Aspartate Aminotransferase 21 U/L (15-37); Blood Urea Nitrogen 19 mg/dL (7-18); Calcium 8.5 mg/dL (8.5-10.1); Carbon Dioxide 26.6 meq/L (21.0-32.0); Chloride 98 meq/L (98-107); Glomerular Filtration Rate 81 mL/min (>89); Glucose,Random 101 mg/dL (74-106); Magnesium 1.9 mg/dL (1.5-2.5); Potassium 3.7 meq/L (3.5-5.1); Sodium 136 meq/L (136-145)
[2018-06-20 10:25] LABS: Alanine Aminotransferase 50 U/L (12-78); Phosphorus 2.3 mg/dL (2.5-4.9)
[2018-06-20 10:27] LABS: Alkaline Phosphatase 63 U/L (45-117); Total Protein 6.3 g/dL (6.4-8.2)
--- NOTE | 2018-06-20 12:01 | P.PNGI ---
Subjective Interval history: Patient sitting up in the chair alert oriented answering simple questions BM yesterday small pellet shaped bowel movement. History of diarrhea over the past [address] scan discussed with patient. Hemoglobin 11.4 no obvious rectal bleeding noted <Tanya Hernandez - Last Filed: 06/20/18 14:03> Physical Exam Vital signs: Vital Signs 06/19/18 12:00 06/19/18 16:45 06/19/18 20:00 Temperature 97.8 F 97.0 F L 97.0 F L Pulse Rate 98 H 87 80 Respiratory Rate 18 16 16 Blood Pressure 129/63 132/67 117/70 Pulse Oximetry 98 98 98 06/19/18 20:30 06/20/18 00:00 06/20/18 04:00 Temperature 97.9 F 98.2 F Pulse Rate 79 76 74 Respiratory Rate 16 18 Blood Pressure 139/67 149/89 H Pulse Oximetry 98 97 06/20/18 07:38 06/20/18 07:48 06/20/18 09:19 Temperature 98.1 F Pulse Rate 91 H 104 H Respiratory Rate 16 Blood Pressure 177/77 H 152/73 H Pulse Oximetry 98 Intake & Output 06/19/18 06/20/18 06/20/18 18:59 06:59 18:59 Intake Total 960 / 960 920 / 920 Output Total 300 / 300 1200 / 1200 Balance 660 / 660 -280 / -280 Weight 57.5 kg Intake: IV 200 / 200 Magnesium Sulfate 1 gm/D5W 100 200 / 200 ml Premix 100 ML @ 100 mls/hr IV.SIG Q1H [facility] Rx#:[id number] Oral 960 / 960 720 / 720 Output: Urine 300 / 300 1200 / 1200 Other: # Voids 4 Date of Last Bowel Movement 06/18/18 06/18/18 06/18/18 - Constitutional no acute distress (Mild generalized weakness) - Routine HEENT Exam Head: Present: normocephalic ENT: Present: mucous membranes moist - Routine Neck Exam Present: supple - Routine Respiratory Exam Present: accessory muscle use (Mild diminished breath sounds but no obvious shortness of breath at rest) - Routine Cardiovascular Exam Present: S1, S2 - Routine Abdominal Exam Present: soft (Round, soft bowel sounds no abdominal pain) <Tanya Hernandez - Last Filed: 06/20/18 14:03> Vital signs: Vital Signs 06/19/18 16:45 06/19/18 20:00 06/19/18 20:30 Temperature 97.0 F L 97.0 F L Pulse Rate 87 80 79 Respiratory Rate 16 16 Blood Pressure 132/67 117/70 Pulse Oximetry 98 98 06/20/18 00:00 06/20/18 04:00 06/20/18 07:38 Temperature 97.9 F 98.2 F 98.1 F Pulse Rate 76 74 91 H Respiratory Rate 16 18 16 Blood Pressure 139/67 149/89 H 177/77 H Pulse Oximetry 98 97 98 06/20/18 07:48 06/20/18 09:19 06/20/18 12:05 Temperature 97.6 F Pulse Rate 104 H 103 H Respiratory Rate 16 Blood Pressure 152/73 H 130/60 Pulse Oximetry 98 Intake & Output 06/19/18 06/20/18 06/20/18 18:59 06:59 18:59 Intake Total 960 / 960 920 / 920 Output Total 300 / 300 1200 / 1200 Balance 660 / 660 -280 / -280 Weight 57.5 kg Intake: IV 200 / 200 Magnesium Sulfate 1 gm/D5W 100 200 / 200 ml Premix 100 ML @ 100 mls/hr IV.SIG Q1H [facility] Rx#:[id number] Oral 960 / 960 720 / 720 Output: Urine 300 / 300 1200 / 1200 Other: # Voids 4 Date of Last Bowel Movement 06/18/18 06/18/18 06/18/18 <Norbert Morin - Last Filed: 06/20/18 14:35> Results - Labs CBC & Chem 7: 06/20/18 09:15 06/20/18 09:15 Laboratory Results - last 24 hr 06/20/18 06/20/18 09:15 09:15 WBC 15.3 H RBC 3.75 L Hgb 11.4 L Hct 33.7 L MCV 90.0 MCH 30.4 MCHC 33.8 RDW 16.2 Plt Count 393 MPV 6.6 L Neut % (Auto) 83.5 H Lymph % (Auto) 8.9 L Stearns % (Auto) 6.5 Eos % (Auto) 0.9 Baso % (Auto) 0.2 Neut # (Auto) 12.8 H Lymph # (Auto) 1.4 Stearns # (Auto) 1.0 H Eos # (Auto) 0.1 Baso # (Auto) 0.0 WBC Differential . Differential Comment Auto diff final Sodium 136 Potassium 3.7 Chloride 98 Carbon Dioxide 26.6 Anion Gap 11 BUN 19 H Creatinine 0.92 Estimated GFR 81 L Random Glucose 101 Calcium 8.5 Phosphorus 2.3 L Magnesium 1.9 Total Bilirubin 0.4 AST 21 ALT 50 Alkaline Phosphatase 63 Total Protein 6.3 L Albumin 2.5 L - Imaging Impressions Abdomen/Pelvis CT 06/19/18 00:00 CONCLUSION: 1. No acute findings on abdomen and pelvic CT. No evidence for metastatic disease. Colonic diverticulosis without diverticulitis. 2. Mass in right lower lobe, previously biopsied. - Procedures Jey Hough CT biopsy lung RT Signed EXAM DATE: 06/14/2018 2:46 PM EDT AGE/SEX: 72 years / Male INDICATIONS: Mass. CLINICAL DATA: This is the patient's initial encounter. Patient reports that signs and symptoms have been present for 1 day and indicates a pain score of 0/ 10. MEDICAL/SURGICAL HISTORY: Chronic obstructive pulmonary disease. Stroke. Hypertension. None. [place] [facility] [place] 3[place]. . BIOPSY SITE: Right lung MEDICATION(S): 2mg midazolam (Versed) IV 100mcg fentanyl (Sublimaze) IV DEVICE(S): 20 gauge BARD biopsy needle Three core specimen(s) sent to the laboratory for pathologic evaluation. . . PROCEDURE: CT guided Right lung biopsy Conscious sedation with continuous EKG and oximetry monitoring. EKG and oximetry remained stable throughout the procedure. Prior to the procedure informed consent was obtained. Any appropriate prior imaging studies were reviewed. Using automated exposure control and adjustment of the mA and/or kV according to patient size, radiation dose was kept as low as reasonably achievable to obtain optimal diagnostic quality images. DICOM format image data is available electronically for review and comparison. The site was prepped in a sterile fashion. Full sterile technique was used, including cap, mask, sterile gloves and gown and a large sterile sheet. Hand hygiene and 2% chlorhexidine and/or betadine/alcohol prep was utilized per protocol for cutaneous antisepsis. The skin and subcutaneous tissues were infiltrated with local anesthetic solution. With CT guidance the previously identified target was localized. Biopsy was performed using the prescribed needle as above. Adequate hemostasis was obtained with compression at the puncture site. Follow-up CT scan reveals no pneumothorax. Conscious sedation was performed with the prescribed dosages and duration as above in the presence of an independent trained radiology nurse to assist in the monitoring of the patient. EKG and oximetry remained stable throughout the procedure. The patient tolerated the procedure well and there were no complications. The patient was sent to Radiology Outpatient Unit in stable condition. FINDINGS: CONCLUSION: Uncomplicated CT guided biopsy of right lower lobe pulmonary mass. <Tanya Hernandez - Last Filed: 06/20/18 14:03> - Labs CBC & Chem 7: 06/20/18 09:15 06/20/18 09:15 Laboratory Results - last 24 hr 06/20/18 06/20/18 09:15 09:15 WBC 15.3 H RBC 3.75 L Hgb 11.4 L Hct 33.7 L MCV 90.0 MCH 30.4 MCHC 33.8 RDW 16.2 Plt Count 393 MPV 6.6 L Neut % (Auto) 83.5 H Lymph % (Auto) 8.9 L Stearns % (Auto) 6.5 Eos % (Auto) 0.9 Baso % (Auto) 0.2 Neut # (Auto) 12.8 H Lymph # (Auto) 1.4 Stearns # (Auto) 1.0 H Eos # (Auto) 0.1 Baso # (Auto) 0.0 WBC Differential . Differential Comment Auto diff final Sodium 136 Potassium 3.7 Chloride 98 Carbon Dioxide 26.6 Anion Gap 11 BUN 19 H Creatinine 0.92 Estimated GFR 81 L Random Glucose 101 Calcium 8.5 Phosphorus 2.3 L Magnesium 1.9 Total Bilirubin 0.4 AST 21 ALT 50 Alkaline Phosphatase 63 Total Protein 6.3 L Albumin 2.5 L - Imaging Impressions Abdomen/Pelvis CT 06/19/18 00:00 CONCLUSION: 1. No acute findings on abdomen and pelvic CT. No evidence for metastatic disease. Colonic diverticulosis without diverticulitis. 2. Mass in right lower lobe, previously biopsied. <Norbert Morin - Last Filed: 06/20/18 14:35> Assessment and Plan (1) Symptomatic anemia Status: Acute Code(s): D64.9 - Anemia, unspecified (2) Bright red rectal bleeding Status: Acute Code(s): K62.5 - Hemorrhage of anus and rectum (3) Dyspepsia Status: Acute Code(s): R10.13 - Epigastric pain (4) Diarrhea, unspecified Status: Acute Code(s): R19.7 - Diarrhea, unspecified - Plan 72-year-old male admitted to the hospital on 06/12/2018 with syncopal and dizzy episodes to the point that he was near syncope. Patient is also had symptomatic anemia with hemoglobins transitioning between 10.2 and 7.5 over the past few days patient received 2 units of packed RBCs yesterday and is currently receiving transfusion today WBC count 14.8 unspecified bilirubin and LFTs normal Bright red rectal bleeding seen over the past 24 hours and his continued with red blood in the toilet. Current hemoglobin today 7.5 symptomatic receiving transfusion Watery brown diarrhea onset approximately 2 weeks ago unspecified but could be related to medications patient's receiving versus infectious versus inflammatory. Patient has a new 4.5 cm right lower lobe mass seen on CTA being followed by hematology and oncology for plan of care Dyspepsia especially after eating 1 month onset with worsening symptoms. Unknown aggravating factors except for the fact that it is after food consumption and patient states decreased appetite and not eating late at night. Aggregating factors could be related to patient's alcohol and tobacco use patient's currently not been on any meds. Family history of father esophageal cancer at the age of 67. Patient had EGD many years ago, unknown results and timing. Patient states colonoscopy approximately 2 years ago with polyps and diverticulosis. 06/19/2018 patient is sitting up in the chair. Still complains of being weak and feeling washed out but no nausea vomiting or abdominal pain. Positive Hemoccult in stool patient is post transfusion with hemoglobin now 11.5. Patient also being seen per pulmonary medicine for right lower lobe mass, squamous cell. MRI of the head done today which showed no metastasis. No bowel movement noted today, no obvious bleeding. Plan for EGD/colonoscopy if patient agrees. CT of the abdomen today pending. 06/20/2018 patient sitting up in the chair states he is gradually feeling better over the past 24-48 hours. Currently denies any nausea or vomiting does have some generalized weakness but this also could be to the right lower lobe lung mass that has been found. CT scan performed on 06/19/2018 showed diverticulosis without any diverticulitis otherwise no metastasis no other acute findings. Current hemoglobin 11.4 which is essentially unchanged over the past 24 hours. No obvious bleeding. Discussed in detail with patient EGD colonoscopy and answered any of his questions. Patient feels that since he is not bleeding now and is very nervous about taking the prep he will defer any further GI testing for now. We will follow and evaluate over the next 24 hours and can follow on an outpatient basis if needed. Patient states diarrhea off and on for the past 2 weeks but none over the past 24 hours. He noted small BM with pellet BM yesterday. Plan Diet as tolerated Monitor labs with special attention to hemoglobin and transfuse as needed PPI Anti-medics Bowel regimen as needed and discussed with patient the need for bowel movement every 2-3 days if possible Supportive care further recommendations to follow Patient was seen per myself and Dr. Morin, note was written on his behalf <Tanya Hernandez - Last Filed: 06/20/18 14:03> (1) Symptomatic anemia Status: Acute Code(s): D64.9 - Anemia, unspecified (2) Bright red rectal bleeding Status: Acute Code(s): K62.5 - Hemorrhage of anus and rectum (3) Dyspepsia Status: Acute Code(s): R10.13 - Epigastric pain (4) Diarrhea, unspecified Status: Acute Code(s): R19.7 - Diarrhea, unspecified - Plan No active bleeding. H/H stable. CT reviewed. Does not want egd/colonoscopy at this time. Will sign off. Fu as outpt. please. <Norbert Morin - Last Filed: 06/20/18 14:35>
--- NOTE | 2018-06-20 12:16 | P.PNIM ---
Subjective Interval history: 72-year-old W male being admitted for syncope. Patient was in his usual state of health until sometime yesterday when he began experiencing lightheadedness. Says he was ambulating in his home and was only a few steps away from a chair but felt himself pass out and he landed forward into his chair, not striking any hard surfaces. Says he only passed out for a few seconds. This morning the patient felt lightheaded even upon resting, says he took a blood pressure measurement and says the systolic number was in the 80s , says he had a home care nurse accessible to him at the time and she advised him to refrain from taking his blood pressure medications. Denies having any nausea or chest pain. Says he is feeling more short of breath than usual and is unable to ascertain if his cough is any worse than usual. Denies any fevers or chills. Reports feeling substantially weaker than he did the last time he was discharged may be a week ago. Still has right leg pain periodically. Patient denies having any cardiac disease. Most recently the patient was discharged from the hospital about 1 wk ago for substantial right lower leg pain that impaired his ability to walk. He eventually regained enough strength to go home with home care. He had chest x- ray done at that time which showed a suspicious findings suggestive of a mass versus pneumonia. A CT abdomen pelvis that was done shows at least a 4 cm mass highly suspicious for malignancy. In the emergency department the patient had an EKG done which on my independent review looks like it is sinus rhythm with very diminished P waves at best. Blood pressure seems to be very stable. Patient undergone another chest x-ray which I eventually reviewed which shows the same masslike appearing lesion on the right lung field, per radiology seems to be unchanged since his last CXR. Pt states he has knowledge of a mass on his left lung from 2 months ago and has not gotten into see pulmonology yet. 06-13 Pt seen and examined for f/u syncope and lung mass. He reports he is feeling "awful." Complains of pain down entire left leg especially his knee. Reports it goes from his foot to his buttock. He has been treated for sciatica recently. Pain is constant, even at rest. The patient denies any CP, SOB, abdominal pain, or paresthesias. He is aware of large hilar mass and understands the need for biopsy. However, he has questions regarding cost of biopsy as inpatient vs. outpatient and would like to speak to someone about this. 7-30 Pt seen and examined. AFVSS. No acute events overnight. Pt's main concern continues to be pain in his left leg. He states the Ofirmev helps. We discussed his CT findings from last admission showing degenerative disc disease with some foraminal narrowing at the level of L5-S1 which is likely contributing to his symptoms. Advised that we need to pursue PT for this prior to any possible more invasive measures. He reports he should have gone to rehab the last admission and hopes to be discharged to some form of inpatient rehab or SNF after this hospitalization. From a breathing standpoint he reports he is stable other than occasional dry cough. Denies CP, abdominal pain, N/V. 731 Patient remains short of breath and weak. He underwent lung biopsy on his right lower lobe lung mass and is awaiting biopsy results. No new complaints. 8-1 Admit patient today while he was returning from the bathroom. His heart rate was up to 170, dyspneic, off of oxygen. We had a discussion about his hemoglobin which is down to 7.2. I have already ordered blood transfusions and he is accepting of this. 8-2 Patient received 2 units of packed red blood cells yesterday, today he states he feels no better, still tired and fatigued. He says that he was exposed to possible mold in his home which has a leaky roof. He asks that this might be causing his 3-4 month pattern of increasing fatigue, I reminded him that it could also be a lung mass that were working up. 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 PATIENT WILL NEED OUTPT PET SCAN WILL NEED REHAB IF CAN GET IT AUTHORIZED 8-4 having cat scans of abdomen and HAD MRI OF HEAD-(HEAD IS STABLE) SEEN BY GI AM LABS DW RN AND PT AND CM REPLACE MAG REPLACE POTASSIUM 8-5 POTASSIUM AND MAGNESIUM ARE BETTER HEMOGLOBIN REMAINS STABLE DW RN AND PT NOT WANTING COLONOSCOPY AT THIS TIME AM LABS WILL SEE WHAT LABS LOOK LIKE TOMORROW Physical Exam Vital signs: Vital Signs 06/19/18 16:45 06/19/18 20:00 06/19/18 20:30 Temperature 97.0 F L 97.0 F L Pulse Rate 87 80 79 Respiratory Rate 16 16 Blood Pressure 132/67 117/70 Pulse Oximetry 98 98 06/20/18 00:00 06/20/18 04:00 06/20/18 07:38 Temperature 97.9 F 98.2 F 98.1 F Pulse Rate 76 74 91 H Respiratory Rate 16 18 16 Blood Pressure 139/67 149/89 H 177/77 H Pulse Oximetry 98 97 98 06/20/18 07:48 06/20/18 09:19 Temperature Pulse Rate 104 H Respiratory Rate Blood Pressure 152/73 H Pulse Oximetry Intake & Output 06/19/18 06/20/18 06/20/18 18:59 06:59 18:59 Intake Total 960 / 960 920 / 920 Output Total 300 / 300 1200 / 1200 Balance 660 / 660 -280 / -280 Weight 57.5 kg Intake: IV 200 / 200 Magnesium Sulfate 1 gm/D5W 100 200 / 200 ml Premix 100 ML @ 100 mls/hr IV.SIG Q1H [facility] Rx#:[id number] Oral 960 / 960 720 / 720 Output: Urine 300 / 300 1200 / 1200 Other: # Voids 4 Date of Last Bowel Movement 06/18/18 06/18/18 06/18/18 Narrative: GENERAL: AAOx3, weak, fatigued, off oxygen SKIN: Warm and dry. No rashes HEAD: Atruamtic, normocephalic. EYES: No scleral icterus. No injection or drainage. ENT: Moist mucous membranes, patent nares, no erythema of oropharynx. NECK: Supple, trachea midline. No JVD or lymphadenopathy. Normal thyroid. CARDIOVASCULAR: Regular rate and rhythm. No murmurs, gallops, or rubs. RESPIRATORY: Congestive sounds in bilateral bases. No crackles or wheezes. No accessory muscle use. GASTROINTESTINAL: Abdomen soft, non-tender, nondistended, normal active bowel sounds MUSCULOSKELETAL: No cyanosis, or edema. NEURO: CN II-XII grossly intact, no focal deficits, no slurring of speech Results - Labs CBC & Chem 7: 06/20/18 09:15 06/20/18 09:15 Laboratory Results - last 24 hr 06/20/18 06/20/18 09:15 09:15 WBC 15.3 H RBC 3.75 L Hgb 11.4 L Hct 33.7 L MCV 90.0 MCH 30.4 MCHC 33.8 RDW 16.2 Plt Count 393 MPV 6.6 L Neut % (Auto) 83.5 H Lymph % (Auto) 8.9 L Calloway % (Auto) 6.5 Eos % (Auto) 0.9 Baso % (Auto) 0.2 Neut # (Auto) 12.8 H Lymph # (Auto) 1.4 Calloway # (Auto) 1.0 H Eos # (Auto) 0.1 Baso # (Auto) 0.0 WBC Differential . Differential Comment Auto diff final Sodium 136 Potassium 3.7 Chloride 98 Carbon Dioxide 26.6 Anion Gap 11 BUN 19 H Creatinine 0.92 Estimated GFR 81 L Random Glucose 101 Calcium 8.5 Phosphorus 2.3 L Magnesium 1.9 Total Bilirubin 0.4 AST 21 ALT 50 Alkaline Phosphatase 63 Total Protein 6.3 L Albumin 2.5 L - Imaging Impressions Abdomen/Pelvis CT 06/19/18 00:00 CONCLUSION: 1. No acute findings on abdomen and pelvic CT. No evidence for metastatic disease. Colonic diverticulosis without diverticulitis. 2. Mass in right lower lobe, previously biopsied. - Procedures Jey Hough CT biopsy lung RT Signed EXAM DATE: 06/14/2018 2:46 PM EDT AGE/SEX: 72 years / Male INDICATIONS: Mass. CLINICAL DATA: This is the patient's initial encounter. Patient reports that signs and symptoms have been present for 1 day and indicates a pain score of 0/ 10. MEDICAL/SURGICAL HISTORY: Chronic obstructive pulmonary disease. Stroke. Hypertension. None. COMPARISON: [facility] – [place] CTA PULMONARY W CONTRAST W 3D, 06/12/2018. . BIOPSY SITE: Right lung MEDICATION(S): 2mg midazolam (Versed) IV 100mcg fentanyl (Sublimaze) IV DEVICE(S): 20 gauge BARD biopsy needle Three core specimen(s) sent to the laboratory for pathologic evaluation. . . PROCEDURE: CT guided Right lung biopsy Conscious sedation with continuous EKG and oximetry monitoring. EKG and oximetry remained stable throughout the procedure. Prior to the procedure informed consent was obtained. Any appropriate prior imaging studies were reviewed. Using automated exposure control and adjustment of the mA and/or kV according to patient size, radiation dose was kept as low as reasonably achievable to obtain optimal diagnostic quality images. DICOM format image data is available electronically for review and comparison. The site was prepped in a sterile fashion. Full sterile technique was used, including cap, mask, sterile gloves and gown and a large sterile sheet. Hand hygiene and 2% chlorhexidine and/or betadine/alcohol prep was utilized per protocol for cutaneous antisepsis. The skin and subcutaneous tissues were infiltrated with local anesthetic solution. With CT guidance the previously identified target was localized. Biopsy was performed using the prescribed needle as above. Adequate hemostasis was obtained with compression at the puncture site. Follow-up CT scan reveals no pneumothorax. Conscious sedation was performed with the prescribed dosages and duration as above in the presence of an independent trained radiology nurse to assist in the monitoring of the patient. EKG and oximetry remained stable throughout the procedure. The patient tolerated the procedure well and there were no complications. The patient was sent to Radiology Outpatient Unit in stable condition. FINDINGS: CONCLUSION: Uncomplicated CT guided biopsy of right lower lobe pulmonary mass. Assessment and Plan - Assessment (1) Syncope Code(s): R55 - Syncope and collapse Status: Acute (2) Mass of lower lobe of right lung Code(s): R91.8 - Other nonspecific abnormal finding of lung field Status: Acute (3) Bronchitis Code(s): J40 - Bronchitis, not specified as acute or chronic Status: Acute - Plan 72 YO WM with history of COPD, CVA, HLD, HTN, and tobacco abuse admitted 06/12 for syncope and shortness of breath. 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 PER PATHOLOGY Appreciate pulmonology consult Appreciate oncology consult Anemia CBC ordered today, s/p transfusion of 2 units of packed red blood cells Dyspnea, COPD exacerbation COPD exacerbation aggravated by presence of right lower lobe mass Continue supplemental oxygen and DuoNeb's Single dose of Solu-Medrol given today Follow leukocytosis trend Consider steroid effect Syncopal episode Occurred at home while ambulating CTA negative for PE, CT head showed no stroke Telemetry shows sinus rhythm with frequent PACs 2D echocardiogram shows normal left ventricular function, ejection fraction 60- 65% HTN Continue Lisinopril and Terazosin Sciatica Pt complaining of LLE pain from foot to buttock Multilevel neural foraminal narrowing Continue PT HYPOMAGNESIUM WE WILL REPLACE HYPOKALEMIA WE WILL REPLACE GENERALIZED WEAKNESS NEEDS SNF FOR AGGRESSIVE PT AND OT DVT Prophylaxis Lovenox AM LABS MONITOR LABS NOT WANTING COLONOSCOPY OR EGD AT THIS TIME IF LABS STABLE WILL DEFER TO ONCOLOGY REGARDING LUNG MASS Code Status: FULL CODE Discussed Condition With: RN AND PT Discharge Planning: PENDING CLEARANCE OF ONCOLOGY AND SNF ACCEPTANCE (1) Syncope Qualifiers: Syncope type: unspecified Qualified Code(s): R55 - Syncope and collapse
--- NOTE | 2018-06-20 14:03 | P.PNPL ---
Subjective Interval history: 72 YOWM with COPD, lung mass Bx Sq cell ca lung H/H stable Tolerating PO Physical Exam Vital signs: Vital Signs 06/19/18 16:45 06/19/18 20:00 06/19/18 20:30 Temperature 97.0 F L 97.0 F L Pulse Rate 87 80 79 Respiratory Rate 16 16 Blood Pressure 132/67 117/70 Pulse Oximetry 98 98 06/20/18 00:00 06/20/18 04:00 06/20/18 07:38 Temperature 97.9 F 98.2 F 98.1 F Pulse Rate 76 74 91 H Respiratory Rate 16 18 16 Blood Pressure 139/67 149/89 H 177/77 H Pulse Oximetry 98 97 98 06/20/18 07:48 06/20/18 09:19 06/20/18 12:05 Temperature 97.6 F Pulse Rate 104 H 103 H Respiratory Rate 16 Blood Pressure 152/73 H 130/60 Pulse Oximetry 98 Intake & Output 06/19/18 06/20/18 06/20/18 18:59 06:59 18:59 Intake Total 960 / 960 920 / 920 Output Total 300 / 300 1200 / 1200 Balance 660 / 660 -280 / -280 Weight 57.5 kg Intake: IV 200 / 200 Magnesium Sulfate 1 gm/D5W 100 200 / 200 ml Premix 100 ML @ 100 mls/hr IV.SIG Q1H MIGEL Rx#:[id number] Oral 960 / 960 720 / 720 Output: Urine 300 / 300 1200 / 1200 Other: # Voids 4 Date of Last Bowel Movement 06/18/18 06/18/18 06/18/18 GENERAL: Elderly WM, weak, NAD SKIN: Warm and dry. HEAD: Normocephalic. EYES: No scleral icterus. No injection or drainage. NECK: Supple, trachea midline. No JVD or lymphadenopathy. CARDIOVASCULAR: Regular rate and rhythm without murmurs, gallops, or rubs. RESPIRATORY: Breath sounds equal bilaterally. No accessory muscle use. GASTROINTESTINAL: Abdomen soft, non-tender, nondistended. MUSCULOSKELETAL: No cyanosis, or edema. BACK: Nontender without obvious deformity. No CVA tenderness. Assessment and Plan - Plan IMPRESSION: Sq cell ca lung COPD GIB Anemia PLAN: Aerosol nebs monitor H/H Diltiazem 30 mg qid SQ lovenox. will FU in AM
[2018-06-20] MEDS ORDERED: Aluminum/Magnesium/Simethacone Susp 30 ML UDC PO PRN (17:59)
[2018-06-20] MEDS ORDERED: Docusate Sodium 100 MG Capsule PO PRN (17:59)
[2018-06-20] MEDS ORDERED: Hypromellose 0.3% Opth Gel 10 GM Bottle EACH EYE PRN (18:00)
[2018-06-20] MEDS: Latanoprost 0.005% Opth Drops 2.5 ML Bottle EACH EYE SCH (20:42)
[2018-06-20] MEDS: Temazepam 15 MG Capsule PO PRN (20:43)
[2018-06-20] MEDS: LORazepam 1 MG Tablet PO PRN (22:31)
[2018-06-20] MEDS: Senna/Docusate Sodium 8.6/50 MG Tablet PO PRN (22:31)
[2018-06-21 06:32] LABS: Baso % (Auto) 0.2 % (0.0-2.0); Eos # (Auto) 0.1 th/mm3 (0.0-0.4); Eos % (Auto) 0.7 % (0.0-4.0); Hematocrit 30.1 % (39.0-51.0); Hemoglobin 10.1 gm/dL (13.0-17.0); Lymph # (Auto) 1.3 th/mm3 (1.0-4.8); Lymph % (Auto) 8.6 % (9.0-44.0); Mean Corpuscular HGB Conc 33.5 % (32.0-36.0); Mean Corpuscular Hemoglobin 30.1 pg (27.0-34.0); Mean Corpuscular Volume 89.9 fL (80.0-100.0); Mean Platelet Volume 6.6 fL (7.0-11.0); Mono % (Auto) 6.8 % (0.0-8.0); Neut # (Auto) 12.4 th/mm3 (1.8-7.7); Neut % (Auto) 83.7 % (16.0-70.0); Platelet Count 382 th/mm3 (150-450); Red Blood Count 3.35 mil/mm3 (4.50-5.90); Red Cell Distribution Width 15.8 % (11.6-17.2); White Blood Count 14.8 th/mm3 (4.0-11.0)
[2018-06-21 07:10] LABS: Albumin 2.4 g/dL (3.4-5.0); Anion Gap 5 meq/L (5-15); Aspartate Aminotransferase 18 U/L (15-37); Blood Urea Nitrogen 19 mg/dL (7-18); Calcium 8.4 mg/dL (8.5-10.1); Carbon Dioxide 30.6 meq/L (21.0-32.0); Chloride 101 meq/L (98-107); Glomerular Filtration Rate Greater Than 89 mL/min (>89); Glucose,Random 81 mg/dL (74-106); Magnesium 1.7 mg/dL (1.5-2.5); Potassium 4.1 meq/L (3.5-5.1); Sodium 137 meq/L (136-145)
[2018-06-21 07:11] LABS: Alanine Aminotransferase 50 U/L (12-78); Phosphorus 3.2 mg/dL (2.5-4.9)
[2018-06-21 07:13] LABS: Alkaline Phosphatase 67 U/L (45-117); Total Protein 5.9 g/dL (6.4-8.2)
[2018-06-21] MEDS: Famotidine 20 MG Tablet PO SCH ×2 (10:08→21:50)
[2018-06-21] MEDS: Folic Acid 1 MG Tablet PO SCH (10:08)
[2018-06-21] MEDS: predniSONE 20 MG Tablet PO SCH (10:08)
[2018-06-21] MEDS: dilTIAZem CD 240 MG Capsule PO SCH (10:10)
[2018-06-21] MEDS: Primidone 50 MG Tablet PO SCH ×2 (10:10→21:50)
[2018-06-21] MEDS: Budesonide-Formoterol 160/4.5 MCG 6 GM Inhaler INH SCH ×2 (10:12→21:48)
--- NOTE | 2018-06-21 11:06 | P.PNIM ---
Subjective Interval history: 72-year-old W male being admitted for syncope. Patient was in his usual state of health until sometime yesterday when he began experiencing lightheadedness. Says he was ambulating in his home and was only a few steps away from a chair but felt himself pass out and he landed forward into his chair, not striking any hard surfaces. Says he only passed out for a few seconds. This morning the patient felt lightheaded even upon resting, says he took a blood pressure measurement and says the systolic number was in the 80s , says he had a home care nurse accessible to him at the time and she advised him to refrain from taking his blood pressure medications. Denies having any nausea or chest pain. Says he is feeling more short of breath than usual and is unable to ascertain if his cough is any worse than usual. Denies any fevers or chills. Reports feeling substantially weaker than he did the last time he was discharged may be a week ago. Still has right leg pain periodically. Patient denies having any cardiac disease. Most recently the patient was discharged from the hospital about 1 wk ago for substantial right lower leg pain that impaired his ability to walk. He eventually regained enough strength to go home with home care. He had chest x- ray done at that time which showed a suspicious findings suggestive of a mass versus pneumonia. A CT abdomen pelvis that was done shows at least a 4 cm mass highly suspicious for malignancy. In the emergency department the patient had an EKG done which on my independent review looks like it is sinus rhythm with very diminished P waves at best. Blood pressure seems to be very stable. Patient undergone another chest x-ray which I eventually reviewed which shows the same masslike appearing lesion on the right lung field, per radiology seems to be unchanged since his last CXR. Pt states he has knowledge of a mass on his left lung from 2 months ago and has not gotten into see pulmonology yet. 06-13 Pt seen and examined for f/u syncope and lung mass. He reports he is feeling "awful." Complains of pain down entire left leg especially his knee. Reports it goes from his foot to his buttock. He has been treated for sciatica recently. Pain is constant, even at rest. The patient denies any CP, SOB, abdominal pain, or paresthesias. He is aware of large hilar mass and understands the need for biopsy. However, he has questions regarding cost of biopsy as inpatient vs. outpatient and would like to speak to someone about this. 7-30 Pt seen and examined. AFVSS. No acute events overnight. Pt's main concern continues to be pain in his left leg. He states the Ofirmev helps. We discussed his CT findings from last admission showing degenerative disc disease with some foraminal narrowing at the level of L5-S1 which is likely contributing to his symptoms. Advised that we need to pursue PT for this prior to any possible more invasive measures. He reports he should have gone to rehab the last admission and hopes to be discharged to some form of inpatient rehab or SNF after this hospitalization. From a breathing standpoint he reports he is stable other than occasional dry cough. Denies CP, abdominal pain, N/V. 731 Patient remains short of breath and weak. He underwent lung biopsy on his right lower lobe lung mass and is awaiting biopsy results. No new complaints. 8-1 Admit patient today while he was returning from the bathroom. His heart rate was up to 170, dyspneic, off of oxygen. We had a discussion about his hemoglobin which is down to 7.2. I have already ordered blood transfusions and he is accepting of this. 8-2 Patient received 2 units of packed red blood cells yesterday, today he states he feels no better, still tired and fatigued. He says that he was exposed to possible mold in his home which has a leaky roof. He asks that this might be causing his 3-4 month pattern of increasing fatigue, I reminded him that it could also be a lung mass that were working up. 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 PATIENT WILL NEED OUTPT PET SCAN WILL NEED REHAB IF CAN GET IT AUTHORIZED 8-4 having cat scans of abdomen and HAD MRI OF HEAD-(HEAD IS STABLE) SEEN BY GI AM LABS DW RN AND PT AND CM REPLACE MAG REPLACE POTASSIUM 8-5 POTASSIUM AND MAGNESIUM ARE BETTER HEMOGLOBIN REMAINS STABLE DW RN AND PT NOT WANTING COLONOSCOPY AT THIS TIME AM LABS WILL SEE WHAT LABS LOOK LIKE TOMORROW 8-6NOT WANTING COLONOSCOPY OR EGD Physical Exam Vital signs: Vital Signs 06/20/18 12:05 06/20/18 16:22 06/20/18 20:00 Temperature 97.6 F 97.9 F 97.9 F Pulse Rate 103 H 86 90 Respiratory Rate 16 16 16 Blood Pressure 130/60 137/62 130/68 Pulse Oximetry 98 98 99 06/20/18 20:09 06/21/18 00:00 06/21/18 04:00 Temperature 97.0 F L 98.1 F Pulse Rate 86 77 82 Respiratory Rate 18 18 Blood Pressure 141/79 H 155/86 H Pulse Oximetry 97 97 06/21/18 07:53 Temperature 98.2 F Pulse Rate 95 H Respiratory Rate 18 Blood Pressure 147/72 H Pulse Oximetry 97 Intake & Output 06/20/18 06/21/18 06/21/18 18:59 06:59 18:59 Intake Total 1200 / 1200 480 / 480 240 / 240 Output Total 450 / 450 900 / 900 200 / 200 Balance 750 / 750 -420 / -420 40 / 40 Weight 58 kg Intake: Oral 1200 / 1200 480 / 480 240 / 240 Output: Urine 450 / 450 900 / 900 200 / 200 Other: # Voids 4 Date of Last Bowel Movement 06/18/18 06/18/18 Narrative: GENERAL: AAOx3, weak, fatigued, off oxygen SKIN: Warm and dry. No rashes HEAD: Atruamtic, normocephalic. EYES: No scleral icterus. No injection or drainage. ENT: Moist mucous membranes, patent nares, no erythema of oropharynx. NECK: Supple, trachea midline. No JVD or lymphadenopathy. Normal thyroid. CARDIOVASCULAR: Regular rate and rhythm. No murmurs, gallops, or rubs. RESPIRATORY: Congestive sounds in bilateral bases. No crackles or wheezes. No accessory muscle use. GASTROINTESTINAL: Abdomen soft, non-tender, nondistended, normal active bowel sounds MUSCULOSKELETAL: No cyanosis, or edema. NEURO: CN II-XII grossly intact, no focal deficits, no slurring of speech Results - Labs CBC & Chem 7: 06/21/18 06:11 06/21/18 06:11 Laboratory Results - last 24 hr 06/21/18 06/21/18 06:11 06:11 WBC 14.8 H RBC 3.35 L Hgb 10.1 L Hct 30.1 L MCV 89.9 MCH 30.1 MCHC 33.5 RDW 15.8 Plt Count 382 MPV 6.6 L Neut % (Auto) 83.7 H Lymph % (Auto) 8.6 L [place] % (Auto) 6.8 Eos % (Auto) 0.7 Baso % (Auto) 0.2 Neut # (Auto) 12.4 H Lymph # (Auto) 1.3 [place] # (Auto) 1.0 H Eos # (Auto) 0.1 Baso # (Auto) 0.0 WBC Differential . Differential Comment Auto diff final Sodium 137 Potassium 4.1 Chloride 101 Carbon Dioxide 30.6 Anion Gap 5 BUN 19 H Creatinine 0.69 Estimated GFR Greater than 89 Random Glucose 81 Calcium 8.4 L Phosphorus 3.2 Magnesium 1.7 Total Bilirubin 0.3 AST 18 ALT 50 Alkaline Phosphatase 67 Total Protein 5.9 L Albumin 2.4 L - Imaging Impressions Abdomen/Pelvis CT 06/19/18 00:00 CONCLUSION: 1. No acute findings on abdomen and pelvic CT. No evidence for metastatic disease. Colonic diverticulosis without diverticulitis. 2. Mass in right lower lobe, previously biopsied. Head MRI 06/19/18 00:00 CONCLUSION: 1. Age-related white matter changes. No evidence of metastatic disease. No evidence of acute abnormality. - Procedures Jey Hough CT biopsy lung RT Signed EXAM DATE: 06/14/2018 2:46 PM EDT AGE/SEX: 72 years / Male INDICATIONS: Mass. CLINICAL DATA: This is the patient's initial encounter. Patient reports that signs and symptoms have been present for 1 day and indicates a pain score of 0/ 10. MEDICAL/SURGICAL HISTORY: Chronic obstructive pulmonary disease. Stroke. Hypertension. None. COMPARISON: [facility] – [place], CTA PULMONARY W CONTRAST W 3D, 06/12/2018. . BIOPSY SITE: Right lung MEDICATION(S): 2mg midazolam (Versed) IV 100mcg fentanyl (Sublimaze) IV DEVICE(S): 20 gauge BARD biopsy needle Three core specimen(s) sent to the laboratory for pathologic evaluation. . . PROCEDURE: CT guided Right lung biopsy Conscious sedation with continuous EKG and oximetry monitoring. EKG and oximetry remained stable throughout the procedure. Prior to the procedure informed consent was obtained. Any appropriate prior imaging studies were reviewed. Using automated exposure control and adjustment of the mA and/or kV according to patient size, radiation dose was kept as low as reasonably achievable to obtain optimal diagnostic quality images. DICOM format image data is available electronically for review and comparison. The site was prepped in a sterile fashion. Full sterile technique was used, including cap, mask, sterile gloves and gown and a large sterile sheet. Hand hygiene and 2% chlorhexidine and/or betadine/alcohol prep was utilized per protocol for cutaneous antisepsis. The skin and subcutaneous tissues were infiltrated with local anesthetic solution. With CT guidance the previously identified target was localized. Biopsy was performed using the prescribed needle as above. Adequate hemostasis was obtained with compression at the puncture site. Follow-up CT scan reveals no pneumothorax. Conscious sedation was performed with the prescribed dosages and duration as above in the presence of an independent trained radiology nurse to assist in the monitoring of the patient. EKG and oximetry remained stable throughout the procedure. The patient tolerated the procedure well and there were no complications. The patient was sent to Radiology Outpatient Unit in stable condition. FINDINGS: CONCLUSION: Uncomplicated CT guided biopsy of right lower lobe pulmonary mass. Assessment and Plan - Assessment (1) Syncope Code(s): R55 - Syncope and collapse Status: Acute (2) Mass of lower lobe of right lung Code(s): R91.8 - Other nonspecific abnormal finding of lung field Status: Acute (3) Bronchitis Code(s): J40 - Bronchitis, not specified as acute or chronic Status: Acute - Plan 72 YO WM with history of COPD, CVA, HLD, HTN, and tobacco abuse admitted 06/12 for syncope and shortness of breath. 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 PER PATHOLOGY Appreciate pulmonology consult Appreciate oncology consult Anemia CBC ordered today, s/p transfusion of 2 units of packed red blood cells HAS REMAINED STABLE AT 10 Dyspnea, COPD exacerbation COPD exacerbation aggravated by presence of right lower lobe mass Continue supplemental oxygen and DuoNeb's Single dose of Solu-Medrol given today Follow leukocytosis trend Consider steroid effect Syncopal episode Occurred at home while ambulating CTA negative for PE, CT head showed no stroke Telemetry shows sinus rhythm with frequent PACs 2D echocardiogram shows normal left ventricular function, ejection fraction 60- 65% HTN Continue Lisinopril and Terazosin Sciatica Pt complaining of LLE pain from foot to buttock Multilevel neural foraminal narrowing Continue PT HYPOMAGNESIUM WE WILL REPLACE HYPOKALEMIA WE WILL REPLACE GENERALIZED WEAKNESS NEEDS SNF FOR AGGRESSIVE PT AND OT DVT Prophylaxis Lovenox AM LABS MONITOR LABS NOT WANTING COLONOSCOPY OR EGD AT THIS TIME IF LABS STABLE WILL DEFER TO ONCOLOGY REGARDING LUNG MASS WILL NEED SNF AT DC Code Status: FULL CODE Discussed Condition With: RN AND PT AND CM AND ONCOLOGY Discharge Planning: PENDING CLEARANCE OF ONCOLOGY AND SNF ACCEPTANCE (1) Syncope Qualifiers: Syncope type: unspecified Qualified Code(s): R55 - Syncope and collapse
[2018-06-21] MEDS: Senna/Docusate Sodium 8.6/50 MG Tablet PO PRN (14:44)
[2018-06-21] MEDS ORDERED: Magnesium Citrate Liq 300 ML Bottle PO ONE (18:00)
--- NOTE | 2018-06-21 18:22 | P.PNONC ---
Subjective Interval history: Sitting comfortably in bedside chair Reports constipation. Objective Vital Signs/Intake & Output: Vital Signs 06/20/18 20:00 06/20/18 20:09 06/21/18 00:00 Temperature 97.9 F 97.0 F L Pulse Rate 90 86 77 Respiratory Rate 16 18 Blood Pressure 130/68 141/79 H Pulse Oximetry 99 97 06/21/18 04:00 06/21/18 07:53 06/21/18 11:53 Temperature 98.1 F 98.2 F 98.2 F Pulse Rate 82 95 H 107 H Respiratory Rate 18 18 20 Blood Pressure 155/86 H 147/72 H 121/55 L Pulse Oximetry 97 97 96 06/21/18 15:24 Temperature 97.9 F Pulse Rate 107 H Respiratory Rate 20 Blood Pressure 121/55 L Pulse Oximetry 96 Intake & Output 06/20/18 06/21/18 06/21/18 18:59 06:59 18:59 Intake Total 1200 / 1200 480 / 480 1440 / 1440 Output Total 450 / 450 900 / 900 1300 / 1300 Balance 750 / 750 -420 / -420 140 / 140 Weight 58 kg Intake: Oral 1200 / 1200 480 / 480 1440 / 1440 Output: Urine 450 / 450 900 / 900 1300 / 1300 Other: # Voids 4 # Incontinent Voids 0 # Urine Diapers 0 Date of Last Bowel Movement 06/18/18 06/18/18 06/18/18 Result Diagrams: 06/21/18 06:11 06/21/18 06:11 Laboratory Results: Laboratory Results - last 24 hr 06/21/18 06/21/18 06:11 06:11 WBC 14.8 H RBC 3.35 L Hgb 10.1 L Hct 30.1 L MCV 89.9 MCH 30.1 MCHC 33.5 RDW 15.8 Plt Count 382 MPV 6.6 L Neut % (Auto) 83.7 H Lymph % (Auto) 8.6 L [place] % (Auto) 6.8 Eos % (Auto) 0.7 Baso % (Auto) 0.2 Neut # (Auto) 12.4 H Lymph # (Auto) 1.3 [place] # (Auto) 1.0 H Eos # (Auto) 0.1 Baso # (Auto) 0.0 WBC Differential . Differential Comment Auto diff final Sodium 137 Potassium 4.1 Chloride 101 Carbon Dioxide 30.6 Anion Gap 5 BUN 19 H Creatinine 0.69 Estimated GFR Greater than 89 Random Glucose 81 Calcium 8.4 L Phosphorus 3.2 Magnesium 1.7 Total Bilirubin 0.3 AST 18 ALT 50 Alkaline Phosphatase 67 Total Protein 5.9 L Albumin 2.4 L Imaging Studies: Impressions Head MRI 06/19/18 00:00 CONCLUSION: 1. Age-related white matter changes. No evidence of metastatic disease. No evidence of acute abnormality. Medications: Active Medications Generic Name Dose Route Start Last Admin Trade Name Freq PRN Reason Stop Dose Admin Acetaminophen 650 mg 06/18/18 13:30 06/18/18 14:22 Tylenol PO 650 mg Q4H PRN Administration SEE LABEL COMMENTS Hydrocodone Bitart/Acetaminophen 1 tab 06/15/18 18:29 06/21/18 16:46 [place] 5/325 PO 1 tab Q4H PRN Administration PAIN SCALE 6 TO 10 Al Hydroxide/Mg Hydroxide 30 ml 06/20/18 17:59 06/21/18 14:44 Milk Of Magnesia Liq PO 30 ml DAILY PRN Administration SEVERE CONSITIPATION Atorvastatin Calcium 40 mg 06/12/18 21:00 06/20/18 20:43 Lipitor PO 40 mg HS MIGEL Administration Budesonide/Formoterol Fumarate 2 puff 06/12/18 21:00 06/21/18 10:12 Symbicort 160/4.5 Mcg Inh INH 2 puff BID MIGEL Administration Diltiazem HCl 240 mg 06/19/18 09:00 06/21/18 10:10 Cardizem Cd 24hr PO 240 mg DAILY MIGEL Administration Enoxaparin Sodium 40 mg 06/13/18 09:00 06/13/18 08:56 Lovenox Inj SQ 40 mg DAILY MIGEL Administration Famotidine 20 mg 06/12/18 21:00 06/21/18 10:08 Pepcid PO 20 mg BID MIGEL Administration Folic Acid 1 mg 06/13/18 09:00 06/21/18 10:08 Folic Acid PO 1 mg DAILY MIGEL Administration Latanoprost 1 drop 06/12/18 21:00 06/20/18 20:42 Xalatan 0.005% Opth Drops EACH EYE 1 drop HS MIGEL Administration Lorazepam 1 mg 06/12/18 20:59 06/20/18 22:31 Ativan PO 1 mg Q4H PRN Administration ANXIETY AND/OR AGITATION Nicotine 1 patch 06/13/18 12:45 06/21/18 10:10 Habitrol 14 Mg Patch.24 Hr T-DERMAL 1 patch DAILY MIGEL Administration Pantoprazole Sodium 40 mg 06/18/18 18:00 06/21/18 10:08 Protonix PO 40 mg DAILY MIGEL Administration Patch Removal 1 each 06/13/18 21:00 06/20/18 20:45 Remove Old Patch T-DERMAL 1 each HS MIGEL Administration Prednisone 20 mg 06/13/18 09:00 06/21/18 10:08 Deltasone PO 20 mg DAILY MIGEL Administration Primidone 50 mg 06/12/18 21:00 06/21/18 10:10 Mysoline PO 50 mg BID MIGEL Administration Senna/Docusate Sodium 1 tab 06/20/18 17:59 06/21/18 14:44 Angella-Colace PO 1 tab BID PRN Administration CONSTIPATION Temazepam 15 mg 06/12/18 16:40 06/20/18 20:43 Restoril PO 15 mg HS PRN Administration Insomnia Terazosin HCl 1 mg 06/12/18 21:00 06/20/18 20:43 Hytrin PO 1 mg HS MIGEL Administration Thiamine HCl 100 mg 06/12/18 21:00 06/21/18 10:10 Vitamin B1 PO 100 mg BID MIGEL Administration Objective Remarks: GENERAL: Well-nourished, well-developed patient. SKIN: Warm and dry. HEAD: Normocephalic. EYES: No scleral icterus. No injection or drainage. RESPIRATORY: No accessory muscle use. GASTROINTESTINAL: Abdomen soft, non-tender, nondistended. EXTREMITIES: No cyanosis, or edema. MUSCULOSKELETAL: Adequate muscle tone. NEUROLOGICAL: No obvious focal deficit. Awake, alert, and oriented x3. PSYCHIATRIC: Appropriate mood and affect; insight and judgment normal. Assessment/Plan - Plan 1. SCC of the right lung: patient will need to have PET CT scan performed in the outpatient setting. s/p PFT, pulmonary team following. MRI brain and CT abdomen with no evidence of metastatic disease. Cleared for discharge from oncology standpoint. He will need close follow up in oncology clinic on discharge. 2. Anemia: with melanotic stools. s/p transfusion of PRBC with stability of hemoglobin. GI team following.
--- NOTE | 2018-06-21 18:41 | P.PN ---
Subjective Interval history: alert sitting in chair no distress Physical Exam Vital signs: Vital Signs 06/20/18 20:00 06/20/18 20:09 06/21/18 00:00 Temperature 97.9 F 97.0 F L Pulse Rate 90 86 77 Respiratory Rate 16 18 Blood Pressure 130/68 141/79 H Pulse Oximetry 99 97 06/21/18 04:00 06/21/18 07:53 06/21/18 11:53 Temperature 98.1 F 98.2 F 98.2 F Pulse Rate 82 95 H 107 H Respiratory Rate 18 18 20 Blood Pressure 155/86 H 147/72 H 121/55 L Pulse Oximetry 97 97 96 06/21/18 15:24 Temperature 97.9 F Pulse Rate 107 H Respiratory Rate 20 Blood Pressure 121/55 L Pulse Oximetry 96 Intake & Output 06/20/18 06/21/18 06/21/18 18:59 06:59 18:59 Intake Total 1200 / 1200 480 / 480 1440 / 1440 Output Total 450 / 450 900 / 900 1300 / 1300 Balance 750 / 750 -420 / -420 140 / 140 Weight 58 kg Intake: Oral 1200 / 1200 480 / 480 1440 / 1440 Output: Urine 450 / 450 900 / 900 1300 / 1300 Other: # Voids 4 # Incontinent Voids 0 # Urine Diapers 0 Date of Last Bowel Movement 06/18/18 06/18/18 06/18/18 Narrative: GENERAL: AAOx3, weak, fatigued, off oxygen SKIN: Warm and dry. No rashes HEAD: Atruamtic, normocephalic. EYES: No scleral icterus. No injection or drainage. ENT: Moist mucous membranes, patent nares, no erythema of oropharynx. NECK: Supple, trachea midline. No JVD or lymphadenopathy. Normal thyroid. CARDIOVASCULAR: Regular rate and rhythm. No murmurs, gallops, or rubs. RESPIRATORY: Congestive sounds in bilateral bases. No crackles or wheezes. No accessory muscle use. GASTROINTESTINAL: Abdomen soft, non-tender, nondistended, normal active bowel sounds MUSCULOSKELETAL: No cyanosis, or edema. NEURO: CN II-XII grossly intact, no focal deficits, no slurring of speech Results - Labs CBC & Chem 7: 06/21/18 06:11 06/21/18 06:11 Laboratory Results - last 24 hr 06/21/18 06/21/18 06:11 06:11 WBC 14.8 H RBC 3.35 L Hgb 10.1 L Hct 30.1 L MCV 89.9 MCH 30.1 MCHC 33.5 RDW 15.8 Plt Count 382 MPV 6.6 L Neut % (Auto) 83.7 H Lymph % (Auto) 8.6 L [place] % (Auto) 6.8 Eos % (Auto) 0.7 Baso % (Auto) 0.2 Neut # (Auto) 12.4 H Lymph # (Auto) 1.3 [place] # (Auto) 1.0 H Eos # (Auto) 0.1 Baso # (Auto) 0.0 WBC Differential . Differential Comment Auto diff final Sodium 137 Potassium 4.1 Chloride 101 Carbon Dioxide 30.6 Anion Gap 5 BUN 19 H Creatinine 0.69 Estimated GFR Greater than 89 Random Glucose 81 Calcium 8.4 L Phosphorus 3.2 Magnesium 1.7 Total Bilirubin 0.3 AST 18 ALT 50 Alkaline Phosphatase 67 Total Protein 5.9 L Albumin 2.4 L - Procedures Jey Hough CT biopsy lung RT Signed EXAM DATE: 06/14/2018 2:46 PM EDT AGE/SEX: 72 years / Male INDICATIONS: Mass. CLINICAL DATA: This is the patient's initial encounter. Patient reports that signs and symptoms have been present for 1 day and indicates a pain score of 0/ 10. MEDICAL/SURGICAL HISTORY: Chronic obstructive pulmonary disease. Stroke. Hypertension. None. [place] [facility] [place] W 3D[place]/12/2018. . BIOPSY SITE: Right lung MEDICATION(S): 2mg midazolam (Versed) IV 100mcg fentanyl (Sublimaze) IV DEVICE(S): 20 gauge BARD biopsy needle Three core specimen(s) sent to the laboratory for pathologic evaluation. . . PROCEDURE: CT guided Right lung biopsy Conscious sedation with continuous EKG and oximetry monitoring. EKG and oximetry remained stable throughout the procedure. Prior to the procedure informed consent was obtained. Any appropriate prior imaging studies were reviewed. Using automated exposure control and adjustment of the mA and/or kV according to patient size, radiation dose was kept as low as reasonably achievable to obtain optimal diagnostic quality images. DICOM format image data is available electronically for review and comparison. The site was prepped in a sterile fashion. Full sterile technique was used, including cap, mask, sterile gloves and gown and a large sterile sheet. Hand hygiene and 2% chlorhexidine and/or betadine/alcohol prep was utilized per protocol for cutaneous antisepsis. The skin and subcutaneous tissues were infiltrated with local anesthetic solution. With CT guidance the previously identified target was localized. Biopsy was performed using the prescribed needle as above. Adequate hemostasis was obtained with compression at the puncture site. Follow-up CT scan reveals no pneumothorax. Conscious sedation was performed with the prescribed dosages and duration as above in the presence of an independent trained radiology nurse to assist in the monitoring of the patient. EKG and oximetry remained stable throughout the procedure. The patient tolerated the procedure well and there were no complications. The patient was sent to Radiology Outpatient Unit in stable condition. FINDINGS: CONCLUSION: Uncomplicated CT guided biopsy of right lower lobe pulmonary mass. Assessment and Plan - Plan lung CA copd syncope htn hld plan check PATHOLOGY bronchodilator therapy increase activity ASTAGING AND TREATMENT PER Oncology
[2018-06-21] MEDS: Latanoprost 0.005% Opth Drops 2.5 ML Bottle EACH EYE SCH (21:48)
[2018-06-21] MEDS: Temazepam 15 MG Capsule PO PRN (21:50)
[2018-06-21] MEDS: LORazepam 1 MG Tablet PO PRN (23:03)
[2018-06-22 08:32] LABS: Baso % (Auto) 0.2 % (0.0-2.0); Eos # (Auto) 0.2 th/mm3 (0.0-0.4); Eos % (Auto) 1.1 % (0.0-4.0); Hematocrit 27.4 % (39.0-51.0); Hemoglobin 9.4 gm/dL (13.0-17.0); Lymph # (Auto) 1.5 th/mm3 (1.0-4.8); Lymph % (Auto) 10.6 % (9.0-44.0); Mean Corpuscular HGB Conc 34.3 % (32.0-36.0); Mean Corpuscular Hemoglobin 31.5 pg (27.0-34.0); Mean Corpuscular Volume 91.7 fL (80.0-100.0); Mean Platelet Volume 6.6 fL (7.0-11.0); Mono # (Auto) 1.1 th/mm3 (0.0-0.9); Mono % (Auto) 7.4 % (0.0-8.0); Neut # (Auto) 11.5 th/mm3 (1.8-7.7); Neut % (Auto) 80.7 % (16.0-70.0); Platelet Count 367 th/mm3 (150-450); Red Blood Count 2.99 mil/mm3 (4.50-5.90); Red Cell Distribution Width 15.4 % (11.6-17.2); White Blood Count 14.2 th/mm3 (4.0-11.0)
[2018-06-22 08:44] LABS: Alanine Aminotransferase 59 U/L (12-78); Albumin 2.3 g/dL (3.4-5.0); Alkaline Phosphatase 60 U/L (45-117); Anion Gap 6 meq/L (5-15); Aspartate Aminotransferase 25 U/L (15-37); Blood Urea Nitrogen 26 mg/dL (7-18); Calcium 7.9 mg/dL (8.5-10.1); Carbon Dioxide 29.7 meq/L (21.0-32.0); Chloride 101 meq/L (98-107); Glomerular Filtration Rate Greater Than 89 mL/min (>89); Glucose,Random 84 mg/dL (74-106); Magnesium 2.5 mg/dL (1.5-2.5); Phosphorus 2.6 mg/dL (2.5-4.9); Sodium 137 meq/L (136-145); Total Protein 5.6 g/dL (6.4-8.2)
[2018-06-22] MEDS: predniSONE 20 MG Tablet PO SCH (08:44)
[2018-06-22] MEDS: dilTIAZem CD 240 MG Capsule PO SCH (08:45)
[2018-06-22] MEDS: Primidone 50 MG Tablet PO SCH ×2 (08:45→20:26)
[2018-06-22] MEDS: Folic Acid 1 MG Tablet PO SCH (08:45)
[2018-06-22] MEDS: Famotidine 20 MG Tablet PO SCH ×2 (08:45→20:26)
[2018-06-22] MEDS: Budesonide-Formoterol 160/4.5 MCG 6 GM Inhaler INH SCH ×2 (08:47→20:24)
--- NOTE | 2018-06-22 10:08 | P.PNIM ---
Subjective Interval history: 72-year-old W male being admitted for syncope. Patient was in his usual state of health until sometime yesterday when he began experiencing lightheadedness. Says he was ambulating in his home and was only a few steps away from a chair but felt himself pass out and he landed forward into his chair, not striking any hard surfaces. Says he only passed out for a few seconds. This morning the patient felt lightheaded even upon resting, says he took a blood pressure measurement and says the systolic number was in the 80s , says he had a home care nurse accessible to him at the time and she advised him to refrain from taking his blood pressure medications. Denies having any nausea or chest pain. Says he is feeling more short of breath than usual and is unable to ascertain if his cough is any worse than usual. Denies any fevers or chills. Reports feeling substantially weaker than he did the last time he was discharged may be a week ago. Still has right leg pain periodically. Patient denies having any cardiac disease. Most recently the patient was discharged from the hospital about 1 wk ago for substantial right lower leg pain that impaired his ability to walk. He eventually regained enough strength to go home with home care. He had chest x- ray done at that time which showed a suspicious findings suggestive of a mass versus pneumonia. A CT abdomen pelvis that was done shows at least a 4 cm mass highly suspicious for malignancy. In the emergency department the patient had an EKG done which on my independent review looks like it is sinus rhythm with very diminished P waves at best. Blood pressure seems to be very stable. Patient undergone another chest x-ray which I eventually reviewed which shows the same masslike appearing lesion on the right lung field, per radiology seems to be unchanged since his last CXR. Pt states he has knowledge of a mass on his left lung from 2 months ago and has not gotten into see pulmonology yet. 06-13 Pt seen and examined for f/u syncope and lung mass. He reports he is feeling "awful." Complains of pain down entire left leg especially his knee. Reports it goes from his foot to his buttock. He has been treated for sciatica recently. Pain is constant, even at rest. The patient denies any CP, SOB, abdominal pain, or paresthesias. He is aware of large hilar mass and understands the need for biopsy. However, he has questions regarding cost of biopsy as inpatient vs. outpatient and would like to speak to someone about this. 7-30 Pt seen and examined. AFVSS. No acute events overnight. Pt's main concern continues to be pain in his left leg. He states the Ofirmev helps. We discussed his CT findings from last admission showing degenerative disc disease with some foraminal narrowing at the level of L5-S1 which is likely contributing to his symptoms. Advised that we need to pursue PT for this prior to any possible more invasive measures. He reports he should have gone to rehab the last admission and hopes to be discharged to some form of inpatient rehab or SNF after this hospitalization. From a breathing standpoint he reports he is stable other than occasional dry cough. Denies CP, abdominal pain, N/V. 731 Patient remains short of breath and weak. He underwent lung biopsy on his right lower lobe lung mass and is awaiting biopsy results. No new complaints. 8-1 Admit patient today while he was returning from the bathroom. His heart rate was up to 170, dyspneic, off of oxygen. We had a discussion about his hemoglobin which is down to 7.2. I have already ordered blood transfusions and he is accepting of this. 8-2 Patient received 2 units of packed red blood cells yesterday, today he states he feels no better, still tired and fatigued. He says that he was exposed to possible mold in his home which has a leaky roof. He asks that this might be causing his 3-4 month pattern of increasing fatigue, I reminded him that it could also be a lung mass that were working up. 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 PATIENT WILL NEED OUTPT PET SCAN WILL NEED REHAB IF CAN GET IT AUTHORIZED 8-4 having cat scans of abdomen and HAD MRI OF HEAD-(HEAD IS STABLE) SEEN BY GI AM LABS DW RN AND PT AND CM REPLACE MAG REPLACE POTASSIUM 8-5 POTASSIUM AND MAGNESIUM ARE BETTER HEMOGLOBIN REMAINS STABLE DW RN AND PT NOT WANTING COLONOSCOPY AT THIS TIME AM LABS WILL SEE WHAT LABS LOOK LIKE TOMORROW 8-6NOT WANTING COLONOSCOPY OR EGD = 8. Patient reports that respiratory status is stable. Denies any chest pain. He reports that he had constipation which has resolved today. Physical Exam Vital signs: Vital Signs 06/21/18 11:53 06/21/18 15:24 06/21/18 19:58 Temperature 98.2 F 97.9 F Pulse Rate 107 H 107 H 126 H Respiratory Rate 20 20 Blood Pressure 121/55 L 121/55 L Pulse Oximetry 96 96 06/21/18 20:13 06/21/18 23:01 06/21/18 23:13 Temperature 97.9 F 97.6 F Pulse Rate 109 H 98 H 76 Respiratory Rate 18 18 Blood Pressure 149/79 H 128/66 Pulse Oximetry 98 98 06/22/18 04:02 06/22/18 04:55 06/22/18 08:00 Temperature 97.7 F 97.9 F Pulse Rate 69 90 102 H Respiratory Rate 18 18 Blood Pressure 126/71 128/63 Pulse Oximetry 95 100 Intake & Output 06/21/18 06/22/18 06/22/18 18:59 06:59 18:59 Intake Total 1440 / 1440 240 / 240 Output Total 1300 / 1300 300 / 300 Balance 140 / 140 -60 / -60 Weight 58 kg Intake: Oral 1440 / 1440 240 / 240 Output: Urine 1300 / 1300 300 / 300 Other: # Voids 1 # Incontinent Voids 0 # Urine Diapers 0 Date of Last Bowel Movement 06/18/18 06/18/18 # Bowel Movements 1 Narrative: GENERAL: Patient sitting up in chair. Appears comfortable. SKIN: Warm and dry. HEAD: Normocephalic. EYES: No scleral icterus. No injection or drainage. NECK: Supple, trachea midline. No JVD or lymphadenopathy. CARDIOVASCULAR: Regular rate and rhythm without murmurs, gallops, or rubs. RESPIRATORY: Breath sounds equal with rhonchi bilaterally. No accessory muscle use. GASTROINTESTINAL: Abdomen soft, non-tender, nondistended. MUSCULOSKELETAL: No cyanosis, or edema. BACK: Nontender without obvious deformity. No CVA tenderness. Results - Labs CBC & Chem 7: 06/22/18 06:19 06/22/18 06:19 Laboratory Results - last 24 hr 06/18/18 06/21/18 06/22/18 05:29 22:30 06:19 WBC 14.2 H RBC 2.99 L Hgb 9.4 L Hct 27.4 L MCV 91.7 MCH 31.5 MCHC 34.3 RDW 15.4 Plt Count 367 MPV 6.6 L Neut % (Auto) 80.7 H Lymph % (Auto) 10.6 [place] % (Auto) 7.4 Eos % (Auto) 1.1 Baso % (Auto) 0.2 Neut # (Auto) 11.5 H Lymph # (Auto) 1.5 [place] # (Auto) 1.1 H Eos # (Auto) 0.2 Baso # (Auto) 0.0 WBC Differential . Differential Comment Auto diff final Sodium Potassium Chloride Carbon Dioxide Anion Gap BUN Creatinine Estimated GFR Random Glucose Calcium Phosphorus Magnesium Total Bilirubin AST ALT Alkaline Phosphatase Total Protein Albumin RBC Folate 802 Stl C.difficile Tox PCR Negative St C. diff Tox Epid 027 Negative 06/22/18 06:19 WBC RBC Hgb Hct MCV MCH MCHC RDW Plt Count MPV Neut % (Auto) Lymph % (Auto) [place] % (Auto) Eos % (Auto) Baso % (Auto) Neut # (Auto) Lymph # (Auto) [place] # (Auto) Eos # (Auto) Baso # (Auto) WBC Differential Differential Comment Sodium 137 Potassium 4.0 Chloride 101 Carbon Dioxide 29.7 Anion Gap 6 BUN 26 H Creatinine 0.65 Estimated GFR Greater than 89 Random Glucose 84 Calcium 7.9 L Phosphorus 2.6 Magnesium 2.5 D Total Bilirubin 0.2 AST 25 ALT 59 Alkaline Phosphatase 60 Total Protein 5.6 L Albumin 2.3 L RBC Folate Stl C.difficile Tox PCR St C. diff Tox Epid 027 Microbiology 06/21/18 22:30 Stool Stool Occult Blood (JAY) - Final Hemoccult positive - Procedures Jey Hough CT biopsy lung RT Signed EXAM DATE: 06/14/2018 2:46 PM EDT AGE/SEX: 72 years / Male INDICATIONS: Mass. CLINICAL DATA: This is the patient's initial encounter. Patient reports that signs and symptoms have been present for 1 day and indicates a pain score of 0/ 10. MEDICAL/SURGICAL HISTORY: Chronic obstructive pulmonary disease. Stroke. Hypertension. None. COMPARISON: [facility] [place], CTA PULMONARY W CONTRAST W 3D, 06/12/2018. . BIOPSY SITE: Right lung MEDICATION(S): 2mg midazolam (Versed) IV 100mcg fentanyl (Sublimaze) IV DEVICE(S): 20 gauge BARD biopsy needle Three core specimen(s) sent to the laboratory for pathologic evaluation. . . PROCEDURE: CT guided Right lung biopsy Conscious sedation with continuous EKG and oximetry monitoring. EKG and oximetry remained stable throughout the procedure. Prior to the procedure informed consent was obtained. Any appropriate prior imaging studies were reviewed. Using automated exposure control and adjustment of the mA and/or kV according to patient size, radiation dose was kept as low as reasonably achievable to obtain optimal diagnostic quality images. DICOM format image data is available electronically for review and comparison. The site was prepped in a sterile fashion. Full sterile technique was used, including cap, mask, sterile gloves and gown and a large sterile sheet. Hand hygiene and 2% chlorhexidine and/or betadine/alcohol prep was utilized per protocol for cutaneous antisepsis. The skin and subcutaneous tissues were infiltrated with local anesthetic solution. With CT guidance the previously identified target was localized. Biopsy was performed using the prescribed needle as above. Adequate hemostasis was obtained with compression at the puncture site. Follow-up CT scan reveals no pneumothorax. Conscious sedation was performed with the prescribed dosages and duration as above in the presence of an independent trained radiology nurse to assist in the monitoring of the patient. EKG and oximetry remained stable throughout the procedure. The patient tolerated the procedure well and there were no complications. The patient was sent to Radiology Outpatient Unit in stable condition. FINDINGS: CONCLUSION: Uncomplicated CT guided biopsy of right lower lobe pulmonary mass. Assessment and Plan - Assessment (1) Syncope Code(s): R55 - Syncope and collapse Status: Acute (2) Mass of lower lobe of right lung Code(s): R91.8 - Other nonspecific abnormal finding of lung field Status: Acute (3) Bronchitis Code(s): J40 - Bronchitis, not specified as acute or chronic Status: Acute - Plan 72 YO WM with history of COPD, CVA, HLD, HTN, and tobacco abuse admitted 06/12 for syncope and shortness of breath. 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 Patient will need outpatient PET scan. //Anemia //Suspected GI bleed CBC ordered today, s/p transfusion of 2 units of packed red blood cells 06/22. Hemoglobin 9.4 from 10.1 yesterday, 11.4 the day before. Patient has refused colonoscopy. Continue to monitor. //Dyspnea, COPD exacerbation COPD exacerbation aggravated by presence of right lower lobe mass Continue supplemental oxygen and DuoNeb's Follow leukocytosis trend Consider steroid effect = 06/22. Respiratory status stable. Still on prednisone 20 mg daily. //Syncopal episodeprior to admission Occurred at home while ambulating CTA negative for PE, CT head showed no stroke Telemetry shows sinus rhythm with frequent PACs 2D echocardiogram shows normal left ventricular function, ejection fraction 60- 65% //HTN //Atrial fibrillation with RVR -Blood pressure acceptable. Hold lisinopril. Continue terazosin. Continue diltiazem which was increased during admission. //Sciatica Pt complaining of LLE pain from foot to buttock Multilevel neural foraminal narrowing Continue PT //HYPOMAGNESIUM = Resolved after replacement. //HYPOKALEMIA = Improved after placement. //GENERALIZED WEAKNESS NEEDS SNF FOR AGGRESSIVE PT AND OT //DVT Prophylaxis Lovenox AM LABS MONITOR LABS NOT WANTING COLONOSCOPY OR EGD AT THIS TIME IF LABS STABLE WILL DEFER TO ONCOLOGY REGARDING LUNG MASS WILL NEED SNF AT DC Code Status: FULL CODE Discussed Condition With: RN AND PT AND CM AND ONCOLOGY Discharge Planning: PENDING CLEARANCE OF ONCOLOGY AND SNF ACCEPTANCE Discussed Condition With: nurse Discharge Planning: Oncology has cleared patient discharge Hemoglobin still decreasing by one-point every day. Expect only to last several days without a blood transfusion. Will trend hemoglobin tomorrow. We will need SNF placement (1) Syncope Qualifiers: Syncope type: unspecified Qualified Code(s): R55 - Syncope and collapse
[2018-06-22] MEDS: Latanoprost 0.005% Opth Drops 2.5 ML Bottle EACH EYE SCH (20:24)
[2018-06-22] MEDS: LORazepam 1 MG Tablet PO PRN (22:05)
--- NOTE | 2018-06-22 22:59 | P.PN ---
Subjective Interval history: ALERT NO SOB APPETITE GOOD Physical Exam Vital signs: Vital Signs 06/21/18 23:01 06/21/18 23:13 06/22/18 04:02 Temperature 97.6 F Pulse Rate 98 H 76 69 Respiratory Rate 18 Blood Pressure 128/66 Pulse Oximetry 98 06/22/18 04:55 06/22/18 08:00 06/22/18 11:35 Temperature 97.7 F 97.9 F 97.5 F L Pulse Rate 90 102 H 105 H Respiratory Rate 18 18 18 Blood Pressure 126/71 128/63 147/69 H Pulse Oximetry 95 100 97 06/22/18 16:00 06/22/18 20:00 Temperature 97.4 F L 97.2 F L Pulse Rate 95 H 82 Respiratory Rate 18 17 Blood Pressure 138/73 133/67 Pulse Oximetry 100 99 Intake & Output 06/22/18 06/22/18 06/23/18 06:59 18:59 06:59 Intake Total 240 / 240 1020 / 1020 Output Total 300 / 300 Balance -60 / -60 1020 / 1020 Weight 58 kg Intake: Oral 240 / 240 1020 / 1020 Output: Urine 300 / 300 Other: # Voids 1 6 Date of Last Bowel Movement 06/18/18 06/22/18 06/22/18 # Bowel Movements 1 1 Narrative: GENERAL: Patient sitting up in chair. Appears comfortable. SKIN: Warm and dry. HEAD: Normocephalic. EYES: No scleral icterus. No injection or drainage. NECK: Supple, trachea midline. No JVD or lymphadenopathy. CARDIOVASCULAR: Regular rate and rhythm without murmurs, gallops, or rubs. RESPIRATORY: Breath sounds equal with rhonchi bilaterally. No accessory muscle use. GASTROINTESTINAL: Abdomen soft, non-tender, nondistended. MUSCULOSKELETAL: No cyanosis, or edema. BACK: Nontender without obvious deformity. No CVA tenderness. Results - Labs CBC & Chem 7: 06/22/18 06:19 06/22/18 06:19 Laboratory Results - last 24 hr 06/21/18 06/22/18 06/22/18 22:30 06:19 06:19 WBC 14.2 H RBC 2.99 L Hgb 9.4 L Hct 27.4 L MCV 91.7 MCH 31.5 MCHC 34.3 RDW 15.4 Plt Count 367 MPV 6.6 L Neut % (Auto) 80.7 H Lymph % (Auto) 10.6 [place] % (Auto) 7.4 Eos % (Auto) 1.1 Baso % (Auto) 0.2 Neut # (Auto) 11.5 H Lymph # (Auto) 1.5 [place] # (Auto) 1.1 H Eos # (Auto) 0.2 Baso # (Auto) 0.0 WBC Differential . Differential Comment Auto diff final Sodium 137 Potassium 4.0 Chloride 101 Carbon Dioxide 29.7 Anion Gap 6 BUN 26 H Creatinine 0.65 Estimated GFR Greater than 89 Random Glucose 84 Calcium 7.9 L Phosphorus 2.6 Magnesium 2.5 D Total Bilirubin 0.2 AST 25 ALT 59 Alkaline Phosphatase 60 Total Protein 5.6 L Albumin 2.3 L Stl C.difficile Tox PCR Negative St C. diff Tox Epid 027 Negative Microbiology 06/21/18 22:30 Stool Stool Occult Blood (JAY) - Final Hemoccult positive - Procedures eJy Hough CT biopsy lung RT Signed EXAM DATE: 06/14/2018 2:46 PM EDT AGE/SEX: 72 years / Male INDICATIONS: Mass. CLINICAL DATA: This is the patient's initial encounter. Patient reports that signs and symptoms have been present for 1 day and indicates a pain score of 0/ 10. MEDICAL/SURGICAL HISTORY: Chronic obstructive pulmonary disease. Stroke. Hypertension. None. COMPARISON: [facility] [place], CTA PULMONARY W CONTRAST W 3D, 06/12/2018. . BIOPSY SITE: Right lung MEDICATION(S): 2mg midazolam (Versed) IV 100mcg fentanyl (Sublimaze) IV DEVICE(S): 20 gauge BARD biopsy needle Three core specimen(s) sent to the laboratory for pathologic evaluation. . . PROCEDURE: CT guided Right lung biopsy Conscious sedation with continuous EKG and oximetry monitoring. EKG and oximetry remained stable throughout the procedure. Prior to the procedure informed consent was obtained. Any appropriate prior imaging studies were reviewed. Using automated exposure control and adjustment of the mA and/or kV according to patient size, radiation dose was kept as low as reasonably achievable to obtain optimal diagnostic quality images. DICOM format image data is available electronically for review and comparison. The site was prepped in a sterile fashion. Full sterile technique was used, including cap, mask, sterile gloves and gown and a large sterile sheet. Hand hygiene and 2% chlorhexidine and/or betadine/alcohol prep was utilized per protocol for cutaneous antisepsis. The skin and subcutaneous tissues were infiltrated with local anesthetic solution. With CT guidance the previously identified target was localized. Biopsy was performed using the prescribed needle as above. Adequate hemostasis was obtained with compression at the puncture site. Follow-up CT scan reveals no pneumothorax. Conscious sedation was performed with the prescribed dosages and duration as above in the presence of an independent trained radiology nurse to assist in the monitoring of the patient. EKG and oximetry remained stable throughout the procedure. The patient tolerated the procedure well and there were no complications. The patient was sent to Radiology Outpatient Unit in stable condition. FINDINGS: CONCLUSION: Uncomplicated CT guided biopsy of right lower lobe pulmonary mass. Assessment and Plan - Plan lung CA copd syncope htn hld plan bronchodilator therapy increase activity TREATMENT PER Oncology
[2018-06-23] MEDS: LORazepam 1 MG Tablet PO PRN ×2 (02:43→22:15)
[2018-06-23 07:51] LABS: Baso % (Auto) 0.2 % (0.0-2.0); Eos # (Auto) 0.2 th/mm3 (0.0-0.4); Eos % (Auto) 1.5 % (0.0-4.0); Hematocrit 26.6 % (39.0-51.0); Hemoglobin 9.1 gm/dL (13.0-17.0); Lymph # (Auto) 1.6 th/mm3 (1.0-4.8); Mean Corpuscular HGB Conc 34.2 % (32.0-36.0); Mean Corpuscular Hemoglobin 31.5 pg (27.0-34.0); Mean Platelet Volume 6.6 fL (7.0-11.0); Mono # (Auto) 1.1 th/mm3 (0.0-0.9); Mono % (Auto) 8.4 % (0.0-8.0); Neut # (Auto) 9.7 th/mm3 (1.8-7.7); Neut % (Auto) 76.9 % (16.0-70.0); Platelet Count 325 th/mm3 (150-450); Red Blood Count 2.89 mil/mm3 (4.50-5.90); Red Cell Distribution Width 15.5 % (11.6-17.2); White Blood Count 12.6 th/mm3 (4.0-11.0)
[2018-06-23 08:23] LABS: Albumin 2.3 g/dL (3.4-5.0); Anion Gap 8 meq/L (5-15); Blood Urea Nitrogen 18 mg/dL (7-18); Calcium 8.4 mg/dL (8.5-10.1); Carbon Dioxide 27.1 meq/L (21.0-32.0); Chloride 102 meq/L (98-107); Glomerular Filtration Rate Greater Than 89 mL/min (>89); Glucose,Random 70 mg/dL (74-106); Potassium 3.9 meq/L (3.5-5.1); Sodium 137 meq/L (136-145)
[2018-06-23] MEDS: Folic Acid 1 MG Tablet PO SCH (08:47)
[2018-06-23] MEDS: predniSONE 20 MG Tablet PO SCH (08:47)
[2018-06-23] MEDS: Famotidine 20 MG Tablet PO SCH ×2 (08:48→20:33)
[2018-06-23] MEDS: dilTIAZem CD 240 MG Capsule PO SCH (08:48)
[2018-06-23] MEDS: Primidone 50 MG Tablet PO SCH ×2 (08:48→20:33)
[2018-06-23] MEDS: Budesonide-Formoterol 160/4.5 MCG 6 GM Inhaler INH SCH ×2 (08:55→20:36)
--- NOTE | 2018-06-23 11:20 | P.PNIM ---
Subjective Interval history: Patient says he is feeling fatigued today. Reports black watery diarrhea over the past day. Denies any abdominal pain. Physical Exam Vital signs: Vital Signs 06/22/18 11:35 06/22/18 16:00 06/22/18 20:00 Temperature 97.5 F L 97.4 F L 97.2 F L Pulse Rate 105 H 95 H 82 Respiratory Rate 18 18 17 Blood Pressure 147/69 H 138/73 133/67 Pulse Oximetry 97 100 99 06/23/18 00:00 06/23/18 04:00 06/23/18 08:00 Temperature 98.4 F 97.3 F L 97.6 F Pulse Rate 81 77 105 H Respiratory Rate 18 16 18 Blood Pressure 141/76 H 156/81 H 151/71 H Pulse Oximetry 97 99 97 Intake & Output 06/22/18 06/23/18 06/23/18 18:59 06:59 18:59 Intake Total 1020 / 1020 480 / 480 Output Total 800 / 800 Balance 1020 / 1020 -320 / -320 Weight 58.2 kg Intake: Oral 1020 / 1020 480 / 480 Output: Urine 800 / 800 Other: # Voids 6 Date of Last Bowel Movement 06/22/18 06/22/18 06/22/18 # Bowel Movements 1 Narrative: GENERAL: Patient lying in bed. Sleeping, wakes up for exam. SKIN: Warm and dry. HEAD: Normocephalic. EYES: No scleral icterus. No injection or drainage. NECK: Supple, trachea midline. No JVD. CARDIOVASCULAR: Regular rate and rhythm without murmurs, gallops, or rubs. RESPIRATORY: Breath sounds equal with rhonchi bilaterally. No accessory muscle use. GASTROINTESTINAL: Abdomen soft, non-tender, nondistended. MUSCULOSKELETAL: No cyanosis, or edema. BACK: Nontender without obvious deformity. No CVA tenderness. Results - Labs CBC & Chem 7: 06/23/18 05:54 06/23/18 05:54 Laboratory Results - last 24 hr 06/23/18 06/23/18 05:54 05:54 WBC 12.6 H RBC 2.89 L Hgb 9.1 L Hct 26.6 L MCV 92.0 MCH 31.5 MCHC 34.2 RDW 15.5 Plt Count 325 MPV 6.6 L Neut % (Auto) 76.9 H Lymph % (Auto) 13.0 [place] % (Auto) 8.4 H Eos % (Auto) 1.5 Baso % (Auto) 0.2 Neut # (Auto) 9.7 H Lymph # (Auto) 1.6 [place] # (Auto) 1.1 H Eos # (Auto) 0.2 Baso # (Auto) 0.0 WBC Differential . Differential Comment Auto diff final Sodium 137 Potassium 3.9 Chloride 102 Carbon Dioxide 27.1 Anion Gap 8 BUN 18 Creatinine 0.67 Estimated GFR Greater than 89 Random Glucose 70 L Calcium 8.4 L Phosphorus 3.0 Albumin 2.3 L - Procedures Jey Hough CT biopsy lung RT Signed EXAM DATE: 06/14/2018 2:46 PM EDT AGE/SEX: 72 years / Male INDICATIONS: Mass. CLINICAL DATA: This is the patient's initial encounter. Patient reports that signs and symptoms have been present for 1 day and indicates a pain score of 0/ 10. MEDICAL/SURGICAL HISTORY: Chronic obstructive pulmonary disease. Stroke. Hypertension. None. COMPARISON: [facility] [place], CTA PULMONARY W CONTRAST W 3D, 06/12/2018. . BIOPSY SITE: Right lung MEDICATION(S): 2mg midazolam (Versed) IV 100mcg fentanyl (Sublimaze) IV DEVICE(S): 20 gauge BARD biopsy needle Three core specimen(s) sent to the laboratory for pathologic evaluation. . . PROCEDURE: CT guided Right lung biopsy Conscious sedation with continuous EKG and oximetry monitoring. EKG and oximetry remained stable throughout the procedure. Prior to the procedure informed consent was obtained. Any appropriate prior imaging studies were reviewed. Using automated exposure control and adjustment of the mA and/or kV according to patient size, radiation dose was kept as low as reasonably achievable to obtain optimal diagnostic quality images. DICOM format image data is available electronically for review and comparison. The site was prepped in a sterile fashion. Full sterile technique was used, including cap, mask, sterile gloves and gown and a large sterile sheet. Hand hygiene and 2% chlorhexidine and/or betadine/alcohol prep was utilized per protocol for cutaneous antisepsis. The skin and subcutaneous tissues were infiltrated with local anesthetic solution. With CT guidance the previously identified target was localized. Biopsy was performed using the prescribed needle as above. Adequate hemostasis was obtained with compression at the puncture site. Follow-up CT scan reveals no pneumothorax. Conscious sedation was performed with the prescribed dosages and duration as above in the presence of an independent trained radiology nurse to assist in the monitoring of the patient. EKG and oximetry remained stable throughout the procedure. The patient tolerated the procedure well and there were no complications. The patient was sent to Radiology Outpatient Unit in stable condition. FINDINGS: CONCLUSION: Uncomplicated CT guided biopsy of right lower lobe pulmonary mass. Assessment and Plan - Assessment (1) Syncope Code(s): R55 - Syncope and collapse Status: Acute (2) Mass of lower lobe of right lung Code(s): R91.8 - Other nonspecific abnormal finding of lung field Status: Acute (3) Bronchitis Code(s): J40 - Bronchitis, not specified as acute or chronic Status: Acute - Plan 72 YO WM with history of COPD, CVA, HLD, HTN, and tobacco abuse admitted 06/12 for syncope and shortness of breath. 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 Patient will need outpatient PET scan. //Anemia //Suspected GI bleed CBC ordered today, s/p transfusion of 2 units of packed red blood cells 06/22. Hemoglobin 9.4 from 10.1 yesterday, 11.4 the day before. Patient has refused colonoscopy. Continue to monitor. = 06/23. Hemoglobin 9.1 from 9.4. Patient with black diarrhea. Patient agreeable to EGD and colonoscopy now. Have discussed with gastroenterology who will scope. Appreciate assistance. Will also transfuse with IV iron sucrose. //Dyspnea, COPD exacerbation COPD exacerbation aggravated by presence of right lower lobe mass Continue supplemental oxygen and DuoNeb's Follow leukocytosis trend Consider steroid effect = 06/23. Respiratory status stable. Still on prednisone 20 mg daily. Appreciate pulmonology assistance. //Syncopal episodeprior to admission Occurred at home while ambulating CTA negative for PE, CT head showed no stroke Telemetry shows sinus rhythm with frequent PACs 2D echocardiogram shows normal left ventricular function, ejection fraction 60- 65% //HTN //Atrial fibrillation with RVR -Blood pressure acceptable. Hold lisinopril. Continue terazosin. Continue diltiazem which was increased during admission. //Sciatica Pt complaining of LLE pain from foot to buttock Multilevel neural foraminal narrowing Continue PT //HYPOMAGNESIUM = Resolved after replacement. //HYPOKALEMIA = Improved after placement. //GENERALIZED WEAKNESS NEEDS SNF FOR AGGRESSIVE PT AND OT //DVT Prophylaxis Lovenox Code Status: FULL CODE Discharge Planning: Oncology has cleared patient discharge Patient has agreed to EGD/colonoscopy. -Hopefully discharge tomorrow after EGD and colonoscopy if hemoglobin stable We will need SNF placement (1) Syncope Qualifiers: Syncope type: unspecified Qualified Code(s): R55 - Syncope and collapse
[2018-06-23] MEDS ORDERED: Iron Sucrose Inj 200 MG in Sodium Chlor 0.9% Inj 100 ML IV.SIG ONE (13:00)
--- NOTE | 2018-06-23 15:59 | MB ---
cc: Jg Guevara MD, Donato R MD DATE: 06/23/2018 REFERRING PHYSICIAN: Dr. Antony. HISTORY OF PRESENT ILLNESS: Jey is a 72-year-old male admitted late last month with a syncopal episode. He was found to have a lung mass, which is a squamous cell carcinoma, on biopsy. The patient was also found to be anemic. He is somewhat of a poor historian. He apparently was constipated, and then he states they gave him a lot of laxatives, and then he developed diarrhea. His stools are now black and watery. He is Hemoccult positive. His GI history is significant for having undergone a colonoscopy with Dr. Kwan in early 2015, with 1 small adenomatous polyp removed, along with diverticulosis and very small hemorrhoids. The patient was admitted to the hospital around 03/2016 with rectal bleeding and was seen by Dr. Jin. Bleeding stopped on its own and no further studies were done. He came back several months later in 2015, again with rectal bleeding, at which time a bleeding scan was negative and again no further intervention was needed. The patient has a history of regular heavy alcohol use. Previous ultrasounds have shown heterogenous liver echotexture. He currently denies any abdominal pain. PAST MEDICAL HISTORY: Remarkable for COPD, history of CVA, hyperlipidemia, hypertension, tachycardia, alcohol, tobacco abuse, knee arthropathy. FAMILY HISTORY: His father had esophageal cancer. There is also a family history of hypertension. SOCIAL HISTORY: The patient is a regular smoker, but states he quit when he was admitted to the hospital a couple of weeks ago. Also, has a history of heavy regular alcohol use. CURRENT MEDICATIONS: Include: 1. Hydrocodone p.r.n. 2. Albuterol inhaler. 3. Lipitor. 4. Symbicort inhaler. 5. Cardizem. 6. Lovenox. 7. Pepcid. 8. Romazicon p.r.n. 9. He has several other p.r.n.'s ordered mostly for GI symptoms, including constipation and diarrhea. 10. He also has been getting pantoprazole 40 mg daily. 11. Prednisone 20 mg daily. 12. Mysoline 50 mg twice a day. ALLERGIES: NO KNOWN DRUG ALLERGIES. REVIEW OF SYSTEMS: Remarkable for generalized weakness. He has chronic dyspnea, but no current complaints of shortness of breath. No chest pain. No abdominal pain. No nausea or vomiting. He states he was constipated, but they gave him several laxatives recently, and now he is having black watery stools. The remainder of the 12-point review of systems was negative. PHYSICAL EXAMINATION: GENERAL: Reveals a chronically ill-appearing male in no acute distress. VITAL SIGNS: His blood pressure is 109/68, pulse is 100, respirations are 20, temperature is 97.6. LUNGS: Reveal diminished breath sounds bilaterally, otherwise clear. No wheezing. HEART: Sounds are distant. ABDOMEN: Rounded, soft, and nontender. No palpable masses or organomegaly. EXTREMITIES: No peripheral edema. NEUROLOGIC: He was alert and cooperative, with a pleasant affect. LABORATORY DATA: His BUN is 18, creatinine 0.67. His ALT is 59, AST 25, alkaline phosphatase 60, total bilirubin 0.2. His hemoglobin is 9.1. Platelet count is 325,000. IMPRESSION: 1. Anemia with Hemoccult-positive stool. The patient with a colonoscopy done 2-1/2 years ago. It does not appear that he has had an upper endoscopy, at least not by our practice. 2. He does have a history of heavy alcohol use. PLAN: I discussed EGD and colonoscopy with the patient. He states he feels too weak to go through the bowel prep for colonoscopy, and he would prefer to have just the upper endoscopy at this time and then, if negative, he will consider colonoscopy at a later time. I told him we could do both under the same anesthetic, but he prefers to do just the upper endoscopy at this time. I reviewed the procedure with him including the risks, benefits, and alternatives, and informed consent obtained. MD EVANS Willoughby/bea , 02:38 PM , 02:50 PM ELVA
[2018-06-23] MEDS: Latanoprost 0.005% Opth Drops 2.5 ML Bottle EACH EYE SCH (20:36)
[2018-06-23] MEDS: Temazepam 15 MG Capsule PO PRN (20:37)
[2018-06-24 06:00] LABS: Baso % (Auto) 0.3 % (0.0-2.0); Eos # (Auto) 0.2 th/mm3 (0.0-0.4); Eos % (Auto) 1.3 % (0.0-4.0); Hematocrit 24.7 % (39.0-51.0); Hemoglobin 8.4 gm/dL (13.0-17.0); Lymph # (Auto) 1.5 th/mm3 (1.0-4.8); Lymph % (Auto) 11.9 % (9.0-44.0); Mean Corpuscular Hemoglobin 31.3 pg (27.0-34.0); Mean Platelet Volume 6.5 fL (7.0-11.0); Mono % (Auto) 8.5 % (0.0-8.0); Neut # (Auto) 9.6 th/mm3 (1.8-7.7); Platelet Count 349 th/mm3 (150-450); Red Blood Count 2.69 mil/mm3 (4.50-5.90); Red Cell Distribution Width 15.4 % (11.6-17.2); White Blood Count 12.3 th/mm3 (4.0-11.0)
[2018-06-24 06:26] LABS: Albumin 2.4 g/dL (3.4-5.0); Anion Gap 8 meq/L (5-15); Blood Urea Nitrogen 16 mg/dL (7-18); Calcium 8.5 mg/dL (8.5-10.1); Carbon Dioxide 27.2 meq/L (21.0-32.0); Chloride 99 meq/L (98-107); Glomerular Filtration Rate Greater Than 89 mL/min (>89); Glucose,Random 79 mg/dL (74-106); Potassium 3.8 meq/L (3.5-5.1); Sodium 134 meq/L (136-145)
[2018-06-24 06:27] LABS: Phosphorus 3.1 mg/dL (2.5-4.9)
[2018-06-24] MEDS: Primidone 50 MG Tablet PO SCH ×2 (09:21→21:24)
[2018-06-24] MEDS: predniSONE 20 MG Tablet PO SCH (09:21)
[2018-06-24] MEDS: dilTIAZem CD 240 MG Capsule PO SCH (09:21)
[2018-06-24] MEDS: Budesonide-Formoterol 160/4.5 MCG 6 GM Inhaler INH SCH ×2 (11:35→21:23)
[2018-06-24] MEDS ORDERED: Lidocaine PF 1% Inj 5 ML Syringe INFILTRATN ONE (12:00)
[2018-06-24] MEDS ORDERED: Phenylephrine/NS 1000 MCG/10ML Syringe IV.PUSH ONE (12:00)
--- NOTE | 2018-06-24 16:29 | GIPROC ---
[facility] [address] [facility]. [facility], [address] EGD PROCEDURE REPORT EXAM DATE: 06/24/2018 PATIENT NAME: Jey Hough MR #: [id number] BIRTHDATE: 1945 ATTENDING: Jg Guevara MD ORDER #: [id number] PARALEGAL ASSISTANT: Helen Campbell and Betty Flores STATUS: inpatient INDICATIONS: The patient is a 72 yr old male here for an EGD due to anemia and occult blood positive PROCEDURE PERFORMED: EGD w/ biopsy MEDICATIONS: None and Per Anesthesia. TOPICAL ANESTHETIC: none CONSENT: The patient understands the risks and benefits of the procedure and understands that these risks include, but are not limited to: sedation, allergic reaction, infection, perforation and/or bleeding. Alternative means of evaluation and treatment include, among others: physical exam, x-rays, and/or surgical intervention. The patient elects to proceed with this endoscopic procedure. medical equipment was checked for proper function. Hand hygiene and appropriate measures for infection prevention was taken. After the risks, benefits and alternatives of the procedure were thoroughly explained, Informed consent was verified, confirmed and timeout was successfully executed by the treatment team. The patient was anesthetized with topical anesthesia and the Radialpointax [id number] endoscope was introduced through the mouth and advanced to the second portion of the duodenum. Retroflexed views revealed a hiatal hernia The gastroscope was then slowly withdrawn and removed. ESOPHAGUS: White exudates consistent with candidiasis were found. The esophagus was otherwise normal. Multiple biopsies were performed using cold forceps. STOMACH: Multiple 1mm erosions were found in the gastric antrum. Multiple biopsies was performed. Sample sent for histology. DUODENUM: Mild duodenal inflammation was found in the duodenal bulb. ADVERSE EVENTS: There were no complications. IMPRESSIONS: 1. White exudates consistent with candidiasis 2. The esophagus was otherwise normal 3. Multiple 1mm erosions were found in the gastric antrum; multiple biopsies was performed 4. Duodenal inflammation was found in the duodenal bulb 5. Retroflexed views revealed a hiatal hernia RECOMMENDATIONS: 1. Await biopsy results. Biopsy results will not be ready for 7-10 days. If you don't hear from us in two weeks, call our office for biopsy results. 2. Continue PPI 3. Avoid NSAIDS PATIENT CONDITION: stable DISPOSITION: Inpatient REPEAT EXAM: NONE Jg Guevara MD eSigned: Jg Guevara MD 06/24/2018 4:29 PM cc: PATIENT NAME: Jey Hough MR#: [id number]
--- NOTE | 2018-06-24 18:52 | P.PNIM ---
Subjective Interval history: As he is feeling generally fatigued. Denies any chest pain or shortness of breath. Denies any bleeding. He denies any difficulty swallowing. Physical Exam Vital signs: Vital Signs 06/23/18 20:00 06/24/18 00:00 06/24/18 04:00 Temperature 97.8 F 98.4 F 97 F L Pulse Rate 88 90 83 Respiratory Rate 16 18 15 Blood Pressure 140/70 147/75 H 166/70 H Pulse Oximetry 99 98 99 06/24/18 08:00 06/24/18 11:00 06/24/18 12:00 Temperature 98.7 F 98.6 F Pulse Rate 90 82 88 Respiratory Rate 18 Blood Pressure 154/87 H 94/53 L 126/64 Pulse Oximetry 99 99 99 06/24/18 16:30 06/24/18 17:00 Temperature 97.4 F L Pulse Rate 75 88 Respiratory Rate 20 Blood Pressure 127/65 Pulse Oximetry 100 Intake & Output 06/23/18 06/24/18 06/24/18 18:59 06:59 18:59 Intake Total 1140 / 1140 Output Total 1700 / 1700 700 / 700 Balance -1700 / -1700 440 / 440 Weight 58.1 kg Intake: Oral 240 / 240 Anesthesia Amount 900 / 900 Output: Urine 1700 / 1700 700 / 700 Other: Date of Last Bowel Movement 06/22/18 06/22/18 06/23/18 Narrative: GENERAL: Patient sitting up in chair. Awake, alert. SKIN: Warm and dry. HEAD: Normocephalic. EYES: No scleral icterus. No injection or drainage. NECK: Supple, trachea midline. No JVD. Slight oral thrush noted. CARDIOVASCULAR: Regular rate and rhythm without murmurs, gallops, or rubs. RESPIRATORY: Breath sounds equal with rhonchi bilaterally. No accessory muscle use. GASTROINTESTINAL: Abdomen soft, non-tender, nondistended. MUSCULOSKELETAL: No cyanosis, or edema. BACK: Nontender without obvious deformity. No CVA tenderness. Results - Labs CBC & Chem 7: 06/24/18 05:31 06/24/18 05:31 Laboratory Results - last 24 hr 06/24/18 06/24/18 05:31 05:31 WBC 12.3 H RBC 2.69 L Hgb 8.4 L Hct 24.7 L MCV 92.0 MCH 31.3 MCHC 34.0 RDW 15.4 Plt Count 349 MPV 6.5 L Neut % (Auto) 78.0 H Lymph % (Auto) 11.9 [place] % (Auto) 8.5 H Eos % (Auto) 1.3 Baso % (Auto) 0.3 Neut # (Auto) 9.6 H Lymph # (Auto) 1.5 [place] # (Auto) 1.0 H Eos # (Auto) 0.2 Baso # (Auto) 0.0 WBC Differential . Differential Comment Auto diff final Sodium 134 L Potassium 3.8 Chloride 99 Carbon Dioxide 27.2 Anion Gap 8 BUN 16 Creatinine 0.81 Estimated GFR Greater than 89 Random Glucose 79 Calcium 8.5 Phosphorus 3.1 Albumin 2.4 L - Procedures Jey Hough CT biopsy lung RT Signed EXAM DATE: 06/14/2018 2:46 PM EDT AGE/SEX: 72 years / Male INDICATIONS: Mass. CLINICAL DATA: This is the patient's initial encounter. Patient reports that signs and symptoms have been present for 1 day and indicates a pain score of 0/ 10. MEDICAL/SURGICAL HISTORY: Chronic obstructive pulmonary disease. Stroke. Hypertension. None. [place] [facility] [place] W 3[place]. . BIOPSY SITE: Right lung MEDICATION(S): 2mg midazolam (Versed) IV 100mcg fentanyl (Sublimaze) IV DEVICE(S): 20 gauge BARD biopsy needle Three core specimen(s) sent to the laboratory for pathologic evaluation. . . PROCEDURE: CT guided Right lung biopsy Conscious sedation with continuous EKG and oximetry monitoring. EKG and oximetry remained stable throughout the procedure. Prior to the procedure informed consent was obtained. Any appropriate prior imaging studies were reviewed. Using automated exposure control and adjustment of the mA and/or kV according to patient size, radiation dose was kept as low as reasonably achievable to obtain optimal diagnostic quality images. DICOM format image data is available electronically for review and comparison. The site was prepped in a sterile fashion. Full sterile technique was used, including cap, mask, sterile gloves and gown and a large sterile sheet. Hand hygiene and 2% chlorhexidine and/or betadine/alcohol prep was utilized per protocol for cutaneous antisepsis. The skin and subcutaneous tissues were infiltrated with local anesthetic solution. With CT guidance the previously identified target was localized. Biopsy was performed using the prescribed needle as above. Adequate hemostasis was obtained with compression at the puncture site. Follow-up CT scan reveals no pneumothorax. Conscious sedation was performed with the prescribed dosages and duration as above in the presence of an independent trained radiology nurse to assist in the monitoring of the patient. EKG and oximetry remained stable throughout the procedure. The patient tolerated the procedure well and there were no complications. The patient was sent to Radiology Outpatient Unit in stable condition. FINDINGS: CONCLUSION: Uncomplicated CT guided biopsy of right lower lobe pulmonary mass. Assessment and Plan - Assessment (1) Syncope Code(s): R55 - Syncope and collapse Status: Acute (2) Mass of lower lobe of right lung Code(s): R91.8 - Other nonspecific abnormal finding of lung field Status: Acute (3) Bronchitis Code(s): J40 - Bronchitis, not specified as acute or chronic Status: Acute - Plan 72 YO WM with history of COPD, CVA, HLD, HTN, and tobacco abuse admitted 06/12 for syncope and shortness of breath. 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 Patient will need outpatient PET scan. //Anemia //Suspected GI bleed CBC ordered today, s/p transfusion of 2 units of packed red blood cells 06/22. Hemoglobin 9.4 from 10.1 yesterday, 11.4 the day before. Patient has refused colonoscopy. Continue to monitor. = 06/23. Hemoglobin 9.1 from 9.4. Patient with black diarrhea. Patient agreeable to EGD and colonoscopy now. Have discussed with gastroenterology who will scope. Appreciate assistance. Will also transfuse with IV iron sucrose. = 06/24. Hemoglobin 8.4 from 9.1. EGD shows some esophagitis, gastritis, duodenal inflammation which has been biopsied. Will supplement IV iron again today. Recheck hemoglobin tomorrow. Hopefully has stabilized. //Iveth esophagitis Patient has no difficulty swallowing. Likely secondary to prednisone. Will start with p.o. nystatin. GI following. Appreciate assistance. //Dyspnea, COPD exacerbation COPD exacerbation aggravated by presence of right lower lobe mass Continue supplemental oxygen and DuoNeb's Follow leukocytosis trend Consider steroid effect = 06/23. Respiratory status stable. Still on prednisone 20 mg daily. Appreciate pulmonology assistance. = 06/24 taper prednisone. //Syncopal episodeprior to admission Occurred at home while ambulating CTA negative for PE, CT head showed no stroke Telemetry shows sinus rhythm with frequent PACs 2D echocardiogram shows normal left ventricular function, ejection fraction 60- 65% //HTN //Atrial fibrillation with RVR -Blood pressure acceptable. Hold lisinopril. Continue terazosin. Continue diltiazem which was increased during admission. //Sciatica Pt complaining of LLE pain from foot to buttock Multilevel neural foraminal narrowing Continue PT //HYPOMAGNESIUM = Resolved after replacement. //HYPOKALEMIA = Improved after placement. //GENERALIZED WEAKNESS NEEDS SNF FOR AGGRESSIVE PT AND OT //DVT Prophylaxis Lovenox Code Status: FULL CODE Discharge Planning: Oncology has cleared patient discharge To SNF when hemoglobin stable, otherwise patient would be high risk for readmission. We will need SNF placement (1) Syncope Qualifiers: Syncope type: unspecified Qualified Code(s): R55 - Syncope and collapse
[2018-06-24] MEDS ORDERED: Iron Sucrose Inj 100 MG in Sodium Chlor 0.9% Inj 100 ML IV.SIG ONE (20:00)
[2018-06-24] MEDS: Famotidine 20 MG Tablet PO SCH ×2 (20:35→21:24)
[2018-06-24] MEDS: Folic Acid 1 MG Tablet PO SCH (20:35)
[2018-06-24] MEDS: Latanoprost 0.005% Opth Drops 2.5 ML Bottle EACH EYE SCH (21:23)
[2018-06-24] MEDS: Nystatin Liq 500,000 UNIT/5 ML UDC SWISH-SWAL SCH (21:24)
[2018-06-24] MEDS: Temazepam 15 MG Capsule PO PRN (21:31)
[2018-06-24] MEDS: LORazepam 1 MG Tablet PO PRN (22:45)
[2018-06-25 06:47] LABS: Baso % (Auto) 0.2 % (0.0-2.0); Eos # (Auto) 0.1 th/mm3 (0.0-0.4); Eos % (Auto) 1.1 % (0.0-4.0); Hemoglobin 8.6 gm/dL (13.0-17.0); Lymph # (Auto) 1.3 th/mm3 (1.0-4.8); Lymph % (Auto) 11.8 % (9.0-44.0); Mean Corpuscular Hemoglobin 30.6 pg (27.0-34.0); Mean Corpuscular Volume 92.5 fL (80.0-100.0); Mean Platelet Volume 6.5 fL (7.0-11.0); Mono % (Auto) 8.5 % (0.0-8.0); Neut # (Auto) 8.8 th/mm3 (1.8-7.7); Neut % (Auto) 78.4 % (16.0-70.0); Platelet Count 367 th/mm3 (150-450); Red Blood Count 2.81 mil/mm3 (4.50-5.90); Red Cell Distribution Width 15.5 % (11.6-17.2); White Blood Count 11.2 th/mm3 (4.0-11.0)
[2018-06-25 07:13] LABS: Albumin 2.3 g/dL (3.4-5.0); Anion Gap 6 meq/L (5-15); Blood Urea Nitrogen 13 mg/dL (7-18); Calcium 8.3 mg/dL (8.5-10.1); Carbon Dioxide 29.1 meq/L (21.0-32.0); Chloride 102 meq/L (98-107); Glomerular Filtration Rate Greater Than 89 mL/min (>89); Glucose,Random 74 mg/dL (74-106); Phosphorus 3.5 mg/dL (2.5-4.9); Potassium 3.6 meq/L (3.5-5.1); Sodium 137 meq/L (136-145)
--- NOTE | 2018-06-25 08:04 | P.PN ---
Subjective Interval history: ALERT NO SOB OCC COUGH WHITE SPUTUM Physical Exam Vital signs: Vital Signs 06/24/18 11:00 06/24/18 12:00 06/24/18 16:30 Temperature 98.6 F 97.4 F L Pulse Rate 82 88 75 Respiratory Rate 20 Blood Pressure 94/53 L 126/64 127/65 Pulse Oximetry 99 99 100 06/24/18 17:00 06/24/18 20:00 06/24/18 22:42 Temperature 98.2 F Pulse Rate 88 83 Respiratory Rate 16 Blood Pressure 138/78 Pulse Oximetry 06/25/18 00:00 06/25/18 04:00 Temperature Pulse Rate 75 76 Respiratory Rate 16 16 Blood Pressure 145/75 H Pulse Oximetry 98 99 Intake & Output 06/24/18 06/25/18 06/25/18 18:59 06:59 18:59 Intake Total 1140 / 1140 340 / 340 Output Total 700 / 700 750 / 750 Balance 440 / 440 -410 / -410 Weight 58.1 kg Intake: Oral 240 / 240 240 / 240 Anesthesia Amount 900 / 900 Other 100 / 100 Output: Urine 700 / 700 750 / 750 Other: # Voids 6 # Incontinent Voids 0 # Urine Diapers 0 Date of Last Bowel Movement 06/23/18 06/23/18 # Bowel Movements 1 Narrative: GENERAL: Patient sitting up in chair. Awake, alert. SKIN: Warm and dry. HEAD: Normocephalic. EYES: No scleral icterus. No injection or drainage. NECK: Supple, trachea midline. No JVD. Slight oral thrush noted. CARDIOVASCULAR: Regular rate and rhythm without murmurs, gallops, or rubs. RESPIRATORY: Breath sounds equal with rhonchi bilaterally. No accessory muscle use. GASTROINTESTINAL: Abdomen soft, non-tender, nondistended. MUSCULOSKELETAL: No cyanosis, or edema. BACK: Nontender without obvious deformity. No CVA tenderness. Results - Labs CBC & Chem 7: 06/25/18 06:12 06/25/18 06:12 Laboratory Results - last 24 hr 06/25/18 06/25/18 06:12 06:12 WBC 11.2 H RBC 2.81 L Hgb 8.6 L Hct 26.0 L MCV 92.5 MCH 30.6 MCHC 33.0 RDW 15.5 Plt Count 367 MPV 6.5 L Neut % (Auto) 78.4 H Lymph % (Auto) 11.8 [place] % (Auto) 8.5 H Eos % (Auto) 1.1 Baso % (Auto) 0.2 Neut # (Auto) 8.8 H Lymph # (Auto) 1.3 [place] # (Auto) 1.0 H Eos # (Auto) 0.1 Baso # (Auto) 0.0 WBC Differential . Differential Comment Auto diff final Sodium 137 Potassium 3.6 Chloride 102 Carbon Dioxide 29.1 Anion Gap 6 BUN 13 Creatinine 0.81 Estimated GFR Greater than 89 Random Glucose 74 Calcium 8.3 L Phosphorus 3.5 Albumin 2.3 L - Procedures Jey Hough CT biopsy lung RT Signed EXAM DATE: 06/14/2018 2:46 PM EDT AGE/SEX: 72 years / Male INDICATIONS: Mass. CLINICAL DATA: This is the patient's initial encounter. Patient reports that signs and symptoms have been present for 1 day and indicates a pain score of 0/ 10. MEDICAL/SURGICAL HISTORY: Chronic obstructive pulmonary disease. Stroke. Hypertension. None. [place] [facility] [place] W 3D[place]/12/[place]. . BIOPSY SITE: Right lung MEDICATION(S): 2mg midazolam (Versed) IV 100mcg fentanyl (Sublimaze) IV DEVICE(S): 20 gauge BARD biopsy needle Three core specimen(s) sent to the laboratory for pathologic evaluation. . . PROCEDURE: CT guided Right lung biopsy Conscious sedation with continuous EKG and oximetry monitoring. EKG and oximetry remained stable throughout the procedure. Prior to the procedure informed consent was obtained. Any appropriate prior imaging studies were reviewed. Using automated exposure control and adjustment of the mA and/or kV according to patient size, radiation dose was kept as low as reasonably achievable to obtain optimal diagnostic quality images. DICOM format image data is available electronically for review and comparison. The site was prepped in a sterile fashion. Full sterile technique was used, including cap, mask, sterile gloves and gown and a large sterile sheet. Hand hygiene and 2% chlorhexidine and/or betadine/alcohol prep was utilized per protocol for cutaneous antisepsis. The skin and subcutaneous tissues were infiltrated with local anesthetic solution. With CT guidance the previously identified target was localized. Biopsy was performed using the prescribed needle as above. Adequate hemostasis was obtained with compression at the puncture site. Follow-up CT scan reveals no pneumothorax. Conscious sedation was performed with the prescribed dosages and duration as above in the presence of an independent trained radiology nurse to assist in the monitoring of the patient. EKG and oximetry remained stable throughout the procedure. The patient tolerated the procedure well and there were no complications. The patient was sent to Radiology Outpatient Unit in stable condition. FINDINGS: CONCLUSION: Uncomplicated CT guided biopsy of right lower lobe pulmonary mass. Assessment and Plan - Plan lung CA copd syncope htn hld plan bronchodilator therapy increase activity TREATMENT PER Oncology OK FOR D/C HOME OFFICE 2/3 WEEKS
[2018-06-25] MEDS: dilTIAZem CD 240 MG Capsule PO SCH (08:38)
[2018-06-25] MEDS: predniSONE 20 MG Tablet PO SCH (08:38)
[2018-06-25] MEDS: Famotidine 20 MG Tablet PO SCH (08:38)
[2018-06-25] MEDS: Folic Acid 1 MG Tablet PO SCH (08:38)
[2018-06-25] MEDS: Nystatin Liq 500,000 UNIT/5 ML UDC SWISH-SWAL SCH (08:38)
[2018-06-25] MEDS: Budesonide-Formoterol 160/4.5 MCG 6 GM Inhaler INH SCH (08:38)
[2018-06-25] MEDS: Primidone 50 MG Tablet PO SCH (08:38)
[2018-06-25] MEDS ORDERED: Iron Sucrose Inj 100 MG/5 ML Vial IV.PUSH ONE (08:45)
[2018-06-25 09:41] VITALS: RESP 18
--- NOTE | 2018-06-25 09:48 | P.DS ---
Date of admission: 06/12/18 15:08 Primary care physician: [facility] Brief History from admission: 72-year-old W male being admitted for syncope. Patient was in his usual state of health until sometime yesterday when he began experiencing lightheadedness. Says he was ambulating in his home and was only a few steps away from a chair but felt himself pass out and he landed forward into his chair, not striking any hard surfaces. Says he only passed out for a few seconds. This morning the patient felt lightheaded even upon resting, says he took a blood pressure measurement and says the systolic number was in the 80s , says he had a home care nurse accessible to him at the time and she advised him to refrain from taking his blood pressure medications. Denies having any nausea or chest pain. Says he is feeling more short of breath than usual and is unable to ascertain if his cough is any worse than usual. Denies any fevers or chills. Reports feeling substantially weaker than he did the last time he was discharged may be a week ago. Still has right leg pain periodically. Patient denies having any cardiac disease. Most recently the patient was discharged from the hospital about 1 wk ago for substantial right lower leg pain that impaired his ability to walk. He eventually regained enough strength to go home with home care. He had chest x- ray done at that time which showed a suspicious findings suggestive of a mass versus pneumonia. A CT abdomen pelvis that was done shows at least a 4 cm mass highly suspicious for malignancy. In the emergency department the patient had an EKG done which on my independent review looks like it is sinus rhythm with very diminished P waves at best. Blood pressure seems to be very stable. Patient undergone another chest x-ray which I eventually reviewed which shows the same masslike appearing lesion on the right lung field, per radiology seems to be unchanged since his last CXR. Pt states he has knowledge of a mass on his left lung from 2 months ago and has not gotten into see pulmonology yet. DS: Diagnosis - Discharge Diagnosis (1) Syncope Status: Acute (2) Mass of lower lobe of right lung Status: Acute (3) Bronchitis Status: Acute DS: Medications - Discharge Medications Prescriptions: artificial tears(hypromellose) [GenTeal Severe] 1 drops EACH EYE Q6H PRN 30 Days g PRN Reason: dry eyes ferrous fumarate 324 mg PO BID 30 Days #60 tab hydrocodone-acetaminophen 1 tab PO Q4H PRN 3 Days #18 tab PRN Reason: Pain Scale 6 To 10 lorazepam 1 mg PO Q4H PRN #18 tab PRN Reason: ANXIETY nystatin 5 ml SWISH-SWAL QID 7 Days #140 ml temazepam 15 mg PO HS PRN #30 cap PRN Reason: Insomnia DS: Summary Hospital Course: Patient was treated for COPD exacerbation with improvement. Patient was found to have right lower lobe mass, underwent biopsy which is positive for squamous cell carcinoma. Patient demonstrated iron deficiency anemia which required blood transfusion, however patient initially refused EGD and colonoscopy. Due to continued downtrending hemoglobin, patient agreed to EGD which shows gastritis and duodenal inflammation which was biopsied with biopsies pending at time of discharge. Hemoglobin subsequently stable, patient was treated with IV iron infusion. After discussing risks and benefits with patient, patient's anticoagulants will be held. Follow-up with GI as outpatient. Patient will need to follow-up with oncologist. No evidence of metastatic disease beyond primary lesion. Will need a PET scan performed as outpatient on follow-up with oncology. For problem based summary from most recent progress note, please see below. 72 YO WM with history of COPD, CVA, HLD, HTN, and tobacco abuse admitted 06/12 for syncope and shortness of breath. 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 Patient will need outpatient PET scan. //Anemia //Iron deficiency anemia CBC ordered today, s/p transfusion of 2 units of packed red blood cells 06/22. Hemoglobin 9.4 from 10.1 yesterday, 11.4 the day before. Patient has refused colonoscopy. Continue to monitor. = 06/23. Hemoglobin 9.1 from 9.4. Patient with black diarrhea. Patient agreeable to EGD and colonoscopy now. Have discussed with gastroenterology who will scope. Appreciate assistance. Will also transfuse with IV iron sucrose. = 06/24. Hemoglobin 8.4 from 9.1. EGD shows some esophagitis, gastritis, duodenal inflammation which has been biopsied. Will supplement IV iron again today. Recheck hemoglobin tomorrow. Hopefully has stabilized. = 06/25. Hemoglobin 8.6 from 8.4. Stable and improving. Start on iron. IV iron today prior to discharge. Will continue to hold aspirin and Plavix. Hopefully can be started back on aspirin on follow-up with oncology. //Iveth esophagitis Patient has no difficulty swallowing. Likely secondary to prednisone. Will start with p.o. nystatin. GI following. Appreciate assistance. -Continue on nystatin for 7 more days. Patient instructed to swish after using inhaled steroids. //Dyspnea, COPD exacerbation COPD exacerbation aggravated by presence of right lower lobe mass Continue supplemental oxygen and DuoNeb's Follow leukocytosis trend Consider steroid effect = 06/25. Continue chronic prednisone //Syncopal episodeprior to admission Occurred at home while ambulating CTA negative for PE, CT head showed no stroke Telemetry shows sinus rhythm with frequent PACs 2D echocardiogram shows normal left ventricular function, ejection fraction 60- 65% //HTN //Atrial fibrillation with RVR -Blood pressure acceptable. Hold lisinopril. Continue terazosin. Continue diltiazem which was increased during admission. //Sciatica Pt complaining of LLE pain from foot to buttock Multilevel neural foraminal narrowing Continue PT //HYPOMAGNESIUM = Resolved after replacement. //HYPOKALEMIA = Improved after placement. //GENERALIZED WEAKNESS NEEDS SNF FOR AGGRESSIVE PT AND OT //DVT Prophylaxis Lovenox Code Status: FULL CODE Discharge Planning: Oncology has cleared patient discharge To SNF when hemoglobin stable, otherwise patient would be high risk for readmission. We will need SNF placement - Time Spent with Patient Total time spent providing and/or coordinating discharge services: Greater than 30 minutes - Quality: VTE Deep Vein Thrombosis/Pulmonary Embolism Present on Admission: No Exam Vital signs: Vital Signs 06/24/18 11:00 06/24/18 12:00 06/24/18 16:30 Temperature 98.6 F 97.4 F L Pulse Rate 82 88 75 Respiratory Rate 20 Blood Pressure 94/53 L 126/64 127/65 Pulse Oximetry 99 99 100 06/24/18 17:00 06/24/18 20:00 06/24/18 22:42 Temperature 98.2 F Pulse Rate 88 83 Respiratory Rate 16 Blood Pressure 138/78 Pulse Oximetry 06/25/18 00:00 06/25/18 04:00 06/25/18 08:00 Temperature 97.5 F L Pulse Rate 75 76 101 H Respiratory Rate 16 16 18 Blood Pressure 145/75 H 125/73 Pulse Oximetry 98 99 97 Intake & Output 06/24/18 06/25/18 06/25/18 18:59 06:59 18:59 Intake Total 1140 / 1140 340 / 340 Output Total 700 / 700 750 / 750 Balance 440 / 440 -410 / -410 Weight 58.1 kg Intake: Oral 240 / 240 240 / 240 Anesthesia Amount 900 / 900 Other 100 / 100 Output: Urine 700 / 700 750 / 750 Other: # Voids 6 # Incontinent Voids 0 # Urine Diapers 0 Date of Last Bowel Movement 06/23/18 06/23/18 # Bowel Movements 1 Results Procedures completed during hospitalization: Jey Hough CT biopsy lung RT Signed EXAM DATE: 06/14/2018 2:46 PM EDT AGE/SEX: 72 years / Male INDICATIONS: Mass. CLINICAL DATA: This is the patient's initial encounter. Patient reports that signs and symptoms have been present for 1 day and indicates a pain score of 0/ 10. MEDICAL/SURGICAL HISTORY: Chronic obstructive pulmonary disease. Stroke. Hypertension. None. COMPARISON: [facility] [place] CT[place] PULMONARY W CONTRAST W 3D, 06/12/2018. . BIOPSY SITE: Right lung MEDICATION(S): 2mg midazolam (Versed) IV 100mcg fentanyl (Sublimaze) IV DEVICE(S): 20 gauge BARD biopsy needle Three core specimen(s) sent to the laboratory for pathologic evaluation. . . PROCEDURE: CT guided Right lung biopsy Conscious sedation with continuous EKG and oximetry monitoring. EKG and oximetry remained stable throughout the procedure. Prior to the procedure informed consent was obtained. Any appropriate prior imaging studies were reviewed. Using automated exposure control and adjustment of the mA and/or kV according to patient size, radiation dose was kept as low as reasonably achievable to obtain optimal diagnostic quality images. DICOM format image data is available electronically for review and comparison. The site was prepped in a sterile fashion. Full sterile technique was used, including cap, mask, sterile gloves and gown and a large sterile sheet. Hand hygiene and 2% chlorhexidine and/or betadine/alcohol prep was utilized per protocol for cutaneous antisepsis. The skin and subcutaneous tissues were infiltrated with local anesthetic solution. With CT guidance the previously identified target was localized. Biopsy was performed using the prescribed needle as above. Adequate hemostasis was obtained with compression at the puncture site. Follow-up CT scan reveals no pneumothorax. Conscious sedation was performed with the prescribed dosages and duration as above in the presence of an independent trained radiology nurse to assist in the monitoring of the patient. EKG and oximetry remained stable throughout the procedure. The patient tolerated the procedure well and there were no complications. The patient was sent to Radiology Outpatient Unit in stable condition. FINDINGS: CONCLUSION: Uncomplicated CT guided biopsy of right lower lobe pulmonary mass. Pending studies at discharge: Pending at discharge 06/24/18 08:07 Surgical [PTH] Routine Labs on day of discharge: Labs from last 24 hours 06/25/18 06/25/18 06:12 06:12 WBC 11.2 H RBC 2.81 L Hgb 8.6 L Hct 26.0 L MCV 92.5 MCH 30.6 MCHC 33.0 RDW 15.5 Plt Count 367 MPV 6.5 L Neut % (Auto) 78.4 H Lymph % (Auto) 11.8 [place] % (Auto) 8.5 H Eos % (Auto) 1.1 Baso % (Auto) 0.2 Neut # (Auto) 8.8 H Lymph # (Auto) 1.3 [place] # (Auto) 1.0 H Eos # (Auto) 0.1 Baso # (Auto) 0.0 WBC Differential . Differential Comment Auto diff final Sodium 137 Potassium 3.6 Chloride 102 Carbon Dioxide 29.1 Anion Gap 6 BUN 13 Creatinine 0.81 Estimated GFR Greater than 89 Random Glucose 74 Calcium 8.3 L Phosphorus 3.5 Albumin 2.3 L - Impressions ITS Impressions Chest CTA 06/12/18 00:00 CONCLUSION: Right lower lobe mass almost certainly malignant. There is no evidence of PE for technique. Head CT 06/13/18 00:00 CONCLUSION: Atrophy, otherwise negative for an acute process. Luc Lundberg MD FACR . Venous Doppler Study 06/13/18 00:00 CONCLUSION: 1. The study is negative for bilateral lower extremity deep venous thrombosis. Lung Biopsy CT 06/14/18 00:00 CONCLUSION: Uncomplicated CT guided biopsy of right lower lobe pulmonary mass. Chest X-Ray 06/14/18 14:31 CONCLUSION: No evidence of pneumothorax status post right lung biopsy. Abdomen/Pelvis CT 06/19/18 00:00 CONCLUSION: 1. No acute findings on abdomen and pelvic CT. No evidence for metastatic disease. Colonic diverticulosis without diverticulitis. 2. Mass in right lower lobe, previously biopsied. Head MRI 06/19/18 00:00 CONCLUSION: 1. Age-related white matter changes. No evidence of metastatic disease. No evidence of acute abnormality. Discharge Plan - Discharge Disposition Patient Disposition: Discharge to SNF - Discharge Condition Condition: Good - Discharge Order Discharge Orders: Discharge Order (Routine); Ordered 06/25/18 Ordered By: Cm Willis - Discharge Details Anticipated Discharge Date: 06/25/18 - Physicians Team Primary Care Provider: [facility],Physician 's Attending Provider: Cm Willis Other Providers: Samantha Mckeon MD ; Frances Looney ; Olga Lidia Johnson,Agency ; [facility] ; Norbert Morin MD ; Jg Guevara MD
[2018-06-25] MEDS ORDERED: Iron Sucrose Inj 100 MG in Sodium Chlor 0.9% Inj 100 ML IV.SIG ONE (10:00)
--- NOTE | 2018-06-25 10:16 | P.PNGI ---
Subjective Interval history: I discussed with Jey the results of yesterday's EGD. He has no significant heartburn or dysphagia so will wait for esophageal bxs to see if any candidiasis. H&H stable. He has refused another colonoscopy at this time but I reminded him he should schedule one with Dr Kwan as soon as he feels up to it. Physical Exam Vital signs: Vital Signs 06/24/18 11:00 06/24/18 12:00 06/24/18 16:30 Temperature 98.6 F 97.4 F L Pulse Rate 82 88 75 Respiratory Rate 20 Blood Pressure 94/53 L 126/64 127/65 Pulse Oximetry 99 99 100 06/24/18 17:00 06/24/18 20:00 06/24/18 22:42 Temperature 98.2 F Pulse Rate 88 83 Respiratory Rate 16 Blood Pressure 138/78 Pulse Oximetry 06/25/18 00:00 06/25/18 04:00 06/25/18 08:00 Temperature 97.5 F L Pulse Rate 75 76 101 H Respiratory Rate 16 16 18 Blood Pressure 145/75 H 125/73 Pulse Oximetry 98 99 97 Intake & Output 06/24/18 06/25/18 06/25/18 18:59 06:59 18:59 Intake Total 1140 / 1140 340 / 340 Output Total 700 / 700 750 / 750 Balance 440 / 440 -410 / -410 Weight 58.1 kg Intake: Oral 240 / 240 240 / 240 Anesthesia Amount 900 / 900 Other 100 / 100 Output: Urine 700 / 700 750 / 750 Other: # Voids 6 # Incontinent Voids 0 # Urine Diapers 0 Date of Last Bowel Movement 06/23/18 06/23/18 # Bowel Movements 1 - Constitutional no acute distress - Routine Abdominal Exam Present: soft. Absent: tenderness Results - Labs CBC & Chem 7: 06/25/18 06:12 06/25/18 06:12 Laboratory Results - last 24 hr 06/25/18 06/25/18 06:12 06:12 WBC 11.2 H RBC 2.81 L Hgb 8.6 L Hct 26.0 L MCV 92.5 MCH 30.6 MCHC 33.0 RDW 15.5 Plt Count 367 MPV 6.5 L Neut % (Auto) 78.4 H Lymph % (Auto) 11.8 [place] % (Auto) 8.5 H Eos % (Auto) 1.1 Baso % (Auto) 0.2 Neut # (Auto) 8.8 H Lymph # (Auto) 1.3 [place] # (Auto) 1.0 H Eos # (Auto) 0.1 Baso # (Auto) 0.0 WBC Differential . Differential Comment Auto diff final Sodium 137 Potassium 3.6 Chloride 102 Carbon Dioxide 29.1 Anion Gap 6 BUN 13 Creatinine 0.81 Estimated GFR Greater than 89 Random Glucose 74 Calcium 8.3 L Phosphorus 3.5 Albumin 2.3 L - Procedures Jey Hough CT biopsy lung RT Signed EXAM DATE: 06/14/2018 2:46 PM EDT AGE/SEX: 72 years / Male INDICATIONS: Mass. CLINICAL DATA: This is the patient's initial encounter. Patient reports that signs and symptoms have been present for 1 day and indicates a pain score of 0/ 10. MEDICAL/SURGICAL HISTORY: Chronic obstructive pulmonary disease. Stroke. Hypertension. None. COMPARISON: [facility], CTA PULMONARY W CONTRAST W 3D, 06/12/2018. . BIOPSY SITE: Right lung MEDICATION(S): 2mg midazolam (Versed) IV 100mcg fentanyl (Sublimaze) IV DEVICE(S): 20 gauge BARD biopsy needle Three core specimen(s) sent to the laboratory for pathologic evaluation. . . PROCEDURE: CT guided Right lung biopsy Conscious sedation with continuous EKG and oximetry monitoring. EKG and oximetry remained stable throughout the procedure. Prior to the procedure informed consent was obtained. Any appropriate prior imaging studies were reviewed. Using automated exposure control and adjustment of the mA and/or kV according to patient size, radiation dose was kept as low as reasonably achievable to obtain optimal diagnostic quality images. DICOM format image data is available electronically for review and comparison. The site was prepped in a sterile fashion. Full sterile technique was used, including cap, mask, sterile gloves and gown and a large sterile sheet. Hand hygiene and 2% chlorhexidine and/or betadine/alcohol prep was utilized per protocol for cutaneous antisepsis. The skin and subcutaneous tissues were infiltrated with local anesthetic solution. With CT guidance the previously identified target was localized. Biopsy was performed using the prescribed needle as above. Adequate hemostasis was obtained with compression at the puncture site. Follow-up CT scan reveals no pneumothorax. Conscious sedation was performed with the prescribed dosages and duration as above in the presence of an independent trained radiology nurse to assist in the monitoring of the patient. EKG and oximetry remained stable throughout the procedure. The patient tolerated the procedure well and there were no complications. The patient was sent to Radiology Outpatient Unit in stable condition. FINDINGS: CONCLUSION: Uncomplicated CT guided biopsy of right lower lobe pulmonary mass. Assessment and Plan (1) Heme positive stool Status: Acute Code(s): R19.5 - Other fecal abnormalities - Plan OK to discharge to rehab from GI standpoint. Will f/u stomach and esophagus bxs. Will sign off.
[2018-06-25 12:57] VITALS: BP 120/70; PULSE 104; TEMP 98; O2SAT 99
== END 2018-06-25 13:30 ==
LOC: NEPE 11:39 → NEDA 15:08 → N04 16:15 → HCIN 06-17 16:46
PROVIDERS: ADMIT Internal Medicine; ATTEND Internal Medicine
PROC: PANENDO (2018-06-24 16:07)